=== PATIENT | female | born 1930 | race Caucasian/White ===

== ENCOUNTER 2017-01-26 13:00 | Inpatient (IN) | payer MEDICARE, BC ==
--- NOTE | 2017-02-05 21:05 | HP ---
HISTORY AND PHYSICAL: DATE OF SURGERY/ADMISSION: 02/11/17 PROCEDURE: Right total knee arthroplasty. CHIEF COMPLAINT: Right knee pain. HISTORY OF PRESENT ILLNESS: Ms. Coffman is an 86-year-old female with complaints of right knee pain se condary to advanced osteoarthritis. She has failed conservative management and has elected to proce ed with a right total knee arthroplasty which is scheduled for 02/11/[address] Lynne. PAST MEDICAL HISTORY: 1. Hypothyroidism. 2. Hypertension. 3. Hyperlipidemia. 4. Sleep apnea. 5. GERD. 6. Depression. 7. Hiatal hernia and she is legally blind. PAST SURGICAL HISTORY: 1. Hysterectomy. 2. . CURRENT MEDICATIONS: 1. Atorvastatin calcium 10 mg once a day. 2. Amlodipine 2.5 mg once a day. 3. Paxil 10 mg once a day. 4. Levothyroxine 75 mcg once a day. 5. Spironolactone 25 mg once a day. 6. Tylenol as needed. 7. Omeprazole 40 mg once a day. 8. Aspirin 81 mg once a day. ALLERGIES: ALTACE. FAMILY HISTORY: Pancreatic and lung cancer, heart disease. SOCIAL HISTORY: She is an 86-year-old female. She lives alone at [place]. She does not smoke or use drugs or alcohol. REVIEW OF SYSTEMS: A complete 14-point review of systems was reviewed with the patient. It was pos itive for hypothyroidism. PHYSICAL EXAMINATION GENERAL: She is well developed, well nourished. She is in no acute distress. She is alert and alyssia ented x3. Pleasant mood and appropriate affect. VITAL SIGNS: She stands 5 feet 3 inches tall, weighs 180 pounds. Her blood pressure is 154/70. He r heart rate is 68. HEENT: Normocephalic, atraumatic. NECK: Supple. No palpable lymph nodes. PULMONARY: The lungs are clear to auscultation. CARDIO: Regular rate and rhythm. Strong S1, S2. ABDOMEN: Soft, nontender, nondistended. NEUROLOGICAL: Cranial nerves II through XII are intact. MUSCULOSKELETAL: Right lower extremity: The skin is intact, no open wounds or abrasions. She has full range of motion of the right knee. Tenderness over the medial and lateral joint line. Moderat e joint effusion. Her lower extremity muscle group strengths are intact at 5/5. She has 2+ dorsali s pedis pulses and intact sensation. ASSESSMENT AND PLAN: Ms. Coffman is an 86-year-old female with complaints of right knee pain secondar y to advanced osteoarthritis. She has failed conservative management and has elected to proceed wit a right total knee arthroplasty which is scheduled for 02/11/[address] Lynne discuss ed the risks and benefits of the surgery at today's visit and all of her questions were answered. er primary care physician, Dr. Valdez, has medically cleared her for the procedure. She will follow up with Dr. Lynne 2 weeks after the surgery. Percocet, Colace, and Coumadin were all sent to her phar luis enrique today for postoperative DVT prophylaxis and pain control. LOBITO SANTANA [id number]/[facility] #: [id number]
[2017-02-10] MEDS ORDERED: Buffered Lidocaine 1% SYR 3ML* 3 ML/SYR SYRINGE INTRADERM ONE (11:57)
[2017-02-11] MEDS ORDERED: ceFAZolin 2 GM PREMIX(*) 2 GM/50 ML BAG IVPB ONE (10:39)
[2017-02-11] MEDS ORDERED: Buffered Lidocaine 1% SYRIN* 5 ML/SYR SYRINGE ONE (10:39)
[2017-02-11] MEDS ORDERED: Midazolam* 1 MG/ML 2 ML VIAL (2 MG) ONE ×2 (11:26→14:11)
[2017-02-11] MEDS ORDERED: fentaNYL* 50 MCG/ML 2 ML VIAL (100 MCG VIAL) ONE (11:26)
[2017-02-11] MEDS ORDERED: Morphine PF AMP (0.5MG/ML)* 5 MG/10 ML AMP ONE (13:15)
[2017-02-11] MEDS ORDERED: Bupivacaine 0.5% SDV PF* 30 ML VIAL ONE (14:33)
[2017-02-11] MEDS ORDERED: Ondansetron INJ* 2 MG/ML VIAL IV PRN ×2 (14:53→15:53)
[2017-02-11] MEDS ORDERED: oxyCODONE/Acetamin 5/325 MG* TAB PO PRN (14:53)
[2017-02-11] MEDS ORDERED: Nalbuphine* 20 MG/ML 1 ML VIAL IV PRN (14:54)
[2017-02-11] MEDS ORDERED: Naloxone* 0.4 MG/ML 1 ML VIAL IV PRN (14:54)
[2017-02-11] MEDS ORDERED: DiMENhydriNATE IV* 50 MG/ML VIAL IV PUSH PRN (14:54)
[2017-02-11] MEDS ORDERED: diPHENhydraMINE IV* 50 MG/ML 1 ml VIAL (BENADRYL) IV PRN (14:54)
[2017-02-11] MEDS ORDERED: Ondansetron TAB* 4 MG PO PRN (15:53)
[2017-02-11] MEDS ORDERED: Propofol* 10 MG/ML 20 ML BTL IV PUSH ONE (15:54)
[2017-02-11] MEDS ORDERED: Polyethylene Glycol 3350* 17 GM PACKET PO PRN (15:58)
[2017-02-11] MEDS ORDERED: Bisacodyl SUPP* 10 MG SUPP PR PRN (15:58)
[2017-02-11] MEDS ORDERED: Warfarin TAB(*) 6 MG PO ONE (17:00)
--- NOTE | 2017-02-11 18:22 | RAD ---
Indication: Right knee replacement. 2 views of the right knee demonstrates right knee replacement in satisfactory position. IMPRESSION: Right knee replacement in satisfactory position.
--- NOTE | 2017-02-11 19:20 | PN ---
Hospitalist Progress Note Spoke with Ortho PA earlier in the day regarding consult for this patient and later realized this is a primary patient of Dr. Valdez's Saw her briefly after surgery. She is feeling well, no complaints, no pain, still with residual analgesia from operation. On exam, pleasant elderly F, sitting up in bed in NAD, RRR, s1 and s2 present, no m/g/r, lungs CTA B/L, no w/r/r, NC in place, abd soft, NTND, BS hyperactive, R knee with cryounit in place. Meds reviewed. S/P R TKA Will hold Spironolactone for now. Continue Amlodipine. Placed order for patient to use her own CPAP tonight. Please contact Dr. Valdez in the morning to continue to follow.
[2017-02-11] MEDS: oxyCODONE/Acetamin 5/325 MG* TAB PO PRN (20:57)
[2017-02-11] MEDS: amLODIPine TAB* 5 MG PO SCH (20:58)
[2017-02-11] MEDS: Docusate CAP* 100 MG PO SCH (20:58)
[2017-02-11] MEDS: Omeprazole CAP* 20 MG PO SCH (20:58)
[2017-02-11] MEDS: Magnesium Hydroxide LIQ* 30 ML UDC PO SCH (20:58)
[2017-02-11] MEDS ORDERED: Spironolactone TAB* 25 MG PO SCH (21:00)
[2017-02-11] MEDS: ceFAZolin 1 GM in Dextrose (*) 1 GM/50 ML BAG IVPB SCH (21:31)
[2017-02-12] MEDS: oxyCODONE/Acetamin 5/325 MG* TAB PO PRN ×3 (00:29→23:52)
[2017-02-12] MEDS: Levothyroxine TAB* 75 MCG TAB PO SCH (06:23)
[2017-02-12] MEDS: ceFAZolin 1 GM in Dextrose (*) 1 GM/50 ML BAG IVPB SCH ×2 (06:23→13:49)
[2017-02-12 06:43] LABS: Hematocrit 29 % (35-47); Hemoglobin 9.5 g/dl (12.0-16.0)
[2017-02-12 06:51] LABS: BUN/Creatinine Ratio 21.2 (8-20); Calcium 8.4 mg/dL (8.6-10.3); EGFR African American 81.6 (>60); EGFR Non-African American 63.4 (>60); Potassium 4.2 mmol/L (3.5-5.0)
[2017-02-12] MEDS ORDERED: Morphine INJ* 10 MG/ML 1 ML SYRINGE IV PRN (06:54)
[2017-02-12] MEDS ORDERED: diPHENhydraMINE PO* 25 MG PO PRN (06:54)
[2017-02-12] MEDS ORDERED: oxyCODONE/Acetamin 5/325 MG* TAB PO PRN (06:54)
[2017-02-12] MEDS ORDERED: diPHENhydraMINE IV* 50 MG/ML 1 ml VIAL (BENADRYL) IV PRN (06:54)
[2017-02-12] MEDS ORDERED: oxyCODONE TAB* 5 MG TAB PO PRN (06:54)
[2017-02-12] MEDS: Docusate CAP* 100 MG PO SCH ×2 (07:32→20:20)
[2017-02-12] MEDS: Magnesium Hydroxide LIQ* 30 ML UDC PO SCH ×2 (07:32→20:20)
[2017-02-12] MEDS: PARoxetine HCL TAB* 10 MG PO SCH (07:32)
--- NOTE | 2017-02-12 07:59 | PN ---
Progress Note - Progress Note SOAP: Subjective: 86 year old female s/p R total knee 02/[address] Lynne. patient reports feeling well overall, pain controlled, eating well. Afebrile overnight, VSS Objective: General- Well appearing, NAD resting comfortably MSK- SUrgical dressing intact, no drainage noted, neg homans b/l, sensation grossly intact b/l LEs PT 2+ b/l LEs, + DF/PF b/l. Vital Signs Temp 97.7 F 02/12/17 03:15 Pulse 55 02/12/17 03:15 Resp 16 02/12/17 07:32 BP 118/41 02/12/17 03:15 Pulse Ox 96 02/12/17 03:15 Intake & Output 02/11/17 02/12/17 02/12/17 18:59 06:59 18:59 Intake Total 1500 1320 Output Total 150 1025 Balance 1350 295 Weight 178 lb 9.6 oz Intake: IV Fluids 1500 465 LR 1500 465 IVPB 55 LR 55 Oral 800 Output: Govea 150 1025 Other: # Bowel Movements 0 Laboratory Results - last 24 hr 02/12/17 02/12/17 02/12/17 06:10 06:10 06:10 Hgb 9.5 L Hct 29 L INR (Anticoag Therapy) 0.96 Sodium 132 L Potassium 4.2 Chloride 103 Carbon Dioxide 24 Anion Gap 5 BUN 18 Creatinine 0.85 Est GFR ( Amer) 81.6 Est GFR (Non-Af Amer) 63.4 BUN/Creatinine Ratio 21.2 H Glucose 136 H Calcium 8.4 L Assessment: 86 year old female s/p R total knee 02/[address] Lynne Plan: - DVT- lovenox, coumadin- 6mg tonight. - Called DR. Solis office, left message for patient to be seen in house. - COntinue PT/ OT - Attempt to wean from O2 throughout the day Active Medications Generic Name Dose Route Start Last Admin Trade Name Freq PRN Reason Stop Dose Admin Acetaminophen 650 mg 02/11/17 15:53 Tylenol Tab* PO Q4H PRN mild pain or fever Amlodipine Besylate 2.5 mg 02/11/17 18:00 02/11/17 20:58 Norvasc Tab* PO 2.5 mg QPM MASOUD Administration Bisacodyl 10 mg 02/11/17 15:58 Dulcolax Supp* UT DAILY PRN constipation Diphenhydramine HCl 12.5 mg 02/12/17 06:54 Benadryl Iv* IV Q6H PRN PRURITIS Diphenhydramine HCl 25 mg 02/12/17 06:54 Benadryl Po* PO Q6H PRN insominia Docusate Sodium 100 mg 02/11/17 21:00 02/12/17 07:32 Colace Cap* PO 100 mg BID MASOUD Administration Enoxaparin Sodium 30 mg 02/12/17 16:00 Lovenox(*) SUBCUT Q24H MASOUD Cefazolin Sodium/Dextrose 1 gm in 50 mls @ 200 mls/hr 02/11/17 22:00 06:23 Kefzol 1 Gm In Dextrose Duplex (*) IVPB 02/12/17 14:14 200 mls/hr Q8H MASOUD Administration Lactated Ringer's 1,000 mls @ 100 mls/hr 02/11/17 16:00 02/11/17 19:01 Lactated Ringers 1000 Ml Bag* IV 100 mls/hr PER RATE MASOUD Administration Lactulose 30 ml 02/11/17 15:58 Lactulose* PO Q6H PRN constipation Levothyroxine Sodium 75 mcg 02/12/17 06:00 02/12/17 06:23 Synthroid Tab* PO 75 mcg 0600 MASOUD Administration Magnesium Hydroxide 30 ml 02/11/17 21:00 02/12/17 07:32 Milk Of Magnesia Liq* PO 30 ml BID MASOUD Administration Morphine Sulfate 5 mg 02/12/17 06:54 Morphine Inj (Syringe)* IV Q2H PRN PAIN Omeprazole 40 mg 02/11/17 18:00 02/11/17 20:58 Prilosec Cap* PO 40 mg QPM MASOUD Administration Ondansetron HCl 4 mg 02/11/17 15:53 Zofran Inj* IV Q6H PRN nausea Ondansetron HCl 4 mg 02/11/17 15:53 Zofran Tab* PO Q6H PRN NAUSEA Oxycodone HCl 10 mg 02/12/17 06:54 Roxycodone Tab* PO Q4H PRN breakthrough pain Oxycodone/Acetaminophen 1 tab 02/11/17 14:53 Percocet 5/325 Tab* PO 02/12/17 14:54 ONCE PRN PAIN - MODERATE Oxycodone/Acetaminophen 1 tab 02/12/17 06:54 Percocet 5/325 Tab* PO Q3H PRN PAIN - MODERATE Oxycodone/Acetaminophen 2 tab 02/12/17 06:54 02/12/17 07:32 Percocet 5/325 Tab* PO 2 tab Q3H PRN Administration PAIN - MODERATE Paroxetine HCl 10 mg 02/12/17 09:00 02/12/17 07:32 Paxil Tab* PO 10 mg QAM MASOUD Administration Polyethylene Glycol/Electrolytes 17 gm 02/11/17 15:58 Miralax* PO DAILY PRN Constipation
--- NOTE | 2017-02-12 15:12 | OP ---
OPERATIVE NOTE: DATE OF OPERATION: 02/11/17 DATE OF : 30 ATTENDING SURGEON: Gertrudis Lynne MD ALGOLOGIST: LOBITO Schroeder Ms. did help throughout the procedure with preparation of the leg, wound retraction, manipu lation of the knee, and wound closure. ANESTHESIOLOGIST: Yanet Smith MD ANESTHESIA: Spinal with adductor nerve block. PRE-OP DIAGNOSIS: Severe end-stage degenerative osteoarthritis of the right knee joint. POST-OP DIAGNOSIS: Severe end-stage degenerative osteoarthritis of the right knee joint. OPERATIVE PROCEDURE: Right total knee arthroplasty. COMPLICATIONS: None. TOURNIQUET TIME: 47 minutes. SPECIMEN: Bone and cartilage from the right knee joint sent to pathology. HARDWARE: Cemented [employer] total knee hardware with 2 packages of Simplex bone cement. Fo r the femur, a size 5 right posterior stabilized narrow femoral component. For the tibia, a size 3 tibial base plate. For the patella, a 32 mm, 7.5 thickness, three-peg, all-poly patella; and for th e insert, a 9 mm posterior stabilized articular insert. BRIEF HISTORY/INDICATION: Ms. Coffman is an 86-year-old female with years of increasingly severe right knee pain. She failed conservative treatment with anti- inflammatory pain medications, intraarticu lar injection, brace wear, and ambulatory assistive devices. She elected to undergo a right total k nee arthroplasty due to continued pain and decreased quality of life. Informed consent was obtained from the patient. She understood the risks of the procedure included, but were not limited to, ble eding, infection, damage to nearby structures, continued pain, need for further surgery, intraoperat micah fracture, nerve palsy, hardware failure or loosening, stiffness, loss of motion, stroke, heart a ttack, blood clot, and . She wished to proceed. INTRAOPERATIVE FINDINGS: Intraoperatively, the patient was noted to have severe end-stage arthritis with complete loss of cartilage in the medial and patellofemoral compartments. Her medial tibial p lateau had significant bone and deformity. DESCRIPTION OF PROCEDURE: Ms. Coffman was identified in the preoperative unit. Her right lower extrem ity was marked as the correct operative side. Informed consent was signed and placed in the chart. The patient was taken to the operating room and placed under spinal anesthesia with an adductor ner ve block. A Govea catheter was placed. Thigh-high tourniquet was placed on the right thigh. Right lower extremity was prepped and draped in the usual sterile fashion. Preop time-out was made to co rrectly identify the patient's side and site. Appropriate perioperative antibiotics were given with in 1 hour of incision. Tourniquet was inflated and total tourniquet time for this procedure was 47 minutes. A 12-cm midlin e incision was made with a 10 blade and carried down to the extensor mechanism. A new 10 blade was used to make a standard medial parapatellar arthrotomy. Patella was subluxed laterally. Electrocautery was used to subperiosteally elevate soft tissue off the superomedial tibia to the mid sagittal plane. Any osteophytes were carefully removed. The knee was flexed up. A drill was used to enter the distal femur. Intramedullary distal femoral cutting guide was placed and pinned into position. Oscillating saw was used to make the distal femoral cut. External rotation guide was placed on the distal femur and the distal femur was sized to a size 5. Size 5 multi-cutting jig was pinned on the distal femur. The 4-chamfer cuts were made with an osc illating saw. ACL and PCL were completely released. The extramedullary tibial cutting guide was placed on the pro ximal tibia and pinned into place. The oscillating saw was used to make a cut perpendicular to the mechanical axis of the tibia. The bone was carefully removed. The knee was brought out into full e xtension. The spacer block had good medial and lateral ligamentous balancing. Flexion and extensio n gaps were well balanced. The knee was flexed up. Lamina hot dog vender was placed both medially and laterally. Any remaining menis cus was carefully removed with electrocautery. Any remaining posterior osteophytes were removed usi ng curved osteotome and curette. A size 5 right narrow femoral trial was placed and had good fit on the distal femur. The box for e posterior stabilized implant was prepared using a reamer and box cut osteotome. Trial size 3 tibi al tray and 9-mm insert trial were placed. The knee was taken through a range of motion and noted to be stable in all positions. There was full extension to 125 degrees of flexion. Good patellofemor al tracking. Patella was everted. 7 mm of patellar bone and cartilage were carefully removed. The patella was sized to a size 32. The 3 peg holes were drilled through the size 32 guide. The 32 tr ial patella was placed and the knee was taken through a range of motion. There was good patellofemo ral tracking. All trials were carefully removed. The tibia was subluxed anteriorly and sized to a size 3. Proxim al tibia was prepared using a size 3 keel punch. All bony cut surfaces were copiously irrigated wit h sterile saline and dried. Final implants were cemented into place starting with the tibia followe d by the femur and lastly the patella. A 9-mm insert trial was placed while the knee was brought ou t into full extension. Cement was allowed to fully cure and tourniquet was turned down at 47 minute s. Once the cement was fully cured, the insert trial was removed. All excess cement was carefully removed from around the implants and capsule. Electrocautery was used to obtain meticulous hemostasi s. The knee was copiously irrigated with sterile saline. The extensor mechanism was closed over a medium Hemovac drain using interrupted #1 Vicryls. The res t of the incision was closed in a layered fashion using 0 and 2-0 Vicryls. Skin was closed using ru nning 3-0 nylon suture. Sterile Xeroform, 4 x 4's, and Webril were used to cover the incision. Obi wrap and cold pack were placed over this. The patient's anesthesia was reversed without difficulty. She was taken to the PACU in stable condi tion. Intended weightbearing will be weightbearing as tolerated. Intended DVT prophylaxis will be Coumadin with a Lovenox bridge. [id number]/[facility] #: [id number]
[2017-02-12] MEDS: Enoxaparin(*) 30 MG/0.3 ML SYR SUBCUT SCH (15:19)
[2017-02-12] MEDS ORDERED: Warfarin TAB(*) 6 MG PO ONE (17:00)
[2017-02-12] MEDS: amLODIPine TAB* 5 MG PO SCH (17:32)
[2017-02-12] MEDS: Omeprazole CAP* 20 MG PO SCH (17:32)
[2017-02-12] MEDS: Acetaminophen TAB* 325 MG PO PRN ×2 (17:35→22:05)
[2017-02-13] MEDS: oxyCODONE/Acetamin 5/325 MG* TAB PO PRN ×4 (04:45→23:01)
[2017-02-13] MEDS: Levothyroxine TAB* 75 MCG TAB PO SCH (05:49)
[2017-02-13 05:50] LABS: Hematocrit 29 % (35-47); Hemoglobin 9.1 g/dl (12.0-16.0)
[2017-02-13] MEDS: PARoxetine HCL TAB* 10 MG PO SCH (08:17)
[2017-02-13] MEDS: Magnesium Hydroxide LIQ* 30 ML UDC PO SCH ×2 (08:17→20:29)
[2017-02-13] MEDS: Docusate CAP* 100 MG PO SCH ×2 (08:17→20:29)
--- NOTE | 2017-02-13 11:14 | PN ---
Progress Note - Progress Note SOAP: Subjective: 86 year old female s/p R total knee 02/[address] Lynne. patient reports feeling well overall, pain controlled, eating well. Afebrile overnight, VSS Objective: General- Well appearing, NAD resting comfortably MSK- SUrgical dressing changed today, incision is well approximated with no drainage or erythema. neg homans b/l, sensation grossly intact b/l LEs PT and DP 2+ b/l LEs, + DF/PF b/l. Vital Signs Temp 98.5 F 02/13/17 07:44 Pulse 63 02/13/17 07:44 Resp 18 02/13/17 08:17 BP 129/58 02/13/17 07:44 Pulse Ox 94 02/13/17 07:44 Intake & Output 02/12/17 02/13/17 02/13/17 18:59 06:59 18:59 Intake Total 2043 1780 Output Total 575 700 Balance 1468 1080 Intake: IV Fluids 1509 980 LR 1509 980 IVPB 114 ABX - CEFAZOLIN 114 Oral 420 800 Output: Urine 150 Govea 425 700 Assessment: 86 year old female s/p R total knee 02/[address] Lynne Plan: - DVT- lovenox, coumadin- hold tonight - COntinue PT/ OT - Continue current pain medication
[2017-02-13] MEDS: Omeprazole CAP* 20 MG PO SCH (17:01)
[2017-02-13] MEDS: amLODIPine TAB* 5 MG PO SCH (17:01)
[2017-02-13] MEDS: Enoxaparin(*) 30 MG/0.3 ML SYR SUBCUT SCH (17:06)
[2017-02-13] MEDS: Acetaminophen TAB* 325 MG PO PRN (20:29)
[2017-02-14] MEDS: Levothyroxine TAB* 75 MCG TAB PO SCH (05:53)
[2017-02-14] MEDS: PARoxetine HCL TAB* 10 MG PO SCH (07:31)
[2017-02-14] MEDS: oxyCODONE/Acetamin 5/325 MG* TAB PO PRN (07:31)
[2017-02-14] MEDS: Docusate CAP* 100 MG PO SCH (07:31)
[2017-02-14] MEDS: Magnesium Hydroxide LIQ* 30 ML UDC PO SCH (07:32)
[2017-02-14 08:01] LABS: Hematocrit 27 % (35-47); Hemoglobin 8.6 g/dl (12.0-16.0)
[2017-02-14 08:12] VITALS: BP 125/46
--- NOTE | 2017-02-14 08:54 | PN ---
Progress Note - Progress Note SOAP: Subjective: 86 year old female s/p R total knee 02/[address] Lynne. patient reports feeling well overall, pain controlled, eating well. Afebrile overnight, VSS Objective: General- Well appearing, NAD resting comfortably MSK- Dressing is clean, dry and intact. neg homans b/l, sensation grossly intact b/l LEs PT and DP 2+ b/l LEs, + DF/PF b/l. Vital Signs Temp 98.4 F 02/14/17 08:07 Pulse 61 02/14/17 08:07 Resp 15 02/14/17 08:07 BP 125/46 02/14/17 08:07 Pulse Ox 99 02/14/17 08:07 Intake & Output 02/13/17 02/14/17 02/14/17 18:59 06:59 18:59 Intake Total 841 100 Output Total 700 450 Balance 141 -350 Intake: IV Fluids 201 0 ABX - CEFAZOLIN 0 LR 201 IVPB 0 LR 0 Oral 640 100 Output: Urine 700 450 Other: Estimated Void Medium # Voids 1 Assessment: 86 year old female s/p R total knee 02/[address] Lynne Plan: - Pt is deemed stable for discharge today -DVT- Coumadin- hold tonight - Continue PT at home - Continue Percocet 5 for pain management at home
== END 2017-02-14 11:18 | DRG 470 ==
LOC: AA 02-11 10:37 → SSU 02-11 15:53 → PMRU 02-14 11:03
PROVIDERS: ADMIT Orthopaedic Surgery Adult Reconstructive Orthopaedic Surgery; ATTEND Orthopaedic Surgery Adult Reconstructive Orthopaedic Surgery
PROC: 0SRC0J9 Replacement of Right Knee Joint with Synthetic Substitute, Cemented, Open Approach (ICD-10-PCS; principal; 2017-02-11 13:00)
DX: M17.11 Unilateral primary osteoarthritis, right knee (principal); I65.21 Occlusion and stenosis of right carotid artery; I10 Essential (primary) hypertension; E03.9 Hypothyroidism, unspecified; E78.5 Hyperlipidemia, unspecified; G47.33 Obstructive sleep apnea (adult) (pediatric); K21.9 Gastro-esophageal reflux disease without esophagitis; F32.9 Major depressive disorder, single episode, unspecified; K44.9 Diaphragmatic hernia without obstruction or gangrene; H54.8 Legal blindness, as defined in USA; Z90.710 Acquired absence of both cervix and uterus; Z88.8 Allergy status to other drugs, medicaments and biological substances; Z80.0 Family history of malignant neoplasm of digestive organs; Z80.1 Family history of malignant neoplasm of trachea, bronchus and lung; Z82.49 Family history of ischemic heart disease and other diseases of the circulatory system; M25.761 Osteophyte, right knee
CPT/HCPCS: 36415; 80048; 80053; 85014; 85018; 85025; 85610; 88305; 88311; 94760; A9270-GY; C1776; J0690; J1650; J2250; J2704; J3010

== ENCOUNTER 2017-02-14 11:19 | Inpatient (IN) | payer MEDICARE, BC ==
[2017-02-14] MEDS: oxyCODONE/Acetamin 5/325 MG* TAB PO PRN ×2 (15:29→19:29)
[2017-02-14] MEDS: Omeprazole CAP* 20 MG PO SCH (16:41)
[2017-02-14] MEDS: amLODIPine TAB* 5 MG PO SCH (16:41)
[2017-02-14] MEDS ORDERED: Warfarin TAB(*) 1 MG PO SCH (17:00)
[2017-02-14] MEDS ORDERED: Al Hydrox/Mg Hydrox/Simet LIQ* 30 ML UDC PO PRN (19:55)
[2017-02-14] MEDS: Docusate CAP* 100 MG PO SCH (20:00)
[2017-02-14] MEDS ORDERED: Senna TAB PO PRN (21:00)
--- NOTE | 2017-02-14 21:48 | HP ---
ADMISSION HISTORY AND PHYSICAL: DATE OF ADMISSION: 02/14/17 REASON FOR ADMISSION: Right total knee replacement. HISTORY OF PRESENT ILLNESS: Yane Coffman is an 86-year-old female. She has a medical history significant for hypothyroidism as well as having had an episode of coffee-ground emesis in 2015. The patient has had ongoing difficulties with her right knee for many years. She tried and failed conservative treatment including injections with Hyalgan, and walking with a cane. She saw Dr. Lynne and it was decided the best course of action would be for her to have a total knee replacement. [facility] She underwent the total knee replacement that day. Postoperative course was largely benign. She was put on Lovenox and Coumadin for DVT prophylaxis. She has been slow to mobilize. She is felt to have physical therapy and occupational therapy needs. She is now being admitted for inpatient rehab so that she might return to independent living. PAST MEDICAL HISTORY: Significant for hypothyroidism. In addition, she had a history of a coffee-ground emesis in April 2016. She was treated with proton pump inhibitors for that. She has a history of obstructive sleep apnea as well as gastroesophageal reflux disease. She is legally blind as well. CURRENT MEDICATIONS: Include: 1. Norvasc. 2. Synthroid. 3. Prilosec. 4. Paxil. 5. Coumadin 6. Percocet for DVT prophylaxis. ALLERGIES: To RAMIPRIL. SOCIAL HISTORY: She is a nonsmoker, nondrinker. She lives at [place] in her own apartment. There are no steps to enter. REVIEW OF SYSTEMS: The patient reports no shortness of breath or chest pain. PHYSICAL EXAMINATION VITAL SIGNS: The patient's temperature is 98.0, blood pressure is 123/47, pulse is 73, respirations 16. HEENT: Her extraocular movements are intact. Tongue is midline. NECK: Supple. LUNGS: Sound clear to auscultation bilaterally. HEART: Sounds are regular. S1 and S2 audible. ABDOMEN: Soft and nontender. EXTREMITIES: Her right knee has a wound which is clean and dry. Peripheral pulses were intact. NEUROLOGIC: She is awake, alert, oriented. Muscle strength is 5/5 in both upper and lower extremities except the right leg, which is 3/5 secondary to pain. FUNCTIONAL EXAM: She transfers with moderate assist. ASSESSMENT: Right total knee replacement. PLAN: Our plan is to integrate her into a comprehensive and therapeutic rehab program. We will have the following goals: 1. Physical Therapy will work with the patient. They are going to work on functional transfer training, ambulation training with a walker. 2. Occupational Therapy will see the patient, work on her activities of daily living, including toileting and toilet transfers. 3. Coumadin for DVT prophylaxis. 4. Adequate analgesia. 5. Her bowels will be regulated. 6. rehabilitation services manager will be closely involved to make sure that any services and equipment that the patient requires are in place prior to discharge. 7. Continue omeprazole for GI prophylaxis. 8. Continue Synthroid for hypothyroidism. 9. Family training as appropriate. 10. Advance directives: The patient is a full code. She does have a healthcare proxy. 11. Home with appropriate services. ESTIMATED LENGTH OF STAY: Twelve days. [id number]/[facility] #: [id number] STEVE
[2017-02-15] MEDS: oxyCODONE/Acetamin 5/325 MG* TAB PO PRN ×4 (00:10→19:57)
[2017-02-15 06:22] LABS: Hematocrit 26 % (35-47); Hemoglobin 8.5 g/dl (12.0-16.0); Mean Corpuscular HGB Conc 33 g/dl (31-36); Mean Corpuscular Hemoglobin 27 pg (27-31); Mean Corpuscular Volume 83 fL (80-97); Mean Platelet Volume 8 um3 (7.4-10.4); Red Blood Count 3.12 10^6/ul (4.0-5.4); Red Cell Distribution Width 15 % (10.5-15); White Blood Count 8.6 10^3/ul (3.5-10.8)
[2017-02-15] MEDS: Levothyroxine TAB* 75 MCG TAB PO SCH (06:22)
[2017-02-15 06:57] LABS: BUN/Creatinine Ratio 14.7 (8-20); Calcium 8.2 mg/dL (8.6-10.3); EGFR African American 71.7 (>60); EGFR Non-African American 55.8 (>60); Total Bilirubin 1.2 mg/dL (0.2-1.0)
[2017-02-15] MEDS: Docusate CAP* 100 MG PO SCH ×2 (09:27→19:57)
[2017-02-15] MEDS: PARoxetine HCL TAB* 10 MG PO SCH (09:27)
[2017-02-15] MEDS: Omeprazole CAP* 20 MG PO SCH (16:41)
[2017-02-15] MEDS: Warfarin TAB(*) 2 MG PO SCH (17:17)
[2017-02-15] MEDS: amLODIPine TAB* 5 MG PO SCH (17:18)
[2017-02-16] MEDS: oxyCODONE/Acetamin 5/325 MG* TAB PO PRN ×4 (01:09→21:58)
[2017-02-16] MEDS: Levothyroxine TAB* 75 MCG TAB PO SCH (05:40)
[2017-02-16] MEDS: PARoxetine HCL TAB* 10 MG PO SCH (08:40)
[2017-02-16] MEDS: Docusate CAP* 100 MG PO SCH ×2 (08:40→20:48)
--- NOTE | 2017-02-16 12:28 | PMRUTEAM ---
PMRU: Goals Current Status: Nursing: Current Status Skin Deviations [Right Knee] Incision Skin Deviation Description [ cryo unit in place Right Knee] Physical Therapy: Current Status Bed Mobility Assistance Min Assist,Mod Assist,2 or More Person Assist Transfer Moblility Assistance Contact Guard Assist Transfer/Bed Mobility Rolling Walker Recommended Devices Transfer Mobility Comment Pt. is slow and cautious with transfers usng a 2 w /w. Ambulation Assistance Contact Guard Assist,Min Assist Ambulation Assistive Devices Rolling Walker Number of Feet Patient 40' x 2 Ambulated Ambulation Comment Pt. presents a step to type gait pattern. Stairs Assistance Not Tested Curb Not Tested Occupational Therapy: Current Status Upper Body Dressing Supervision Lower Body Dressing Mod Assist Bathing Min Assist Toileting Contact Guard Assist,Min Assist Toilet Transfer Min Assist Shower Transfer Progress TBA Eating Ind with Adaptive Equip Rec Therapy: Current Status Summary of Assessment and RT assessment complete and pt. is aware of Clinical Impression services. Pt. brightens during visits and is open to leisure sessions on the unit. Treatment Goals Pt. will engage in leisure activities while on the unit. Treatment Plan Provide RT services and encourage involvement. Social Work: Current Status Discharge Plan return home to [facility] with home care svs and support from friends Potential for Family Training TBD Anticipated Discharge Home Destination Discharge With support from [facility], friends and [facility] Nutrition: Current Status Monitoring pt typically eats fairly well at [facility]; eats all meals in [facility]. Eating 50-100% of meals here. Regular diet appropriate. She is legally blind; needs asst w/menu selections, but can feed herself w/set-up. Coumadin/vit K education provided 02/12 (on [facility]). Daily BMs since 02/13. Appears to be meeting goals as outlined below. Goals: Physical Therapy: Initial Goals Bed Mobility Assistance Supervision Transfer Mobility Assistance Supervision Transfer/Bed Mobility Rolling Walker,Railings Recommended Devices Ambulation Supervision Ambulation Recommended Devices Rolling Walker Ambulation Distance 250 Stairs Assistance Supervision Stair Recommended Devices Two Rails Number of Stairs 5 Home Exercise Program Supervision Assistance Physical Therapy: Updated Goals Bed Mobility Assistance Independent Transfer Mobility Assistance Supervision Transfer/Bed Mobility Rolling Walker Recommended Devices Ambulation Assistance Supervision Ambulation Assistive Devices Rolling Walker Ambulation Distance (ft) 250 Stairs Assistance Supervision Stairs Recommended Devices Two Rails Number of Stairs 5 Home Exercise Program Supervision Assistance Occupational Therapy: Initial Goals Goals to be Completed in (Days 5-7 days ) Upper Body Bathing Routine Independent Lower Body Bathing Routine Modified Independent with Lower Body Bathing Assistive using AE as necessary Devices Comment Upper Body Dressing Routine Independent Lower Body Dressing Routine Modified Independent with Lower Body Dressing Assistive using AE as necessary Devices Toilet Hygeine and Clothing Modified Independent with Management Routine Toilet Transfer Routine Modified Independent with Step-In Shower Transfer Modified Independent with Routine Functional Transfers for ADL Modified Independent with Grooming Routine Independent Feeding Routine Independent Light Housekeeping Tasks Modified Independent with Nutrition: Goals Intervention Goals 1. adequate po intake to support post-op healing and maintenance of lean body mass 2. regulated post-op bowel pattern without c/o constipation (or diarrhea) 3. any further ed needs r/t Coumadin will be addressed as needed Social Work: Goals Discharge Plan return home to [facility] with home care svs and support from friends Potential for Family Training TBD Anticipated Discharge Home Destination Discharge With support from [facility], friends and [facility] Occupational Therapy: Updated Goals Lower Body Bathing Routine Independent Lower Body Dressing Routine Independent Toilet Transfer Routine Independent Toilet Hygiene and Clothing Independent Management Routine Step-In Shower Transfer Independent Routine Light Housekeeping Tasks Independent Care Plan: Care Plan Cardiovascular- Improve/Maintain Start: 02/14/17 15:45 Freq: DAILY Status: Active Target: Activity Type Activity Date Activity User E-Sign Co-Sign Detail Recorded Client Recorded Date Recorded By Document 02/16/17 02:31 [id number] 02/16/17 02:33 [id number] 02/16/17 02:31 PMRU Outcome: Cardiovascular Vital Signs q Shift for 48hrs Then BID Yes Daily Weight Ordered No Current Cardiovascular Outcome/Goal Maintain/ Achieve Baseline HR, BP , Perfusion Improve HR Within Prescribed Parameters Free of Abnormal Cardiac Symptoms Progression Toward Outcome/Goal Progressing Communication-Improve/Maintain Start: 02/14/17 15:45 Freq: DAILY Status: Active Target: Activity Type Activity Date Activity User E-Sign Co-Sign Detail Recorded Client Recorded Date Recorded By Document 02/15/17 20:00 [id number] 02/15/17 21:28 [id number] 02/15/17 20:00 PMRU Outcome: Communication/Cognitive Status Outcome/Goals Makes Needs Known Effectively Progression Toward Outcomes/Goals Progressing Coping/Psych-Improve/Maintain Start: 02/14/17 15:45 Freq: DAILY Status: Active Target: Activity Type Activity Date Activity User E-Sign Co-Sign Detail Recorded Client Recorded Date Recorded By Document 02/16/17 02:31 [id number] 02/16/17 02:33 [id number] 02/16/17 02:31 PMRU Outcome: Coping/Psychosocial Coping Outcome/Goals Verbalization of Acceptance of Rehab Admit Verbalization of Sense of Control Over Health Status Utilization of Appropriate Problem Solving Techniques Willingness to Participate in Treatment Plan and Basic Needs Psychosocial Outcome/Goals Maintain/ Improve Emotional Health Demonstrates Knowledge of Healthy Coping Mechanisms Available Cooperate/ Participate in Plan Progression Toward Outcome/Goals - Progressing Coping Progression Toward Outcome/Goals - Progressing Psychosocial DVT Prophylaxis- Improve/Maintain Start: 02/14/17 15:45 Freq: DAILY Status: Active Target: Activity Type Activity Date Activity User E-Sign Co-Sign Detail Recorded Client Recorded Date Recorded By Document 02/16/17 02:31 [id number] 02/16/17 02:33 [id number] 02/16/17 02:31 PMRU Outcome: DVT Prophylaxis Outcome/Goals Remains Free of DVT Complies with DVT Prophylaxis /Treatment Demonstrates Knowledge of DVT Prevention/ Treatment TEDS Stockings on Every AM, Off at HS Progression Toward Outcome/Goals Progressing Discharge Planning - Improve/Maintain Start: 02/14/17 15:45 Freq: DAILY Status: Active Target: Activity Type Activity Date Activity User E-Sign Co-Sign Detail Recorded Client Recorded Date Recorded By Document 02/15/17 20:00 [id number] 02/15/17 21:28 [id number] 02/15/17 20:00 PMRU Outcome: Discharge Planning Identify Patient Needs yes Update Patient Family No Outcome/Goals Demonstrates Understanding of Discharge Plan Progression Toward Outcome/Goals Progressing Education-Improve/Maintain Start: 02/14/17 15:45 Freq: DAILY Status: Active Target: Activity Type Activity Date Activity User E-Sign Co-Sign Detail Recorded Client Recorded Date Recorded By Document 02/16/17 02:31 [id number] 02/16/17 02:33 [id number] 02/16/17 02:31 PMRU Outcome: Education Outcome/Goals Demonstrate/ Verbalize Understanding of Written Discharge Instructions Demonstrates Skills Encourage Questions Progression Toward Outcome/Goals Progressing /GI-Improve/Maintain Start: 02/14/17 15:45 Freq: DAILY Status: Active Target: Activity Type Activity Date Activity User E-Sign Co-Sign Detail Recorded Client Recorded Date Recorded By Document 02/16/17 02:31 [id number] 02/16/17 02:33 [id number] 02/16/17 02:31 PMRU Outcome: Genitourinary/ Gastrointestinal Genitourinary- Outcome/Goals Maintain/ Achieve Urinary Continence Maintain/ Achieve Adequate Urinary Output Remain Free of Hospital- Acquired UTI Gastrointestinal-Outcome/Goals Maintain/ Achieve Bowel Regularity in Accordance with Pt's Baseline Remain Free of Emesis Prevent Constipation Progression Toward Outcome/Goals - Progressing Progression Toward Outcome/Goals - GI Progressing Outcome/Goals Met Comment pt up to BR Medication Administration Start: 02/14/17 15:45 Freq: DAILY Status: Active Target: Activity Type Activity Date Activity User E-Sign Co-Sign Detail Recorded Client Recorded Date Recorded By Document 02/16/17 02:31 [id number] 02/16/17 02:33 [id number] 02/16/17 02:31 PMRU Outcome: Medication Administration Assess Patient Knowledge/Teach Med Yes Education for all Meds Outcome/Goals Family/ Caregiver Administer Medications at Home Demonstrates Understanding Progression Towards Outcome/Goals Progressing Is Patient Going Home on Lovenox? No Mobility- Improve/Maintain Start: 02/14/17 15:45 Freq: DAILY Status: Active Target: Activity Type Activity Date Activity User E-Sign Co-Sign Detail Recorded Client Recorded Date Recorded By Document 02/15/17 15:12 [id number] 02/15/17 15:12 [id number] 02/15/17 15:12 PMRU Outcome: Mobility Physical Therapy Evaluation and Yes Treatment Activity OOB with Assistance Yes WBAT Yes Device Yes Assistance Yes Patient to be seen 5x/wk for 60-120 min/ Therex day for: Mobility Training Gait Training Outcome/Goals Maintain/ Achieve Baseline Mobility Status Demonstrates Proper Use of Assistive Devices Free from Complications of Immobility Progression Toward Outcome/Goals Progressing Bed Mobility Yes Transfers Yes Gait x ft Yes Up/Down Stairs Yes With HEP Yes Neurological- Improve/Maintain Start: 02/14/17 15:45 Freq: DAILY Status: Active Target: Activity Type Activity Date Activity User E-Sign Co-Sign Detail Recorded Client Recorded Date Recorded By Document 02/16/17 02:31 [id number] 02/16/17 02:33 [id number] 02/16/17 02:31 PMRU Outcome: Neurological Weakness/Aphasia Weakness Right Side Outcome/Goals Maintain/ Improve Strength/ROM Progression Toward Outcome/Goals Progressing Pain/Comfort- Improve/Maintain Start: 02/14/17 15:45 Freq: DAILY Status: Active Target: Activity Type Activity Date Activity User E-Sign Co-Sign Detail Recorded Client Recorded Date Recorded By Document 02/16/17 02:31 [id number] 02/16/17 02:33 [id number] 02/16/17 02:31 PMRU Outcome: Pain/Comfort Outcome/Goals Demonstrates Knowledge and Use of Available Comfort Measures Achieves Acceptable Comfort/Pain Level as Determined by Patient/Condit Maintain Comfort Level Allowing Patient to Fully Participate in Rehab Progression Toward Outcome/Goals Progressing Outcome/Goals Met Comment 1 Percocet given Respiratory - Improve/Maintain Start: 02/14/17 15:45 Freq: DAILY Status: Active Target: Activity Type Activity Date Activity User E-Sign Co-Sign Detail Recorded Client Recorded Date Recorded By Document 02/16/17 02:31 [id number] 02/16/17 02:33 [id number] 02/16/17 02:31 PMRU Outcome: Respiratory Does Patient Have a Trach No Outcome/Goals Maintain/ Improve Baseline Respiratory Status Maintain/ Improve Activity Tolerance Progression Toward Outcome/Goals Progressing Safety- Improve/Maintain Start: 02/14/17 15:45 Freq: DAILY Status: Active Target: Activity Type Activity Date Activity User E-Sign Co-Sign Detail Recorded Client Recorded Date Recorded By Document 02/16/17 02:31 [id number] 02/16/17 02:33 [id number] 02/16/17 02:31 PMRU Outcome: Safety Outcome/Goals Remain Free of Injury or Harm Cooperates with Safety Measures for Least Restrictive Environment Prevent Falls/ Injury Progression Toward Outcome/Goals Progressing Outcome/Goals Met Comment PA in place Skin- Improve/Maintain Start: 02/14/17 15:45 Freq: DAILY Status: Active Target: Activity Type Activity Date Activity User E-Sign Co-Sign Detail Recorded Client Recorded Date Recorded By Document 02/16/17 02:31 [id number] 02/16/17 02:33 [id number] 02/16/17 02:31 PMRU Outcome: Skin Skin Risk Level Low Outcome/Goals Maintain/ Improve Skin Intergrity Surgical Incisions Healing Progression Toward Outcome/Goals Progressing Medicine Note: Length of Stay: 14 days Anticipated Discharge Destination: Home Tentative Discharge Date: March 02, 2017 Discharged to: Home
[2017-02-16] MEDS: Omeprazole CAP* 20 MG PO SCH (16:44)
[2017-02-16] MEDS: Warfarin TAB(*) 2 MG PO SCH (16:44)
[2017-02-16] MEDS: amLODIPine TAB* 5 MG PO SCH (17:33)
[2017-02-16] MEDS: Acetaminophen TAB* 325 MG PO PRN (23:41)
[2017-02-17] MEDS: oxyCODONE/Acetamin 5/325 MG* TAB PO PRN ×5 (02:17→21:29)
[2017-02-17] MEDS: Levothyroxine TAB* 75 MCG TAB PO SCH (06:30)
[2017-02-17] MEDS: Omeprazole CAP* 20 MG PO SCH ×2 (06:30→17:19)
[2017-02-17] MEDS: Docusate CAP* 100 MG PO SCH ×2 (08:35→21:30)
[2017-02-17] MEDS: PARoxetine HCL TAB* 10 MG PO SCH (08:36)
[2017-02-17] MEDS: Warfarin TAB(*) 3 MG PO SCH (17:19)
[2017-02-17] MEDS: amLODIPine TAB* 5 MG PO SCH (17:19)
[2017-02-17] MEDS: Magnesium Hydroxide LIQ* 30 ML UDC PO PRN (21:27)
[2017-02-18] MEDS: Levothyroxine TAB* 75 MCG TAB PO SCH (05:22)
[2017-02-18] MEDS: Omeprazole CAP* 20 MG PO SCH ×2 (05:22→17:08)
[2017-02-18 06:36] LABS: Hematocrit 25 % (35-47); Hemoglobin 8.2 g/dl (12.0-16.0); Mean Corpuscular HGB Conc 32 g/dl (31-36); Mean Corpuscular Hemoglobin 27 pg (27-31); Mean Corpuscular Volume 83 fL (80-97); Mean Platelet Volume 8 um3 (7.4-10.4); Red Blood Count 3.07 10^6/ul (4.0-5.4); Red Cell Distribution Width 16 % (10.5-15); White Blood Count 6.6 10^3/ul (3.5-10.8)
[2017-02-18] MEDS: PARoxetine HCL TAB* 10 MG PO SCH (09:16)
[2017-02-18] MEDS: oxyCODONE/Acetamin 5/325 MG* TAB PO PRN ×3 (09:16→20:21)
[2017-02-18] MEDS: Docusate CAP* 100 MG PO SCH ×2 (09:16→20:21)
[2017-02-18] MEDS: Warfarin TAB(*) 3 MG PO SCH (17:09)
[2017-02-18] MEDS: amLODIPine TAB* 5 MG PO SCH (17:09)
[2017-02-19] MEDS: Levothyroxine TAB* 75 MCG TAB PO SCH (06:24)
[2017-02-19] MEDS: Omeprazole CAP* 20 MG PO SCH ×3 (06:24→17:17)
[2017-02-19] MEDS: Docusate CAP* 100 MG PO SCH ×2 (09:35→21:43)
[2017-02-19] MEDS: oxyCODONE/Acetamin 5/325 MG* TAB PO PRN ×5 (09:35→21:43)
[2017-02-19] MEDS: PARoxetine HCL TAB* 10 MG PO SCH (09:35)
[2017-02-19] MEDS: Magnesium Hydroxide LIQ* 30 ML UDC PO PRN (09:40)
[2017-02-19] MEDS: amLODIPine TAB* 5 MG PO SCH ×2 (16:56→17:23)
[2017-02-19] MEDS: Warfarin TAB(*) 2 MG PO SCH ×3 (16:56→17:23)
[2017-02-20] MEDS: Levothyroxine TAB* 75 MCG TAB PO SCH (05:19)
[2017-02-20] MEDS: Omeprazole CAP* 20 MG PO SCH ×2 (05:19→16:44)
[2017-02-20] MEDS: PARoxetine HCL TAB* 10 MG PO SCH (08:40)
[2017-02-20] MEDS: Docusate CAP* 100 MG PO SCH ×2 (08:40→22:09)
[2017-02-20] MEDS: Magnesium Hydroxide LIQ* 30 ML UDC PO PRN (09:45)
[2017-02-20] MEDS: oxyCODONE/Acetamin 5/325 MG* TAB PO PRN (10:02)
[2017-02-20] MEDS ORDERED: Sodium Phosphate ADULT ENEMA* 118 ml bottle ONE (12:27)
[2017-02-20] MEDS ORDERED: Sodium Phosphate ADULT ENEMA* 118 ml bottle PR PRN (13:10)
[2017-02-20] MEDS: Calcium Carbonate CHEW TAB* 500 MG (TUMS) PO PRN (18:24)
[2017-02-20] MEDS: Warfarin TAB(*) 2 MG PO SCH (22:08)
[2017-02-20] MEDS: amLODIPine TAB* 5 MG PO SCH (22:09)
[2017-02-21] MEDS: Acetaminophen TAB* 325 MG PO PRN ×2 (00:36→06:02)
[2017-02-21] MEDS: Omeprazole CAP* 20 MG PO SCH ×3 (06:02→19:37)
[2017-02-21] MEDS: Levothyroxine TAB* 75 MCG TAB PO SCH (06:02)
[2017-02-21] MEDS: PARoxetine HCL TAB* 10 MG PO SCH (08:19)
[2017-02-21] MEDS: Docusate CAP* 100 MG PO SCH ×2 (08:19→22:34)
[2017-02-21] MEDS ORDERED: Prochlorperazine SUPP* 25 MG SUPP PR PRN (17:49)
[2017-02-21] MEDS: amLODIPine TAB* 5 MG PO SCH (17:58)
[2017-02-21] MEDS: Warfarin TAB(*) 2 MG PO SCH (17:58)
[2017-02-21] MEDS: Calcium Carbonate CHEW TAB* 500 MG (TUMS) PO PRN (23:29)
[2017-02-22] MEDS: Acetaminophen TAB* 325 MG PO PRN ×2 (02:21→19:15)
[2017-02-22 06:57] LABS: Hematocrit 27 % (35-47); Hemoglobin 8.7 g/dl (12.0-16.0); Mean Corpuscular HGB Conc 32 g/dl (31-36); Mean Corpuscular Hemoglobin 27 pg (27-31); Mean Corpuscular Volume 83 fL (80-97); Mean Platelet Volume 8 um3 (7.4-10.4); Red Blood Count 3.27 10^6/ul (4.0-5.4); Red Cell Distribution Width 16 % (10.5-15); White Blood Count 8.7 10^3/ul (3.5-10.8)
[2017-02-22 07:18] LABS: Albumin 3.2 g/dL (3.2-5.2); BUN/Creatinine Ratio 13.6 (8-20); Calcium 8.7 mg/dL (8.6-10.3); EGFR African American 78.4 (>60); EGFR Non-African American 60.9 (>60); Potassium 3.4 mmol/L (3.5-5.0); Total Bilirubin 0.9 mg/dL (0.2-1.0); Total Protein 6.2 g/dL (6.4-8.9)
[2017-02-22] MEDS: Docusate CAP* 100 MG PO SCH ×2 (08:24→19:14)
[2017-02-22] MEDS: Levothyroxine TAB* 75 MCG TAB PO SCH (08:24)
[2017-02-22] MEDS: PARoxetine HCL TAB* 10 MG PO SCH (08:24)
[2017-02-22] MEDS: Omeprazole CAP* 20 MG PO SCH ×2 (08:24→16:47)
[2017-02-22] MEDS: Calcium Carbonate CHEW TAB* 500 MG (TUMS) PO PRN (14:14)
[2017-02-22] MEDS ORDERED: Calcium Carbonate CHEW TAB* 500 MG (TUMS) PO PRN (15:42)
[2017-02-22] MEDS: Warfarin TAB(*) 3 MG PO SCH (17:08)
[2017-02-22] MEDS: amLODIPine TAB* 5 MG PO SCH (17:08)
[2017-02-23] MEDS: Acetaminophen TAB* 325 MG PO PRN ×2 (01:37→19:29)
[2017-02-23] MEDS: Levothyroxine TAB* 75 MCG TAB PO SCH (05:45)
[2017-02-23] MEDS: Omeprazole CAP* 20 MG PO SCH ×2 (05:46→17:01)
[2017-02-23] MEDS: PARoxetine HCL TAB* 10 MG PO SCH (08:22)
[2017-02-23] MEDS: Docusate CAP* 100 MG PO SCH ×2 (08:22→19:29)
[2017-02-23] MEDS: oxyCODONE/Acetamin 5/325 MG* TAB PO PRN (09:04)
--- NOTE | 2017-02-23 12:36 | PMRUTEAM ---
PMRU: Goals Current Status: Nursing: Current Status Skin Deviations [Right Knee] Incision Skin Deviation Description [ clean dry intact Right Knee] Bladder Current Status continent Bowel Current Status continent Nutrition Current Status adiquate Medication Current Status given one percocet for pain in right knee 903 Physical Therapy: Current Status Bed Mobility Assistance Supervision Transfer Moblility Assistance Supervision Transfer/Bed Mobility Rolling Walker Recommended Devices Transfer Mobility Comment Sit to stand and transfer with 2 w/w S x 1. Ambulation Assistance Supervision Ambulation Assistive Devices Rolling Walker Number of Feet Patient 150 Ambulated Ambulation Comment Reciiprocal type gait pattern. Stairs Assistance Supervision Stairs Recommended Devices Two Rails Number of Stairs 5 up and down frontwards and backwards S x 1. Curb Not Tested Occupational Therapy: Current Status Upper Body Dressing Supervision Upper Body Dressing Progress setupA Lower Body Dressing Supervision Lower Body Dressing Progress setupA Bathing Supervision Bathing Progress setupA Toileting Supervision Toilet Transfer Supervision Shower Transfer Supervision,Min Assist Shower Transfer Progress TBA Eating Independent Rec Therapy: Current Status Summary of Assessment and RT assessment complete and pt. is aware of Clinical Impression services. Pt. is engaged in leisure sessions on the unit. Treatment Goals Pt. will engage in leisure activities while on the unit. Treatment Plan Provide RT services and encourage involvement. Provide emotional support as needed. Social Work: Current Status Discharge Plan return home with home care svs and support from friends Potential for Family Training n/a Anticipated Discharge Home Destination Discharge With return home with home care svs and support from friends Nutrition: Current Status Monitoring pt had been eating 50-100% of meals, though reduced now d/t bouts of nausea in past few days. Regular diet remains appropriate. Daily BMs since 02/20, so denies constipation. She is legally blind; needs asst w/menu selections, but can feed herself w/set-up. Will follow-up w/pt re : alternate menu items and/or liquid supplements until nausea resolves. Goals: Physical Therapy: Initial Goals Bed Mobility Assistance Supervision Transfer Mobility Assistance Supervision Transfer/Bed Mobility Rolling Walker,Railings Recommended Devices Ambulation Supervision Ambulation Recommended Devices Rolling Walker Ambulation Distance 250 Stairs Assistance Supervision Stair Recommended Devices Two Rails Number of Stairs 5 Home Exercise Program Supervision Assistance Physical Therapy: Updated Goals Bed Mobility Assistance Independent Transfer Mobility Assistance Supervision Transfer/Bed Mobility Rolling Walker Recommended Devices Ambulation Assistance Supervision Ambulation Assistive Devices Rolling Walker Ambulation Distance (ft) 250 Stairs Assistance Supervision Stairs Recommended Devices Two Rails Number of Stairs 5 Home Exercise Program Supervision Assistance Occupational Therapy: Initial Goals Goals to be Completed in (Days 14 days ) Upper Body Bathing Routine Independent Lower Body Bathing Routine Modified Independent with Lower Body Bathing Assistive using AE as necessary Devices Comment Upper Body Dressing Routine Independent Lower Body Dressing Routine Modified Independent with Lower Body Dressing Assistive using AE as necessary Devices Toilet Hygeine and Clothing Modified Independent with Management Routine Toilet Transfer Routine Modified Independent with Step-In Shower Transfer Modified Independent with Routine Functional Transfers for ADL Modified Independent with Grooming Routine Independent Feeding Routine Independent Light Housekeeping Tasks Modified Independent with Nutrition: Goals Intervention Goals 1. adequate po intake to support post-op healing and maintenance of lean body mass 2. regulated post-op bowel pattern without c/o constipation (or diarrhea) 3. any further ed needs r/t Coumadin will be addressed as needed Social Work: Goals Discharge Plan return home with home care svs and support from friends Potential for Family Training n/a Anticipated Discharge Home Destination Discharge With return home with home care svs and support from friends Occupational Therapy: Updated Goals Lower Body Bathing Routine Independent Lower Body Dressing Routine Independent Toilet Transfer Routine Independent Toilet Hygiene and Clothing Independent Management Routine Step-In Shower Transfer Independent Routine Light Housekeeping Tasks Independent Care Plan: Care Plan ADL's - Improve/Maintain Start: 02/14/17 15:45 Freq: DAILY Status: Active Target: Activity Type Activity Date Activity User E-Sign Co-Sign Detail Recorded Client Recorded Date Recorded By Document 02/19/17 11:16 [id number] 02/19/17 11:16 [id number] 02/19/17 11:16 PMRU Outcome: ADL's/ADL Transfers Orders/Interventions Occupational Therapy Evaluation & Treatment Communication Tool in Patient Room Device Yes Address Deficits Secondary To: Right TKA Patient to receive OT 5x/wk for 60-120 Therex min/day Self Care Management Group Therapy UE/LE ADL's with Assist Yes: James ADL Transfers with Assist Yes: James Toileting: Transfers,Clothing Management Yes: James ,Hygeine w/Assist Light Kitchen/Laundry w/Assist Yes: James light meal prep Progression Toward Outcome/Goals Progressing Outcome/Goals Met increased independence with LE dressing--no need for clinical informatics manager to thread undergarment and pants, able to utilize sock aid with only setupA Cardiovascular- Improve/Maintain Start: 02/14/17 15:45 Freq: DAILY Status: Complete Target: Activity Type Activity Date Activity User E-Sign Co-Sign Detail Recorded Client Recorded Date Recorded By Document 02/21/17 08:00 [id number] 02/21/17 12:23 [id number] 02/21/17 08:00 PMRU Outcome: Cardiovascular Vital Signs q Shift for 48hrs Then BID Yes Daily Weight Ordered No Current Cardiovascular Outcome/Goal Maintain/ Achieve Baseline HR, BP , Perfusion Improve HR Within Prescribed Parameters Free of Abnormal Cardiac Symptoms Outcomes/Goals Met Maintain/ Achieve Baseline HR, BP , Perfusion Free of Abnormal Cardiac Symptoms Communication-Improve/Maintain Start: 02/14/17 15:45 Freq: DAILY Status: Active Target: Activity Type Activity Date Activity User E-Sign Co-Sign Detail Recorded Client Recorded Date Recorded By Document 02/22/17 09:43 [id number] [email or web address] 02/22/17 09:44 [id number] 02/22/17 09:43 PMRU Outcome: Communication/Cognitive Status Outcome/Goals Makes Needs Known Effectively Progression Toward Outcomes/Goals Progressing Outcome/Goals Met Comment using call sepulveda appropriately Coping/Psych-Improve/Maintain Start: 02/14/17 15:45 Freq: DAILY Status: Active Target: Activity Type Activity Date Activity User E-Sign Co-Sign Detail Recorded Client Recorded Date Recorded By Document 02/23/17 09:17 [id number] 02/23/17 09:18 [id number] 02/23/17 09:17 PMRU Outcome: Coping/Psychosocial Coping Outcome/Goals Verbalization of Acceptance of Rehab Admit Verbalization of Sense of Control Over Health Status Utilization of Appropriate Problem Solving Techniques Willingness to Participate in Treatment Plan and Basic Needs Psychosocial Outcome/Goals Maintain/ Improve Emotional Health Demonstrates Knowledge of Healthy Coping Mechanisms Available Cooperate/ Participate in Plan Progression Toward Outcome/Goals - Progressing Coping Progression Toward Outcome/Goals - Progressing Psychosocial Psychosocial Outcome/Goals Met Maintain/ Improved Emotional Health Outcome/Goals Met Comment Pt feeling much better DVT Prophylaxis- Improve/Maintain Start: 02/14/17 15:45 Freq: DAILY Status: Complete Target: Activity Type Activity Date Activity User E-Sign Co-Sign Detail Recorded Client Recorded Date Recorded By Document 02/20/17 08:00 [id number] 02/20/17 14:06 [id number] 02/20/17 08:00 PMRU Outcome: DVT Prophylaxis Outcome/Goals Remains Free of DVT Complies with DVT Prophylaxis /Treatment Demonstrates Knowledge of DVT Prevention/ Treatment TEDS Stockings on Every AM, Off at HS Outcome/Goals Met Remains Free of DVT TEDS Stockings on Every AM, Off at HS Discharge Planning - Improve/Maintain Start: 02/14/17 15:45 Freq: DAILY Status: Active Target: Activity Type Activity Date Activity User E-Sign Co-Sign Detail Recorded Client Recorded Date Recorded By Document 02/22/17 09:43 [id number] 02/22/17 09:44 [id number] 02/22/17 09:43 PMRU Outcome: Discharge Planning Identify Patient Needs yes Update Patient Family No Outcome/Goals Demonstrates Understanding of Discharge Plan Progression Toward Outcome/Goals Progressing Education-Improve/Maintain Start: 02/14/17 15:45 Freq: DAILY Status: Active Target: Activity Type Activity Date Activity User E-Sign Co-Sign Detail Recorded Client Recorded Date Recorded By Document 02/23/17 09:17 [id number] 02/23/17 09:18 [id number] 02/23/17 09:17 PMRU Outcome: Education Outcome/Goals Demonstrate/ Verbalize Understanding of Written Discharge Instructions Demonstrates Skills Encourage Questions Progression Toward Outcome/Goals Progressing Outcome/Goals Met Demonstrates Skills Required to Manage Self Care to Their Ability /GI-Improve/Maintain Start: 02/14/17 15:45 Freq: DAILY Status: Active Target: Activity Type Activity Date Activity User E-Sign Co-Sign Detail Recorded Client Recorded Date Recorded By Document 02/23/17 09:17 [id number] 02/23/17 09:18 [id number] 02/23/17 09:17 PMRU Outcome: Genitourinary/ Gastrointestinal Genitourinary- Outcome/Goals Maintain/ Achieve Urinary Continence Maintain/ Achieve Adequate Urinary Output Remain Free of Hospital- Acquired UTI Gastrointestinal-Outcome/Goals Maintain/ Achieve Bowel Regularity in Accordance with Pt's Baseline Remain Free of Emesis Prevent Constipation Other Outcome/Goals Denies nausea this AM Progression Toward Outcome/Goals - Progressing Progression Toward Outcome/Goals - GI Not Progressing Genitourinary- Outcome/Goals Met Maintain/ Achieve Urinary Continence Maintain/ Achieve Adequate Urinary Output Remain Free of Hospital- Acquired UTI Gastrointestinal-Outcome/Goals Met Maintain/ Achieve Bowel Regularity in Accordance with Pt's Baseline Remain Free of Emesis Prevent Constipation Outcome/Goals Met Comment pt up to BR. Medication Administration Start: 02/14/17 15:45 Freq: DAILY Status: Active Target: Activity Type Activity Date Activity User E-Sign Co-Sign Detail Recorded Client Recorded Date Recorded By Document 02/23/17 09:17 [id number] 02/23/17 09:18 [id number] 02/23/17 09:17 PMRU Outcome: Medication Administration Assess Patient Knowledge/Teach Med Yes Education for all Meds Outcome/Goals Family/ Caregiver Administer Medications at Home Demonstrates Understanding Progression Towards Outcome/Goals Progressing Outcome/Goals Met Demonstrates Understanding Is Patient Going Home on Lovenox? No Mobility- Improve/Maintain Start: 02/14/17 15:45 Freq: DAILY Status: Active Target: Activity Type Activity Date Activity User E-Sign Co-Sign Detail Recorded Client Recorded Date Recorded By Document 02/19/17 17:40 [id number] 02/19/17 17:40 [id number] 02/19/17 17:40 PMRU Outcome: Mobility Physical Therapy Evaluation and Yes Treatment Activity OOB with Assistance Yes WBAT Yes Device Yes Assistance Yes Patient to be seen 5x/wk for 60-120 min/ Therex day for: Mobility Training Gait Training Outcome/Goals Maintain/ Achieve Baseline Mobility Status Demonstrates Proper Use of Assistive Devices Free from Complications of Immobility Progression Toward Outcome/Goals Progressing Bed Mobility Yes Transfers Yes Gait x ft Yes Up/Down Stairs Yes With HEP Yes Neurological- Improve/Maintain Start: 02/14/17 15:45 Freq: DAILY Status: Complete Target: Activity Type Activity Date Activity User E-Sign Co-Sign Detail Recorded Client Recorded Date Recorded By Document 02/20/17 08:00 [id number] 02/20/17 14:06 [id number] 02/20/17 08:00 PMRU Outcome: Neurological Weakness/Aphasia Weakness Right Side Outcome/Goals Maintain/ Achieve Baseline Neurological Status Maintain/ Improve Strength/ROM Outcome/Goals Met Maintain/ Improve Strength/ROM Pain/Comfort- Improve/Maintain Start: 02/14/17 15:45 Freq: DAILY Status: Complete Target: Activity Type Activity Date Activity User E-Sign Co-Sign Detail Recorded Client Recorded Date Recorded By Document 02/20/17 08:00 [id number] 02/20/17 14:06 [id number] 02/20/17 08:00 PMRU Outcome: Pain/Comfort Outcome/Goals Demonstrates Knowledge and Use of Available Comfort Measures Achieves Acceptable Comfort/Pain Level as Determined by Patient/Condit Maintain Comfort Level Allowing Patient to Fully Participate in Rehab Outcome/Goals Met Demonstrates Knowledge and Use of Available Comfort Measures Achieves Acceptable Comfort/Pain Level as Determined by Patient/Condit Respiratory - Improve/Maintain Start: 02/14/17 15:45 Freq: DAILY Status: Complete Target: Activity Type Activity Date Activity User E-Sign Co-Sign Detail Recorded Client Recorded Date Recorded By Document 02/21/17 08:00 [id number] 02/21/17 12:23 [id number] 02/21/17 08:00 PMRU Outcome: Respiratory Does Patient Have a Trach No Outcome/Goals Maintain/ Improve Baseline Respiratory Status Maintain/ Improve Activity Tolerance Outcome/Goals Met Maintain/ Improve Baseline Respiratory Status Maintain/ Improve Activity Tolerance Safety- Improve/Maintain Start: 02/14/17 15:45 Freq: DAILY Status: Complete Target: Activity Type Activity Date Activity User E-Sign Co-Sign Detail Recorded Client Recorded Date Recorded By Document 02/20/17 08:00 [id number] 02/20/17 14:06 [id number] 02/20/17 08:00 PMRU Outcome: Safety Outcome/Goals Remain Free of Injury or Harm Cooperates with Safety Measures for Least Restrictive Environment Prevent Falls/ Injury Outcome/Goals Met Remain Free of Injury or Harm Cooperates with Safety Measures for Least Restrictive Environment Prevent Falls/ Injury Skin- Improve/Maintain Start: 02/14/17 15:45 Freq: DAILY Status: Complete Target: Activity Type Activity Date Activity User E-Sign Co-Sign Detail Recorded Client Recorded Date Recorded By Document 02/22/17 20:00 [id number] 02/22/17 21:51 [id number] 02/22/17 20:00 PMRU Outcome: Skin Skin Risk Level Medium Outcome/Goals Maintain/ Improve Skin Intergrity Surgical Incisions Healing Outcome/Goals Comment sutures intact Outcome/Goals Met Maintain/ Improve Skin Intergrity Free from Decubitus Surgical Incisions Healing Medicine Note: Length of Stay: 2 days Anticipated Discharge Destination: Home Tentative Discharge Date: 02/25/17 Discharged to: Home
[2017-02-23] MEDS: Warfarin TAB(*) 3 MG PO SCH (17:01)
[2017-02-23] MEDS: amLODIPine TAB* 5 MG PO SCH (17:01)
[2017-02-24] MEDS: Levothyroxine TAB* 75 MCG TAB PO SCH (05:45)
[2017-02-24] MEDS: Omeprazole CAP* 20 MG PO SCH ×2 (05:45→16:42)
[2017-02-24] MEDS: Acetaminophen TAB* 325 MG PO PRN ×3 (06:32→19:56)
[2017-02-24] MEDS: PARoxetine HCL TAB* 10 MG PO SCH (08:28)
[2017-02-24] MEDS: Docusate CAP* 100 MG PO SCH ×2 (08:28→20:01)
[2017-02-24] MEDS ORDERED: Warfarin TAB(*) 4 MG PO SCH (18:00)
[2017-02-24] MEDS: amLODIPine TAB* 5 MG PO SCH (18:28)
[2017-02-24] MEDS: Calcium Carbonate CHEW TAB* 500 MG (TUMS) PO PRN (19:38)
[2017-02-24] MEDS: Warfarin TAB(*) 3 MG PO SCH (22:58)
[2017-02-25] MEDS: Acetaminophen TAB* 325 MG PO PRN (01:31)
[2017-02-25] MEDS: Levothyroxine TAB* 75 MCG TAB PO SCH (05:36)
[2017-02-25] MEDS: Omeprazole CAP* 20 MG PO SCH (05:36)
[2017-02-25 05:41] VITALS: BP 133/39
[2017-02-25] MEDS: Docusate CAP* 100 MG PO SCH (10:26)
[2017-02-25] MEDS: PARoxetine HCL TAB* 10 MG PO SCH (10:26)
--- NOTE | 2017-02-26 19:55 | DS ---
DISCHARGE SUMMARY: DATE OF ADMISSION: 02/14/17 DATE OF DISCHARGE: 02/25/17 DISCHARGE DIAGNOSES: 1. Right total knee replacement. 2. Hypothyroidism. 3. History of gastrointestinal bleed. 4. Gastroesophageal reflux disease. 5. Obstructive sleep apnea. 6. Legal blindness. HISTORY OF PRESENT ILLNESS AND HOSPITAL COURSE: For complete history of the events leading up to her rehab stay, please see the history and physical dictated by me on 02/14/17. While on the rehab unit, the patient initially was doing fairly well. She did develop some nausea on February 20. It seemed to get worse over the , but resolved by the . Her wound healed well. Her kateryna were able to be removed by her orthopedic surgeon, Dr. Gertrudis Lynne. Other than that, the patient was stable from a medical point of view. She was maintained on Coumadin for DVT prophylaxis. The patient was seen by both Physical and Occupational therapy and made good gains with both disciplines. With physical therapy at the time of admission, the patient required minimum amount of assistance to do a transfer. She was min assist for ambulating 55 feet. With occupational therapy, she was min assist for toileting and toilet transfers. By the time of discharge, she was independent in transfers, independently ambulating 150 feet, independent going up and down 5 steps, independent with her activities of daily living. The patient was discharged home to [facility] on 02/25/17. DISCHARGE DIET: Regular. DISCHARGE MEDICATIONS: Included: 1. Synthroid 75 mcg daily. 2. Paxil 10 mg daily. 3. Amlodipine 2.5 mg daily. 4. Percocet 1 tablet every 4 hours as needed. 5. Coumadin 4 mg daily or as directed. 6. Spironolactone 25 mg daily. 7. Rosuvastatin 10 mg every evening. 8. Omeprazole 20 mg twice a day. SERVICES AFTER DISCHARGE: To the visiting nurse service. She will have home nursing, home physical therapy, and a home health aide. Follow up with Dr. Gertrudis Lynne as well as with Dr. Mert Valdez. CC: Dr. Gertrudis Lynne; Dr. Mert Valdez* [id number]/[facility] #: [id number] [facility]
== END 2017-02-25 10:40 | disposition home health service (06) | DRG 561 ==
LOC: PMRU 11:19
PROVIDERS: ADMIT Physical Medicine & Rehabilitation; ATTEND Physical Medicine & Rehabilitation
PROC: F07Z5ZZ Bed Mobility Treatment (ICD-10-PCS; principal; 2017-02-14)
PROC: F07Z8ZZ Transfer Training Treatment (ICD-10-PCS; 2017-02-14)
PROC: F07Z9ZZ Gait Training/Functional Ambulation Treatment (ICD-10-PCS; 2017-02-14)
PROC: F08Z0ZZ Bathing/Showering Techniques Treatment (ICD-10-PCS; 2017-02-14)
PROC: F08Z1ZZ Dressing Techniques Treatment (ICD-10-PCS; 2017-02-14)
PROC: F08Z3ZZ Feeding/Eating Treatment (ICD-10-PCS; 2017-02-14)
DX: Z47.1 Aftercare following joint replacement surgery (principal); E03.9 Hypothyroidism, unspecified; Z96.651 Presence of right artificial knee joint; K21.9 Gastro-esophageal reflux disease without esophagitis; G47.33 Obstructive sleep apnea (adult) (pediatric); H54.8 Legal blindness, as defined in USA; Z79.02 Long term (current) use of antithrombotics/antiplatelets; Z79.01 Long term (current) use of anticoagulants; Z79.899 Other long term (current) drug therapy; Z88.8 Allergy status to other drugs, medicaments and biological substances
CPT/HCPCS: 36415; 80053; 85025; 85610; A9270-GY

== ENCOUNTER 2017-07-01 06:33 | Emergency (ER) | payer MEDICARE, OTHER ==
[2017-07-01] MEDS ORDERED: NS 0.9% 1000 ML* 1,000 ML IV ONE (07:20)
[2017-07-01] MEDS ORDERED: Ondansetron INJ* 2 MG/ML VIAL IV ONE ×2 (07:20→09:27)
--- NOTE | 2017-07-01 07:59 | RAD ---
HISTORY: Vomiting COMPARISONS: February 05, 2017 VIEWS: 1: frontal portable view of the chest at 7:30 AM FINDINGS: LINES AND TUBES: None. CARDIOMEDIASTINAL SILHOUETTE: The aorta is tortuous. The cardiomediastinal silhouette is otherwise normal for portable technique. PLEURA: The costophrenic angles are sharp. No pleural abnormalities are noted. LUNG PARENCHYMA: The lungs are clear. ABDOMEN: There is a large hiatal hernia BONES AND SOFT TISSUES: No bone or soft tissue abnormalities are noted. IMPRESSION: HIATAL HERNIA. NO ACTIVE CARDIOPULMONARY DISEASE.
[2017-07-01 08:11] LABS: Hematocrit 30 % (35-47); Hemoglobin 9.4 g/dl (12.0-16.0); Mean Corpuscular HGB Conc 32 g/dl (31-36); Mean Corpuscular Hemoglobin 23 pg (27-31); Mean Corpuscular Volume 71 fL (80-97); Mean Platelet Volume 8 um3 (7.4-10.4); Red Blood Count 4.19 10^6/ul (4.0-5.4); Red Cell Distribution Width 21 % (10.5-15)
[2017-07-01 08:18] LABS: Add Diff/Slide Review? Slide Review Added; Comments Flag Yes
[2017-07-01 08:23] LABS: ALT 8 U/L (7-52); AST 19 U/L (13-39); Albumin 4.6 g/dL (3.2-5.2); Alkaline Phosphatase 45 U/L (34-104); Anion Gap 11 mmol/L (2-11); BUN/Creatinine Ratio 21.8 (8-20); Blood Urea Nitrogen 19 mg/dL (6-24); C Reactive Protein < 1.00 mg/L (< 5.00); CO2 Carbon Dioxide 23 mmol/L (22-32); Calcium 10.1 mg/dL (8.6-10.3); Chloride 102 mmol/L (101-111); EGFR African American 79.2 (>60); EGFR Non-African American 61.6 (>60); Globulin 3.4 g/dL (2-4); Glucose 184 mg/dL (70-100); Lipase 19 U/L (11.0-82.0); Potassium 3.9 mmol/L (3.5-5.0); Sodium 136 mmol/L (133-145)
[2017-07-01 08:40] LABS: Hypochromasia 1+
[2017-07-01 08:41] LABS: Stomatocytes 1+; Tear Drop Cells 1+
[2017-07-01] MEDS ORDERED: Pantoprazole IV* 40 MG IV ONE (09:27)
[2017-07-01 09:38] LABS: Urine Bilirubin Negative (Negative); Urine Glucose 1+(50 mg/dL) (Negative); Urine Nitrite Negative (Negative)
[2017-07-01 13:09] VITALS: BP 154/70
--- NOTE | 2017-07-01 15:09 | ED ---
Alberto Joshua Benjamin, scribed for Adan Sampson MD on 07/01/17 at 0719 . Abdominal Pain/Female - HPI Summary HPI Summary: 87yo female c/o epigastric pain since yesterday. Pt also reports N/V and a fever overnight. Pain is still present. Denies diarrhea, pt states that she is constipated. - History of Current Complaint Chief Complaint: EDAbdPain Stated Complaint: VOMITING/UPPER ABD PAIN Time Seen by Provider: 07/01/17 07:10 Hx Obtained From: Patient ?: No Onset/Duration: Lasting Days - 1 day, Still Present Timing: Constant Severity Initially: Moderate Severity Currently: Moderate Pain Intensity: 6 Pain Scale Used: 0-10 Numeric Location: Epigastric Radiates: No Aggravating Factor(s): Nothing Alleviating Factor(s): Nothing Associated Signs and Symptoms: Positive: Fever, Constipation, Nausea, Vomiting. Negative: Diarrhea Allergies/Adverse Reactions: Allergies Allergy/AdvReac Type Severity Reaction Status Date / Time Ramipril [From Altace] Allergy Unknown See Comment Verified 07/01/17 06:45 PMH/Surg Hx/FS Hx/Imm Hx Endocrine/Hematology History: Reports: Hx Thyroid Disease - hypo, synthroid Denies: Hx Bone Marrow Disease, Hx Diabetes, Hx Anemia Cardiovascular History: Reports: Hx Angina, Hx Coronary Artery Disease, Hx Hypertension, Hx Valvular Heart Disease - MITRAL VALVE DISORDER, FOLLOWED BY DR BENITES, Other Cardiovascular Problems/Disorders - TONY CHOLESTEROL Denies: Hx Congestive Heart Failure, Hx Hypercholesterolemia Respiratory History: Reports: Hx Pneumonia, Hx Sleep Apnea - current CPAP user Denies: Hx Asthma, Hx Chronic Obstructive Pulmonary Disease (COPD) GI History: Reports: Hx Gastroesophageal Reflux Disease - prn meds, Hx Hiatal Hernia, Other GI Disorders - FREQ CONSTIPATION FOLLOWED BY OCCASIONAL DIARRHEA Denies: Hx Jaundice History: Reports: Other Problems/Disorders - FREQUENCY, STRESS INCONTINENCE Denies: Hx Renal Disease Musculoskeletal History: Reports: Hx Arthritis, Hx Gout, Other Musculoskeletal History - impaired gait, uses cane Denies: Hx Osteoporosis Sensory History: 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 Denies: Hx Contacts or Glasses, Hx Hearing Aid Opthamlomology History: 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 Denies: Hx Contacts or Glasses Neurological History: Denies: Other Neuro Impairments/Disorders Psychiatric History: Reports: Hx Anxiety, Hx Depression Denies: Other Psychiatric Issues/Disorders - Cancer History Cancer Type, Location and Year: melanoma - Surgical History Surgery Procedure, Year, and Place: Appendectomy at [facility] [place]; Hysterectomy; Oopherectomy (One O[facility]) Hx Anesthesia Reactions: No - Immunization History Date of Influenza Vaccine: 06/22/2017 Immunizations Up to Date: Yes Infectious Disease History: No Infectious Disease History: Denies: Hx Clostridium Difficile, Hx Hepatitis, Hx Human Immunodeficiency Virus (HIV), Hx of Known/Suspected MRSA, Hx Shingles, Hx Tuberculosis, History Other Infectious Disease, Traveled Outside the US in Last 30 Days - Family History Known Family History: Positive: Hypertension Negative: Diabetes - Social History Occupation: Retired Lives: Assisted Living Alcohol Use: None Substance Use Type: Reports: None Smoking Status (MU): Never Smoked Tobacco Have You Smoked in the Last Year: No Review of Systems Positive: Fever. Negative: Chills Eyes: Negative ENT: Negative Cardiovascular: Negative Respiratory: Negative Positive: Abdominal Pain, Vomiting, Nausea. Negative: Diarrhea Genitourinary: Negative Positive: no symptoms reported Musculoskeletal: Negative Skin: Negative Neurological: Negative Psychological: Normal All Other Systems Reviewed And Are Negative: Yes Physical Exam Triage Information Reviewed: Yes Vital Signs On Initial Exam: Initial Vitals Temp Pulse Resp BP Pulse Ox 98.1 F 64 16 156/52 95 07/01/17 06:35 07/01/17 06:35 07/01/17 06:35 07/01/17 06:35 07/01/17 06:35 Vital Signs Reviewed: Yes Appearance: Positive: Well-Appearing, Well-Nourished, Pain Distress - mild Skin: Positive: Warm, Skin Color Reflects Adequate Perfusion, Dry, Other - skin is tense Head/Face: Positive: Normal Head/Face Inspection Eyes: Positive: Normal, EOMI, YANETH ENT: Positive: Hearing grossly normal, Other - dry mucous membrane Neck: Positive: Supple, Nontender Respiratory/Lung Sounds: Positive: Clear to Auscultation, Breath Sounds Present Cardiovascular: Positive: RRR, Pulses are Symmetrical in both Upper and Lower Extremities. Negative: Murmur Abdomen Description: Positive: Soft. Negative: Nontender - mild epigastric tenderness Bowel Sounds: Positive: Present Musculoskeletal: Positive: Normal, Strength/ROM Intact Neurological: Positive: Sensory/Motor Intact, Alert, Oriented to Person Place, Time Psychiatric: Positive: Affect/Mood Appropriate - [place] Coma Scale Coma Scale Total: 15 Diagnostics - Vital Signs Vital Signs Temp Pulse Resp BP Pulse Ox 07/01/17 07:11 72 20 98 07/01/17 07:09 172/84 07/01/17 06:35 98.1 F 64 16 156/52 95 - Laboratory Lab Results: Lab Results 07/01/17 07/01/17 07/01/17 Range/Units 07:54 07:54 07:54 WBC 7.0 (3.5-10.8) 10^3/ul RBC 4.19 (4.0-5.4) 10^6/ul Hgb 9.4 L (12.0-16.0) g/dl Hct 30 L (35-47) % MCV 71 L (80-97) fL MCH 23 L (27-31) pg MCHC 32 (31-36) g/dl RDW 21 H (10.5-15) % Plt Count 351 (150-450) 10^3/ul MPV 8 (7.4-10.4) um3 Neut % (Auto) 79.9 (38-83) % Lymph % (Auto) 16.7 L (25-47) % [place] % (Auto) 2.8 (1-9) % Eos % (Auto) 0.1 (0-6) % Baso % (Auto) 0.5 (0-2) % Absolute Neuts (auto) 5.6 (1.5-7.7) 10^3/ul Absolute Lymphs (auto) 1.2 (1.0-4.8) 10^3/ul Absolute Monos (auto) 0.2 (0-0.8) 10^3/ul Absolute Eos (auto) 0 (0-0.6) 10^3/ul Absolute Basos (auto) 0 (0-0.2) 10^3/ul Absolute Nucleated RBC 0 10^3/ul Nucleated RBC % 0 Normal RBC Morphology Not Reportable Hypochromasia 1+ Tear Drop Cells 1+ Stomatocytes 1+ Sodium 136 (133-145) mmol/L Potassium 3.9 (3.5-5.0) mmol/L Chloride 102 (101-111) mmol/L Carbon Dioxide 23 (22-32) mmol/L Anion Gap 11 (2-11) mmol/L BUN 19 (6-24) mg/dL Creatinine 0.87 (0.51-0.95) mg/dL Est GFR ( Amer) 79.2 (>60) Est GFR (Non-Af Amer) 61.6 (>60) BUN/Creatinine Ratio 21.8 H (8-20) Glucose 184 H (70-100) mg/dL Lactic Acid 1.4 (0.5-2.0) mmol/L Calcium 10.1 (8.6-10.3) mg/dL Total Bilirubin 1.00 (0.2-1.0) mg/dL AST 19 (13-39) U/L ALT 8 (7-52) U/L Alkaline Phosphatase 45 (34-104) U/L C-Reactive Protein < 1.00 (< 5.00) mg/L Total Protein 8.0 (6.4-8.9) g/dL Albumin 4.6 (3.2-5.2) g/dL Globulin 3.4 (2-4) g/dL Albumin/Globulin Ratio 1.4 (1-3) Lipase 19 (11.0-82.0) U/L Urine Color Urine Appearance Urine pH (5-9) Ur Specific [place] (1.010-1.030) Urine Protein (Negative) Urine Ketones (Negative) Urine Blood (Negative) Urine Nitrate (Negative) Urine Bilirubin (Negative) Urine Urobilinogen (Negative) Ur Leukocyte Esterase (Negative) Urine Glucose (Negative) 07/01/17 Range/Units 09:20 WBC (3.5-10.8) 10^3/ul RBC (4.0-5.4) 10^6/ul Hgb (12.0-16.0) g/dl Hct (35-47) % MCV (80-97) fL MCH (27-31) pg MCHC (31-36) g/dl RDW (10.5-15) % Plt Count (150-450) 10^3/ul MPV (7.4-10.4) um3 Neut % (Auto) (38-83) % Lymph % (Auto) (25-47) % [place] % (Auto) (1-9) % Eos % (Auto) (0-6) % Baso % (Auto) (0-2) % Absolute Neuts (auto) (1.5-7.7) 10^3/ul Absolute Lymphs (auto) (1.0-4.8) 10^3/ul Absolute Monos (auto) (0-0.8) 10^3/ul Absolute Eos (auto) (0-0.6) 10^3/ul Absolute Basos (auto) (0-0.2) 10^3/ul Absolute Nucleated RBC 10^3/ul Nucleated RBC % Normal RBC Morphology Hypochromasia Tear Drop Cells Stomatocytes Sodium (133-145) mmol/L Potassium (3.5-5.0) mmol/L Chloride (101-111) mmol/L Carbon Dioxide (22-32) mmol/L Anion Gap (2-11) mmol/L BUN (6-24) mg/dL Creatinine (0.51-0.95) mg/dL Est GFR ( Amer) (>60) Est GFR (Non-Af Amer) (>60) BUN/Creatinine Ratio (8-20) Glucose (70-100) mg/dL Lactic Acid (0.5-2.0) mmol/L Calcium (8.6-10.3) mg/dL Total Bilirubin (0.2-1.0) mg/dL AST (13-39) U/L ALT (7-52) U/L Alkaline Phosphatase (34-104) U/L C-Reactive Protein (< 5.00) mg/L Total Protein (6.4-8.9) g/dL Albumin (3.2-5.2) g/dL Globulin (2-4) g/dL Albumin/Globulin Ratio (1-3) Lipase (11.0-82.0) U/L Urine Color Yellow Urine Appearance Cloudy Urine pH 8.0 (5-9) Ur Specific [place] 1.011 (1.010-1.030) Urine Protein Negative (Negative) Urine Ketones 1+ H (Negative) Urine Blood Negative (Negative) Urine Nitrate Negative (Negative) Urine Bilirubin Negative (Negative) Urine Urobilinogen Negative (Negative) Ur Leukocyte Esterase Negative (Negative) Urine Glucose 1+(50 mg/dl) H (Negative) Result Diagrams: 07/01/17 07:54 07/01/17 07:54 Lab Statement: Any lab studies that have been ordered have been reviewed, and results considered in the medical decision making process. - Radiology CXR Xray Interpretation: No Acute Changes Radiology Interpretation Completed By: Radiologist - ED physician has reviewed this radiology report and agrees. - EKG 0647. Cardiac Rate: NL - 65bpm EKG Rhythm: Sinus Rhythm ST Segment: Non-Specific - diffuse non specific T wave flattening Abdominal Pain Fem Course/Dx - Course Course Of Treatment: Ms. Coffman presented with N/V and then epigastric pain. She was rehydrated and treated symptomatically while labs were checked. She had gradual improvement. - Diagnoses Provider Diagnoses: Vomiting Discharge - Discharge Plan Condition: Stable Disposition: HOME Prescriptions: Ondansetron ODT TAB* [Zofran Odt TAB*] 4 mg PO Q6H PRN #20 tab.odt PRN Reason: Nausea/Vomiting Patient Education Materials: Acute Nausea and Vomiting (ED) Referrals: Mert Valdez MD [Primary Care Provider] - The documentation as recorded by the Alberto díaz Benjamin accurately reflects the service I personally performed and the decisions made by , Adan Sampson MD.
== END 2017-07-01 14:23 | disposition home or self-care (01) ==
LOC: ED 06:33
DX: R11.2 Nausea with vomiting, unspecified (principal); R10.9 Unspecified abdominal pain
CPT/HCPCS: 36415; 71010; 80053; 81003; 83605; 83690; 85025; 86140; 93005; 96374; 96375; 99283; J2405

== ENCOUNTER 2018-02-27 21:36 | Emergency (ER) | payer MEDICARE, OTHER ==
[2018-02-27 23:27] LABS: ABS Basophils 0 10^3/ul (0-0.2); ABS Eosinophils 0 10^3/ul (0-0.6); ABS Lymphocytes 1.7 10^3/ul (1.0-4.8); ABS Monocytes 0.8 10^3/ul (0-0.8); ABS Neutrophils 5.6 10^3/ul (1.5-7.7); ABS Nucleated RBC 0 10^3/ul; Eosinophil % 0.3 % (0-6); Hematocrit 29 % (35-47); Hemoglobin 9.3 g/dl (12.0-16.0); Lymphocyte % 20.7 % (25-47); Mean Corpuscular HGB Conc 32 g/dl (31-36); Mean Corpuscular Hemoglobin 23 pg (27-31); Mean Corpuscular Volume 72 fL (80-97); Mean Platelet Volume 7.8 um3 (7.4-10.4); Nucleated Red Blood Cells % 0; Platelet Count 311 10^3/ul (150-450); Red Blood Count 4.05 10^6/ul (4.0-5.4); Red Cell Distribution Width 18 % (10.5-15); White Blood Count 8.2 10^3/ul (3.5-10.8)
[2018-02-28 00:04] LABS: EGFR Non-African American 42.9 (>60)
[2018-02-28 01:11] LABS: Urine Appearance Clear; Urine Blood Negative (Negative); Urine Color Yellow; Urine Ketones Trace (Negative); Urine Protein Negative (Negative); Urine Specific Gravity 1.005 (1.010-1.030); Urine Urobilinogen Negative (Negative)
--- NOTE | 2018-02-28 01:58 | ED ---
Harman Joshua Julia, scribed for Adan Haas MD on 02/27/18 at 2217 . Abdominal Pain/Female - HPI Summary HPI Summary: This patient is a 87 year old F BIBA to [facility] from [place] with a chief complaint of vomiting and upper abdominal pain since 01/25/18. Vomiting began Wednesday (01/25/18) evening, after eating dinner. Vomiting persisted throughout the night with dry heaving. She woke up Wednesday morning with symptoms still persisting. She states she only ate some bouillon on Wednesday. Today symptoms were improved this morning, but have worsened throughout the day. She states a nurse told her she had an elevated blood pressure and felt flushed, but did not have a fever. She denies diarrhea and urinary symptoms. Pain is currently resolved. PMHx of gallbladder disease and GERD. - History of Current Complaint Chief Complaint: EDGeneral Stated Complaint: ABD PAIN Time Seen by Provider: 02/27/18 22:06 Hx Obtained From: Patient Onset/Duration: Lasting Days Timing: Intermittent Episode Lasting Pain Intensity: 0 Pain Scale Used: 0-10 Numeric Location: Epigastric - upper abdomen Aggravating Factor(s): Nothing Alleviating Factor(s): Nothing Associated Signs and Symptoms: Positive: Decreased Appetite, Nausea, Vomiting. Negative: Urinary Symptoms, Diarrhea Allergies/Adverse Reactions: Allergies Allergy/AdvReac Type Severity Reaction Status Date / Time ramipril Allergy Unknown Verified 02/27/18 21:43 Reaction Details Home Medications: Home Medications amLODIPine TAB* [Norvasc 5 mg TAB*] 5 mg PO 1800 02/27/18 [History Confirmed 12/12] PMH/Surg Hx/FS Hx/Imm Hx Endocrine/Hematology History: Reports: Hx Thyroid Disease - hypo, synthroid Denies: Hx Bone Marrow Disease, Hx Diabetes, Hx Anemia Cardiovascular History: Reports: Hx Angina, Hx Coronary Artery Disease, Hx Hypertension, Hx Valvular Heart Disease - MITRAL VALVE DISORDER, FOLLOWED BY DR BENITES, Other Cardiovascular Problems/Disorders - TONY CHOLESTEROL Denies: Hx Congestive Heart Failure, Hx Hypercholesterolemia Respiratory History: Reports: Hx Pneumonia, Hx Sleep Apnea - current CPAP user Denies: Hx Asthma, Hx Chronic Obstructive Pulmonary Disease (COPD) GI History: Reports: Hx Gastroesophageal Reflux Disease - prn meds, Hx Hiatal Hernia, Other GI Disorders - FREQ CONSTIPATION FOLLOWED BY OCCASIONAL DIARRHEA Denies: Hx Jaundice History: Reports: Other Problems/Disorders - FREQUENCY, STRESS INCONTINENCE Denies: Hx Renal Disease Musculoskeletal History: Reports: Hx Arthritis, Hx Gout, Other Musculoskeletal History - impaired gait, uses cane Denies: Hx Osteoporosis Sensory History: 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 Denies: Hx Contacts or Glasses, Hx Hearing Aid Opthamlomology History: 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 Denies: Hx Contacts or Glasses Neurological History: Denies: Other Neuro Impairments/Disorders Psychiatric History: Reports: Hx Anxiety, Hx Depression Denies: Other Psychiatric Issues/Disorders - Cancer History Cancer Type, Location and Year: melanoma - Surgical History Surgery Procedure, Year, and Place[place] [facility] [place]; Oopherectomy (One Ovary) Hx Anesthesia Reactions: No - Immunization History Date of Influenza Vaccine: 06/22/2017 Infectious Disease History: No Infectious Disease History: Denies: Hx Clostridium Difficile, Hx Hepatitis, Hx Human Immunodeficiency Virus (HIV), Hx of Known/Suspected MRSA, Hx Shingles, Hx Tuberculosis, History Other Infectious Disease, Traveled Outside the [place] in Last 30 Days - Family History Known Family History: Positive: Hypertension Negative: Diabetes - Social History Alcohol Use: None Substance Use Type: Reports: None Smoking Status (MU): Never Smoked Tobacco Have You Smoked in the Last Year: No Review of Systems Positive: Skin Diaphoresis Positive: Abdominal Pain, Vomiting, Nausea. Negative: Diarrhea Positive: no symptoms reported All Other Systems Reviewed And Are Negative: Yes Physical Exam - Summary Physical Exam Summary: Appearance: Well-appearing, Well-nourished, lying in bed comfortably Skin: Warm, dry, no obvious rash, no jaundice Eyes: sclera anicteric, no conjunctival pallor ENT: mucous membranes moist, pharynx appears normal Neck: Supple, nontender Respiratory: Clear to auscultation, no signs of respiratory distress Cardiovascular: Normal S1, S2. No murmurs. Normal distal pulses in tibial and radial bilaterally. Abdomen: Soft, normal active bowel sounds present, Mild RUQ tenderness with deep breath, no peritoneal signs Musculoskeletal: Normal, Strength/ROM Intact Neurological: A&Ox3, awake and alert, mentation is normal, speech is fluent and appropriate Psychiatric: affect is normal, does not appear anxious or depressed Triage Information Reviewed: Yes Vital Signs On Initial Exam: Initial Vitals Temp Pulse Resp BP Pulse Ox 98.8 F 60 16 101/58 96 02/27/18 21:44 02/27/18 21:44 02/27/18 21:44 02/27/18 21:44 02/27/18 21:44 Vital Signs Reviewed: Yes Diagnostics - Vital Signs Vital Signs Temp Pulse Resp BP Pulse Ox 02/27/18 21:44 98.8 F 60 16 101/58 96 - Laboratory Lab Results: Lab Results 02/27/18 02/27/18 Range/Units 23:19 23:19 WBC 8.2 (3.5-10.8) 10^3/ul RBC 4.05 (4.0-5.4) 10^6/ul Hgb 9.3 L (12.0-16.0) g/dl Hct 29 L (35-47) % MCV 72 L (80-97) fL MCH 23 L (27-31) pg MCHC 32 (31-36) g/dl RDW 18 H (10.5-15) % Plt Count 311 (150-450) 10^3/ul MPV 7.8 (7.4-10.4) um3 Neut % (Auto) 68.5 (38-83) % Lymph % (Auto) 20.7 L (25-47) % [place] % (Auto) 10.0 H (0-7) % Eos % (Auto) 0.3 (0-6) % Baso % (Auto) 0.5 (0-2) % Absolute Neuts (auto) 5.6 (1.5-7.7) 10^3/ul Absolute Lymphs (auto) 1.7 (1.0-4.8) 10^3/ul Absolute Monos (auto) 0.8 (0-0.8) 10^3/ul Absolute Eos (auto) 0 (0-0.6) 10^3/ul Absolute Basos (auto) 0 (0-0.2) 10^3/ul Absolute Nucleated RBC 0 10^3/ul Nucleated RBC % 0 Sodium 130 L (139-145) mmol/L Potassium 3.5 (3.5-5.0) mmol/L Chloride 98 L (101-111) mmol/L Carbon Dioxide 21 L (22-32) mmol/L Anion Gap 11 (2-11) mmol/L BUN 20 (6-24) mg/dL Creatinine 1.19 H (0.51-0.95) mg/dL Est GFR ( Amer) 55.2 (>60) Est GFR (Non-Af Amer) 42.9 (>60) BUN/Creatinine Ratio 16.8 (8-20) Glucose 114 H (70-100) mg/dL Calcium 9.4 (8.6-10.3) mg/dL Total Bilirubin 1.30 H (0.2-1.0) mg/dL AST 14 (13-39) U/L ALT 6 L (7-52) U/L Alkaline Phosphatase 35 (34-104) U/L Total Protein 6.7 (6.4-8.9) g/dL Albumin 3.8 (3.2-5.2) g/dL Globulin 2.9 (2-4) g/dL Albumin/Globulin Ratio 1.3 (1-3) Lipase 20 (11.0-82.0) U/L Result Diagrams: 02/27/18 23:19 02/27/18 23:19 Lab Statement: Any lab studies that have been ordered have been reviewed, and results considered in the medical decision making process. - Additional Comments Diagnostic Additional Comments: A Gallbladder US reveals, as per radiologist, reveals: Gallbladder with minimal sludge. Otherwise normal gallbladder. Negative for gallstone, wall thickening, significant gallbladder distention or pericholecystic fluid. Normal liver. Common bile duct caliber normal 4mm. Right renal cyst. No hydronephrosis or renal calculus. No RUQ ascities. ED Physician has reviewed this report. Abdominal Pain Fem Course/Dx - Course Course Of Treatment: This is an elderly woman with a 2 day h/o upper abdominal pain with nausea and vomiting that has spontaneously remitted on the way to the ED. Lab studies are notable for mild hyperbilirubinemia, moderate anemia but no elevated transaminases. Abd exam is benign. Awaiting GBUS and will reassess patient. - Diagnoses Provider Diagnoses: Abdominal pain Discharge - Sign-Out/Discharge Documenting (check all that apply): Discharge/Admit/Transfer - Discharge Plan Condition: Good Disposition: HOME Prescriptions: Ondansetron ODT TAB* [Zofran 4 MG Odt TAB*] 8 mg PO Q6H PRN #10 tab.odt PRN Reason: Nausea/Vomiting Patient Education Materials: Acute Abdominal Pain (ED) Referrals: Mert Valdez MD [Primary Care Provider] - - Billing Disposition and Condition Condition: GOOD Disposition: HOME The documentation as recorded by the Harman díaz Julia accurately reflects the service I personally performed and the decisions made by me, Adan Haas MD.
[2018-02-28 02:26] VITALS: BP 125/48
--- NOTE | 2018-02-28 07:39 | RAD ---
HISTORY: Upper abdominal pain and vomiting COMPARISONS: October 11, 2014 TECHNIQUE: Multiple transverse and longitudinal ultrasound images were obtained of the right upper quadrant of the abdomen using grayscale and color Doppler imaging. FINDINGS: LIVER: The liver is normal in shape, size, contour, and echogenicity. There are no focal parenchymal masses. There is normal hepatopedal flow of the portal vein on Doppler imaging. BILIARY TREE: There is no intrahepatic or extrahepatic biliary dilatation. The common duct measures 0.4 cm. GALLBLADDER: The gallbladder is well-visualized. There is no cholelithiasis, gallbladder wall thickening, pericholecystic fluid, or sonographic Quinn sign. There is a small amount of sludge within the gallbladder. PANCREAS: The head of the pancreas is unremarkable. The tail of the pancreas is not well visualized secondary to overlying bowel gas. RIGHT KIDNEY: Simple renal cysts are noted. There is no hydronephrosis or nephrolithiasis. The right kidney measures 10.3 x 5.3 x 5.4 cm. AORTA AND IVC: The aorta and IVC are unremarkable. FLUID: There are no pleural effusions. There is no free fluid within the hepatorenal recess. OTHER FINDINGS: None. IMPRESSION: NO ACUTE SONOGRAPHIC PATHOLOGY OF THE VISUALIZED PORTION OF THE ABDOMEN.
== END 2018-02-28 02:26 | disposition home or self-care (01) ==
LOC: ED 21:36
DX: R10.13 Epigastric pain (principal); R11.2 Nausea with vomiting, unspecified; Z82.49 Family history of ischemic heart disease and other diseases of the circulatory system; E03.9 Hypothyroidism, unspecified; I25.119 Atherosclerotic heart disease of native coronary artery with unspecified angina pectoris; I10 Essential (primary) hypertension; I05.9 Rheumatic mitral valve disease, unspecified; E78.00 Pure hypercholesterolemia, unspecified; G47.30 Sleep apnea, unspecified; K21.9 Gastro-esophageal reflux disease without esophagitis; K44.9 Diaphragmatic hernia without obstruction or gangrene; H54.8 Legal blindness, as defined in USA; F41.9 Anxiety disorder, unspecified; F32.9 Major depressive disorder, single episode, unspecified; Z85.820 Personal history of malignant melanoma of skin; Z90.710 Acquired absence of both cervix and uterus; Z90.721 Acquired absence of ovaries, unilateral; Z90.89 Acquired absence of other organs; R00.1 Bradycardia, unspecified
CPT/HCPCS: 36415; 76705; 80053; 81003; 83690; 85025; 93005; 99283

== ENCOUNTER 2018-07-05 07:36 | Inpatient (IN) | payer MEDICARE, OTHER ==
--- NOTE | 2018-06-27 11:05 | HP ---
HISTORY AND PHYSICAL: DATE OF SURGERY: 07/05/18 DATE OF OFFICE VISIT: 06/27/18 SURGEON: Gertrudis Lynne MD * (DICTATED BY LOBITO SANTANA) PROCEDURE: Left total knee arthroplasty. CHIEF COMPLAINT: Left knee pain. HISTORY OF PRESENT ILLNESS: Ms. Coffman is an 88-year-old female with severe end- stage osteoarthritis of her left knee. She has failed conservative treatment and elected to proceed with a left total knee arthroplasty. PAST MEDICAL HISTORY: 1. Hypertension. 2. Coronary artery disease. 3. High cholesterol. 4. GERD. 5. Hypothyroidism. 6. Skin cancer. 7. Anxiety. PAST SURGICAL HISTORY: 1. Tonsillectomy. 2. Hysterectomy. 3. Appendectomy. 4. Right total knee arthroplasty. 5. Angioplasty x2. CURRENT MEDICATIONS: 1. Amlodipine 2.5 mg every morning. 2. Colace 100 mg 2 to 3 times a day as needed. 3. Paxil 10 mg daily. 4. Levothyroxine 75 mcg daily. 5. Spironolactone 25 mg 2 tabs a day. 6. Tylenol as needed. 7. Omeprazole 40 mg daily. 8. Aspirin 81 mg daily. 9. PreserVision. 10. Multivitamin. 11. Rosuvastatin calcium 5 mg at bedtime. ALLERGIES: ALTACE. FAMILY HISTORY: Heart disease and stroke. SOCIAL HISTORY: She is an 88-year-old female who lives at [facility]. She does not smoke, use drugs, or alcohol. REVIEW OF SYSTEMS: A complete 14-point review of systems was reviewed with the patient, it was positive for hypothyroidism and GERD. She denies history of DVT , PE, hepatitis, HIV, or anesthesia problems. PHYSICAL EXAMINATION GENERAL: She is well developed, well nourished in no acute distress. VITAL SIGNS: She stands 5 feet 3 inches tall, weighs 176 pounds, her blood pressure is 122/68, her heart rate is 60. HEENT: Normocephalic and atraumatic. NECK: Supple. No palpable lymph nodes. PULMONARY: The lungs are clear to auscultation bilaterally. CARDIO: Regular, rate, and rhythm. Strong S1 and S2. ABDOMEN: Soft, nontender, and nondistended. NEUROLOGIC: She is alert and oriented x3. MUSCULOSKELETAL: Left lower extremity, this skin is intact. There is no open wounds or abrasions. There is a mild to moderate effusion. She has some tenderness over the medial and lateral joint line. She walks with an antalgic type gaze. Review of systems is 10 to 110 degrees of flexion with patellofemoral crepitus. There is also significant varus deformity. She has a 2+ dorsals pedis pulse, intact sensation. Her lower extremity muscle group strengths are intact at 5/5. ASSESSMENT AND PLAN: Ms. Coffman is an 88-year-old female with severe end-stage osteoarthritis of the left knee. She has failed conservative treatment and elected to proceed with a left total knee arthroplasty. The surgery is scheduled for 07/05/[address] Lynne discussed the risks and benefits of the surgery at today's visit and all of her questions were answered. She will follow up with Dr. Lynne 2 weeks after the surgery. LOBITO SANTANA [id number]/[facility] #: [id number] STEVE
[~2018-07-05 07:36] MED LIST: Buffered Lidocaine 0.9% SYRIN* 5 ML/SYR SYRINGE INTRADERM ONE; Dexamethasone IV* 4 MG/ML 1 ML (4 MG) IV SLOW PU ONE; Famotidine IV* 10 MG/ML 2 ML (20 mg) IV ONE; Tranexamic Acid 1,000 MG in NS 0.9% 50 ML* (outpatient use) IV SCH
--- OUTSIDE RECORDS SUMMARY | 2018-07-05 07:56 | XMS REPORT ---
:1930 External Reference #:[id number] Author Organization [facility] Address [address] [place] [address] Phone [phone] Care Team Providers Name Role Phone Mert Valdez MD Primary Care Physician Unavailable Payers Type Date Identification Numbers Payment Provider Subscriber Medicare Primary Policy Number: [id number] Medicare Lynda Coreab PayID: [id number] [address] [place] [address] Medigap Part B Effective: 1995 Policy Number: Medicare Lynda Lopez Coffman [id number] Expires: 2018 PayID: [id number] [address] [place] [address] Medigap Part B Expires: 2017 Policy Number: [facility] Lynda Lopez Coffman [id number] PayID: [id number] [address] [address] [place] [address] Commercial Policy Number: [id number] [facility] Lynda Lopez Coffman Group Number: [id number] [address] PayID: [id number] [place] [address] Problems Date Description Provider Status Onset: 11/13/2011 Benign essential hypertension Fermín Willard M.D. Active Onset: 11/13/2011 Coronary arteriosclerosis Fermín Willard M.D. Active Onset: 11/13/2011 Mitral valve disorder Fermín Willard M.D. Active Onset: 11/07/2012 Morbid obesity Fermín Willard M.D. Active Onset: 07/16/2014 Gallstone Fermín Willard M.D. Active Onset: 07/16/2014 Pure hypercholesterolemia Fermín Willard M.D. Active Onset: 07/16/2014 Anemia Fermín Willard M.D. Active Onset: 04/01/2010 Obstructive sleep apnea syndrome Sabina Hanna DNP, RN, Active [employer] Onset: 12/30/2016 Localized, primary osteoarthritis Gertrudis Lynne M.D. Active Onset: 06/03/2018 Arthroplasty of knee Gertrudis Lynne M.D. Active Family History Date Family Member(s) Problem(s) Comments General non contributory Father due to Cancer, Colon () Mother due to Stroke () First Brother due to Alcohol Related () First Brother due to Accident () Second Brother due to [place] () - age 50's First Sister due to Cancer, Liver () First Sister due to Cancer, Lung () Second Sister due to Lung Disease () Social History Type Date Description Comments Marital Status Lives With [facility] Cigarette Use Never Smoked Cigarettes ETOH Use Rarely consumes alcohol Smoking Patient has never smoked Recreational Drug Use Never Used Drugs Daily Caffeine Consumes on average 1 cup of drinks weak coffee regular coffee per day Exercise Type/Frequency Exercises regularly Exercise Type/Frequency Walks daily not as much as before Allergies, Adverse Reactions, Alerts Date Description Reaction Status Severity Comments 06/05/2008 Altace active hypertension 03/07/2008 NKDA inactive Medications Medication Date Status Form Strength Qnty SIG Indications Ordering Provider Amlodipine 01/06 Active Tablets 2.5mg 1 by mouth I10 Fermín Camejo every am Tray Willard M.D. Amoxicillin 05/07 Active Tablets 500mg 4tabs take 4 tablets by Maged, mouth 1 M.D. hour before dental procedure Levothyroxine Active Tablets 75mcg 90tab 1 PO qd Unknown Sodium /0000 s Spironolactone Active Tablets 25mg 30tab 1 po qd Qutaybeh /0000 s Leah Hernandez M.D. Cpap Mask And Active Device at hs Unknown Supplies /0000 (setting at 20) Tylenol Active Tablets 500mg 2 po prn Omeprazole Active Capsules DR 40mg 1 by mouth Unknown every day Aspirin-Dipyridam Active Caps ER 25-200mg 1 tab by Unknown ole ER 12HR mouth 2x/day Preservision Active Capsules Areds 2 take one Unknown Areds 2 cap in the moring Rosuvastatin Active Tablets 5mg 90tab 1 by mouth I10 Fermín Calcium s every F. night at [facility]er, bedtime M.D. Paroxetine HCL Active Tablets 10mg 1 by mouth Unknown every day Iron Plus C Active Tablets one by Unknown mouth every day Amlodipine 01/06 Hx Tablets 5mg 180ta 1 by mouth I10 Fermín Besylate bs bid F. - Mauser, 01/06 M.D. Zolpidem Tartrate 03/05 Hx Tablets 5mg 14tab 1 pill at M25.561 s night by Maged, - mouth for M.D. 08/06 insomnia Coumadin 02/05 Hx Tablets 2mg 90tab take 1-3 s tabs by Maged, - mouth at 5 M.D. 03/14 at night /2016 as directed Oxycodone-Acetami 02/05 Hx Tablets 5-325mg 90tab 1-2 tabs s by mouth Maged, - every 4-6 M.D. /08 hours needed for pain Colace 02/05 Hx Capsules 100mg 90cap 1 tab by Gertrudis s mouth 2-3 Maged, - times a M.D. 06/19 day needed Rosuvastatin 12/23 Hx Tablets 10mg 90tab take 1 I10 Claudia S. Calcium s tablet by Gabe, - mouth N.P. 03/03 evening Rosuvastatin 11/13 Hx Tablets 5mg 180ta 2 by mouth I10 Fermín Calcium bs at bedtime F. - (increased Mauser, 12/2312/09/16) M.D. Amlodipine 11/30 Hx Tablets 2.5mg 180ta 2 tab by I10 Claudia Lynn Besylate bs mouth Foster, - every N.P. 01/06 morning and 2 tab every evening Aspir-81 08/[address] 81mg 30tab 1 by mouth s every day Choco Willard, 11/12 M.D. Antacid 02/04 Hx Chewtabs 500mg [facility] Montse, 08/28 M.D. Simvastatin 08/15 Hx Tablets 40mg 90tab 1 by mouth s every F. - [place] [facility]15 bedtime M.D. Iron Supplement 07/19 Hx Tablets 325(65Fe) 90tab by mouth mg s every day . Montse, 10/08 M.D. Ibuprofen 07/16 Hx Tablets 200mg 60tab 2 po bid s prn Choco Montse, 02/03 M.D. Diphenhydramine 12/12 Hx Tablets 25mg 1 poqhs Other HCL prn Ordering Strength - Provider 08/28 Lipitor 11/13 Hx Tablets 40mg 90tab 1 po hs s . [place]se, 11/13 M.D. Zocor 11/13 Hx Tablets 20mg 90tab 1 by mouth s every F. - [place] [facility]15 bedtime M.D. Simvastatin 11/03 Hx Tablets 40[facility] 1[facility]. Simvastatin 04/27 Hx Tablets 40mg 90tab 1 po qhs s . [facility], 11/03 M.[facility]. Potassium 04/14 Hx 20Meq 30uni 1 po qd ts . [facility], 07/15 M.D. Aldactone 04/14 Hx Tablets 25mg 90tab 1 po qd s Choco Montse, 11/13 M.D. Simvastatin 01/07 Hx Tablets 20mg 90tab 1 po qhs s F. - [place], 04/27 M.D. Potassium 11/06 Hx Tablets ER 20Meq 30tab 3 po qd Fermín Chloride s F. - [place]er, 04/14 M.D. Potassium 09/11 Hx Tablets ER 20Meq 60tab 2 po qd Fermín Chloride s F. - Mauser, 11/06 M.D. Simvastatin 07/31 Hx Tablets 20mg 90tab 1 po qd s F. - Mauser, 11/13 M.D. Lipitor 06/30 Hx Tablets 40mg 90tab 1 po hs s F. - Mauser, 07/30.D. Oxygen 03/14 Hx 2Liters/M qhs in - user, 08/03 M.D. please discontinu e daytime o2 and continue overnight oxygen therapy Oxygen Therapy 01/23 Hx 2LNC 8 hrs during the - day prn , 03/14 and 8 hrs .. @ hs. o2 saturation 85-87% Ra with ambulation Oxygen 01/21 Hx 2Liters/M 1unit via nasal in s canula 8 F. - hours , 01/23 during the . dayprn 8 hours at hs. Iron 01/06 Hx Tablets 325(65Fe) 90tab 1 po bid mg s F. - Mauser, 11/13 M.D. Potassium 01/02 Hx Tablets ER 10Meq 180ta 2 po qd Fermín Chloride bs F. - [place]er, 09/11 M.D. Aldactone 01/21 Hx Tablets 25mg 30tab 1 po qd s F. - Mauser, 03/14 M.D. Lipitor 12/21 Hx Tablets 10mg 90tab 1 po qhs s F. - Mauser, 12/30 M.D. Hydrochlorothiazi 12/21 Hx Tablets 25mg 30tab 1 po qd s Tray Willard, 01/21 M.D. KCL 12/21 Hx Tablets 20Meq 30tab 1 po qd x1 s chito sinclair, 01/21 M.D. Lipitor 10/29 Hx Tablets 5mg. 30tab 1 po qpm s Tray Willard, 12/21 M.D. Iron 10/11 Hx Tablets 325mg 90tab 1 PO qd s Tray Willard, 01/02 M.D. Vit C 10/11 Hx Tablets 500mg, 1 PO qd FChoco Willard, 12/30 M.D. Hydrochlorothiazi 05/07 Hx Tablets 25mg 30tab 1 PO qd s Tray Willard, 10/11 M.D. Norvasc 05/05 Hx Tablets 10mg 90tab 1 PO qd s Tray Willard, 11/13 M.D. /2011 Ramipril 03/24 Hx Capsules 5mg 1 po bid FChoco Willard, 05/05 M.D. Toprol XL 03/19 Hx Tablets ER 25mg 90tab 1 po qd 24HR s Tray Willard, 10/11 M.D. /2008 Klor-Con M20 03/07 Hx Tablets ER 20Meq 1 PO qd Tray Willard, 10/11 M.D. Norvasc 03/07 Hx Tablets 10mg 1 PO qd F. - Lillieuser, 05/05 M.D. Hydrochlorothiazi 03/07 Hx Tablets 25mg 1 PO qd Fermín Tray Willard, 03/24 M.D. Lipitor 03/07 Hx Tablets 40mg 1 PO hs Tray Willard, 10/29 M.D. Levothyroxine 03/07 Hx Tablets 100mcg 90tab Take 1 s Tablet By F. Preeti Willard, 03/07 Every M.D. /2007 Morning Folic Acid 03/07 [facility]x [facility]ts [facility] Prevacid 03/[address] 15mg 90cap 1 PO qd Tray Willard, 12/30 M.D. /2009 Paxil 03/07 Hx Tablets 10mg 14tab [facility] /2017 Aspir-81 03/[address] 81mg 30tab 1 PO qd Tray Willard, 02/14 M.D. /2009 Tylenol Arthritis 03/07 Hx 650mg. tid prn Tray Willard, 10/08 M.D. /2014 Milk Of Magnesia 03/07 Hx Suspension prn Tray Willard, 11/07 M.D. /2012 Hydrochlorothiazi Hx Tablets 25mg 30tab 1 po qd Unknown de /0000 s - 12/30 Potassium Hx Tablets ER 20Meq 1 po qd Unknown Chloride CR /0000 - 12/30 Simvastatin Hx Tablets 40mg 90tab 1 po qhs Unknown /0000 s - 06/30 Ranitidine HCL Hx Tablets 150mg 30tab 1 po qd Unknown /0000 s - 08/03 HCTZ Hx 25mg. 1 po qd Unknown /0000 - 04/14 Multi For Her 50+ Hx 1 po qd Unknown /0000 - 10/08 Aggrenox Hx Caps ER 25-200mg 180ca 1 by mouth Unknown /0000 12HR ps twice a - day 08/03 Simvastatin 0000 Hx Tablets 20mg 1 by mouth Unknown /0000 every day - 11/13 Multivitamin 00/00 Hx 1 po qd Unknown /0000 - 08/25 Cetirizine HCL Hx Tablets 10mg 1 by mouth Unknown /0000 every day - prn 08/25 Ocuvite 00 Hx Tablets 1 by mouth Unknown /0000 every day - 11/12 Simvastatin 00/00 Hx Tablets 40mg 1 by mouth Unknown /0000 every day - in the 11/13 evening. Multivitamin 00/ Hx Tablets 1 by mouth Unknown Women /0000 every day - 06/19 Iron 00 Hx Tablets 28mg 1 by mouth Unknown /0000 every day - 10/13 Iron 00/00 Hx Tablets 1 by mouth Unknown /0000 every day - 10/28 Medications Administered in Office Medication Date Status Form Strength Qnty SIG Indications Ordering Provider Inj, Administered Injection Peewee S. Regadenoson, 017 Abreu, DO 0.1 MG FACC Technetium TC Administered Injection Peewee S. 99M 017 Abreu, DO Tetrofosmin, FACC Per Unit Dose Up To 40 Millicuries Vital Signs Date Vital Result Comment 06/27/2018 Height 63 inches 5'3" Weight 169.00 lb Heart Rate 60 /min BP Systolic 122 mmHg BP Diastolic 68 mmHg Body Temperature 97.5 F Pain Level 0 BMI (Body Mass Index) 29.9 kg/m2 06/20/2018 Height 63 inches 5'3" Weight 168.25 lb W/ Shoes Heart Rate 60 /min BP Systolic Sitting 166 mmHg Lue Reg Cuff BP Diastolic Sitting 82 mmHg Lue Reg Cuff BP Systolic Standing 166 mmHg Home Unit Lue BP Diastolic Standing 82 mmHg Home Unit Lue BMI (Body Mass Index) 29.8 kg/m2 Ejection Fraction 70% Lexiscan 01/28/17 06/03/2018 Height 63 inches 5'3" Weight 176.00 lb BP Systolic 142 mmHg BP Diastolic 61 mmHg Respiratory Rate 16 /min Pain Level 8 BMI (Body Mass Index) 31.2 kg/m2 03/01/2018 Height 63 inches 5'3" Weight 156.25 lb Heart Rate 60 /min BP Systolic Sitting 138 mmHg BP Diastolic Sitting 68 mmHg BP Systolic Standing 128 mmHg la repeat sitting. BP Diastolic Standing 64 mmHg la repeat sitting. Respiratory Rate 16 /min BMI (Body Mass Index) 27.7 kg/m2 Ejection Fraction 60-65% 01/01/2017 echo 10/29/2017 Height 63 inches 5'3" Weight 167.50 lb no shoes Heart Rate 62 /min BP Systolic 152 mmHg Lue reg cuff manual BP Diastolic 72 mmHg Lue reg cuff manual BP Systolic Sitting 144 mmHg Lue home cuff BP Diastolic Sitting 75 mmHg Lue home cuff BP Systolic Standing 140 mmHg Lue reg cuff manual BP Diastolic Standing 66 mmHg Lue reg cuff manual Respiratory Rate 16 /min BMI (Body Mass Index) 29.7 kg/m2 Ejection Fraction 60-65% echo 60-65% 10/14/2017 Height 63 inches 5'3" Weight 173.00 lb with shoes Heart Rate 56 /min BP Systolic Sitting 160 mmHg Lue lrg cuff BP Diastolic Sitting 76 mmHg Lue lrg cuff Respiratory Rate 15 /min BMI (Body Mass Index) 30.6 kg/m2 Ejection Fraction 60-65% 01/01/2017-echo 08/06/2017 Height 63 inches 5'3" Weight 171.38 lb with shoes Heart Rate 62 /min BP Systolic Sitting 146 mmHg Lue reg cuff BP Diastolic Sitting 76 mmHg Lue reg cuff Respiratory Rate 14 /min O2 % BldC Oximetry 97 % On Ra BMI (Body Mass Index) 30.4 kg/m2 05/07/2017 Height 63 inches 5'3" Weight 170.00 lb Heart Rate 67 /min BP Systolic 124 mmHg BP Diastolic 59 mmHg Body Temperature 97.9 F Pain Level 0 BMI (Body Mass Index) 30.1 kg/m2 03/26/2017 Height 63 inches 5'3" Weight 170.00 lb Heart Rate 65 /min BP Systolic 126 mmHg BP Diastolic 59 mmHg Respiratory Rate 16 /min BMI (Body Mass Index) 30.1 kg/m2 03/15/2017 Height 63 inches 5'3" Weight 167.75 lb with shoes Heart Rate 70 /min BP Systolic Sitting 138 mmHg LA reg cuff BP Diastolic Sitting 70 mmHg LA reg cuff BMI (Body Mass Index) 29.7 kg/m2 Ejection Fraction 60%-65% echo 01/01/17 03/05/2017 Height 63 inches 5'3" Weight 170.00 lb BP Systolic 146 mmHg BP Diastolic 60 mmHg Body Temperature 97.3 F Pain Level 4 BMI (Body Mass Index) 30.1 kg/m2 02/05/2017 Height 63.5 inches 5'3.50" Weight 181.00 lb Heart Rate 68 /min BP Systolic 154 mmHg BP Diastolic 70 mmHg Body Temperature 97.5 F BMI (Body Mass Index) 31.6 kg/m2 02/03/2017 Height 63 inches 5'3" Weight 183.00 lb Heart Rate 55 /min BP Systolic Sitting 122 mmHg BP Diastolic Sitting 72 mmHg Respiratory Rate 16 /min O2 % BldC Oximetry 94 % BMI (Body Mass Index) 32.4 kg/m2 12/31/2016 Height 63.5 inches 5'3.50" Weight 183.00 lb with shoes Heart Rate 58 /min BP Systolic Sitting 142 mmHg LA reg cuff BP Diastolic Sitting 70 mmHg LA reg cuff BMI (Body Mass Index) 31.9 kg/m2 Ejection Fraction 55% - 60% echo 10/11/14 12/30/2016 Height 63.5 inches 5'3.50" Weight 181.00 lb Heart Rate 76 /min BP Systolic Sitting 152 mmHg BP Diastolic Sitting 96 mmHg Respiratory Rate 16 /min Pain Level 10 BMI (Body Mass Index) 31.6 kg/m2 11/25/2016 Height 65 inches 5'5" Weight 183.75 lb with shoes Heart Rate 76 /min BP Systolic Sitting 146 mmHg LA lrg cuff BP Diastolic Sitting 68 mmHg LA lrg cuff BMI (Body Mass Index) 30.6 kg/m2 Ejection Fraction 55% - 60% echo 10/11/14 11/13/2016 Height 65 inches 5'5" Weight 180.25 lb with shoes Heart Rate 58 /min BP Systolic 140 mmHg LA home cuff BP Diastolic 72 mmHg LA home cuff BP Systolic Sitting 136 mmHg LA lrg cuff in office BP Diastolic Sitting 62 mmHg LA lrg cuff in office BMI (Body Mass Index) 30.0 kg/m2 Ejection Fraction 55% - 60% echo 10/12/14 08/26/2016 Height 65 inches 5'5" Weight 178.00 lb w/shoes Heart Rate 66 /min 55 BP Systolic 190 mmHg home unit BP Diastolic 79 mmHg home unit BP Systolic Sitting 168 mmHg LA LG cuff BP Diastolic Sitting 88 mmHg LA LG cuff BMI (Body Mass Index) 29.6 kg/m2 Ejection Fraction 55-60% Echo 10/11/14 08/04/2016 Height 65 inches 5'5" Weight 177.00 lb with shoes Heart Rate 58 /min BP Systolic Sitting 172 mmHg LA, regular BP Diastolic Sitting 78 mmHg LA, regular BMI (Body Mass Index) 29.5 kg/m2 Ejection Fraction 55-60% echo 10/11/14 03/03/2016 Height 65 inches 5'5" Weight 176.00 lb Heart Rate 57 /min BP Systolic Sitting 128 mmHg BP Diastolic Sitting 74 mmHg Respiratory Rate 16 /min O2 % BldC Oximetry 97 % BMI (Body Mass Index) 29.3 kg/m2 01/21/2016 Height 65 inches 5'5" Weight 176.00 lb Heart Rate 73 /min BP Systolic Sitting 130 mmHg BP Diastolic Sitting 78 mmHg Respiratory Rate 16 /min O2 % BldC Oximetry 97 % BMI (Body Mass Index) 29.3 kg/m2 09/10/2015 Height 65 inches 5'5" Weight 173.25 lb Heart Rate 56 /min BP Systolic 124 mmHg BP Diastolic 80 mmHg Respiratory Rate 14 /min O2 % BldC Oximetry 95 % BMI (Body Mass Index) 28.8 kg/m2 08/29/2015 Height 65 inches 5'5" Weight 172.75 lb w/ shoes Heart Rate 61 /min BP Systolic Sitting 132 mmHg LA, reg BP Diastolic Sitting 74 mmHg LA, reg BMI (Body Mass Index) 28.7 kg/m2 Ejection Fraction 55-60% 10/12/14 ECHO 07/23/2015 Height 65 inches 5'5" Weight 179.00 lb Heart Rate 60 /min BP Systolic Sitting 136 mmHg BP Diastolic Sitting 72 mmHg O2 % BldC Oximetry 95 % BMI (Body Mass Index) 29.8 kg/m2 04/19/2015 Height 65 inches 5'5" Weight 169.00 lb Heart Rate 57 /min BP Systolic 140 mmHg BP Diastolic 80 mmHg Respiratory Rate 14 /min O2 % BldC Oximetry 96 % BMI (Body Mass Index) 28.1 kg/m2 02/04/2015 Height 65 inches 5'5" Weight 169.00 lb Heart Rate 60 /min BP Systolic Sitting 140 mmHg LA< reg BP Diastolic Sitting 76 mmHg LA< reg BMI (Body Mass Index) 28.1 kg/m2 Ejection Fraction 50%-60% 10/12/14 echo 01/18/2015 Height 65 inches 5'5" Weight 172.00 lb Heart Rate 61 /min BP Systolic Sitting 128 mmHg BP Diastolic Sitting 78 mmHg Body Temperature 98.0 F O2 % BldC Oximetry 95 % BMI (Body Mass Index) 28.6 kg/m2 Neck Circumference in inches 15 10/09/2014 Height 65 inches 5'5" Weight 171.00 lb Heart Rate 66 /min BP Systolic 142 mmHg LA large cuff BP Diastolic 80 mmHg LA large cuff BMI (Body Mass Index) 28.5 kg/m2 08/29/2014 Height 65 inches 5'5" Weight 167.00 lb with out shoes Heart Rate 70 /min BP Systolic Sitting 120 mmHg La reg cuff BP Diastolic Sitting 78 mmHg La reg cuff BP Systolic Standing 128 mmHg La reg cuff BP Diastolic Standing 70 mmHg La reg cuff Respiratory Rate 6 /min BMI (Body Mass Index) 27.8 kg/m2 07/16/2014 Height 65 inches 5'5" Weight 169.75 lb Heart Rate 54 /min BP Systolic Sitting 208 mmHg left, large BP Diastolic Sitting 92 mmHg left, large BMI (Body Mass Index) 28.2 kg/m2 12/12/2013 Height 65 inches 5'5" Weight 177.00 lb Heart Rate 76 /min BP Systolic Sitting 130 mmHg BP Diastolic Sitting 64 mmHg BMI (Body Mass Index) 29.5 kg/m2 11/07/2012 Height 65 inches 5'5" Weight 184.00 lb Heart Rate 60 /min BP Systolic 144 mmHg BP Diastolic 76 mmHg BMI (Body Mass Index) 30.6 kg/m2 11/13/2011 Height 65 inches 5'5" Weight 184.00 lb Heart Rate 62 /min BP Systolic 140 mmHg BP Diastolic 68 mmHg BMI (Body Mass Index) 30.6 kg/m2 03/12/2011 Weight 180.00 lb Heart Rate 60 /min BP Systolic 140 mmHg BP Diastolic 70 mmHg Respiratory Rate 18 /min 11/13/2010 Height 65 inches 5'5" Weight 185.00 lb Heart Rate 57 /min BP Systolic Sitting 140 mmHg L BP Diastolic Sitting 70 mmHg L BMI (Body Mass Index) 30.8 kg/m2 02/14/2010 Height 65 inches 5'5" Weight 180.00 lb Heart Rate 57 /min BP Systolic Sitting 142 mmHg BP Diastolic Sitting 70 mmHg BMI (Body Mass Index) 30.0 kg/m2 10/11/2008 Height 65 inches 5'5" Weight 191.00 lb Heart Rate 62 /min BP Systolic Sitting 130 mmHg BP Diastolic Sitting 64 mmHg Respiratory Rate 16 /min BMI (Body Mass Index) 31.8 kg/m2 03/07/2008 Height 65 inches 5'5" Weight 185.00 lb Heart Rate 71 /min BP Systolic Sitting 130 mmHg BP Diastolic Sitting 70 mmHg BP Systolic Standing 120 mmHg BP Diastolic Standing 70 mmHg BP Systolic Lying Down 120 mmHg BP Diastolic Lying Down 70 mmHg Respiratory Rate 16 /min BMI (Body Mass Index) 30.8 kg/m2 Results Test Date Test Result H/L Range Note Urinalysis Profile 06/24/2018 Urine Color Yellow Urine Appearance Cloudy Urine Specific Purdys 1.014 1.010-1.030 Urine pH 6.0 5-9 Urine Urobilinogen Negative Negative Urine Ketones Negative Negative Urine Protein Negative Negative Urine Leukocytes Negative Negative Urine Blood Negative Negative * * Negative 1 Urine Nitrite Negative Negative Urine Bilirubin Negative Negative Urine Glucose Negative Negative Inr/Protime 06/24/2018 Inr 0.92 0.77-1.02 Laboratory test finding 06/24/2018 Partial Thrombo Time 31.1 seconds 26.0 -36.3 PTT Basic Metabolic Panel 06/24/2018 Sodium 139 mmol/L 135-145 Chloride 106 mmol/L 101-111 Co2 Carbon Dioxide 24 mmol/L 22-32 Glucose 91 mg/dL 70-100 Blood Urea Nitrogen 17 mg/dL 6-24 Creatinine 0.92 mg/dL 0.51-0.95 BUN/Creatinine Ratio 18.5 8-20 Calcium 9.6 mg/dL 8.6-10.3 Egfr Non- 57.6 >60 Egfr 69.7 >60 2 Potassium TNP mmol/L 3.5-5.0 3 Anion Gap 9 mmol/L 2-11 Type & Screen 06/24/2018 Patient Blood Type O Positive Antibody Screen NEGATIVE CBC Auto Diff 06/24/2018 White Blood Count 6.8 10^3/uL 3.5-10.8 Red Blood Count 4.71 10^6/uL 4.00-5.40 Hemoglobin 13.7 g/dL 12.0-16.0 Hematocrit 42 % 35-47 Mean Corpuscular Volume 89 fL 80-97 Mean Corpuscular Hemoglobin 29 pg 27-31 Mean Corpuscular HGB Conc 33 g/dL 31-36 Red Cell Distribution Width 18 % High 10.5-15 Platelet Count 257 10^3/uL 150-450 Mean Platelet Volume 8.5 um3 7.4-10.4 Abs Neutrophils 3.6 10^3/uL 1.5-7.7 Abs Lymphocytes 1.9 10^3/uL 1.0-4.8 Abs Monocytes 0.9 10^3/uL High 0-0.8 Abs Eosinophils 0.3 10^3/uL 0-0.6 Abs Basophils 0.1 10^3/uL 0-0.2 Abs Nucleated RBC 0 10^3/uL Granulocyte % 53.4 % 38-83 Lymphocyte % 27.4 % 25-47 Monocyte % 13.4 % High 0-7 Eosinophil % 4.8 % 0-6 Basophil % 1.0 % 0-2 Nucleated Red Blood Cells % 0 Urine Culture And 06/24/2018 Urine Culture SEE RESULT BELOW 4 Sensitivities CBC Auto Diff 03/08/2018 White Blood Count 5.3 10^3/uL 3.5-10.8 Red Blood Count 3.87 10^6/uL Low 4.00-5.40 Hemoglobin 9.0 g/dL Low 12.0-16.0 Hematocrit 29 % Low 35-47 Mean Corpuscular Volume 74 fL Low 80-97 5 Mean Corpuscular Hemoglobin 23 pg Low 27-31 Mean Corpuscular HGB Conc 31 g/dL 31-36 Red Cell Distribution Width 20 % High 10.5-15 Platelet Count 279 10^3/uL 150-450 Mean Platelet Volume 9.0 um3 7.4-10.4 Abs Neutrophils 2.5 10^3/uL 1.5-7.7 Abs Lymphocytes 1.4 10^3/uL 1.0-4.8 Abs Monocytes 1.0 10^3/uL High 0-0.8 Abs Eosinophils 0.3 10^3/uL 0-0.6 Abs Basophils 0.1 10^3/uL 0-0.2 Abs Nucleated RBC 0 10^3/uL Granulocyte % 48.1 % 38-83 Lymphocyte % 27.5 % 25-47 Monocyte % 18.1 % High 0-7 Eosinophil % 5.0 % 0-6 Basophil % 1.3 % 0-2 Nucleated Red Blood Cells % 0.1 Iron & Iron Binding Capacity 03/08/2018 Iron 36 g/dL Low 50-212 Unsaturated Iron Binding 341 g/dL Total Iron Binding Capacity 377 g/dL 250-450 Transferrin 269 mg/dL 203-362 % Iron Saturation 10 % Low 15-55 Lipid Panel - [facility] 03/08/2018 Creatine Kinase(CK) 54 U/L 10-223 Comp Metabolic Panel 03/08/2018 Sodium 140 mmol/L 139-145 Potassium 4.1 mmol/L 3.5-5.0 Chloride 107 mmol/L 101-111 Co2 Carbon Dioxide 26 mmol/L 22-32 Anion Gap 7 mmol/L 2-11 Glucose 101 mg/dL High 70-100 Blood Urea Nitrogen 10 mg/dL 6-24 Creatinine 1.00 mg/dL High 0.51-0.95 BUN/Creatinine Ratio 10.0 8-20 Calcium 9.0 mg/dL 8.6-10.3 Total Protein 6.0 g/dL Low 6.4-8.9 Albumin 3.6 g/dL 3.2-5.2 Globulin 2.4 g/dL 2-4 Albumin/Globulin Ratio 1.5 1-3 Total Bilirubin 0.40 mg/dL 0.2-1.0 Alkaline Phosphatase 40 U/L 34-104 Alt 7 U/L 7-52 Ast 13 U/L 13-39 Egfr Non- 52.4 >60 Egfr 67.4 >60 6 Lipid Profile (Trig/Chol/HDL) 03/08/2018 Triglycerides 135 mg/dL 7 Cholesterol 130 mg/dL 8 HDL Cholesterol 36.7 mg/dL 9 LDL Cholesterol 66 mg/dL 10 Laboratory test finding 03/08/2018 TSH (Thyroid Stim Horm) 2.46 mcIU/mL 0.34-5.60 Folic Acid (Folate) 15.94 ng/mL >3.99 Vitamin B12 225 pg/mL 180-914 11 Comp Metabolic Panel 11/02/2017 Sodium 139 mmol/L 133-145 12 Potassium 3.9 mmol/L 3.5-5.0 12 Chloride 108 mmol/L 101-111 12 Co2 Carbon Dioxide 24 mmol/L 22-32 12 Anion Gap 7 mmol/L 2-11 12 Glucose 90 mg/dL 70-100 12 Blood Urea Nitrogen 16 mg/dL 6-24 12 Creatinine 1.02 mg/dL High 0.51-0.95 12 BUN/Creatinine Ratio 15.7 8-20 12 Calcium 9.3 mg/dL 8.6-10.3 12 Total Protein 6.3 g/dL Low 6.4-8.9 12 Albumin 3.9 g/dL 3.2-5.2 12 Globulin 2.4 g/dL 2-4 12 Albumin/Globulin Ratio 1.6 1-3 12 Total Bilirubin 0.80 mg/dL 0.2-1.0 12 Alkaline Phosphatase 40 U/L 34-104 12 Alt 7 U/L 7-52 12 Ast 16 U/L 13-39 12 Egfr Non- 51.3 >60 12 Egfr 65.9 >60 12, 13 Laboratory test finding 10/21/2017 TSH (Thyroid Stim Horm) 1.38 mcIU/mL 0.34-5.60 Laboratory test finding 10/21/2017 Erythrocyte Sed Rate 16 mm/Hr 0-40 CBC Auto Diff 10/21/2017 White Blood Count 5.6 10^3/uL 3.5-10.8 Red Blood Count 4.46 10^6/uL 4.0-5.4 Hemoglobin 11.0 g/dL Low 12.0-16.0 Hematocrit 35 % 35-47 Mean Corpuscular Volume 78 fL Low 80-97 Mean Corpuscular Hemoglobin 25 pg Low 27-31 Mean Corpuscular HGB Conc 32 g/dL 31-36 Red Cell Distribution Width 19 % High 10.5-15 Platelet Count 327 10^3/uL 150-450 Mean Platelet Volume 8 um3 7.4-10.4 Abs Neutrophils 2.3 10^3/uL 1.5-7.7 Abs Lymphocytes 2.0 10^3/uL 1.0-4.8 Abs Monocytes 0.9 10^3/uL High 0-0.8 Abs Eosinophils 0.3 10^3/uL 0-0.6 Abs Basophils 0.1 10^3/uL 0-0.2 Abs Nucleated RBC 0 10^3/uL Granulocyte % 42.1 % 38-83 Lymphocyte % 36.8 % 25-47 Monocyte % 15.3 % High 1-9 Eosinophil % 4.8 % 0-6 Basophil % 1.0 % 0-2 Nucleated Red Blood Cells % 0.1 Laboratory test finding 10/21/2017 C Reactive Protein < 1.00 mg/L < 5.00 14 Iron & Iron Binding Capacity 10/21/2017 Iron 22 g/dL Low 50-212 Unsaturated Iron Binding 429 g/dL Total Iron Binding Capacity 451 g/dL High 250-450 % Iron Saturation 5 % Low 15-55 Lipid Profile (Trig/Chol/HDL) 10/21/2017 Triglycerides 150 mg/dL 15 Cholesterol 150 mg/dL 16 HDL Cholesterol 41.3 mg/dL 17 LDL Cholesterol 79 mg/dL 18 Inr/Protime 02/05/2017 Inr 0.91 0.89-1.11 19 Laboratory test finding 02/05/2017 Partial Thrombo 30.7 seconds 26.0- 36.3 19, 20 Time PTT Urinalysis Profile 02/05/2017 Urine Color Yellow 19 Urine Appearance Clear 19 Urine Specific Purdys 1.018 1.010-1.030 19 Urine pH 5.0 5-9 19 Urine Urobilinogen Negative Negative 19 Urine Ketones Negative Negative 19 Urine Protein Negative Negative 19 Urine Leukocytes Negative Negative 19 Urine Blood Negative Negative 19 Urine Nitrite Negative Negative 19 Urine Bilirubin Negative Negative 19 Urine Glucose Negative Negative 19 Type & Screen 02/05/2017 Patient Blood Type O Positive 19 Antibody Screen NEGATIVE 19 Urine Culture And 02/05/2017 Urine Culture SEE RESULT BELOW 19, 21 Sensitivities Lipid Panel - [facility] 01/01/2017 Creatine 158 U/L 10-223 22 Kinase(CK) Comp Metabolic Panel 01/01/2017 Sodium 139 mmol/L 133-145 Potassium 4.2 mmol/L 3.5-5.0 Chloride 109 mmol/L 101-111 Co2 Carbon Dioxide 23 mmol/L 22-32 Anion Gap 7 mmol/L 2-11 Glucose 96 mg/dL 70-100 Blood Urea Nitrogen 22 mg/dL 6-24 Creatinine 0.96 mg/dL High 0.51-0.95 BUN/Creatinine Ratio 22.9 High 8-20 Calcium 9.5 mg/dL 8.6-10.3 Total Protein 7.0 g/dL 6.4-8.9 Albumin 4.3 g/dL 3.2-5.2 Globulin 2.7 g/dL 2-4 Albumin/Globulin Ratio 1.6 1-3 Total Bilirubin 0.70 mg/dL 0.2-1.0 Alkaline Phosphatase 48 U/L 34-104 Alt 10 U/L 7-52 Ast 18 U/L 13-39 Egfr Non- 55.1 >60 Egfr 70.9 >60 23 Laboratory test finding 01/01/2017 TSH (Thyroid Stim 1.44 mcIU/mL 0.34- 5.60 24 Horm) CBC Auto Diff 01/01/2017 White Blood Count 6.6 10^3/uL 3.5-10.8 Red Blood Count 4.45 10^6/uL 4.0-5.4 Hemoglobin 11.8 g/dL Low 12.0-16.0 Hematocrit 37 % 35-47 Mean Corpuscular Volume 84 fL 80-97 Mean Corpuscular Hemoglobin 27 pg 27-31 Mean Corpuscular HGB Conc 32 g/dL 31-36 Red Cell Distribution Width 15 % 10.5-15 Platelet Count 281 10^3/uL 150-450 Mean Platelet Volume 9 um3 7.4-10.4 Abs Neutrophils 3.2 10^3/uL 1.5-7.7 Abs Lymphocytes 1.9 10^3/uL 1.0-4.8 Abs Monocytes 1.0 10^3/uL High 0-0.8 Abs Eosinophils 0.3 10^3/uL 0-0.6 Abs Basophils 0.1 10^3/uL 0-0.2 Abs Nucleated RBC 0 10^3/uL Granulocyte % 49.4 % 38-83 Lymphocyte % 29.7 % 25-47 Monocyte % 14.8 % High 1-9 Eosinophil % 5.0 % 0-6 Basophil % 1.1 % 0-2 Nucleated Red Blood Cells % 0 Lipid Profile (Trig/Chol/HDL) 01/01/2017 Triglycerides 80 mg/dL 25 Cholesterol 157 mg/dL 26 HDL Cholesterol 51.9 mg/dL 27 LDL Cholesterol 89 mg/dL 28 Laboratory test 12/08/2016 TSH (Thyroid Stim Horm) 2.13 mcIU/mL 0.34- 5.60 finding Lipid Profile 12/08/2016 Triglycerides 112 mg/dL 29 (Trig/Chol/HDL) Cholesterol 158 mg/dL 30 HDL Cholesterol 45.4 mg/dL 31 LDL Cholesterol 90 mg/dL 32 Comp Metabolic Panel 12/08/2016 Sodium 139 mmol/L 133-145 Potassium 4.1 mmol/L 3.5-5.0 Chloride 109 mmol/L 101-111 Co2 Carbon Dioxide 25 mmol/L 22-32 Anion Gap 5 mmol/L 2-11 Glucose 89 mg/dL 70-100 Blood Urea Nitrogen 21 mg/dL 6-24 Creatinine 0.97 mg/dL High 0.51-0.95 BUN/Creatinine Ratio 21.6 High 8-20 Calcium 9.2 mg/dL 8.6-10.3 Total Protein 6.5 g/dL 6.4-8.9 Albumin 3.9 g/dL 3.2-5.2 Globulin 2.6 g/dL 2-4 Albumin/Globulin Ratio 1.5 1-3 Total Bilirubin 0.70 mg/dL 0.2-1.0 Alkaline Phosphatase 39 U/L 34-104 Alt 8 U/L 7-52 Ast 16 U/L 13-39 Egfr Non- 54.5 >60 Egfr 70.0 >60 33 Lipid Panel - [facility] 12/08/2016 Creatine Kinase(CK) 118 U/L 10-223 CBC Auto Diff 12/08/2016 White Blood Count 4.9 10^3/uL 3.5-10.8 Red Blood Count 4.16 10^6/uL 4.0-5.4 Hemoglobin 11.1 g/dL Low 12.0-16.0 Hematocrit 35 % 35-47 Mean Corpuscular Volume 84 fL 80-97 Mean Corpuscular Hemoglobin 27 pg 27-31 Mean Corpuscular HGB Conc 32 g/dL 31-36 Red Cell Distribution Width 17 % High 10.5-15 Platelet Count 260 10^3/uL 150-450 Mean Platelet Volume 9 um3 7.4-10.4 Abs Neutrophils 2.1 10^3/uL 1.5-7.7 Abs Lymphocytes 1.8 10^3/uL 1.0-4.8 Abs Monocytes 0.7 10^3/uL 0-0.8 Abs Eosinophils 0.3 10^3/uL 0-0.6 Abs Basophils 0 10^3/uL 0-0.2 Abs Nucleated RBC 0 10^3/uL Granulocyte % 41.7 % 38-83 Lymphocyte % 36.5 % 25-47 Monocyte % 15.1 % High 1-9 Eosinophil % 5.7 % 0-6 Basophil % 1.0 % 0-2 Nucleated Red Blood Cells % 0.1 Order 10/12/2014 Echocardiogram <pending> Laboratory test finding 10/11/2014 Alt 8 U/L 7-52 34, 35 Ast 14 U/L 13-39 34, 36 TSH (Thyroid Stimulating Horm) 1.61 IU/mL 0.34-5.60 34, 37 Lipid Profile (Trig/Chol/HDL) 10/11/2014 Triglycerides 96 mg/dL 34, 38 Cholesterol 141 mg/dL 34, 39 HDL Cholesterol 46.9 mg/dL 34, 40 LDL Cholesterol 75 mg/dL 34, 41 Basic Metabolic Panel 10/11/2014 Sodium 136 mmol/L 133-145 34 Potassium 3.9 mmol/L 3.5-5.0 34 Chloride 107 mmol/L 101-111 34 Co2 Carbon Dioxide 23 mmol/L 22-32 34 Anion Gap 6 mmol/L 2-11 34 Glucose 107 mg/dL High 70-100 34 Blood Urea Nitrogen 20 mg/dL 6-24 34 Creatinine 1.04 mg/dL High 0.51-0.95 34 BUN/Creatinine Ratio 19.2 8-20 34 Calcium 9.4 mg/dL 8.6-10.3 34 Egfr Non- 50.5 >60 34 Egfr 64.9 >60 34, 42 Iron & Iron Binding Capacity 10/11/2014 Iron 37 g/dL Low 50-212 Unsaturated Iron Binding 382 g/dL Total Iron Binding Capacity 419 g/dL 250-450 % Iron Saturation 9 % Low 15-55 Laboratory test finding 10/11/2014 Erythrocyte Sed Rate 27 mm/Hr 0-40 C Reactive Protein 15.85 mg/L High < 5.00 43 Creatine Kinase 61 U/L 10-223 CBC Auto Diff 10/11/2014 White Blood Count 9.5 10^3/uL 4.8-10.8 Red Blood Count 4.00 10^6/uL 4.0-5.4 Hemoglobin 10.8 g/dL Low 12.0-16.0 Hematocrit 33 % Low 35-47 Mean Corpuscular Volume 82 fL 80-97 Mean Corpuscular Hemoglobin 27 pg 27-31 Mean Corpuscular HGB Conc 33 g/dL 31-36 Red Cell Distribution Width 15 % 10.5-15 Platelet Count 337 10^3/uL 150-450 Mean Platelet Volume 8 um3 7.4-10.4 Abs Neutrophils 6.3 10^3/uL 1.5-7.7 Abs Lymphocytes 1.7 10^3/uL 1.0-4.8 Abs Monocytes 1.2 10^3/uL High 0-0.8 Abs Eosinophils 0.1 10^3/uL 0-0.6 Abs Basophils 0.1 10^3/uL 0-0.2 Abs Nucleated RBC 0 10^3/uL Granulocyte % 66.8 % 38-83 Lymphocyte % 18.4 % Low 25-47 Monocyte % 12.7 % High 1-9 Eosinophil % 1.5 % 0-6 Basophil % 0.6 % 0-2 Nucleated Red Blood Cells % 0 Comp Metabolic Panel 08/29/2014 Sodium 137 mmol/L 133-145 Potassium 4.6 mmol/L 3.5-5.0 Chloride 106 mmol/L 101-111 Co2 Carbon Dioxide 25 mmol/L 22-32 Anion Gap 6 mmol/L 2-11 Glucose 78 mg/dL 70-100 Blood Urea Nitrogen 24 mg/dL 6-24 Creatinine 1.12 mg/dL High 0.51-0.95 BUN/Creatinine Ratio 21.4 High 8-20 Calcium 9.4 mg/dL 8.6-10.3 Total Protein 7.0 g/dL 6.4-8.9 Albumin 4.2 g/dL 3.2-5.2 Globulin 2.8 g/dL 2-4 Albumin/Globulin Ratio 1.5 1-3 Total Bilirubin 0.70 mg/dL 0.2-1.0 Alkaline Phosphatase 39 U/L 34-104 Alt 8 U/L 7-52 Ast 16 U/L 13-39 Egfr Non- 46.3 >60 Egfr 59.6 >60 44 CBC Auto Diff 07/18/2014 White Blood Count 6.6 10^3/uL 4.8-10.8 Red Blood Count 4.67 10^6/uL 4.0-5.4 Hemoglobin 13.0 g/dL 12.0-16.0 Hematocrit 39 % 35-47 Mean Corpuscular Volume 84 fL 80-97 Mean Corpuscular Hemoglobin 28 pg 27-31 Mean Corpuscular HGB Conc 33 g/dL 31-36 Red Cell Distribution Width 15 % 10.5-15 Platelet Count 288 10^3/uL 150-450 Mean Platelet Volume 9 um3 7.4-10.4 Abs Neutrophils 3.7 10^3/uL 1.5-7.7 Abs Lymphocytes 2.0 10^3/uL 1.0-4.8 Abs Monocytes 0.7 10^3/uL 0-0.8 Abs Eosinophils 0.2 10^3/uL 0-0.6 Abs Basophils 0.1 10^3/uL 0-0.2 Abs Nucleated RBC 0 10^3/uL Granulocyte % 55.4 % 38-83 Lymphocyte % 30.3 % 25-47 Monocyte % 10.3 % High 1-9 Eosinophil % 3.0 % 0-6 Basophil % 1.0 % 0-2 Nucleated Red Blood Cells % 0 Comp Metabolic Panel 07/18/2014 Sodium 137 mmol/L 133-145 Potassium 4.3 mmol/L 3.7-5.6 Chloride 106 mmol/L 101-111 Co2 Carbon Dioxide 25 mmol/L 22-32 Anion Gap 6 mmol/L 2-11 Glucose 98 mg/dL 70-100 Blood Urea Nitrogen 18 mg/dL 6-24 Creatinine 1.05 mg/dL High 0.51-0.95 BUN/Creatinine Ratio 17.1 8-20 Calcium 9.7 mg/dL 8.6-10.3 Total Protein 6.9 g/dL 6.4-8.9 Albumin 4.1 g/dL 3.2-5.2 Globulin 2.8 g/dL 2-4 Albumin/Globulin Ratio 1.5 1-3 Total Bilirubin 1.00 mg/dL 0.2-1.0 Alkaline Phosphatase 43 U/L 34-104 Alt 10 U/L 7-52 Ast 18 U/L 13-39 Egfr Non- 49.9 >60 Egfr 64.2 >60 45 Thyroid Panel 07/18/2014 Free T4 1.09 ng/mL 0.61-1.12 T4 9.47 g/dL 6.09-12.23 TSH (Thyroid Stimulating Horm) 1.84 IU/mL 0.34-5.60 Iron & Iron Binding Capacity 07/18/2014 Iron 61 g/dL 50-212 Unsaturated Iron Binding 381 g/dL Total Iron Binding Capacity 442 g/dL 250-450 % Iron Saturation 14 % Low 15-55 Laboratory test finding 07/18/2014 Vitamin B12 282 pg/mL 180-914 46 Lipid Panel - [facility] 01/09/2014 Creatine Kinase 188 U/L 10-223 34, 47 Comp Metabolic Panel 01/09/2014 Sodium 140 mmol/L 133-145 34 Potassium 4.2 mmol/L 3.7-5.6 34 Chloride 108 mmol/L 101-111 34 Co2 Carbon Dioxide 25 mmol/L 22-32 34 Anion Gap 7 mmol/L 2-11 34 Glucose 94 mg/dL 70-100 34 Blood Urea Nitrogen 10 mg/dL 6-24 34 Creatinine 0.86 mg/dL 0.51-0.95 34 BUN/Creatinine Ratio 11.6 8-20 34 Calcium 9.0 mg/dL 8.6-10.3 34 Total Protein 6.4 g/dL 6.4-8.9 34 Albumin 4.0 g/dL 3.2-5.2 34 Globulin 2.4 g/dL 2-4 34 Albumin/Globulin Ratio 1.7 1-3 34 Total Bilirubin 0.90 mg/dL 0.2-1.0 34 Alkaline Phosphatase 45 U/L 34-104 34 Alt 12 U/L 7-52 34 Ast 22 U/L 13-39 34 Egfr Non- 63.0 >60 34 Egfr 81.0 >60 34, 48 Lipid Profile (Trig/Chol/HDL) 01/09/2014 Triglycerides 122 mg/dL 34, 49 Cholesterol 158 mg/dL 34, 50 HDL Cholesterol 42.9 mg/dL 34, 51 LDL Cholesterol 91 mg/dL 34, 52 CBC Auto Diff 01/09/2014 White Blood Count 4.5 10^3/uL Low 4.8-10.8 34 Red Blood Count 4.53 10^6/uL 4.0-5.4 34 Hemoglobin 11.7 g/dL Low 12.0-16.0 34 Hematocrit 36 % 35-47 34 Mean Corpuscular Volume 80 fL 80-97 34 Mean Corpuscular Hemoglobin 26 pg Low 27-31 34 Mean Corpuscular HGB Conc 32 g/dL 31-36 34 Red Cell Distribution Width 16 % High 10.5-15 34 Platelet Count 280 10^3/uL 150-450 34 Mean Platelet Volume 10 um3 7.4-10.4 34 Abs Neutrophils 2.1 10^3/uL 1.5-7.7 34 Abs Lymphocytes 1.5 10^3/uL 1.0-4.8 34 Abs Monocytes 0.7 10^3/uL 0-0.8 34 Abs Eosinophils 0.2 10^3/uL 0-0.6 34 Abs Basophils 0.1 10^3/uL 0-0.2 34 Abs Nucleated RBC 0 10^3/uL 34 Granulocyte % 46.5 % 38-83 34 Lymphocyte % 32.9 % 25-47 34 Monocyte % 14.7 % High 1-9 34 Eosinophil % 4.5 % 0-6 34 Basophil % 1.4 % 0-2 34 Nucleated Red Blood Cells % 0.1 34 Laboratory test 01/09/2014 TSH (Thyroid 2.13 IU/mL 0.34-5.60 34, 53 finding Stimulating Horm) Urine Culture And 02/07/2013 Urine Culture (SEE NOTE) 54 Sensitivities Urine Microscopic 02/07/2013 Urine WBC 1+ (<10 /hpf) None Seen Urine RBC None Seen None Seen Crystals Urine Calcium Oxalate /lpf None Seen Urinalysis 02/07/2013 Urine Color Yellow Urine Appearance Clear Urine Specific Purdys 1.018 1.010-1.030 Urine Esterase 1+ Negative Urine Nitrate Negative Negative Urine Urobilinogen Negative E.U./dL Negative Urine Protein Negative mg/dL Negative Urine pH 5.5 5-9 Urine Blood Negative Negative Urine Ketones Negative mg/dL Negative Urine Bilirubin Negative Negative Urine Glucose Negative mg/dL Negative Laboratory test 02/07/2013 TSH (Thyroid Stimulating 1.20 miu/mL 0.34- 5.60 55 finding Horm) Lipid Profile 02/07/2013 Triglycerides 130 mg/dL 40-200 (Trig/Chol/HDL) Cholesterol 171 mg/dL Less than 200 HDL Cholesterol 45 mg/dL 40-60 56 Cholesterol/HDL Ratio 3.8 Average 1-4.44 LDL Cholesterol 100.0 mg/dL Less Than 100 57 Comp Metabolic Panel 02/07/2013 Sodium 139 mmol/L 133-145 Potassium 4.1 mmol/L 3.5-5.0 Chloride 108 mmol/L 101-111 Co2 Carbon Dioxide 26.0 mmol/L 22-32 Anion Gap 5.0 mmol/L 2-11 Glucose 97 mg/dL 70-100 Blood Urea Nitrogen 10 mg/dL 6-24 Creatinine 0.90 mg/dL 0.50-1.40 BUN/Creatinine Ratio 11.1 8-20 Calcium 9.6 mg/dL 8.1-9.9 Total Protein 6.7 g/dL 6.2-8.1 Albumin 4.0 g/dL 3.2-5.2 Globulin 2.7 g/dL 2-4 Albumin/Globulin Ratio 1.5 1-3 Total Bilirubin 1.2 mg/dL 0.4-1.5 Alkaline Phosphatase 46 U/L 30-110 Alt 11 U/L Low 14-54 Ast 19 U/L 12-42 Egfr Non- 59.9 >60 Egfr 77.1 >60 58 CBC Auto Diff 02/07/2013 White Blood Count 5.8 10^3/uL 4.8-10.8 Red Blood Count 4.92 10^6/uL 4.0-5.4 Hemoglobin 14.5 g/dL 12.0-16.0 Hematocrit 44 % 35-47 Mean Corpuscular Volume 89 fL 80-97 Mean Corpuscular Hemoglobin 30 pg 27-31 Mean Corpuscular HGB Conc 33 g/dL 31-36 Red Cell Distribution Width 14 % 10.5-15 Platelet Count 225 10^3/uL 150-450 Mean Platelet Volume 9 um3 7.4-10.4 Abs Neutrophils 3.2 10^3/uL 1.5-7.7 Abs Lymphocytes 1.7 10^3/uL 1.0-4.8 Abs Monocytes 0.7 10^3/uL 0-0.8 Abs Eosinophils 0.2 10^3/uL 0-0.6 Abs Basophils 0 10^3/uL 0-0.2 Abs Nucleated RBC 0 10^3/uL Granulocyte % 55.0 % 38-83 Lymphocyte % 29.9 % 25-47 Monocyte % 11.3 % High 1-9 Eosinophil % 3.0 % 0-6 Basophil % 0.8 % 0-2 Nucleated Red Blood Cells % 0 Lipid Profile (Trig/Chol/HDL) 02/10/2012 Triglyceride 117 mg/dL 40-200 Cholesterol 188 mg/dL Less Than 200 59 High Density Lipoprotein 48 mg/dL 40-60 60 Cholesterol/HDL Ratio 3.92 AVERAGE 1-4.44 Low Density Lipoprotein 117 mg/dL High Less Than 100 61 Comp Metabolic Panel 02/10/2012 Sodium 139 mmol/L 135-145 Potassium 4.4 mmol/L 3.5-5.0 Chloride 108 mmol/L 101-111 Co2 (Carbon Dioxide) 25.0 mmol/L 22-32 Anion Gap 6.0 mmol/L 2-11 62 Glucose 95 mg/dL 70-100 BUN 12 mg/dL 6-24 Creatinine 0.9 mg/dL 0.50-1.40 One Over Creatinine 1.11 BUN/Creatinine Ratio 13.3 8-20 Calcium 9.1 mg/dL 8.1-9.9 Total Protein 6.7 GM/DL 6.2-8.1 Albumin 4.0 GM/DL 3.2-5.2 Globulin 2.7 GM/DL 2-4 Albumin/Globulin Ratio 1.5 1-3 Bilirubin Total 1.0 mg/dL 0.4-1.5 63 Alkaline Phosphatase 45 U/L 30-110 Alt (SGPT) 11 U/L Low 14-54 Ast (Sgot) 18 U/L 12-42 eGFR Non- 60.1 > 60 eGFR 77.3 > 60 64 Lipid Panel - [facility] 02/10/2012 CPK (Creatine Kinase) 93 U/L 0-170 Lipid Panel - [facility] 10/22/2011 CPK (Creatine Kinase) 62 U/L 0-170 Comp Metabolic Panel 10/22/2011 Sodium 141 mmol/L 135-145 Potassium 4.4 mmol/L 3.5-5.0 Chloride 110 mmol/L 101-111 Co2 (Carbon Dioxide) 26.0 mmol/L 22-32 Anion Gap 5.0 mmol/L 2-11 65 Glucose 104 mg/dL High 70-100 BUN 12 mg/dL 6-24 Creatinine 0.9 mg/dL 0.50-1.40 One Over Creatinine 1.11 BUN/Creatinine Ratio 13.3 8-20 Calcium 9.6 mg/dL 8.1-9.9 Total Protein 6.7 GM/DL 6.2-8.1 Albumin 4.0 GM/DL 3.2-5.2 Globulin 2.7 GM/DL 2-4 Albumin/Globulin Ratio 1.5 1-3 Bilirubin Total 1.3 mg/dL 0.4-1.5 66 Alkaline Phosphatase 46 U/L 30-110 Alt (SGPT) 13 U/L Low 14-54 Ast (Sgot) 20 U/L 12-42 eGFR Non- 60.1 > 60 eGFR 77.3 > 60 67 Lipid Profile (Trig/Chol/HDL) 10/22/2011 Triglyceride 108 mg/dL 40-200 Cholesterol 161 mg/dL Less Than 200 68 High Density Lipoprotein 46 mg/dL 40-60 69 Cholesterol/HDL Ratio 3.50 AVERAGE 1-4.44 Low Density Lipoprotein 93 mg/dL Less Than 100 70 Lipid Panel - [facility] 06/29/2011 CPK (Creatine Kinase) 53 U/L 0-170 Comp Metabolic Panel 06/29/2011 Sodium 138 mmol/L 135-145 71 Potassium 4.6 mmol/L 3.5-5.0 Chloride 106 mmol/L 101-111 72 Co2 (Carbon Dioxide) 25.0 mmol/L 22-32 Anion Gap 7.0 mmol/L 2-11 73 Glucose 105 mg/dL High 70-100 BUN 12 mg/dL 6-24 Creatinine 1.0 mg/dL 0.50-1.40 One Over Creatinine 1.00 BUN/Creatinine Ratio 12.0 8-20 Calcium 9.3 mg/dL 8.1-9.9 Total Protein 7.4 GM/DL 6.2-8.1 Albumin 3.8 GM/DL 3.2-5.2 Globulin 3.6 GM/DL 2-4 Albumin/Globulin Ratio 1.1 1-3 Bilirubin Total 1.6 mg/dL High 0.4-1.5 74 Alkaline Phosphatase 47 U/L 30-110 Alt (SGPT) 19 U/L 14-54 Ast (Sgot) 25 U/L 12-42 eGFR Non- 53.2 > 60 eGFR 68.4 > 60 75 Lipid Profile (Trig/Chol/HDL) 06/29/2011 Triglyceride 190 mg/dL 40-200 Cholesterol 168 mg/dL Less Than 200 76 High Density Lipoprotein 37 mg/dL Low 40-60 77 Cholesterol/HDL Ratio 4.54 AVERAGE High 1-4.44 Low Density Lipoprotein 93 mg/dL Less Than 100 78 Basic Metabolic Panel 05/18/2011 Sodium 140 mmol/L 135-145 Potassium 4.7 mmol/L 3.5-5.0 Chloride 109 mmol/L 101-111 Co2 (Carbon Dioxide) 25.0 mmol/L 22-32 Anion Gap 6.0 mmol/L 2-11 79 Glucose 86 mg/dL 70-100 BUN 16 mg/dL 6-24 Creatinine 0.9 mg/dL 0.50-1.40 One Over Creatinine 1.11 BUN/Creatinine Ratio 17.8 8-20 Calcium 9.1 mg/dL 8.1-9.9 eGFR Non- 60.1 > 60 eGFR 77.3 > 60 80 Laboratory test finding 04/09/2011 Iron Total 96 g/dL 28-170 34 Iron & Iron Binding 04/09/2011 Unsaturated Iron Binding 253 g/dL 34 Capacity Total Iron Binding Capacity 349 g/dL 250-450 34 % Iron Saturation 28 % 15-55 34 CBC Auto Diff 04/09/2011 White Blood Count 5.5 CUMM 4.8-10.8 34 Red Cell Count 4.90 CUMM 4.2-5.4 34 Hemoglobin 14.6 g/dL 12.0-16.0 34 Hematocrit 44 % 35-47 34 Mean Corpuscular Volume 90 um3 79-97 34 Mean Corpuscular Hemoglob 30 pg 27-31 34 Mean Corpuscular HGB Cone 33 g/dL 32-36 34 Redcell Distribution WDTH 13 % 10.5-15 34 Platelet Count 235 CUMM 150-450 34 Mean Platelet Volume 9.1 um3 7.4-10.4 34 Gran % 51.5 % 38-83 34 Lymph % 33.3 % 25-47 34 Mononuclear % 10.9 % High 1-9 34 Eosinophil % 3.8 % 0-6 34 Basophil % 0.5 % 0-2 34 Abs Lymphs 1.8 1.0-4.8 34 Abs Mononuclear 0.6 0-0.8 34 Absolute Neutrophil Count 2.8 1.5-7.7 34 Abs Eosinophils 0.2 0-0.6 34 Abs Basophils 0 0-0.2 34 Laboratory test finding 04/09/2011 CPK (Creatine Kinase) 112 U/L 0-170 34 Lipid Profile (Trig/Chol/HDL) 04/09/2011 Triglyceride 175 mg/dL 40-200 34 Cholesterol 212 mg/dL High Less Than 200 34, 81 High Density Lipoprotein 44 mg/dL 40-60 34, 82 Cholesterol/HDL Ratio 4.82 AVERAGE High 1-4.44 34 Low Density Lipoprotein 133 mg/dL High Less Than 100 34, 83 Comp Metabolic Panel 04/09/2011 Sodium 141 mmol/L 135-145 34 Potassium 3.7 mmol/L 3.5-5.0 34 Chloride 109 mmol/L 101-111 34 Co2 (Carbon Dioxide) 24.0 mmol/L 22-32 34 Anion Gap 8.0 mmol/L 2-11 34, 84 Glucose 140 mg/dL High 70-100 34 BUN 13 mg/dL 6-24 34 Creatinine 0.80 mg/dL 0.50-1.40 34 One Over Creatinine 1.20 34 BUN/Creatinine Ratio 16.3 8-20 34 Calcium 9.0 mg/dL 8.1-9.9 34 Total Protein 6.5 GM/DL 6.2-8.1 34 Albumin 3.8 GM/DL 3.2-5.2 34 Globulin 2.7 GM/DL 2-4 34 Albumin/Globulin Ratio 1.4 1-3 34 Bilirubin Total 1.1 mg/dL 0.4-1.5 34, 85 Alkaline Phosphatase 50 U/L 30-110 34 Alt (SGPT) 16 U/L 14-54 34 Ast (Sgot) 19 U/L 12-42 34 eGFR Non- 68.8 > 60 34 eGFR 88.5 > 60 34, 86 Basic Metabolic Panel 11/04/2010 Sodium 139 mmol/L 135-145 Potassium 3.8 mmol/L 3.5-5.0 Chloride 105 mmol/L 101-111 Co2 (Carbon Dioxide) 26.0 mmol/L 22-32 Anion Gap 8.0 mmol/L 2-11 87 Glucose 84 mg/dL 70-100 BUN 14 mg/dL 6-24 Creatinine 0.80 mg/dL 0.50-1.40 One Over Creatinine 1.20 BUN/Creatinine Ratio 17.5 8-20 Calcium 9.6 mg/dL 8.1-9.9 eGFR Non- 69.0 > 60 eGFR 88.8 > 60 88 Basic Metabolic Panel 09/01/2010 Sodium 137 mmol/L 135-145 Potassium 3.6 mmol/L 3.5-5.0 Chloride 105 mmol/L 101-111 Co2 (Carbon Dioxide) 26.0 mmol/L 22-32 Anion Gap 6.0 mmol/L 2-11 89 Glucose 98 mg/dL 70-100 90 BUN 11 mg/dL 6-24 Creatinine 0.80 mg/dL 0.50-1.40 One Over Creatinine 1.20 BUN/Creatinine Ratio 13.8 8-20 Calcium 9.0 mg/dL 8.1-9.9 eGFR Non- 73.4 > 60 eGFR 88.8 > 60 91 Lipid Profile (Trig/Chol/HDL) 09/01/2010 Triglyceride 131 mg/dL 40-200 Cholesterol 193 mg/dL Less Than 200 92 High Density Lipoprotein 42 mg/dL 40-60 93 Cholesterol/HDL Ratio 4.60 AVERAGE High 1-4.44 Low Density Lipoprotein 125 mg/dL High Less Than 100 94 Liver Function Panel 09/01/2010 Total Protein 6.5 GM/DL 6.2-8.1 Albumin 3.9 GM/DL 3.2-5.2 Globulin 2.6 GM/DL 2-4 Albumin/Globulin Ratio 1.5 1-3 Bilirubin Total 1.3 mg/dL 0.4-1.5 95 Bilirubin Direct 0.2 mg/dL 0.1-0.5 Indirect Bilirubin 1.1 mg/dL High 0.3-1.0 96 Alkaline Phosphatase 48 U/L 30-110 Alt (SGPT) 13 U/L Low 14-54 Ast (Sgot) 20 U/L 12-42 Laboratory test finding 09/01/2010 TSH 1.38 MIU/ML 0.34-5.60 CBC With Manual Diff 09/01/2010 White Blood Count 4.9 CUMM 4.8-10.8 Red Cell Count 4.83 CUMM 4.2-5.4 Hemoglobin 14.9 g/dL 12.0-16.0 Hematocrit 44 % 35-47 Mean Corpuscular Volume 91 um3 79-97 Mean Corpuscular Hemoglob 31 pg 27-31 Mean Corpuscular HGB Cone 34 g/dL 32-36 Redcell Distribution WDTH 13 % 10.5-15 Platelet Count 228 CUMM 150-450 Mean Platelet Volume 8.1 um3 7.4-10.4 Polysegmented Neutrophil 49 % 38-83 Lymphocyte 27 % 25-47 Monocyte 9 % 0-13 Eosinophil 5 % 0-6 Atypical Lymph 10 % High 0-6 Absolute Neutrophil Count 2.4 Anisocytosis SLIGHT Lipid Profile (Trig/Chol/HDL) 06/26/2010 Triglyceride 116 mg/dL 40-200 Cholesterol 176 mg/dL Less Than 200 97 High Density Lipoprotein 47 mg/dL 40-60 98 Cholesterol/HDL Ratio 3.74 AVERAGE 1-4.44 Low Density Lipoprotein 106 mg/dL High Less Than 100 99 Comp Metabolic Panel 06/26/2010 Sodium 138 mmol/L 135-145 Potassium 3.6 mmol/L 3.5-5.0 Chloride 103 mmol/L 101-111 Co2 (Carbon Dioxide) 27.0 mmol/L 22-32 Anion Gap 8.0 mmol/L 2-11 100 Glucose 111 mg/dL High 70-100 101 BUN 16 mg/dL 6-24 Creatinine 0.80 mg/dL 0.50-1.40 One Over Creatinine 1.20 BUN/Creatinine Ratio 20.0 8-20 Calcium 9.0 mg/dL 8.1-9.9 Total Protein 6.4 GM/DL 6.2-8.1 Albumin 4.0 GM/DL 3.2-5.2 Globulin 2.4 GM/DL 2-4 Albumin/Globulin Ratio 1.7 1-3 Bilirubin Total 1.4 mg/dL 0.4-1.5 102 Alkaline Phosphatase 50 U/L 30-110 Alt (SGPT) 13 U/L Low 14-54 Ast (Sgot) 20 U/L 12-42 eGFR Non- 73.4 > 60 eGFR 88.8 > 60 103 Lipid Panel - [facility] 06/26/2010 CPK (Creatine Kinase) 151 U/L 0-170 Basic Metabolic Panel 01/31/2010 Sodium 141 mmol/L 135-145 Potassium 4.3 mmol/L 3.5-5.0 Chloride 108 mmol/L 101-111 Co2 (Carbon Dioxide) 25.0 mmol/L 22-32 Anion Gap 8.0 mmol/L 2-11 104 Glucose 105 mg/dL High 70-100 105 BUN 10 mg/dL 6-24 Creatinine 0.82 mg/dL 0.50-1.40 One Over Creatinine 1.20 BUN/Creatinine Ratio 12.2 8-20 Calcium 9.5 mg/dL 8.1-9.9 106 eGFR Non- 71.5 > 60 eGFR 86.5 > 60 107 Iron & Iron Binding Capacity 01/01/2010 Iron Total 14 g/dL Low 28-170 Unsaturated Iron Binding 488 g/dL Total Iron Binding Capacity 502 g/dL High 250-450 % Iron Saturation 3 % Low 15-55 Laboratory test finding 01/01/2010 CPK (Creatine Kinase) 72 U/L 0-170 Lipid Profile (Trig/Chol/HDL) 01/01/2010 Triglyceride 93 mg/dL 40-200 Cholesterol 159 mg/dL Less Than 200 108 High Density Lipoprotein 46 mg/dL 40-60 109 Cholesterol/HDL Ratio 3.46 AVERAGE 1-4.44 Low Density Lipoprotein 94 mg/dL Less Than 100 110 Comp Metabolic Panel 01/01/2010 Sodium 137 mmol/L 135-145 Potassium 3.8 mmol/L 3.5-5.0 Chloride 106 mmol/L 101-111 Co2 (Carbon Dioxide) 24.0 mmol/L 22-32 Anion Gap 7.0 mmol/L 2-11 111 Glucose 103 mg/dL High 70-100 112 BUN 12 mg/dL 6-24 Creatinine 0.90 mg/dL 0.50-1.40 One Over Creatinine 1.10 BUN/Creatinine Ratio 13.3 8-20 Calcium 8.9 mg/dL 8.1-9.9 113 Total Protein 6.7 GM/DL 6.2-8.1 Albumin 3.8 GM/DL 3.2-5.2 Globulin 2.9 GM/DL 2-4 Albumin/Globulin Ratio 1.3 1-3 Bilirubin Total 0.8 mg/dL 0.4-1.5 114 Alkaline Phosphatase 62 U/L 30-110 Alt (SGPT) 11 U/L Low 14-54 Ast (Sgot) 16 U/L 12-42 eGFR Non- 64.2 > 60 eGFR 77.7 > 60 115 Laboratory test finding 01/01/2010 BNP Evaluatr 261.0 pg/mL High 0-100 CBC With Manual Diff 01/01/2010 White Blood Count 5.6 CUMM 4.8-10.8 Red Cell Count 4.34 CUMM 4.2-5.4 Hemoglobin 9.4 g/dL Low 12.0-16.0 Hematocrit 30 % Low 35-47 Mean Corpuscular Volume 69 um3 Low 79-97 Mean Corpuscular Hemoglob 22 pg Low 27-31 Mean Corpuscular HGB Cone 32 g/dL 32-36 Redcell Distribution WDTH 19 % High 10.5-15 Platelet Count 276 CUMM 150-450 Mean Platelet Volume 8.3 um3 7.4-10.4 Polysegmented Neutrophil 55 % 38-83 Lymphocyte 25 % 25-47 Monocyte 12 % 0-13 Eosenophil 6 % 0-6 Basophil 1 % 0-2 Metamyelocyte 1 % 0-2 Absolute Neutrophil Count 3.0 Anisocytosis 1+ Poikilocytosis SLIGHT Microcytosis 1+ Hypochromasia SLIGHT Ovalocytes FEW Basic Metabolic Panel 02/08/2009 Sodium 137 mmol/L 135-145 Potassium 3.8 mmol/L 3.5-5.0 Chloride 104 mmol/L 101-111 Co2 (Carbon Dioxide) 25.0 mmol/L 22-32 Anion Gap 8.0 mmol/L 2-11 116 Glucose 121 mg/dL High 70-100 117 BUN 16 mg/dL 6-24 Creatinine 1.00 mg/dL 0.50-1.40 One Over Creatinine 1.00 BUN/Creatinine Ratio 16.0 8-20 Calcium 9.3 mg/dL 8.1-9.9 118 Basic Metabolic Panel 01/17/2009 Sodium 135 mmol/L 135-145 Potassium 3.5 mmol/L 3.5-5.0 Chloride 102 mmol/L 101-111 Co2 (Carbon Dioxide) 27.0 mmol/L 22-32 Anion Gap 6.0 mmol/L 2-11 119 Glucose 140 mg/dL High 70-100 120 BUN 13 mg/dL 6-24 Creatinine 1.10 mg/dL 0.50-1.40 One Over Creatinine 0.90 BUN/Creatinine Ratio 11.8 8-20 Calcium 9.3 mg/dL 8.1-9.9 121 Lipid Profile (Trig/Chol/HDL) 12/20/2008 Triglyceride 135 mg/dL 40-200 34 Cholesterol 219 mg/dL High Less Than 200 34, 122 High Density Lipoprotein 50 mg/dL 40-60 34, 123 Cholesterol/HDL Ratio 4.38 AVERAGE 1-4.44 34 Low Density Lipoprotein 142 mg/dL High Less Than 100 34, 124 Comp Metabolic Panel 12/20/2008 Sodium 139 mmol/L 135-145 34 Potassium 3.4 mmol/L Low 3.5-5.0 34 Chloride 103 mmol/L 101-111 34 Co2 (Carbon Dioxide) 28.0 mmol/L 22-32 34 Anion Gap 8.0 mmol/L 2-11 34, 125 Glucose 108 mg/dL High 70-100 34, 126 BUN 12 mg/dL 6-24 34 Creatinine 0.80 mg/dL 0.50-1.40 34 One Over Creatinine 1.20 34 BUN/Creatinine Ratio 15.0 8-20 34 Calcium 9.2 mg/dL 8.1-9.9 34, 127 Total Protein 7.1 GM/DL 6.2-8.1 34 Albumin 3.8 GM/DL 3.2-5.2 34 Globulin 3.3 GM/DL 2-4 34 Albumin/Globulin Ratio 1.2 1-3 34 Bilirubin Total 1.1 mg/dL 0.4-1.5 34 Alkaline Phosphatase 66 U/L 30-110 34 Alt (SGPT) 16 U/L 14-54 34 Ast (Sgot) 22 U/L 12-42 34 Lipid Panel - [facility] 12/20/2008 CPK (Creatine Kinase) 111 U/L 0-170 34 1 *Ascorbic acid is present which may interfere with detection of blood. 2 Because ethnic data is not always readily available, this report includes an eGFR for both -Americans and non- Americans. The National Kidney Disease Education Program (NKDEP) does not endorse the use of the MDRD equation for patients that are not between the ages of 18 and 70, are , have extremes of body size, muscle mass, or nutritional status, or are non- or non-. According to the National Kidney Foundation, irrespective of diagnosis, the stage of the disease is based on the level of kidney function: Stage Description GFR(mL/min/1.73 m(2)) 1 Kidney damage with normal or decreased GFR 90 2 Kidney damage with mild decrease in GFR 60-89 3 Moderate decrease in GFR 30-59 4 Severe decrease in GFR 15-29 5 Kidney failure <15 (or dialysis) 3 Specimen Hemolyzed. Result may not be valid. Unable to report test result due to hemolysis. 4 SEE RESULT BELOW Name: LYNDA COFFMAN : [address]: Gertrudis Lynne MD Acct: [id number] Unit: [id number] AGE: 88 Location: [facility] Re06/24/18 SEX: F Status: REG REF SPEC: [id number] RUDY: 06/24/18-0 [facility] DR: Gertrudis Lynne MD REQ: [id number] RECD: 06/24/18 STATUS: MADELINE TANNER DR: Mert Valdez MD _ SOURCE: URINE SPDESC: ORDERED: Urine Culture QUERIES: Urine Source: Clean Catch Procedure Result Reported Site Urine Culture Final 06/25/18- 1158 ML No Growth (<1,000 CFU/mL) * ML - Main Lab . END OF REPORT DEPARTMENT OF PATHOLOGY, [address] [place] [address] Ajay Blas M.D. Director [facility] # [id number] 5 Consistent with Previous Results Reported on 07/01/17 6 Because ethnic data is not always readily available, this report includes an eGFR for both -Americans and non- Americans. The National Kidney Disease Education Program (NKDEP) does not endorse the use of the MDRD equation for patients that are not between the ages of 18 and 70, are , have extremes of body size, muscle mass, or nutritional status, or are non- or non-. According to the National Kidney Foundation, irrespective of diagnosis, the stage of the disease is based on the level of kidney function: Stage Description GFR(mL/min/1.73 m(2)) 1 Kidney damage with normal or decreased GFR 90 2 Kidney damage with mild decrease in GFR 60-89 3 Moderate decrease in GFR 30-59 4 Severe decrease in GFR 15-29 5 Kidney failure <15 (or dialysis) 7 Desirable: <150 Borderline High: 150-199 High: 200-499 Very High: >500 8 Desirable: <200 Borderline High: 200-239 High: >239 9 Low: <40 Desirable: 40-60 High: >60 10 Desirable: <100 Near Optimal: 100-129 Borderline High: 130-159 High: 160-189 Very High: >189 11 Normal Range 180 to 914 Indeterminate Range 145 to 180 Deficient Range <145 12 [id number] 13 Because ethnic data is not always readily available, this report includes an eGFR for both -Americans and non- Americans. The National Kidney Disease Education Program (NKDEP) does not endorse the use of the MDRD equation for patients that are not between the ages of 18 and 70, are , have extremes of body size, muscle mass, or nutritional status, or are non- or non-. According to the National Kidney Foundation, irrespective of diagnosis, the stage of the disease is based on the level of kidney function: Stage Description GFR(mL/min/1.73 m(2)) 1 Kidney damage with normal or decreased GFR 90 2 Kidney damage with mild decrease in GFR 60-89 3 Moderate decrease in GFR 30-59 4 Severe decrease in GFR 15-29 5 Kidney failure <15 (or dialysis) 14 Acute inflammation: >10.00 15 Desirable: <150 Borderline High: 150-199 High: 200-499 Very High: >500 16 Desirable: <200 Borderline High: 200-239 High: >239 17 Low: <40 Desirable: 40-60 High: >60 18 Desirable: <100 Near Optimal: 100-129 Borderline High: 130-159 High: 160-189 Very High: >189 19 AA 02/11 20 AA 02/11 21 SEE RESULT BELOW Name: LYNDA COFFMAN : [address]: Gertrudis Lynne MD Acct: [id number] Unit: [id number] AGE: 86 Location: [facility] Re02/05/17 SEX: F Status: REG REF SPEC: [id number] RUDY: 02/05/17-[address] [facility] DR: Gertrudis Lynne MD REQ: [id number] RECD: 02/05/17 STATUS: COMP OTHR DR: Mert Valdez MD _ SOURCE: URINE SPDESC: ORDERED: Urine Culture COMMENTS: GEE 02/11 QUERIES: Urine Source: Clean Catch Procedure Result Reported Site Urine Culture Final 02/06/17- 1248 ML No Growth (<1,000 CFU/mL) * ML - MAIN LAB ([facility]) . END OF REPORT * ML=Testing performed at Main Lab DEPARTMENT OF PATHOLOGY, [address] [place] [id number] Ajay Blas M.D. Director [facility] # [id number] 23 Because ethnic data is not always readily available, this report includes an eGFR for both -Americans and non- Americans. The National Kidney Disease Education Program (NKDEP) does not endorse the use of the MDRD equation for patients that are not between the ages of 18 and 70, are , have extremes of body size, muscle mass, or nutritional status, or are non- or non-. According to the National Kidney Foundation, irrespective of diagnosis, the stage of the disease is based on the level of kidney function: Stage Description GFR(mL/min/1.73 m(2)) 1 Kidney damage with normal or decreased GFR 90 2 Kidney damage with mild decrease in GFR 60-89 3 Moderate decrease in GFR 30-59 4 Severe decrease in GFR 15-29 5 Kidney failure <15 (or dialysis) 24 FASTING 25 Desirable <150 Borderline high 150-199 High 200-499 Very High >500 26 Desirable <200 Borderline high 200-239 High >239 27 Low <40 Desirable: 40-60 High: >60 28 Desirable: <100 mg/dL Near Optimal: 100-129 mg/dL Borderline High: 130-159 mg/dL High: 160-189 mg/dL Very High: >189 mg/dL 29 Desirable <150 Borderline high 150-199 High 200-499 Very High >500 30 Desirable <200 Borderline high 200-239 High >239 31 Low <40 Desirable: 40-60 High: >60 32 Desirable: <100 mg/dL Near Optimal: 100-129 mg/dL Borderline High: 130-159 mg/dL High: 160-189 mg/dL Very High: >189 mg/dL 33 Because ethnic data is not always readily available, this report includes an eGFR for both -Americans and non- Americans. The National Kidney Disease Education Program (NKDEP) does not endorse the use of the MDRD equation for patients that are not between the ages of 18 and 70, are , have extremes of body size, muscle mass, or nutritional status, or are non- or non-. According to the National Kidney Foundation, irrespective of diagnosis, the stage of the disease is based on the level of kidney function: Stage Description GFR(mL/min/1.73 m(2)) 1 Kidney damage with normal or decreased GFR 90 2 Kidney damage with mild decrease in GFR 60-89 3 Moderate decrease in GFR 30-59 4 Severe decrease in GFR 15-29 5 Kidney failure <15 (or dialysis) 34 FASTING 35 FASTING 36 FASTING 37 FASTING 38 Desirable <150 Borderline high 150-199 High 200-499 Very High >500 39 Desirable <200 Borderline high 200-239 High >239 40 Low <40 Desirable: 40-60 High: >60 41 Desirable <100 Near Optimal 100-129 Borderline high 130-159 High 160-189 Very High >189 42 Because ethnic data is not always readily available, this report includes an eGFR for both -Americans and non- Americans. The National Kidney Disease Education Program (NKDEP) does not endorse the use of the MDRD equation for patients that are not between the ages of 18 and 70, are , have extremes of body size, muscle mass, or nutritional status, or are non- or non-. According to the National Kidney Foundation, irrespective of diagnosis, the stage of the disease is based on the level of kidney function: Stage Description GFR(mL/min/1.73 m(2)) 1 Kidney damage with normal or decreased GFR 90 2 Kidney damage with mild decrease in GFR 60-89 3 Moderate decrease in GFR 30-59 4 Severe decrease in GFR 15-29 5 Kidney failure <15 (or dialysis) 43 Acute inflammation: >10.00 44 Because ethnic data is not always readily available, this report includes an eGFR for both -Americans and non- Americans. The National Kidney Disease Education Program (NKDEP) does not endorse the use of the MDRD equation for patients that are not between the ages of 18 and 70, are , have extremes of body size, muscle mass, or nutritional status, or are non- or non-. According to the National Kidney Foundation, irrespective of diagnosis, the stage of the disease is based on the level of kidney function: Stage Description GFR(mL/min/1.73 m(2)) 1 Kidney damage with normal or decreased GFR 90 2 Kidney damage with mild decrease in GFR 60-89 3 Moderate decrease in GFR 30-59 4 Severe decrease in GFR 15-29 5 Kidney failure <15 (or dialysis) 45 Because ethnic data is not always readily available, this report includes an eGFR for both -Americans and non- Americans. The National Kidney Disease Education Program (NKDEP) does not endorse the use of the MDRD equation for patients that are not between the ages of 18 and 70, are , have extremes of body size, muscle mass, or nutritional status, or are non- or non-. According to the National Kidney Foundation, irrespective of diagnosis, the stage of the disease is based on the level of kidney function: Stage Description GFR(mL/min/1.73 m(2)) 1 Kidney damage with normal or decreased GFR 90 2 Kidney damage with mild decrease in GFR 60-89 3 Moderate decrease in GFR 30-59 4 Severe decrease in GFR 15-29 5 Kidney failure <15 (or dialysis) 46 Normal Range 180 to 914 Indeterminate Range 145 to 180 Deficient Range <145 47 FASTING 48 Because ethnic data is not always readily available, this report includes an eGFR for both -Americans and non- Americans. The National Kidney Disease Education Program (NKDEP) does not endorse the use of the MDRD equation for patients that are not between the ages of 18 and 70, are , have extremes of body size, muscle mass, or nutritional status, or are non- or non-. According to the National Kidney Foundation, irrespective of diagnosis, the stage of the disease is based on the level of kidney function: Stage Description GFR(mL/min/1.73 m(2)) 1 Kidney damage with normal or decreased GFR 90 2 Kidney damage with mild decrease in GFR 60-89 3 Moderate decrease in GFR 30-59 4 Severe decrease in GFR 15-29 5 Kidney failure <15 (or dialysis) 49 Desirable <150 Borderline high 150-199 High 200-499 Very High >500 50 Desirable <200 Borderline high 200-239 High >239 51 Low <40 Desirable: 40-60 High: >60 52 Desirable <100 Near Optimal 100-129 Borderline high 130-159 High 160-189 Very High >189 53 FASTING 54 RUN DATE: 02/09/13 [facility] LAB LIVE PAGE 1 RUN TIME: [address] [place], [place] [address] Specimen Inquiry Name: LYNDA COFFMAN : [address]: Gabriela Mccain NP Acct: [id number] Unit: [id number] AGE: 82 Location: [facility] Re02/07/13 SEX: F Status: REG REF SPEC: [id number] RUDY: 02/07/[address]: Gabriela Mccain NP REQ: [id number] RECD: 02/07/13 STATUS: MADELINE TANNER DR: Fermín Willard MD _ SOURCE: URINE SPDESC: ORDERED: Urine Culture Procedure Result Verified Site Urine Culture Final 02/09/13- 1028 ML No Growth Day 2 (<1,000 CFU/mL) END OF REPORT * ML=Testing performed at Main Lab DEPARTMENT OF PATHOLOGY, [address] [place] [address] Ajay Blas M.D. Director [facility] Permit #[id number] PT IS FASTING 56 HDL Interpretation: Undesirable: High Risk: Less than 40 MG/DL Desirable: Low Risk: Greater than 60 MG/DL 57 LDL Interpretation: Low Risk Optimal Level: LDL Less than 100 MG/DL Near or Above Optimal: LDL 100-129 MG/DL Borderline High Risk: LDL 130-159 MG/DL High Risk: LDL 160-189 MG/DL Very High Risk: LDL Greater than 189 MG/DL 58 Because ethnic data is not always readily available, this report includes an eGFR for both -Americans and non- Americans. The National Kidney Disease Education Program (NKDEP) does not endorse the use of the MDRD equation for patients that are not between the ages of 18 and 70, are , have extremes of body size, muscle mass, or nutritional status, or are non- or non-. According to the National Kidney Foundation, irrespective of diagnosis, the stage of the disease is based on the level of kidney function: Stage Description GFR(mL/min/1.73 m(2)) 1 Kidney damage with normal or decreased GFR 90 2 Kidney damage with mild decrease in GFR 60-89 3 Moderate decrease in GFR 30-59 4 Severe decrease in GFR 15-29 5 Kidney failure <15 (or dialysis) 59 CHOLESTEROL INTERPRETATION: Desirable: Less than 200 MG/DL Borderline-High Risk: 200-239 MG/DL High-Risk: 240 MG/DL and over 60 HDL INTERPRETATION: Undesirable: High Risk: Less than 40 MG/DL Desirable: Low Risk: Greater than 60 MG/DL 61 LDL INTERPRETATION: Low Risk Optimal Level: LDL Less than 100 MG/DL Near or Above Optimal: LDL 100-129 MG/DL Borderline High Risk: LDL 130-159 MG/DL High Risk: LDL 160-189 MG/DL Very High Risk: LDL Greater than 189 MG/DL 62 Anion gap measurement may be of limited value in the presence of any alkalosis, especially in a combined acid base disorder. . 63 A metabolite of Naproxen, O-desmethylnaproxen, has been shown to interfere with the Jendrassik-Pelzer method for measuring total bilirubin. Samples from patients who have taken Naproxen have shown spurious elevation in total bilirubin levels. 64 Because ethnic data is not always readily available, this report includes an eGFR for both -Americans and non- Americans. The National Kidney Disease Education Program (NKDEP) does not endorse the use of the MDRD equation for patients that are not between the ages of 18 and 70, are , have extremes of body size, muscle mass, or nutritional status, or are non- or non-. According to the National Kidney Foundation, irrespective of diagnosis, the stage of the disease is based on the level of kidney function: Stage Description GFR(mL/min/1.73 m(2)) 1 Kidney damage with normal or decreased GFR 90 2 Kidney damage with mild decrease in GFR 60-89 3 Moderate decrease in GFR 30-59 4 Severe decrease in GFR 15-29 5 Kidney failure <15 (or dialysis) 65 Anion gap measurement may be of limited value in the presence of any alkalosis, especially in a combined acid base disorder. . 66 A metabolite of Naproxen, O-desmethylnaproxen, has been shown to interfere with the Jendrassik-Chey method for measuring total bilirubin. Samples from patients who have taken Naproxen have shown spurious elevation in total bilirubin levels. 67 Because ethnic data is not always readily available, this report includes an eGFR for both -Americans and non- Americans. The National Kidney Disease Education Program (NKDEP) does not endorse the use of the MDRD equation for patients that are not between the ages of 18 and 70, are , have extremes of body size, muscle mass, or nutritional status, or are non- or non-. According to the National Kidney Foundation, irrespective of diagnosis, the stage of the disease is based on the level of kidney function: Stage Description GFR(mL/min/1.73 m(2)) 1 Kidney damage with normal or decreased GFR 90 2 Kidney damage with mild decrease in GFR 60-89 3 Moderate decrease in GFR 30-59 4 Severe decrease in GFR 15-29 5 Kidney failure <15 (or dialysis) 68 CHOLESTEROL INTERPRETATION: Desirable: Less than 200 MG/DL Borderline-High Risk: 200-239 MG/DL High-Risk: 240 MG/DL and over 69 HDL INTERPRETATION: Undesirable: High Risk: Less than 40 MG/DL Desirable: Low Risk: Greater than 60 MG/DL 70 LDL INTERPRETATION: Low Risk Optimal Level: LDL Less than 100 MG/DL Near or Above Optimal: LDL 100-129 MG/DL Borderline High Risk: LDL 130-159 MG/DL High Risk: LDL 160-189 MG/DL Very High Risk: LDL Greater than 189 MG/DL 71 RESULTS CONFIRMED BY REPEAT ANALYSIS. REPEATED RESULT WAS 139 72 RESULTS CONFIRMED BY REPEAT ANALYSIS. REPEATED RESULT WAS 106 73 Anion gap measurement may be of limited value in the presence of any alkalosis, especially in a combined acid base disorder. . 74 A metabolite of Naproxen, O-desmethylnaproxen, has been shown to interfere with the Jendrassik-Pelzer method for measuring total bilirubin. Samples from patients who have taken Naproxen have shown spurious elevation in total bilirubin levels. 75 Because ethnic data is not always readily available, this report includes an eGFR for both -Americans and non- Americans. The National Kidney Disease Education Program (NKDEP) does not endorse the use of the MDRD equation for patients that are not between the ages of 18 and 70, are , have extremes of body size, muscle mass, or nutritional status, or are non- or non-. According to the National Kidney Foundation, irrespective of diagnosis, the stage of the disease is based on the level of kidney function: Stage Description GFR(mL/min/1.73 m(2)) 1 Kidney damage with normal or decreased GFR 90 2 Kidney damage with mild decrease in GFR 60-89 3 Moderate decrease in GFR 30-59 4 Severe decrease in GFR 15-29 5 Kidney failure <15 (or dialysis) 76 CHOLESTEROL INTERPRETATION: Desirable: Less than 200 MG/DL Borderline-High Risk: 200-239 MG/DL High-Risk: 240 MG/DL and over 77 HDL INTERPRETATION: Undesirable: High Risk: Less than 40 MG/DL Desirable: Low Risk: Greater than 60 MG/DL 78 LDL INTERPRETATION: Low Risk Optimal Level: LDL Less than 100 MG/DL Near or Above Optimal: LDL 100-129 MG/DL Borderline High Risk: LDL 130-159 MG/DL High Risk: LDL 160-189 MG/DL Very High Risk: LDL Greater than 189 MG/DL 79 Anion gap measurement may be of limited value in the presence of any alkalosis, especially in a combined acid base disorder. . 80 Because ethnic data is not always readily available, this report includes an eGFR for both -Americans and non- Americans. The National Kidney Disease Education Program (NKDEP) does not endorse the use of the MDRD equation for patients that are not between the ages of 18 and 70, are , have extremes of body size, muscle mass, or nutritional status, or are non- or non-. According to the National Kidney Foundation, irrespective of diagnosis, the stage of the disease is based on the level of kidney function: Stage Description GFR(mL/min/1.73 m(2)) 1 Kidney damage with normal or decreased GFR 90 2 Kidney damage with mild decrease in GFR 60-89 3 Moderate decrease in GFR 30-59 4 Severe decrease in GFR 15-29 5 Kidney failure <15 (or dialysis) 81 CHOLESTEROL INTERPRETATION: Desirable: Less than 200 MG/DL Borderline-High Risk: 200-239 MG/DL High-Risk: 240 MG/DL and over 82 HDL INTERPRETATION: Undesirable: High Risk: Less than 40 MG/DL Desirable: Low Risk: Greater than 60 MG/DL 83 LDL INTERPRETATION: Low Risk Optimal Level: LDL Less than 100 MG/DL Near or Above Optimal: LDL 100-129 MG/DL Borderline High Risk: LDL 130-159 MG/DL High Risk: LDL 160-189 MG/DL Very High Risk: LDL Greater than 189 MG/DL 84 Anion gap measurement may be of limited value in the presence of any alkalosis, especially in a combined acid base disorder. . 85 A metabolite of Naproxen, O-desmethylnaproxen, has been shown to interfere with the Jendrassik-Pelzer method for measuring total bilirubin. Samples from patients who have taken Naproxen have shown spurious elevation in total bilirubin levels. 86 Because ethnic data is not always readily available, this report includes an eGFR for both -Americans and non- Americans. The National Kidney Disease Education Program (NKDEP) does not endorse the use of the MDRD equation for patients that are not between the ages of 18 and 70, are , have extremes of body size, muscle mass, or nutritional status, or are non- or non-. According to the National Kidney Foundation, irrespective of diagnosis, the stage of the disease is based on the level of kidney function: Stage Description GFR(mL/min/1.73 m(2)) 1 Kidney damage with normal or decreased GFR 90 2 Kidney damage with mild decrease in GFR 60-89 3 Moderate decrease in GFR 30-59 4 Severe decrease in GFR 15-29 5 Kidney failure <15 (or dialysis) 87 Anion gap measurement may be of limited value in the presence of any alkalosis, especially in a combined acid base disorder. . 88 Because ethnic data is not always readily available, this report includes an eGFR for both -Americans and non- Americans. The National Kidney Disease Education Program (NKDEP) does not endorse the use of the MDRD equation for patients that are not between the ages of 18 and 70, are , have extremes of body size, muscle mass, or nutritional status, or are non- or non-. According to the National Kidney Foundation, irrespective of diagnosis, the stage of the disease is based on the level of kidney function: Stage Description GFR(mL/min/1.73 m(2)) 1 Kidney damage with normal or decreased GFR 90 2 Kidney damage with mild decrease in GFR 60-89 3 Moderate decrease in GFR 30-59 4 Severe decrease in GFR 15-29 5 Kidney failure <15 (or dialysis) 89 Anion gap measurement may be of limited value in the presence of any alkalosis, especially in a combined acid base disorder. . 90 Note change in reference range as of 08/21/08. The change was based on recommendations from the [place] [employer]. 91 Because ethnic data is not always readily available, this report includes an eGFR for both -Americans and non- Americans. The National Kidney Disease Education Program (NKDEP) does not endorse the use of the MDRD equation for patients that are not between the ages of 18 and 70, are , have extremes of body size, muscle mass, or nutritional status, or are non- or non-. According to the National Kidney Foundation, irrespective of diagnosis, the stage of the disease is based on the level of kidney function: Stage Description GFR(mL/min/1.73 m(2)) 1 Kidney damage with normal or decreased GFR 90 2 Kidney damage with mild decrease in GFR 60-89 3 Moderate decrease in GFR 30-59 4 Severe decrease in GFR 15-29 5 Kidney failure <15 (or dialysis) 92 CHOLESTEROL INTERPRETATION: Desirable: Less than 200 MG/DL Borderline-High Risk: 200-239 MG/DL High-Risk: 240 MG/DL and over 93 HDL INTERPRETATION: Undesirable: High Risk: Less than 40 MG/DL Desirable: Low Risk: Greater than 60 MG/DL 94 LDL INTERPRETATION: Low Risk Optimal Level: LDL Less than 100 MG/DL Near or Above Optimal: LDL 100-129 MG/DL Borderline High Risk: LDL 130-159 MG/DL High Risk: LDL 160-189 MG/DL Very High Risk: LDL Greater than 189 MG/DL 95 A metabolite of Naproxen, O-desmethylnaproxen, has been shown to interfere with the Jendrassik-Chey method for measuring total bilirubin. Samples from patients who have taken Naproxen have shown spurious elevation in total bilirubin levels. 96 Please note updated reference range, effective 04/17/10 97 CHOLESTEROL INTERPRETATION: Desirable: Less than 200 MG/DL Borderline-High Risk: 200-239 MG/DL High-Risk: 240 MG/DL and over 98 HDL INTERPRETATION: Undesirable: High Risk: Less than 40 MG/DL Desirable: Low Risk: Greater than 60 MG/DL 99 LDL INTERPRETATION: Low Risk Optimal Level: LDL Less than 100 MG/DL Near or Above Optimal: LDL 100-129 MG/DL Borderline High Risk: LDL 130-159 MG/DL High Risk: LDL 160-189 MG/DL Very High Risk: LDL Greater than 189 MG/DL 100 Anion gap measurement may be of limited value in the presence of any alkalosis, especially in a combined acid base disorder. . 101 Note change in reference range as of 05/17/08. The change was based on recommendations from the [place] [employer]. 102 A metabolite of Naproxen, O-desmethylnaproxen, has been shown to interfere with the Jendrassik-Chey method for measuring total bilirubin. Samples from patients who have taken Naproxen have shown spurious elevation in total bilirubin levels. 103 Because ethnic data is not always readily available, this report includes an eGFR for both -Americans and non- Americans. The National Kidney Disease Education Program (NKDEP) does not endorse the use of the MDRD equation for patients that are not between the ages of 18 and 70, are , have extremes of body size, muscle mass, or nutritional status, or are non- or non-. According to the National Kidney Foundation, irrespective of diagnosis, the stage of the disease is based on the level of kidney function: Stage Description GFR(mL/min/1.73 m(2)) 1 Kidney damage with normal or decreased GFR 90 2 Kidney damage with mild decrease in GFR 60-89 3 Moderate decrease in GFR 30-59 4 Severe decrease in GFR 15-29 5 Kidney failure <15 (or dialysis) 104 Anion gap measurement may be of limited value in the presence of any alkalosis, especially in a combined acid base disorder. . 105 Note change in reference range as of 05/17/08. The change was based on recommendations from the [place] [employer]. 106 Please note change in reference range effective 08 . 107 Because ethnic data is not always readily available, this report includes an eGFR for both -Americans and non- Americans. The National Kidney Disease Education Program (NKDEP) does not endorse the use of the MDRD equation for patients that are not between the ages of 18 and 70, are , have extremes of body size, muscle mass, or nutritional status, or are non- or non-. According to the National Kidney Foundation, irrespective of diagnosis, the stage of the disease is based on the level of kidney function: Stage Description GFR(mL/min/1.73 m(2)) 1 Kidney damage with normal or decreased GFR 90 2 Kidney damage with mild decrease in GFR 60-89 3 Moderate decrease in GFR 30-59 4 Severe decrease in GFR 15-29 5 Kidney failure <15 (or dialysis) 108 CHOLESTEROL INTERPRETATION: Desirable: Less than 200 MG/DL Borderline-High Risk: 200-239 MG/DL High-Risk: 240 MG/DL and over 109 HDL INTERPRETATION: Undesirable: High Risk: Less than 40 MG/DL Desirable: Low Risk: Greater than 60 MG/DL 110 LDL INTERPRETATION: Low Risk Optimal Level: LDL Less than 100 MG/DL Near or Above Optimal: LDL 100-129 MG/DL Borderline High Risk: LDL 130-159 MG/DL High Risk: LDL 160-189 MG/DL Very High Risk: LDL Greater than 189 MG/DL 111 Anion gap measurement may be of limited value in the presence of any alkalosis, especially in a combined acid base disorder. . 112 Note change in reference range as of 05/17/08. The change was based on recommendations from the [place] [employer]. 113 Please note change in reference range effective 08 . 114 A metabolite of Naproxen, O-desmethylnaproxen, has been shown to interfere with the Jendrassik-Chey method for measuring total bilirubin. Samples from patients who have taken Naproxen have shown spurious elevation in total bilirubin levels. 115 Because ethnic data is not always readily available, this report includes an eGFR for both -Americans and non- Americans. The National Kidney Disease Education Program (NKDEP) does not endorse the use of the MDRD equation for patients that are not between the ages of 18 and 70, are , have extremes of body size, muscle mass, or nutritional status, or are non- or non-. According to the National Kidney Foundation, irrespective of diagnosis, the stage of the disease is based on the level of kidney function: Stage Description GFR(mL/min/1.73 m(2)) 1 Kidney damage with normal or decreased GFR 90 2 Kidney damage with mild decrease in GFR 60-89 3 Moderate decrease in GFR 30-59 4 Severe decrease in GFR 15-29 5 Kidney failure <15 (or dialysis) 116 Anion gap measurement may be of limited value in the presence of any alkalosis, especially in a combined acid base disorder. . 117 Note change in reference range as of 05/17/08. The change was based on recommendations from the [place] [employer]. 118 Please note change in reference range effective 08 . 119 Anion gap measurement may be of limited value in the presence of any alkalosis, especially in a combined acid base disorder. . 120 Note change in reference range as of 05/17/08. The change was based on recommendations from the [place] [employer]. 121 Please note change in reference range effective 08 . 122 CHOLESTEROL INTERPRETATION: Desirable: Less than 200 MG/DL Borderline-High Risk: 200-239 MG/DL High-Risk: 240 MG/DL and over 123 HDL INTERPRETATION: Undesirable: High Risk: Less than 40 MG/DL Desirable: Low Risk: Greater than 60 MG/DL 124 LDL INTERPRETATION: Low Risk Optimal Level: LDL Less than 100 MG/DL Near or Above Optimal: LDL 100-129 MG/DL Borderline High Risk: LDL 130-159 MG/DL High Risk: LDL 160-189 MG/DL Very High Risk: LDL Greater than 189 MG/DL 125 Anion gap measurement may be of limited value in the presence of any alkalosis, especially in a combined acid base disorder. . 126 Note change in reference range as of 05/17/08. The change was based on recommendations from the [place] [employer]. 127 Please note change in reference range effective 08 . Procedures Date CPT Code Description Status Comment 06/20/2018 80764 EKG Tracing & Interpretation Completed 03/15/2018 87849 Holter Monitor Review (24 hr)dr Completed review & interp only 03/08/2018 56660 ECG Monitor/Recording W/Visual Completed Superimposition Scanning 03/01/2018 12062 EKG Tracing & Interpretation Completed 12/23/2017 64116 Amb.BP Monitor/Phys Completed Interp&Report 10/14/2017 04063 EKG Tracing & Interpretation Completed 03/17/2017 Diabetic Retinal Eye Exam Completed Document: 03/17/17 - Consult Ophthalmology-[place] 03/15/2017 43279 EKG Tracing & Interpretation Completed 02/11/2017 87087 TKR Total Knee Replacement Completed 02/11/2017 47207 TKR Total Knee Replacement Completed 01/28/2017 22805 Stress Test Completed 01/28/2017 14073 Myocardial Perfusion Imaging Completed Tomographic (Spect) Multiple Studies 01/26/2017 04541 Holter Monitor Review (24 hr)dr Completed review & interp only 01/20/2017 74796 ECG Monitor/Recording W/Visual Completed Superimposition Scanning 01/01/2017 67758 ECHO Transthorasic Realtime 2D W Completed Doppler & Color Flow Hosp 12/31/2016 85515 EKG Tracing & Interpretation Completed 11/13/2016 72452 EKG Tracing & Interpretation Completed 08/04/2016 00796 EKG Tracing & Interpretation Completed 12/31/2015 76132 Polysomnography Sleep Staging 4+ Completed Parameters W/Cpap 08/29/2015 50055 EKG Tracing & Interpretation Completed 02/04/2015 20284 EKG Tracing & Interpretation Completed 11/09/2014 41612 Treadmill Interp/Report Only Completed 11/09/2014 26121 Stress Test Supervsn W/Out I/R Completed 10/12/2014 09623 ECHO Transthoracic, Real-Time 2D Completed With Doppler And Color Flow 10/09/2014 59718 EKG Tracing & Interpretation Completed 08/06/2014 98592 ECHO Transthoracic, Real-Time 2D Completed With Doppler And Color Flow 07/16/2014 41238 EKG Tracing & Interpretation Completed 01/10/2014 65026 ECHO Transthoracic, Real-Time 2D Completed With Doppler And Color Flow 12/12/2013 06053 EKG Tracing & Interpretation Completed 11/07/2012 03192 EKG Tracing & Interpretation Completed 11/13/2011 29583 EKG Tracing & Interpretation Completed 03/12/2011 52764 EKG Tracing & Interpretation Completed 11/13/2010 08370 EKG Tracing & Interpretation Completed 02/14/2010 07656 EKG Tracing & Interpretation Completed 01/23/2010 83417 Pulse Oximetry-Mutl Determ Completed 01/01/2010 34317 ECHO Transthoracic, Real-Time 2D Completed With Doppler And Color Flow 10/11/2008 45249 EKG Tracing & Interpretation Completed 10/11/2008 97893 EKG Tracing & Interpretation Completed 03/24/2008 44757 Color Doppler Completed 03/24/2008 89423 Color Doppler Completed 03/24/2008 63075 Color Doppler Completed 03/24/2008 88561 Pulse Doppler & Continuous Wave Completed 03/24/2008 42066 Pulse Doppler & Continuous Wave Completed 03/24/2008 18084 Echocardiogram Completed 03/24/2008 85460 Echocardiogram Completed 03/24/2008 24428 Echocardiogram Completed 03/19/2008 01752 Treadmill Interp/Report Only Completed 03/19/2008 49387 Stress Test Supervsn W/Out I/R Completed 03/19/2008 61846 Stress ECHO Completed Interpretation/Report Hospital 03/19/2008 04555 Treadmill Interp/Report Only Completed 03/07/2008 78260 EKG Tracing & Interpretation Completed 03/07/2008 21780 EKG Tracing & Interpretation Completed Encounters Type Date Location Provider CPT E/M Dx Office Visit 06/20/2018 11:00a [facility] Claudia Bernal, N.P. 61557 I10 I34.0 E78.00 I25.10 Office Visit 06/03/2018 8:15a [facility] M.D. 09452 M25.562 [facility] M25.462 M17.12 Z96.651 Office Visit 03/01/2018 10:20a [facility] Fermín Willard M.D. 88458 I10 I34.0 R94.31 R00.1 I25.10 R42 D50.9 R63.4 Office Visit 10/29/2017 9:00a [facility] Ed Bernal, N.P. 35602 I10 I34.0 E78.00 Office Visit 10/14/2017 9:20a [facility] Of Fermín Willard, 37055 R94.31 [facility] [place] E78.00 I34.0 I10 D64.9 Office Visit 08/06/2017 10:45a [facility] Sabina Hanna, 02185 G47.33 [facility] HANNAH CARTER, JAJA Office Visit 03/15/2017 10:20a [facility] Fermín Willard, 93896 G47.33 MAndres R94.31 E78.00 I34.0 R43.8 I10 H54.50 I65.21 Office Visit 02/03/2017 12:00p [facility] Sabina Hanna, 45724 G47.33 [facility] HANNAH CARTER, ADONISOFELIA Office Visit 12/31/2016 9:40a [facility] Fermín Willard, 64408 M25.561 M.DChoco E78.00 R94.31 I10 I65.29 R00.1 Office Visit 12/30/2016 9:00a [facility]ne M.D. 24485 M25.561 [facility] M25.562 M25.461 M25.462 M17.0 Office Visit 11/25/2016 10:30a [facility] LOBITO Ortiz 21510VGP I10 I25.10 E78.00 Office Visit 11/13/2016 1:40p [facility] Fermín Willard M.D. 17231 I10 K92.2 I25.10 E78.00 Office Visit 08/26/2016 10:00a [facility] LOBITO Ortiz 18661 I10 Office Visit 08/04/2016 10:40a [facility] Fermín Willard M.D. 30212 K92.2 R06.02 I10 G47.33 I25.10 R07.9 Office Visit 05/25/2016 3:11p [facility] [address] K92.2 Hospitalists R06.02 K21.9 I10 Office Visit 03/03/2016 10:30a [facility] Sabina Hanna 03228 G47.33 Services Of Ed CARTER RN, FNP-BC Office Visit 01/21/2016 9:15a [facility] Sabina Hanna 59955 G47.33 Services Of Ed CARTER RN, FNP-BC G47.10 Office Visit 09/10/2015 11:15a [facility] Sabina Hanna 40409 G47.33 Services Of Ed CARTER RN, FNP-BC Office Visit 08/29/2015 10:00a [facility] Fermín Willard 16228 R07.9 Rafael I25.10 E78.0 I10 Office Visit 07/23/2015 10:00a [facility] Sabina Hanna 94524 G47.33 Services Of Ed CARTER RN, FNP-BC Office Visit 04/19/2015 10:00a [facility] Sabina Hanna, 77456 327.23 [facility] HANNAH CARTER, [facility] Office Visit 02/04/2015 11:20a [facility] Fermín Willard, 01107 786.50 M.DChoco 414.01 786.09 553.3 Office Visit 01/18/2015 10:15a [facility] Sabina Hanna 92815 327.23 Services [facility] HANNAH CARTER, [facility] Office Visit 10/09/2014 9:00a [facility] Fermín Willard, 90041 414.01 M.D. 272.0 362.31 401.1 787.03 780.79 Office Visit 08/29/2014 1:30p [facility] LOBITO Ortiz 20851 401.1 362.31 414.01 272.0 424.0 Office Visit 07/16/2014 1:40p [facility] Fermín Willard M.D. 93115 424.0 401.1 574.20 272.0 285.9 Office Visit 12/12/2013 4:00p [facility] Fermín Willard 78364 574.20 MChocoDChoco 786.59 424.0 401.1 272.0 Office Visit 11/28/2013 4:38p [facility], Emerson Zambrano 46202 786.59 Hospitalists Rafael Davies 574.20 722.4 Office Visit 11/07/2012 2:20p [facility] Fermín Willard M.D. 53695 424.0 414.01 278.01 401.1 Office Visit 11/13/2011 3:00p [facility] Fermín Willard M.D. 15478 424.0 414.01 401.1 Office Visit 03/12/2011 10:00a [facility] Fermín Willard M.D. 27586 424.0 414.01 401.1 Office Visit 11/13/2010 2:00p [facility] Fermín Willard M.D. 75736 424.0 414.01 278.01 Office Visit 02/14/2010 2:40p [facility] Fermín Willard M.D. 52444 424.0 414.01 278.01 401.1 285.8 Office Visit 10/11/2008 9:40a [facility] Fermín Willard, 99468 278.01 M.D. 401.1 414.01 272.0 Office Visit 03/24/2008 10:30a [facility] ECHO Schedule 49754 278.01 401.1 414.01 785.2 Office Visit 03/07/2008 2:20p [facility] Fermín Willard, 50056 278.01 M.D. 414.01 401.1 272.0 Plan of Care Future Appointment(s):07/18/2018 9:45 am - Gertrudis Lynne M.D. at [facility]06/28/2018 10:00 am - Johan Bennett M.D. at [facility]07/05/2018 12:30 pm - Justin Vega PA-C at [facility]07/05/2018 12:30 pm - LOBITO Pastor at [facility]07/05/2018 12:30 pm - Gertrudis Lynne M.D. at [facility]08/08/2018 10:30 am - Sabina Hanna DNP, RN, BAKERY DECORATOR-BC at [facility]06/27/2018 - Gertrudis Lynne M.D.M17.12 Unilateral primary osteoarthritis, left kneeFollow up:Follow up: 10-14 days wvffsqG78.562 Pain in left kneeM25.462 Effusion, left knee
--- OUTSIDE RECORDS SUMMARY | 2018-07-05 07:57 | XMS REPORT ---
:1930 External Reference #:[id number] Author Organization [facility] [employer] Address [address] [place] [address] [place] [address] Phone [phone] Care Team Providers Name Role Phone Mert Valdez MD Primary Care Physician Unavailable Payers Type Date Identification Numbers Payment Provider Subscriber Medicare Primary Policy Number: [id number] Medicare Lynda Coreab PayID: [id number] [address] [place] [address] Medigap Part B Effective: 1995 Policy Number: Medicare Lynda Lopez Coffman [id number] Expires: 2018 PayID: [id number] [address] [place] [address] Medigap Part B Expires: 2017 Policy Number: [facility] Lynda Lopez Coffman [id number] PayID: [id number] [address] [address] [place] [address] Commercial Policy Number: [id number] [facility] Lynda Lopez Coffman Group Number: [id number] [address] PayID: [id number] [place] [address] Problems Date Description Provider Status Onset: 11/13/2011 [...] apnea syndrome Sabina Hanna DNP, RN, Active [employer] Onset: 12/30/2016 Localized, primary osteoarthritis Gertrudis Lynne M.D. Active Onset: 06/03/2018 Arthroplasty of knee Gertrudis Lynne M.D. Active Family History Date Family Member(s) Problem(s) Comments General non contributory Father due to Cancer, Colon () Mother due to Stroke () First Brother due to Alcohol Related () First Brother due to Accident () Second Brother due to MT () - age 50's First Sister due [...] Tylenol Active Tablets 500mg 2 po prn Unknown /[address] 40mg 1 by mouth Unknown /0000 every day Aspirin-Dipyridam Active Caps ER 25-200mg 1 tab by Unknown ole ER /0000 12HR mouth 2x/day Preservision Active Capsules Areds 2 take one Unknown Areds 2 /0000 cap in the moring Rosuvastatin Active Tablets 5mg 90tab 1 by mouth I10 Fermín Calcium / s every F. night at [facility], bedtime M.D. Paroxetine HCL Active Tablets 10mg 1 by mouth Unknown / every day Iron Plus C Active Tablets one by Unknown /0000 mouth every day Amlodipine 01/06 Hx Tablets 5mg 180ta 1 by mouth I10 Fermín Besylate bs bid F. - Mauser, 01/06 M.D. Zolpidem Tartrate 03/05 Hx Tablets 5mg 14tab 1 pill at M25.561 s night by Maged, - mouth for M.D. 08/06 insomnia Coumadin 02/05 Hx Tablets 2mg 90tab take 1-3 Gertrudis s tabs by Maged, - mouth at 5 M.D. 03/14 at night as directed Oxycodone-Acetami 02/05 Hx Tablets 5-325mg [...] F. - (increased Mauser, 12/2312/09/16) M.D. Amlodipine 08/26 Hx Tablets 2.5mg 180ta 2 tab by I10 Claudia S. Besylate bs mouth Foster, - every N.P. 01/06 morning and 2 tab every evening Aspir-81 08/[address] 81mg 30tab 1 [facility]. Antacid 02/04 [facility]x [facility]abs [facility] . [facility]. Simvastatin 08/15 Hx Tablets 40mg 90tab 1 by mouth s every F. - night at [facility], 10/15 bedtime M.D. Iron Supplement 07/19 Hx Tablets 325(65Fe) 90tab by mouth mg s every day . [facility], 10/08 M.D. Ibuprofen 07/16 Hx Tablets 200mg 60tab 2 po bid s prn . [facility]. Diphenhydramine 12/12 Hx Tablets 25mg 1 poqhs Other HCL prn Ordering Strength - Provider 08/28 Lipitor 11/13 Hx Tablets 40mg 90tab 1 po hs s . - user, 11/13 M.D. Zocor 11/13 Hx Tablets 20mg 90tab 1 by mouth s every F. - night at [facility], 07/15 bedtime M.D. Simvastatin 11/03 Hx Tablets 40mg 1/2 po qhs F. - Mauser, 11/13 M.D. Simvastatin 04/27 Hx Tablets 40mg 90tab 1 po qhs s F. - Mauser, 11/03 M.D. /2011 Potassium 04/14 Hx 20Meq 30uni 1 po [facility]d ts [facility] Aldactone 04/14 Hx Tablets 25mg 90tab 1 po qd s . - Mauser, 11/13 M.D. /2011 Simvastatin 01/07 Hx Tablets 20mg 90tab 1 [...] 07/30.D. Oxygen 03/14 Hx 2Liters/M qhs in . - user, 08/03 M.D. please discontinu e daytime o2 and continue overnight oxygen therapy Oxygen Therapy 01/23 Hx 2LNC 8 hrs during the - prn use, 03/14 and 8 hrs . @ hs. o2 saturation 85-87% Ra with [...] Hx Tablets 25mg 30tab 1 po qd Fermín s F. - Mauser, 01/21 M.D. KCL 12/21 Hx Tablets 20Meq 30tab 1 po qd x1 s chito sinclair, 01/21 M.D. Lipitor 10/29 Hx Tablets 5mg. 30tab 1 po qpm s Tray Willard, 12/21 M.D. Iron 10/11 Hx Tablets 325mg 90tab 1 PO qd s Tray Willard, 01/02 M.D. Vit C 10/11 Hx Tablets 500mg, 1 PO qd Choco Willard, 12/30 M.D. Hydrochlorothiazi 05/07 Hx Tablets 25mg 30tab 1 PO qd s Tray Willard, 10/11 M.D. Norvasc 05/05 Hx Tablets 10mg 90tab 1 PO qd s Tray Willard, 11/13 M.D. Ramipril 03/24 Hx Capsules 5mg 1 po bid Tray Willard, 05/05 M.D. Toprol XL 03/19 Hx Tablets ER 25mg 90tab 1 po qd 24HR s Tray Willard, 10/11 M.D. Klor-Con M20 03/07 Hx Tablets ER 20Meq 1 PO qd Tray Willard, 10/11 M.D. Norvasc 03/07 Hx Tablets 10mg 1 PO qd FChoco Willard, 05/05 M.D. Hydrochlorothiazi 03/07 Hx Tablets 25mg 1 PO qd Fermín Tray Willard, 03/24 M.D. Lipitor 03/07 Hx Tablets 40mg 1 PO hs Tray Willard, 10/29 M.D. Levothyroxine 03/07 Hx Tablets 100mcg 90tab Take 1 Fermín s Tablet By FChoco Willard, 03/07 Every M.D. Morning Folic Acid 03/07 Hx Tablets 1mg 90tab [facility]d [facility]30 M.[facility]. Prevacid 03/[address] 15mg 90cap 1 PO qd [facility], 12/30 M.D. Paxil 03/07 Hx Tablets 10mg 14tab 1 PO qd [facility], 06/19 M.D. /2017 Aspir-81 03/[address] 81mg 30tab 1 PO qd [facility], 02/14 M.D. /2009 Tylenol Arthritis 03/07 Hx 650mg. tid prn Choco Willard, 10/08 M.D. Milk Of Magnesia 03/07 Hx Suspension prn Choco Willard, 11/07 M.D. Hydrochlorothiazi Hx Tablets 25mg 30tab 1 po [...] ps twice a - day 08/03 Simvastatin 00 Hx Tablets 20mg 1 by mouth Unknown /0000 every day - 11/13 Multivitamin 00/00 Hx 1 po qd Unknown /0000 - 08/25 Cetirizine HCL 00/00 Hx Tablets 10mg 1 by mouth Unknown /0000 every day - prn 08/25 Ocuvite /00 Hx Tablets 1 by mouth Unknown /0000 every day - 11/12 Simvastatin 00/00 Hx Tablets 40mg 1 by mouth Unknown /0000 every day - in the 11/13 evening. Multivitamin Hx Tablets 1 by mouth Unknown / every day - 06/19 Iron Hx Tablets 28mg 1 by mouth Unknown /0000 every day - 10/13 Iron 00 Hx Tablets 1 by mouth Unknown /0000 every day - 10/28 Medications Administered in Office Medication Date Status Form Strength Qnty SIG Indications Ordering Provider Inj, Administered Injection Peewee S. Regadenoson, 017 Abreu, DO 0.1 MG FACC Technetium TC Administered Injection Peewee S. 99M 017 Abreu, DO Tetrofosmin, FACC Per Unit Dose Up To 40 Millicuries Vital Signs Date Vital Result Comment 06/20/2018 Height 63 inches 5'3" Weight 168.25 [...] Test Date Test Result H/L Range Note CBC Auto Diff 03/08/2018 White Blood Count 5.3 10^3/uL 3.5-10.8 Red Blood Count 3.87 10^6/uL Low 4.00-5.40 Hemoglobin 9.0 g/dL Low 12.0-16.0 Hematocrit 29 % Low 35-47 Mean Corpuscular Volume 74 fL Low 80-97 1 Mean Corpuscular Hemoglobin 23 pg Low 27-31 [...] 10 % Low 15-55 Lipid Panel - JF 03/08/2018 Creatine Kinase(CK) 54 U/L 10-223 Comp [...] Egfr Non- 52.4 >60 Egfr 67.4 >60 2 Lipid Profile (Trig/Chol/HDL) 03/08/2018 Triglycerides 135 mg/dL 3 Cholesterol 130 mg/dL 4 HDL Cholesterol 36.7 mg/dL 5 LDL Cholesterol 66 mg/dL 6 Laboratory test finding 03/08/2018 TSH (Thyroid Stim Horm) 2.46 mcIU/mL 0.34-5.60 Folic Acid (Folate) 15.94 ng/mL >3.99 Vitamin B12 225 pg/mL 180-914 7 Comp Metabolic Panel 11/02/2017 Sodium 139 mmol/L 133-145 8 Potassium 3.9 mmol/L 3.5-5.0 8 Chloride 108 mmol/L 101-111 8 Co2 Carbon Dioxide 24 mmol/L 22-32 8 Anion Gap 7 mmol/L 2-11 8 Glucose 90 mg/dL 70-100 8 Blood Urea Nitrogen 16 mg/dL 6-24 8 Creatinine 1.02 mg/dL High 0.51-0.95 8 BUN/Creatinine Ratio 15.7 8-20 8 Calcium 9.3 mg/dL 8.6-10.3 8 Total Protein 6.3 g/dL Low 6.4-8.9 8 Albumin 3.9 g/dL 3.2-5.2 8 Globulin 2.4 g/dL 2-4 8 Albumin/Globulin Ratio 1.6 1-3 8 Total Bilirubin 0.80 mg/dL 0.2-1.0 8 Alkaline Phosphatase 40 U/L 34-104 8 Alt 7 U/L 7-52 8 Ast 16 U/L 13-39 8 Egfr Non- 51.3 >60 8 Egfr 65.9 >60 8, 9 Laboratory test finding 10/21/2017 TSH (Thyroid Stim [...] Reactive Protein < 1.00 mg/L < 5.00 10 Iron & Iron Binding Capacity 10/21/2017 Iron 22 g/dL Low 50-212 Unsaturated Iron Binding 429 g/dL Total Iron Binding Capacity 451 g/dL High 250-450 % Iron Saturation 5 % Low 15-55 Lipid Profile (Trig/Chol/HDL) 10/21/2017 Triglycerides 150 mg/dL 11 Cholesterol 150 mg/dL 12 HDL Cholesterol 41.3 mg/dL 13 LDL Cholesterol 79 mg/dL 14 Inr/Protime 02/05/2017 Inr 0.91 0.89-1.11 15 Laboratory test finding 02/05/2017 Partial Thrombo 30.7 seconds 26.0- 36.3 15, 16 Time PTT Urinalysis Profile 02/05/2017 Urine Color Yellow 15 Urine Appearance Clear 15 Urine Specific [place] 1.018 1.010-1.030 15 Urine pH 5.0 5-9 15 Urine Urobilinogen Negative Negative 15 Urine Ketones Negative Negative 15 Urine Protein Negative Negative 15 Urine Leukocytes Negative Negative 15 Urine Blood Negative Negative 15 Urine Nitrite Negative Negative 15 Urine Bilirubin Negative Negative 15 Urine Glucose Negative Negative 15 Type & Screen 02/05/2017 Patient Blood Type O Positive 15 Antibody Screen NEGATIVE 15 Urine Culture And 02/05/2017 Urine Culture SEE RESULT BELOW 15, 17 Sensitivities Lipid Panel - [facility] 01/01/2017 Creatine 158 U/L 10-223 18 Kinase(CK) Comp Metabolic Panel 01/01/2017 Sodium 139 [...] Egfr Non- 55.1 >60 Egfr 70.9 >60 19 Lipid Profile (Trig/Chol/HDL) 01/01/2017 Triglycerides 80 mg/dL 20 Cholesterol 157 mg/dL 21 HDL Cholesterol 51.9 mg/dL 22 LDL Cholesterol 89 mg/dL 23 CBC Auto Diff 01/01/2017 White Blood Count [...] 0-2 Nucleated Red Blood Cells % 0 Laboratory test 01/01/2017 TSH (Thyroid Stim Horm) 1.44 mcIU/mL 0.34- 5.60 24 finding Laboratory test 12/08/2016 TSH (Thyroid Stim Horm) 2.13 mcIU/mL 0.34- 5.60 finding Lipid Profile 12/08/2016 Triglycerides 112 mg/dL 25 (Trig/Chol/HDL) Cholesterol 158 mg/dL 26 HDL Cholesterol 45.4 mg/dL 27 LDL Cholesterol 90 mg/dL 28 Comp Metabolic Panel 12/08/2016 Sodium 139 mmol/L [...] Egfr Non- 54.5 >60 Egfr 70.0 >60 29 Lipid Panel - [facility] 12/08/2016 Creatine Kinase(CK) 118 U/L 10-223 CBC [...] Cells % 0.1 Order 10/12/2014 Echocardiogram <pending> Lipid Profile (Trig/Chol/HDL) 10/11/2014 Triglycerides 96 mg/dL 30, 31 Cholesterol 141 mg/dL 30, 32 HDL Cholesterol 46.9 mg/dL 30, 33 LDL Cholesterol 75 mg/dL 30, 34 Laboratory test finding 10/11/2014 Alt 8 U/L 7-52 30, 35 Ast 14 U/L 13-39 30, 36 TSH (Thyroid Stimulating Horm) 1.61 IU/mL 0.34-5.60 30, 37 Basic Metabolic Panel 10/11/2014 Sodium 136 mmol/L 133-145 30 Potassium 3.9 mmol/L 3.5-5.0 30 Chloride 107 mmol/L 101-111 30 Co2 Carbon Dioxide 23 mmol/L 22-32 30 Anion Gap 6 mmol/L 2-11 30 Glucose 107 mg/dL High 70-100 30 Blood Urea Nitrogen 20 mg/dL 6-24 30 Creatinine 1.04 mg/dL High 0.51-0.95 30 BUN/Creatinine Ratio 19.2 8-20 30 Calcium 9.4 mg/dL 8.6-10.3 30 Egfr Non- 50.5 >60 30 Egfr 64.9 >60 30, 38 Iron & Iron Binding Capacity 10/11/2014 Iron 37 g/dL Low 50-212 Unsaturated Iron Binding 382 g/dL Total Iron Binding Capacity 419 g/dL 250-450 % Iron Saturation 9 % Low 15-55 Laboratory test finding 10/11/2014 Erythrocyte Sed Rate 27 mm/Hr 0-40 C Reactive Protein 15.85 mg/L High < 5.00 39 Creatine Kinase 61 U/L 10-223 CBC Auto [...] Egfr Non- 46.3 >60 Egfr 59.6 >60 40 CBC Auto Diff 07/18/2014 White Blood Count [...] Egfr Non- 49.9 >60 Egfr 64.2 >60 41 Thyroid Panel 07/18/2014 Free T4 1.09 ng/mL 0.61-1.12 T4 9.47 g/dL 6.09-12.23 TSH (Thyroid Stimulating Horm) 1.84 IU/mL 0.34-5.60 Iron & Iron Binding Capacity 07/18/2014 Iron 61 g/dL 50-212 Unsaturated Iron Binding 381 g/dL Total Iron Binding Capacity 442 g/dL 250-450 % Iron Saturation 14 % Low 15-55 Laboratory test finding 07/18/2014 Vitamin B12 282 pg/mL 180-914 42 Lipid Panel - [facility] 01/09/2014 Creatine Kinase 188 U/L 10-223 30, 43 Comp Metabolic Panel 01/09/2014 Sodium 140 mmol/L 133-145 30 Potassium 4.2 mmol/L 3.7-5.6 30 Chloride 108 mmol/L 101-111 30 Co2 Carbon Dioxide 25 mmol/L 22-32 30 Anion Gap 7 mmol/L 2-11 30 Glucose 94 mg/dL 70-100 30 Blood Urea Nitrogen 10 mg/dL 6-24 30 Creatinine 0.86 mg/dL 0.51-0.95 30 BUN/Creatinine Ratio 11.6 8-20 30 Calcium 9.0 mg/dL 8.6-10.3 30 Total Protein 6.4 g/dL 6.4-8.9 30 Albumin 4.0 g/dL 3.2-5.2 30 Globulin 2.4 g/dL 2-4 30 Albumin/Globulin Ratio 1.7 1-3 30 Total Bilirubin 0.90 mg/dL 0.2-1.0 30 Alkaline Phosphatase 45 U/L 34-104 30 Alt 12 U/L 7-52 30 Ast 22 U/L 13-39 30 Egfr Non- 63.0 >60 30 Egfr 81.0 >60 30, 44 Lipid Profile (Trig/Chol/HDL) 01/09/2014 Triglycerides 122 mg/dL 30, 45 Cholesterol 158 mg/dL 30, 46 HDL Cholesterol 42.9 mg/dL 30, 47 LDL Cholesterol 91 mg/dL 30, 48 CBC Auto Diff 01/09/2014 White Blood Count 4.5 10^3/uL Low 4.8-10.8 30 Red Blood Count 4.53 10^6/uL 4.0-5.4 30 Hemoglobin 11.7 g/dL Low 12.0-16.0 30 Hematocrit 36 % 35-47 30 Mean Corpuscular Volume 80 fL 80-97 30 Mean Corpuscular Hemoglobin 26 pg Low 27-31 30 Mean Corpuscular HGB Conc 32 g/dL 31-36 30 Red Cell Distribution Width 16 % High 10.5-15 30 Platelet Count 280 10^3/uL 150-450 30 Mean Platelet Volume 10 um3 7.4-10.4 30 Abs Neutrophils 2.1 10^3/uL 1.5-7.7 30 Abs Lymphocytes 1.5 10^3/uL 1.0-4.8 30 Abs Monocytes 0.7 10^3/uL 0-0.8 30 Abs Eosinophils 0.2 10^3/uL 0-0.6 30 Abs Basophils 0.1 10^3/uL 0-0.2 30 Abs Nucleated RBC 0 10^3/uL 30 Granulocyte % 46.5 % 38-83 30 Lymphocyte % 32.9 % 25-47 30 Monocyte % 14.7 % High 1-9 30 Eosinophil % 4.5 % 0-6 30 Basophil % 1.4 % 0-2 30 Nucleated Red Blood Cells % 0.1 30 Laboratory test 01/09/2014 TSH (Thyroid 2.13 IU/mL 0.34-5.60 30, 49 finding Stimulating Horm) Urinalysis 02/07/2013 Urine Color Yellow Urine Appearance Clear Urine Specific [place] 1.018 1.010-1.030 Urine Esterase 1+ Negative Urine Nitrate Negative Negative Urine Urobilinogen Negative E.U./dL Negative Urine Protein Negative mg/dL Negative Urine pH 5.5 5-9 Urine Blood Negative Negative Urine Ketones Negative mg/dL Negative Urine Bilirubin Negative Negative Urine Glucose Negative mg/dL Negative Laboratory test 02/07/2013 TSH (Thyroid 1.20 miu/mL 0.34-5.60 50 finding Stimulating Horm) Urine Microscopic 02/07/2013 Urine WBC 1+ (<10 /hpf) None Seen Urine RBC None Seen None Seen Crystals Urine Calcium Oxalate /lpf None Seen Urine Culture And Sensitivities 02/07/2013 Urine Culture (SEE NOTE) 51 Lipid Profile (Trig/Chol/HDL) 02/07/2013 Triglycerides 130 mg/dL 40-200 Cholesterol 171 mg/dL Less than 200 HDL Cholesterol 45 mg/dL 40-60 52 Cholesterol/HDL Ratio 3.8 Average 1-4.44 LDL Cholesterol 100.0 mg/dL Less Than 100 53 Comp Metabolic Panel 02/07/2013 Sodium 139 mmol/L [...] Egfr Non- 59.9 >60 Egfr 77.1 >60 54 CBC Auto Diff 02/07/2013 White Blood Count [...] 40-200 Cholesterol 188 mg/dL Less Than 200 55 High Density Lipoprotein 48 mg/dL 40-60 56 Cholesterol/HDL Ratio 3.92 AVERAGE 1-4.44 Low Density Lipoprotein 117 mg/dL High Less Than 100 57 Comp Metabolic Panel 02/10/2012 Sodium 139 mmol/L 135-145 Potassium 4.4 mmol/L 3.5-5.0 Chloride 108 mmol/L 101-111 Co2 (Carbon Dioxide) 25.0 mmol/L 22-32 Anion Gap 6.0 mmol/L 2-11 58 Glucose 95 mg/dL 70-100 BUN 12 mg/dL 6-24 Creatinine 0.9 mg/dL 0.50-1.40 One Over Creatinine 1.11 BUN/Creatinine Ratio 13.3 8-20 Calcium 9.1 mg/dL 8.1-9.9 Total Protein 6.7 GM/DL 6.2-8.1 Albumin 4.0 GM/DL 3.2-5.2 Globulin 2.7 GM/DL 2-4 Albumin/Globulin Ratio 1.5 1-3 Bilirubin Total 1.0 mg/dL 0.4-1.5 59 Alkaline Phosphatase 45 U/L 30-110 Alt (SGPT) 11 U/L Low 14-54 Ast (Sgot) 18 U/L 12-42 eGFR Non- 60.1 > 60 eGFR 77.3 > 60 60 Lipid Panel - [facility] 02/10/2012 CPK (Creatine Kinase) 93 U/L 0-170 Lipid Panel - [facility] 10/22/2011 CPK (Creatine Kinase) 62 U/L 0-170 Comp Metabolic Panel 10/22/2011 Sodium 141 mmol/L 135-145 Potassium 4.4 mmol/L 3.5-5.0 Chloride 110 mmol/L 101-111 Co2 (Carbon Dioxide) 26.0 mmol/L 22-32 Anion Gap 5.0 mmol/L 2-11 61 Glucose 104 mg/dL High 70-100 BUN 12 mg/dL 6-24 Creatinine 0.9 mg/dL 0.50-1.40 One Over Creatinine 1.11 BUN/Creatinine Ratio 13.3 8-20 Calcium 9.6 mg/dL 8.1-9.9 Total Protein 6.7 GM/DL 6.2-8.1 Albumin 4.0 GM/DL 3.2-5.2 Globulin 2.7 GM/DL 2-4 Albumin/Globulin Ratio 1.5 1-3 Bilirubin Total 1.3 mg/dL 0.4-1.5 62 Alkaline Phosphatase 46 U/L 30-110 Alt (SGPT) 13 U/L Low 14-54 Ast (Sgot) 20 U/L 12-42 eGFR Non- 60.1 > 60 eGFR 77.3 > 60 63 Lipid Profile (Trig/Chol/HDL) 10/22/2011 Triglyceride 108 mg/dL 40-200 Cholesterol 161 mg/dL Less Than 200 64 High Density Lipoprotein 46 mg/dL 40-60 65 Cholesterol/HDL Ratio 3.50 AVERAGE 1-4.44 Low Density Lipoprotein 93 mg/dL Less Than 100 66 Lipid Panel - [facility] 06/29/2011 CPK (Creatine Kinase) 53 U/L 0-170 Comp Metabolic Panel 06/29/2011 Sodium 138 mmol/L 135-145 67 Potassium 4.6 mmol/L 3.5-5.0 Chloride 106 mmol/L 101-111 68 Co2 (Carbon Dioxide) 25.0 mmol/L 22-32 Anion Gap 7.0 mmol/L 2-11 69 Glucose 105 mg/dL High 70-100 BUN 12 mg/dL 6-24 Creatinine 1.0 mg/dL 0.50-1.40 One Over Creatinine 1.00 BUN/Creatinine Ratio 12.0 8-20 Calcium 9.3 mg/dL 8.1-9.9 Total Protein 7.4 GM/DL 6.2-8.1 Albumin 3.8 GM/DL 3.2-5.2 Globulin 3.6 GM/DL 2-4 Albumin/Globulin Ratio 1.1 1-3 Bilirubin Total 1.6 mg/dL High 0.4-1.5 70 Alkaline Phosphatase 47 U/L 30-110 Alt (SGPT) 19 U/L 14-54 Ast (Sgot) 25 U/L 12-42 eGFR Non- 53.2 > 60 eGFR 68.4 > 60 71 Lipid Profile (Trig/Chol/HDL) 06/29/2011 Triglyceride 190 mg/dL 40-200 Cholesterol 168 mg/dL Less Than 200 72 High Density Lipoprotein 37 mg/dL Low 40-60 73 Cholesterol/HDL Ratio 4.54 AVERAGE High 1-4.44 Low Density Lipoprotein 93 mg/dL Less Than 100 74 Basic Metabolic Panel 05/18/2011 Sodium 140 mmol/L 135-145 Potassium 4.7 mmol/L 3.5-5.0 Chloride 109 mmol/L 101-111 Co2 (Carbon Dioxide) 25.0 mmol/L 22-32 Anion Gap 6.0 mmol/L 2-11 75 Glucose 86 mg/dL 70-100 BUN 16 mg/dL 6-24 Creatinine 0.9 mg/dL 0.50-1.40 One Over Creatinine 1.11 BUN/Creatinine Ratio 17.8 8-20 Calcium 9.1 mg/dL 8.1-9.9 eGFR Non- 60.1 > 60 eGFR 77.3 > 60 76 Iron & Iron Binding Capacity 04/09/2011 Unsaturated Iron Binding 253 g/dL 30 Total Iron Binding Capacity 349 g/dL 250-450 30 % Iron Saturation 28 % 15-55 30 Laboratory test finding 04/09/2011 Iron Total 96 g/dL 28-170 30 CBC Auto Diff 04/09/2011 White Blood Count 5.5 CUMM 4.8-10.8 30 Red Cell Count 4.90 CUMM 4.2-5.4 30 Hemoglobin 14.6 g/dL 12.0-16.0 30 Hematocrit 44 % 35-47 30 Mean Corpuscular Volume 90 um3 79-97 30 Mean Corpuscular Hemoglob 30 pg 27-31 30 Mean Corpuscular HGB Cone 33 g/dL 32-36 30 Redcell Distribution WDTH 13 % 10.5-15 30 Platelet Count 235 CUMM 150-450 30 Mean Platelet Volume 9.1 um3 7.4-10.4 30 Gran % 51.5 % 38-83 30 Lymph % 33.3 % 25-47 30 Mononuclear % 10.9 % High 1-9 30 Eosinophil % 3.8 % 0-6 30 Basophil % 0.5 % 0-2 30 Abs Lymphs 1.8 1.0-4.8 30 Abs Mononuclear 0.6 0-0.8 30 Absolute Neutrophil Count 2.8 1.5-7.7 30 Abs Eosinophils 0.2 0-0.6 30 Abs Basophils 0 0-0.2 30 Laboratory test finding 04/09/2011 CPK (Creatine Kinase) 112 U/L 0-170 30 Lipid Profile (Trig/Chol/HDL) 04/09/2011 Triglyceride 175 mg/dL 40-200 30 Cholesterol 212 mg/dL High Less Than 200 30, 77 High Density Lipoprotein 44 mg/dL 40-60 30, 78 Cholesterol/HDL Ratio 4.82 AVERAGE High 1-4.44 30 Low Density Lipoprotein 133 mg/dL High Less Than 100 30, 79 Comp Metabolic Panel 04/09/2011 Sodium 141 mmol/L 135-145 30 Potassium 3.7 mmol/L 3.5-5.0 30 Chloride 109 mmol/L 101-111 30 Co2 (Carbon Dioxide) 24.0 mmol/L 22-32 30 Anion Gap 8.0 mmol/L 2-11 30, 80 Glucose 140 mg/dL High 70-100 30 BUN 13 mg/dL 6-24 30 Creatinine 0.80 mg/dL 0.50-1.40 30 One Over Creatinine 1.20 30 BUN/Creatinine Ratio 16.3 8-20 30 Calcium 9.0 mg/dL 8.1-9.9 30 Total Protein 6.5 GM/DL 6.2-8.1 30 Albumin 3.8 GM/DL 3.2-5.2 30 Globulin 2.7 GM/DL 2-4 30 Albumin/Globulin Ratio 1.4 1-3 30 Bilirubin Total 1.1 mg/dL 0.4-1.5 30, 81 Alkaline Phosphatase 50 U/L 30-110 30 Alt (SGPT) 16 U/L 14-54 30 Ast (Sgot) 19 U/L 12-42 30 eGFR Non- 68.8 > 60 30 eGFR 88.5 > 60 30, 82 Basic Metabolic Panel 11/04/2010 Sodium 139 mmol/L 135-145 Potassium 3.8 mmol/L 3.5-5.0 Chloride 105 mmol/L 101-111 Co2 (Carbon Dioxide) 26.0 mmol/L 22-32 Anion Gap 8.0 mmol/L 2-11 83 Glucose 84 mg/dL 70-100 BUN 14 mg/dL 6-24 Creatinine 0.80 mg/dL 0.50-1.40 One Over Creatinine 1.20 BUN/Creatinine Ratio 17.5 8-20 Calcium 9.6 mg/dL 8.1-9.9 eGFR Non- 69.0 > 60 eGFR 88.8 > 60 84 Basic Metabolic Panel 09/01/2010 Sodium 137 mmol/L 135-145 Potassium 3.6 mmol/L 3.5-5.0 Chloride 105 mmol/L 101-111 Co2 (Carbon Dioxide) 26.0 mmol/L 22-32 Anion Gap 6.0 mmol/L 2-11 85 Glucose 98 mg/dL 70-100 86 BUN 11 mg/dL 6-24 Creatinine 0.80 mg/dL 0.50-1.40 One Over Creatinine 1.20 BUN/Creatinine Ratio 13.8 8-20 Calcium 9.0 mg/dL 8.1-9.9 eGFR Non- 73.4 > 60 eGFR 88.8 > 60 87 Lipid Profile (Trig/Chol/HDL) 09/01/2010 Triglyceride 131 mg/dL 40-200 Cholesterol 193 mg/dL Less Than 200 88 High Density Lipoprotein 42 mg/dL 40-60 89 Cholesterol/HDL Ratio 4.60 AVERAGE High 1-4.44 Low Density Lipoprotein 125 mg/dL High Less Than 100 90 Liver Function Panel 09/01/2010 Total Protein 6.5 GM/DL 6.2-8.1 Albumin 3.9 GM/DL 3.2-5.2 Globulin 2.6 GM/DL 2-4 Albumin/Globulin Ratio 1.5 1-3 Bilirubin Total 1.3 mg/dL 0.4-1.5 91 Bilirubin Direct 0.2 mg/dL 0.1-0.5 Indirect Bilirubin 1.1 mg/dL High 0.3-1.0 92 Alkaline Phosphatase 48 U/L 30-110 Alt (SGPT) [...] Absolute Neutrophil Count 2.4 Anisocytosis SLIGHT Lipid Panel - [facility] 06/26/2010 CPK (Creatine Kinase) 151 U/L 0-170 Comp Metabolic Panel 06/26/2010 Sodium 138 mmol/L 135-145 Potassium 3.6 mmol/L 3.5-5.0 Chloride 103 mmol/L 101-111 Co2 (Carbon Dioxide) 27.0 mmol/L 22-32 Anion Gap 8.0 mmol/L 2-11 93 Glucose 111 mg/dL High 70-100 94 BUN 16 mg/dL 6-24 Creatinine 0.80 mg/dL 0.50-1.40 One Over Creatinine 1.20 BUN/Creatinine Ratio 20.0 8-20 Calcium 9.0 mg/dL 8.1-9.9 Total Protein 6.4 GM/DL 6.2-8.1 Albumin 4.0 GM/DL 3.2-5.2 Globulin 2.4 GM/DL 2-4 Albumin/Globulin Ratio 1.7 1-3 Bilirubin Total 1.4 mg/dL 0.4-1.5 95 Alkaline Phosphatase 50 U/L 30-110 Alt (SGPT) 13 U/L Low 14-54 Ast (Sgot) 20 U/L 12-42 eGFR Non- 73.4 > 60 eGFR 88.8 > 60 96 Lipid Profile (Trig/Chol/HDL) 06/26/2010 Triglyceride 116 mg/dL 40-200 Cholesterol 176 mg/dL Less Than 200 97 High Density Lipoprotein 47 mg/dL 40-60 98 Cholesterol/HDL Ratio 3.74 AVERAGE 1-4.44 Low Density Lipoprotein 106 mg/dL High Less Than 100 99 Basic Metabolic Panel 01/31/2010 Sodium 141 mmol/L 135-145 Potassium 4.3 mmol/L 3.5-5.0 Chloride 108 mmol/L 101-111 Co2 (Carbon Dioxide) 25.0 mmol/L 22-32 Anion Gap 8.0 mmol/L 2-11 100 Glucose 105 mg/dL High 70-100 101 BUN 10 mg/dL 6-24 Creatinine 0.82 mg/dL 0.50-1.40 One Over Creatinine 1.20 BUN/Creatinine Ratio 12.2 8-20 Calcium 9.5 mg/dL 8.1-9.9 102 eGFR Non- 71.5 > 60 eGFR 86.5 > 60 103 Iron & Iron Binding Capacity 01/01/2010 Iron Total 14 g/dL Low 28-170 Unsaturated Iron Binding 488 g/dL Total Iron Binding Capacity 502 g/dL High 250-450 % Iron Saturation 3 % Low 15-55 Laboratory test finding 01/01/2010 CPK (Creatine Kinase) 72 U/L 0-170 Lipid Profile (Trig/Chol/HDL) 01/01/2010 Triglyceride 93 mg/dL 40-200 Cholesterol 159 mg/dL Less Than 200 104 High Density Lipoprotein 46 mg/dL 40-60 105 Cholesterol/HDL Ratio 3.46 AVERAGE 1-4.44 Low Density Lipoprotein 94 mg/dL Less Than 100 106 Comp Metabolic Panel 01/01/2010 Sodium 137 mmol/L 135-145 Potassium 3.8 mmol/L 3.5-5.0 Chloride 106 mmol/L 101-111 Co2 (Carbon Dioxide) 24.0 mmol/L 22-32 Anion Gap 7.0 mmol/L 2-11 107 Glucose 103 mg/dL High 70-100 108 BUN 12 mg/dL 6-24 Creatinine 0.90 mg/dL 0.50-1.40 One Over Creatinine 1.10 BUN/Creatinine Ratio 13.3 8-20 Calcium 8.9 mg/dL 8.1-9.9 109 Total Protein 6.7 GM/DL 6.2-8.1 Albumin 3.8 GM/DL 3.2-5.2 Globulin 2.9 GM/DL 2-4 Albumin/Globulin Ratio 1.3 1-3 Bilirubin Total 0.8 mg/dL 0.4-1.5 110 Alkaline Phosphatase 62 U/L 30-110 Alt (SGPT) 11 U/L Low 14-54 Ast (Sgot) 16 U/L 12-42 eGFR Non- 64.2 > 60 eGFR 77.7 > 60 111 Laboratory test finding 01/01/2010 BNP Evaluatr 261.0 [...] mmol/L 22-32 Anion Gap 8.0 mmol/L 2-11 112 Glucose 121 mg/dL High 70-100 113 BUN 16 mg/dL 6-24 Creatinine 1.00 mg/dL 0.50-1.40 One Over Creatinine 1.00 BUN/Creatinine Ratio 16.0 8-20 Calcium 9.3 mg/dL 8.1-9.9 114 Basic Metabolic Panel 01/17/2009 Sodium 135 mmol/L 135-145 Potassium 3.5 mmol/L 3.5-5.0 Chloride 102 mmol/L 101-111 Co2 (Carbon Dioxide) 27.0 mmol/L 22-32 Anion Gap 6.0 mmol/L 2-11 115 Glucose 140 mg/dL High 70-100 116 BUN 13 mg/dL 6-24 Creatinine 1.10 mg/dL 0.50-1.40 One Over Creatinine 0.90 BUN/Creatinine Ratio 11.8 8-20 Calcium 9.3 mg/dL 8.1-9.9 117 Lipid Profile (Trig/Chol/HDL) 12/20/2008 Triglyceride 135 mg/dL 40-200 30 Cholesterol 219 mg/dL High Less Than 200 30, 118 High Density Lipoprotein 50 mg/dL 40-60 30, 119 Cholesterol/HDL Ratio 4.38 AVERAGE 1-4.44 30 Low Density Lipoprotein 142 mg/dL High Less Than 100 30, 120 Comp Metabolic Panel 12/20/2008 Sodium 139 mmol/L 135-145 30 Potassium 3.4 mmol/L Low 3.5-5.0 30 Chloride 103 mmol/L 101-111 30 Co2 (Carbon Dioxide) 28.0 mmol/L 22-32 30 Anion Gap 8.0 mmol/L 2-11 30, 121 Glucose 108 mg/dL High 70-100 30, 122 BUN 12 mg/dL 6-24 30 Creatinine 0.80 mg/dL 0.50-1.40 30 One Over Creatinine 1.20 30 BUN/Creatinine Ratio 15.0 8-20 30 Calcium 9.2 mg/dL 8.1-9.9 30, 123 Total Protein 7.1 GM/DL 6.2-8.1 30 Albumin 3.8 GM/DL 3.2-5.2 30 Globulin 3.3 GM/DL 2-4 30 Albumin/Globulin Ratio 1.2 1-3 30 Bilirubin Total 1.1 mg/dL 0.4-1.5 30 Alkaline Phosphatase 66 U/L 30-110 30 Alt (SGPT) 16 U/L 14-54 30 Ast (Sgot) 22 U/L 12-42 30 Lipid Panel - [facility] 12/20/2008 CPK (Creatine Kinase) 111 U/L 0-170 30 1 Consistent with Previous Results Reported on 07/01/17 2 Because ethnic data is not always [...] 5 Kidney failure <15 (or dialysis) 3 Desirable: <150 Borderline High: 150-199 High: 200-499 Very High: >500 4 Desirable: <200 Borderline High: 200-239 High: >239 5 Low: <40 Desirable: 40-60 High: >60 6 Desirable: <100 Near Optimal: 100-129 Borderline High: 130-159 High: 160-189 Very High: >189 7 Normal Range 180 to 914 Indeterminate Range 145 to 180 Deficient Range <145 8 [id number] Because ethnic data is not always readily [...] 15-29 5 Kidney failure <15 (or dialysis) 10 Acute inflammation: >10.00 11 Desirable: <150 Borderline High: 150-199 High: 200-499 Very High: >500 12 Desirable: <200 Borderline High: 200-239 High: >239 13 Low: <40 Desirable: 40-60 High: >60 14 Desirable: <100 Near Optimal: 100-129 Borderline High: 130-159 High: 160-189 Very High: >189 15 AA 02/11 16 AA 02/11 17 SEE RESULT BELOW Name: LYNDA COFFMAN : [address]: Gertrudis Lynne MD Acct: [id number] Unit: [id number] AGE: 86 Location: [facility] Re02/05/17 SEX: F Status: REG REF SPEC: [id number] RUDY: 02/05/[address] [facility] [address]: Gertrudis Lynne MD REQ: [id number] RECD: 02/05/17 STATUS: MADELINE TANNER DR: Mert Valdez MD _ SOURCE: URINE SPDESC: ORDERED: Urine Culture COMMENTS: GEE 02/11 QUERIES: Urine Source: Clean Catch Procedure Result Reported Site Urine Culture Final 02/06/17- 1248 ML No Growth (<1,000 CFU/mL) * ML - MAIN LAB ([facility]) . END OF REPORT * ML=Testing performed at Main Lab DEPARTMENT OF PATHOLOGY, [address] [place] [address] Ajay Blas M.D. Director [facility] # [id number] Because ethnic data is not always readily [...] 15-29 5 Kidney failure <15 (or dialysis) 20 Desirable <150 Borderline high 150-199 High 200-499 Very High >500 21 Desirable <200 Borderline high 200-239 High >239 22 Low <40 Desirable: 40-60 High: >60 23 Desirable: <100 mg/dL Near Optimal: 100-129 mg/dL Borderline High: 130-159 mg/dL High: 160-189 mg/dL Very High: >189 mg/dL 24 FASTING 25 Desirable <150 Borderline high 150-199 High 200-499 Very High >500 26 Desirable <200 Borderline high 200-239 High >239 27 Low <40 Desirable: 40-60 High: >60 28 Desirable: <100 mg/dL Near Optimal: 100-129 mg/dL Borderline High: 130-159 mg/dL High: 160-189 mg/dL Very High: >189 mg/dL 29 Because ethnic data is not always readily [...] 15-29 5 Kidney failure <15 (or dialysis) 30 FASTING 31 Desirable <150 Borderline high 150-199 High 200-499 Very High >500 32 Desirable <200 Borderline high 200-239 High >239 33 Low <40 Desirable: 40-60 High: >60 34 Desirable <100 Near Optimal 100-129 Borderline high 130-159 High 160-189 Very High >189 35 FASTING 36 FASTING 37 FASTING 38 Because ethnic data is not always readily [...] 15-29 5 Kidney failure <15 (or dialysis) 39 Acute inflammation: >10.00 40 Because ethnic data is not always readily [...] 15-29 5 Kidney failure <15 (or dialysis) 41 Because ethnic data is not always readily [...] 15-29 5 Kidney failure <15 (or dialysis) 42 Normal Range 180 to 914 Indeterminate Range 145 to 180 Deficient Range <145 43 FASTING 44 Because ethnic data is not always [...] 5 Kidney failure <15 (or dialysis) 45 Desirable <150 Borderline high 150-199 High 200-499 Very High >500 46 Desirable <200 Borderline high 200-239 High >239 47 Low <40 Desirable: 40-60 High: >60 48 Desirable <100 Near Optimal 100-129 Borderline high 130-159 High 160-189 Very High >189 49 FASTING 50 PT IS FASTING 51 RUN DATE: 02/09/13 [facility] LAB LIVE PAGE 1 RUN TIME: [address] [place], [place] [address] Specimen Inquiry Name: LYNDA COFFMAN : [address]: Gabrieal Mccain NP Acct: [id number] Unit: [id number] AGE: 82 Location: [facility] Re02/07/13 SEX: F Status: REG REF SPEC: [id number] RUDY: 02/07/[address]: Gabriela Mccain NP REQ: [id number] RECD: 02/07/13 STATUS: MADELINE TANNER DR: Fermín Willard MD _ SOURCE: URINE SPDESC: ORDERED: Urine Culture Procedure Result Verified Site Urine Culture Final 02/09/13- 1028 ML No Growth Day 2 (<1,000 CFU/mL) END OF REPORT * ML=Testing performed at Main Lab DEPARTMENT OF PATHOLOGY, [address] [place] [address] Ajay Blas M.D. Director [facility] Permit #[id number] HDL Interpretation: Undesirable: High Risk: Less than 40 MG/DL Desirable: Low Risk: Greater than 60 MG/DL 53 LDL Interpretation: Low Risk Optimal Level: LDL Less than 100 MG/DL Near or Above Optimal: LDL 100-129 MG/DL Borderline High Risk: LDL 130-159 MG/DL High Risk: LDL 160-189 MG/DL Very High Risk: LDL Greater than 189 MG/DL 54 Because ethnic data is not always readily [...] 15-29 5 Kidney failure <15 (or dialysis) 55 CHOLESTEROL INTERPRETATION: Desirable: Less than 200 MG/DL Borderline-High Risk: 200-239 MG/DL High-Risk: 240 MG/DL and over 56 HDL INTERPRETATION: Undesirable: High Risk: Less than 40 MG/DL Desirable: Low Risk: Greater than 60 MG/DL 57 LDL INTERPRETATION: Low Risk Optimal Level: LDL Less than 100 MG/DL Near or Above Optimal: LDL 100-129 MG/DL Borderline High Risk: LDL 130-159 MG/DL High Risk: LDL 160-189 MG/DL Very High Risk: LDL Greater than 189 MG/DL 58 Anion gap measurement may be of limited value in the presence of any alkalosis, especially in a combined acid base disorder. . 59 A metabolite of Naproxen, O-desmethylnaproxen, has been shown to interfere with the Jendrassik-Chey method for measuring total bilirubin. Samples from patients who have taken Naproxen have shown spurious elevation in total bilirubin levels. 60 Because ethnic data is not always readily [...] 15-29 5 Kidney failure <15 (or dialysis) 61 Anion gap measurement may be of limited value in the presence of any alkalosis, especially in a combined acid base disorder. . 62 A metabolite of Naproxen, O-desmethylnaproxen, has been shown to interfere with the Jendrassik-Yorklyn method for measuring total bilirubin. Samples from patients who have taken Naproxen have shown spurious elevation in total bilirubin levels. 63 Because ethnic data is not always readily [...] 15-29 5 Kidney failure <15 (or dialysis) 64 CHOLESTEROL INTERPRETATION: Desirable: Less than 200 MG/DL Borderline-High Risk: 200-239 MG/DL High-Risk: 240 MG/DL and over 65 HDL INTERPRETATION: Undesirable: High Risk: Less than 40 MG/DL Desirable: Low Risk: Greater than 60 MG/DL 66 LDL INTERPRETATION: Low Risk Optimal Level: LDL Less than 100 MG/DL Near or Above Optimal: LDL 100-129 MG/DL Borderline High Risk: LDL 130-159 MG/DL High Risk: LDL 160-189 MG/DL Very High Risk: LDL Greater than 189 MG/DL 67 RESULTS CONFIRMED BY REPEAT ANALYSIS. REPEATED RESULT WAS 139 68 RESULTS CONFIRMED BY REPEAT ANALYSIS. REPEATED RESULT WAS 106 69 Anion gap measurement may be of limited value in the presence of any alkalosis, especially in a combined acid base disorder. . 70 A metabolite of Naproxen, O-desmethylnaproxen, has been shown to interfere with the Jendrassik-[place] method for measuring total bilirubin. Samples from patients who have taken Naproxen have shown spurious elevation in total bilirubin levels. 71 Because ethnic data is not always readily [...] 15-29 5 Kidney failure <15 (or dialysis) 72 CHOLESTEROL INTERPRETATION: Desirable: Less than 200 MG/DL Borderline-High Risk: 200-239 MG/DL High-Risk: 240 MG/DL and over 73 HDL INTERPRETATION: Undesirable: High Risk: Less than 40 MG/DL Desirable: Low Risk: Greater than 60 MG/DL 74 LDL INTERPRETATION: Low Risk Optimal Level: LDL Less than 100 MG/DL Near or Above Optimal: LDL 100-129 MG/DL Borderline High Risk: LDL 130-159 MG/DL High Risk: LDL 160-189 MG/DL Very High Risk: LDL Greater than 189 MG/DL 75 Anion gap measurement may be of limited value in the presence of any alkalosis, especially in a combined acid base disorder. . 76 Because ethnic data is not always readily [...] 15-29 5 Kidney failure <15 (or dialysis) 77 CHOLESTEROL INTERPRETATION: Desirable: Less than 200 MG/DL Borderline-High Risk: 200-239 MG/DL High-Risk: 240 MG/DL and over 78 HDL INTERPRETATION: Undesirable: High Risk: Less than 40 MG/DL Desirable: Low Risk: Greater than 60 MG/DL 79 LDL INTERPRETATION: Low Risk Optimal Level: LDL Less than 100 MG/DL Near or Above Optimal: LDL 100-129 MG/DL Borderline High Risk: LDL 130-159 MG/DL High Risk: LDL 160-189 MG/DL Very High Risk: LDL Greater than 189 MG/DL 80 Anion gap measurement may be of limited value in the presence of any alkalosis, especially in a combined acid base disorder. . 81 A metabolite of Naproxen, O-desmethylnaproxen, has been shown to interfere with the Jendrassik-Yorklyn method for measuring total bilirubin. Samples from patients who have taken Naproxen have shown spurious elevation in total bilirubin levels. 82 Because ethnic data is not always readily [...] 15-29 5 Kidney failure <15 (or dialysis) 83 Anion gap measurement may be of limited value in the presence of any alkalosis, especially in a combined acid base disorder. . 84 Because ethnic data is not always readily [...] 15-29 5 Kidney failure <15 (or dialysis) 85 Anion gap measurement may be of limited value in the presence of any alkalosis, especially in a combined acid base disorder. . 86 Note change in reference range as of 05/17/08. The change was based on recommendations from the [place] [employer]. 87 Because ethnic data is not always readily [...] 15-29 5 Kidney failure <15 (or dialysis) 88 CHOLESTEROL INTERPRETATION: Desirable: Less than 200 MG/DL Borderline-High Risk: 200-239 MG/DL High-Risk: 240 MG/DL and over 89 HDL INTERPRETATION: Undesirable: High Risk: Less than 40 MG/DL Desirable: Low Risk: Greater than 60 MG/DL 90 LDL INTERPRETATION: Low Risk Optimal Level: LDL Less than 100 MG/DL Near or Above Optimal: LDL 100-129 MG/DL Borderline High Risk: LDL 130-159 MG/DL High Risk: LDL 160-189 MG/DL Very High Risk: LDL Greater than 189 MG/DL 91 A metabolite of Naproxen, O-desmethylnaproxen, has been shown to interfere with the Jendrassik-Yorklyn method for measuring total bilirubin. Samples from patients who have taken Naproxen have shown spurious elevation in total bilirubin levels. 92 Please note updated reference range, effective 04/17/10 93 Anion gap measurement may be of limited value in the presence of any alkalosis, especially in a combined acid base disorder. . 94 Note change in reference range as of 05/17/08. The change was based on recommendations from the [employer]. 95 A metabolite of Naproxen, O-desmethylnaproxen, has been shown to interfere with the Jendrassik-Yorklyn method for measuring total bilirubin. Samples from patients who have taken Naproxen have shown spurious elevation in total bilirubin levels. 96 Because ethnic data is not always readily [...] 15-29 5 Kidney failure <15 (or dialysis) 97 CHOLESTEROL INTERPRETATION: Desirable: Less than 200 [...] change was based on recommendations from the [employer]. 102 Please note change in reference range effective 08 . 103 Because ethnic data is not always [...] 5 Kidney failure <15 (or dialysis) 104 CHOLESTEROL INTERPRETATION: Desirable: Less than 200 MG/DL Borderline-High Risk: 200-239 MG/DL High-Risk: 240 MG/DL and over 105 HDL INTERPRETATION: Undesirable: High Risk: Less than 40 MG/DL Desirable: Low Risk: Greater than 60 MG/DL 106 LDL INTERPRETATION: Low Risk Optimal Level: LDL Less than 100 MG/DL Near or Above Optimal: LDL 100-129 MG/DL Borderline High Risk: LDL 130-159 MG/DL High Risk: LDL 160-189 MG/DL Very High Risk: LDL Greater than 189 MG/DL 107 Anion gap measurement may be of limited value in the presence of any alkalosis, especially in a combined acid base disorder. . 108 Note change in reference range as of 05/17/08. The change was based on recommendations from the [employer]. 109 Please note change in reference range effective 08 . 110 A metabolite of Naproxen, O-desmethylnaproxen, has been shown to interfere with the Jendrassik-Yorklyn method for measuring total bilirubin. Samples from patients who have taken Naproxen have shown spurious elevation in total bilirubin levels. 111 Because ethnic data is not always readily [...] 15-29 5 Kidney failure <15 (or dialysis) 112 Anion gap measurement may be of limited value in the presence of any alkalosis, especially in a combined acid base disorder. . 113 Note change in reference range as of 05/17/08. The change was based on recommendations from the [employer]. 114 Please note change in reference range effective 08 . 115 Anion gap measurement may be of limited value in the presence of any alkalosis, especially in a combined acid base disorder. . 116 Note change in reference range as of 05/17/08. The change was based on recommendations from the [employer]. 117 Please note change in reference range effective 08 . 118 CHOLESTEROL INTERPRETATION: Desirable: Less than 200 MG/DL Borderline-High Risk: 200-239 MG/DL High-Risk: 240 MG/DL and over 119 HDL INTERPRETATION: Undesirable: High Risk: Less than 40 MG/DL Desirable: Low Risk: Greater than 60 MG/DL 120 LDL INTERPRETATION: Low Risk Optimal Level: LDL Less than 100 MG/DL Near or Above Optimal: LDL 100-129 MG/DL Borderline High Risk: LDL 130-159 MG/DL High Risk: LDL 160-189 MG/DL Very High Risk: LDL Greater than 189 MG/DL 121 Anion gap measurement may be of limited value in the presence of any alkalosis, especially in a combined acid base disorder. . 122 Note change in reference range as of 05/17/08. The change was based on recommendations from the [employer]. 123 Please note change in reference range effective 08 . Procedures Date CPT Code Description Status Comment 06/20/2018 11737 EKG Tracing & Interpretation Completed 03/15/2018 35596 Holter Monitor Review (24 hr) Completed review & interp only 03/08/2018 97594 ECG Monitor/Recording W/Visual Completed Superimposition Scanning 03/01/2018 86807 EKG Tracing & Interpretation Completed 12/23/2017 88083 Amb.BP Monitor/Phys Completed Interp&Report 10/14/2017 38350 EKG Tracing & Interpretation Completed 03/17/2017 Diabetic Retinal Eye Exam Completed Document: 03/17/17 - Consult Ophthalmology-[place] 03/15/2017 87419 EKG Tracing & Interpretation Completed 02/11/2017 64709 TKR Total Knee Replacement Completed 02/11/2017 09066 TKR Total Knee Replacement Completed 01/28/2017 86969 Stress Test Completed 01/28/2017 66308 Myocardial Perfusion Imaging Completed Tomographic (Spect) Multiple Studies 01/26/2017 12553 Holter Monitor Review (24 hr) Completed review & interp only 01/20/2017 16289 ECG Monitor/Recording W/Visual Completed Superimposition Scanning 01/01/2017 87677 ECHO Transthorasic Realtime 2D W Completed Doppler & Color Flow Hosp 12/31/2016 74262 EKG Tracing & Interpretation Completed 11/13/2016 72792 EKG Tracing & Interpretation Completed 08/04/2016 84099 EKG Tracing & Interpretation Completed 12/31/2015 66278 Polysomnography Sleep Staging 4+ Completed Parameters W/Cpap 08/29/2015 34756 EKG Tracing & Interpretation Completed 02/04/2015 60952 EKG Tracing & Interpretation Completed 11/09/2014 58203 Treadmill Interp/Report Only Completed 11/09/2014 50307 Stress Test Supervsn W/Out I/R Completed 10/12/2014 67262 ECHO Transthoracic, Real-Time 2D Completed With Doppler And Color Flow 10/09/2014 81589 EKG Tracing & Interpretation Completed 08/06/2014 34826 ECHO Transthoracic, Real-Time 2D Completed With Doppler And Color Flow 07/16/2014 61137 EKG Tracing & Interpretation Completed 01/10/2014 73452 ECHO Transthoracic, Real-Time 2D Completed With Doppler And Color Flow 12/12/2013 52522 EKG Tracing & Interpretation Completed 11/07/2012 44673 EKG Tracing & Interpretation Completed 11/13/2011 48872 EKG Tracing & Interpretation Completed 03/12/2011 09251 EKG Tracing & Interpretation Completed 11/13/2010 79709 EKG Tracing & Interpretation Completed 02/14/2010 12991 EKG Tracing & Interpretation Completed 01/23/2010 64584 Pulse Oximetry-Mutl Determ Completed 01/01/2010 02047 ECHO Transthoracic, Real-Time 2D Completed With Doppler And Color Flow 10/11/2008 02269 EKG Tracing & Interpretation Completed 10/11/2008 73703 EKG Tracing & Interpretation Completed 03/24/2008 56614 Color Doppler Completed 03/24/2008 56674 Color Doppler Completed 03/24/2008 37217 Color Doppler Completed 03/24/2008 86085 Pulse Doppler & Continuous Wave Completed 03/24/2008 42089 Pulse Doppler & Continuous Wave Completed 03/24/2008 30456 Echocardiogram Completed 03/24/2008 83854 Echocardiogram Completed 03/24/2008 71073 Echocardiogram Completed 03/19/2008 40228 Treadmill Interp/Report Only Completed 03/19/2008 54051 Stress Test Supervsn W/Out I/R Completed 03/19/2008 45863 Stress ECHO Completed Interpretation/Report Hospital 03/19/2008 11550 Treadmill Interp/Report Only Completed 03/07/2008 76260 EKG Tracing & Interpretation Completed 03/07/2008 02925 EKG Tracing & Interpretation Completed Encounters Type Date Location Provider CPT E/M Dx Office Visit 06/03/2018 [facility] Gertrudis Lynne M.D. 54761 M25.562 8:15a Of [facility] M25.462 M17.12 Z96.651 Office Visit 03/01/2018 10:20a [facility] Fermín Willard M.D. 04601 I10 I34.0 R94.31 R00.1 I25.10 R42 D50.9 R63.4 Office Visit 10/29/2017 9:00a [facility] Claudia Bernal N.P. 26521 I10 I34.0 E78.00 Office Visit 10/14/2017 9:20a [facility] Of Fermín Willard, 31387 R94.31 [place] E78.00 I34.0 I10 D64.9 Office Visit 08/06/2017 10:45a [facility] Sabina Hanna 57753 G47.33 Services [facility] HANNAH CARTER, [facility] Office Visit 03/15/2017 10:20a [facility] Fermín Willard 99144 G47.33 MChocoDChoco R94.31 E78.00 I34.0 R43.8 I10 H54.50 I65.21 Office Visit 02/03/2017 12:00p [facility] Sabina Hanna 57406 G47.33 [facility] HANNAH CARTER, [facility] Office Visit 12/31/2016 9:40a [facility] Fermín Willard, 46840 M25.561 MAndres E78.00 R94.31 I10 I65.29 R00.1 Office Visit 12/30/2016 9:00a [facility] Gertrudis Lynne M.D. 81851 M25.561 C.M.A. M25.562 M25.461 M25.462 M17.0 Office Visit 11/25/2016 10:30a [facility] LOBITO Ortiz 18598LDX I10 I25.10 E78.00 Office Visit 11/13/2016 1:40p [facility] Fermín Willard M.D. 17717 I10 K92.2 I25.10 E78.00 Office Visit 08/26/2016 10:00a [facility] LOBITO Ortiz 73929 I10 Office Visit 08/04/2016 10:40a [facility] Fermín Willard M.D. 68935 K92.2 R06.02 I10 G47.33 I25.10 R07.9 Office Visit 05/25/2016 3:11p [facility],[place] [address] K92.2 Hospitalists R06.02 K21.9 I10 Office Visit 03/03/2016 10:30a [facility] Sabina Hanna 00414 G47.33 Services [facility] HANNAH CARTER, [employer] Office Visit 01/21/2016 9:15a [facility] Sabina Hanna 54627 G47.33 Services [facility] HANNAH CARTER, [employer]-OFELIA G47.10 Office Visit 09/10/2015 11:15a [facility] Sabina Hanna 36208 G47.33 Services Of Ed CARTER RN, ADONIS-OFELIA Office Visit 08/29/2015 10:00a [facility] Fermín Willard 57060 R07.9 MChocoDChoco I25.10 E78.0 I10 Office Visit 07/23/2015 10:00a [facility] Sabina Hanna 59844 G47.33 Services [facility] HANNAH CARTER, [employer]-OFELIA Office Visit 04/19/2015 10:00a [facility] Sabina Hanna 09714 327.23 Services Of Ed CARTER RN, [employer]-OFELIA Office Visit 02/04/2015 11:20a [facility] Fermín Willard 53047 786.50 M.D. 414.01 786.09 553.3 Office Visit 01/18/2015 10:15a [facility] Sabina Hanna, 57890 327.23 Services [facility] HANNAH CARTER, [facility]- Office Visit 10/09/2014 9:00a [facility] Fermín Willard, 55534 414.01 M.D. 272.0 362.31 401.1 787.03 780.79 Office Visit 08/29/2014 1:30p [facility] LOBITO Ortiz 31109 401.1 362.31 414.01 272.0 424.0 Office Visit 07/16/2014 1:40p [facility] Fermín Willard M.D. 57773 424.0 401.1 574.20 272.0 285.9 Office Visit 12/12/2013 4:00p [facility] Fermín Willard 17362 574.20 MAndres 786.59 424.0 401.1 272.0 Office Visit 11/28/2013 4:38p [facility], Emerson Zambrano 66106 786.59 Hospitalists Rafael Davies 574.20 722.4 Office Visit 11/07/2012 2:20p [facility] Fermín Willard M.D. 20290 424.0 414.01 278.01 401.1 Office Visit 11/13/2011 3:00p [facility] Fermín Willard M.D. 84646 424.0 414.01 401.1 Office Visit 03/12/2011 10:00a [facility] Fermín Willard M.D. 62768 424.0 414.01 401.1 Office Visit 11/13/2010 2:00p [facility] Fermín Willard M.D. 86429 424.0 414.01 278.01 Office Visit 02/14/2010 2:40p [facility] Fermín Willard M.D. 97695 424.0 414.01 278.01 401.1 285.8 Office Visit 10/11/2008 9:40a [facility] Fermín Willard 17764 278.01 M.D. 401.1 414.01 272.0 Office Visit 03/24/2008 10:30a [facility] ECHO Schedule 44351 278.01 401.1 414.01 785.2 Office Visit 03/07/2008 2:20p [facility] Fermín Willard, 13152 278.01 M.D. 414.01 401.1 272.0 Plan of Care Future Appointment(s):07/05/2018 12:30 pm - Justin Vega PA-C at [facility].07/05/2018 12:30 pm - LOBITO Pastor at [facility].07/05/2018 12:30 pm - Gertrudis Lynne M.D. at [facility].06/24/2018 1:15 pm - Gertrudis Lynne M.D. at [facility].08/08/2018 10:30 am - Sabina Hanna DNP, RN, [employer] at [facility]06/20/2018 - Claudia Bernal, N.P.I10 Essential (primary) hypertensionNew Labs:Basic Metabolic PanelFollow up:OV Claudia 1-2 mo BP Sep 2018 JFMRecommendations:Increase spironolactone to 2 tabs daily. Have lab work with Dr. Valdez order. Take BP 1-2x daily; Callin 1 weeks with BPs.I34.0 Nonrheumatic mitral (valve) xvraxlpmlifdoM03.00 Pure hypercholesterolemia, cqipfyanglzW12.10 Athscl heart disease of [place] coronary artery w/o ang pctrsNew Orders:Stress Test, Pharmacologic Nuclear (Lexiscan) Recommendations:Ok to come off aggrenox for surgery with the understanding you ahve increased risk of thromobosis/stroke off of medicine.
[2018-07-05] MEDS ORDERED: Midazolam* 1 MG/ML 2 ML VIAL (2 MG) ONE (08:05)
[2018-07-05] MEDS ORDERED: Famotidine IV* 10 MG/ML 2 ML (20 mg) ONE (08:29)
[2018-07-05] MEDS ORDERED: ceFAZolin 2 GM in NS PREMIX(*) 2 GM/100 ML BAG IVPB ONE (08:29)
[2018-07-05] MEDS ORDERED: Dexamethasone IV* 4 MG/ML 1 ML (4 MG) ONE (08:29)
[2018-07-05] MEDS ORDERED: Lidocaine 1%* 5 ML VIAL ONE (09:00)
[2018-07-05] MEDS ORDERED: ROPIVACAINE 5 MG/ML 30 ML BTL (0.5%) ONE (09:01)
[2018-07-05] MEDS ORDERED: Bupivacaine 0.5% SDV PF* 30ML VIAL ONE (09:17)
[2018-07-05] MEDS ORDERED: Acetaminophen TAB* 325 MG PO PRN (09:28)
[2018-07-05] MEDS ORDERED: Ketorolac INJ* 30 MG/ML 1 ML VIAL IV PRN (09:28)
[2018-07-05] MEDS ORDERED: Ondansetron INJ* 2 MG/ML VIAL IV PRN (09:28)
[2018-07-05] MEDS ORDERED: fentaNYL* 50 MCG/ML 2 ML VIAL (100 MCG VIAL) IV PRN (09:28)
[2018-07-05] MEDS ORDERED: DiMENhydriNATE IV* 50 MG/ML VIAL IV PUSH PRN (09:28)
[2018-07-05] MEDS ORDERED: Naloxone* 0.4 MG/ML 1 ML VIAL IV PRN (09:28)
[2018-07-05] MEDS ORDERED: Morphine INJ* 2 MG/ML 1 ML SYRINGE (TWO MG - NEW SYRINGE VERSION) IV PRN (09:28)
[2018-07-05] MEDS ORDERED: HYDROcodone/ACETAMIN 5-325 MG* 1 TAB PO PRN (09:28)
[2018-07-05] MEDS ORDERED: Lidocaine 2% PF * 5 ML VIAL ONE (10:47)
[2018-07-05] MEDS ORDERED: Propofol* 10 MG/ML 20 ML BTL IV PUSH ONE ×2 (10:47→11:56)
[2018-07-05] MEDS ORDERED: Bupivacaine-MPF SPINAL* 7.5 MG/ML - 2ML AMP ONE (10:48)
[2018-07-05] MEDS ORDERED: Cyclobenzaprine TAB* 10 MG PO PRN (12:18)
[2018-07-05] MEDS ORDERED: Ondansetron ODT TAB* 4 MG PO PRN (12:18)
[2018-07-05] MEDS ORDERED: diPHENhydraMINE IV* 50 MG/ML 1 ml VIAL (BENADRYL) IV PRN (12:18)
[2018-07-05] MEDS ORDERED: Magnesium Hydroxide LIQ* 30 ML UDC PO PRN (12:18)
[2018-07-05] MEDS ORDERED: Bisacodyl SUPP* 10 MG SUPP PR PRN (12:18)
[2018-07-05] MEDS ORDERED: Ondansetron TAB* 4 MG PO PRN (12:18)
--- NOTE | 2018-07-05 13:43 | RAD ---
HISTORY: s/p left TKA COMPARISONS: December 30, 2016 VIEWS: 2 , Frontal and lateral views of the left knee FINDINGS: BONE DENSITY: There is diffuse osteopenia. BONES: The patient is status post left knee arthroplasty. There is no hardware failure or osteolysis. JOINTS: Patient is status post left knee arthroplasty. ALIGNMENT: There is no dislocation. SOFT TISSUES: Unremarkable. OTHER FINDINGS: None. IMPRESSION: 1. OSTEOPENIA. 2. STATUS POST LEFT KNEE ARTHROPLASTY.
[2018-07-05] MEDS: Acetaminophen TAB* 325 MG PO SCH ×2 (14:46→21:39)
[2018-07-05] MEDS: Polyethylene Glycol 3350* 17 GM PACKET PO PRN (14:47)
[2018-07-05] MEDS ORDERED: amLODIPine TAB* 5 MG ONE (14:49)
[2018-07-05] MEDS: amLODIPine TAB* 5 MG PO SCH ×2 (14:51→17:46)
[2018-07-05] MEDS ORDERED: Warfarin TAB(*) 6 MG PO ONE (17:00)
[2018-07-05] MEDS: CMC: Rosuvastatin (NF) 5 MG TAB PO SCH (17:45)
[2018-07-05] MEDS: ceFAZolin 1 GM in Dextrose (*) 1 GM/50 ML BAG IVPB SCH (17:45)
[2018-07-05] MEDS: traMADol TAB* 50 MG PO PRN ×2 (17:48→23:52)
[2018-07-05] MEDS: Docusate CAP* 100 MG PO SCH (21:38)
[2018-07-05] MEDS: Magnesium Hydroxide LIQ* 30 ML UDC PO SCH (21:39)
[2018-07-05] MEDS: Spironolactone TAB* 25 MG PO SCH (21:39)
[2018-07-06] MEDS: ceFAZolin 1 GM in Dextrose (*) 1 GM/50 ML BAG IVPB SCH ×2 (01:57→09:55)
[2018-07-06] MEDS: Morphine VIAL* 4 MG/ML VIAL (1 ml vial) IV PRN ×2 (04:50→07:12)
[2018-07-06 05:57] LABS: Hematocrit 40 % (35-47); Mean Platelet Volume 8.3 um3 (7.4-10.4); Platelet Count 240 10^3/ul (150-450)
[2018-07-06] MEDS: Acetaminophen TAB* 325 MG PO SCH ×3 (05:59→21:12)
[2018-07-06 06:05] LABS: INR 1.02 (0.77-1.02)
[2018-07-06] MEDS: Levothyroxine TAB* 75 MCG TAB PO SCH (06:06)
[2018-07-06 06:26] LABS: EGFR Non-African American 69.7 (>60)
[2018-07-06] MEDS: Omeprazole CAP* 20 MG PO SCH (07:15)
--- NOTE | 2018-07-06 08:28 | PN ---
Subjective - Subjective Reason for Note: Consultation Note History: Primary care/internal medicine. 1 day post left total knee arthroplasty. I entered the room while she was walking for the first time with the help of a walker and an occupational therapist. She states she is in pain, but she is doing very well. She has had no immediate complications from the surgery, but her BP is high from the pain. She is accepted into [facility] for inpatient rehabilitation. Active Problems: Active Problems Constipation (Acute) K59.00 S/P total knee arthroplasty (Acute) Z96.659 Coronary artery disease (Chronic) I25.10 GERD (gastroesophageal reflux disease) (Chronic) K21.9 Hyperlipidemia (Chronic) E78.5 Hypertension (Chronic) I10 Impaired fasting glucose (Chronic) R73.01 Osteoarthritis of knees, bilateral (Chronic) M17.0 Primary hypothyroidism (Chronic) E03.9 Current Medications: Current Medications Acetaminophen (Tylenol Tab*) 650 mg PO ONCE PRN PRN Reason: PAIN - MILD Acetaminophen (Tylenol Tab*) 975 mg PO Q8H [facility] Last Admin: 07/06/18 05:59 Dose: 975 mg Amlodipine Besylate (Norvasc Tab*) 2.5 mg PO QPM [facility] Last Admin: 07/05/18 17:46 Dose: Not Given Bisacodyl (Dulcolax Supp*) 10 mg CO DAILY PRN PRN Reason: constipation Diphenhydramine HCl (Benadryl Iv*) 12.5 mg IV Q6H PRN PRN Reason: PRURITIS Docusate Sodium (Colace Cap*) 100 mg PO BID [facility] Last Admin: 07/05/18 21:38 Dose: 100 mg Enoxaparin Sodium (Lovenox(*)) 40 mg SUBCUT Q24H [facility] Cefazolin Sodium/Dextrose (Kefzol 1 Gm In Dextrose Duplex (*)) 1 gm in 50 mls @ 200 mls/hr IVPB Q8H [facility] Stop: 07/06/18 10:14 Last Admin: 07/06/18 01:57 Dose: 200 mls/hr Lactulose (Lactulose*) 30 ml PO Q6H PRN PRN Reason: constipation Levothyroxine Sodium (Synthroid Tab*) 75 mcg PO DAILY@0600 [facility] Last Admin: 07/06/18 06:06 Dose: 75 mcg Magnesium Hydroxide (Milk Of Magnesia Liq*) 30 ml PO BID [facility] Last Admin: 07/05/18 21:39 Dose: 30 ml Magnesium Hydroxide (Milk Of Magnesia Liq*) 30 ml PO Q6H PRN PRN Reason: constipation Last Admin: 07/05/18 14:46 Dose: 30 ml Morphine Sulfate (Morphine Vial*) 2 mg IV Q2H PRN PRN Reason: PAIN - SEVERE Last Admin: 07/06/18 07:12 Dose: 2 mg Pto: Preservision (Areds 2 1 Cap) [facility] Omeprazole (Prilosec Cap*) 40 mg PO DAILY@0730 [facility] Last Admin: 07/06/18 07:15 Dose: 40 mg Ondansetron HCl (Zofran Odt Tab*) 4 mg PO Q6H PRN PRN Reason: NAUSEA Oxycodone HCl (Roxycodone Tab*) 10 mg PO Q4H PRN PRN Reason: SEVERE PAIN Paroxetine HCl (Paxil Tab*) 10 mg PO [facility] Polyethylene Glycol/Electrolytes (Miralax*) 17 gm PO DAILY PRN PRN Reason: Constipation Last Admin: 07/05/18 14:47 Dose: 17 gm Rosuvastatin Calcium (Crestor (Nf)) 5 mg PO QPM [facility]; Protocol Last Admin: 07/05/18 17:45 Dose: 5 mg Spironolactone (Aldactone Tab*) 25 mg PO BID [facility] Last Admin: 07/05/18 21:39 Dose: 25 mg Tramadol HCl (Ultram*) 50 mg PO Q6H PRN PRN Reason: PAIN Last Admin: 07/05/18 23:52 Dose: 50 mg - Review of Systems Pulmonary: Negative: Cough, Sputum, Respiratory Distress Cardiology: Negative: Chest Pain, Shortness of Breath, Palpitations Gastroenterology: Positive: Constipation - 5 days Negative: Abdominal Pain, Nausea, Vomiting Genital - Urinary: Positive: Normal Neurology: Negative: Headache Home Medications: Home Medications Medication Instructions Recorded Confirmed Type Spironolactone TAB* [Aldactone TAB 1 tab PO BID 11/28/13 07/05/18 History 25 MG*] Aspirin/Dipyridamole 1 cap PO BID 02/05/17 07/05/18 History [Aspirin-Dipyridam ER 25-200 mg] Omeprazole 40 mg PO QAM 02/05/17 07/05/18 History Levothyroxine TAB* [Synthroid 75 75 mcg PO DAILY@0600 tab 02/24/17 07/05/18 Rx MCG TAB*] Acetaminophen [Acetaminophen Extra 1,000 mg PO BID 06/24/18 07/05/18 History Strength] Amlodipine Besylate [Norvasc 2.5 2.5 mg PO QPM 06/24/18 07/05/18 History mg tab] Amoxicillin PO (*) [Amoxicillin 4 cap PO SEE INSTRUCTIONS PRN 06/24/18 07/05/18 History 500 MG CAP*] Docusate CAP* [Colace Cap*] 100 mg PO BID PRN 06/24/18 07/05/18 History PARoxetine HCL TAB* [Paxil TAB*] 10 mg PO QAM 06/24/18 07/05/18 History Rosuvastatin Calcium [Crestor] 5 mg PO QPM 06/24/18 07/05/18 History Vit C/E/Zn/Coppr/Lutein/Zeaxan 1 cap PO QAM 06/24/18 07/05/18 History [Preservision Areds 2 Softgel] Allergies: Allergies Allergy/AdvReac Type Severity Reaction Status Date / Time ramipril Allergy Unknown Unknown Verified 07/05/18 08:07 Reaction Details Objective - Vital Signs Vital Signs: Vital Signs 07/05/18 07/05/18 07/05/18 09:00 09:05 09:10 Temperature Pulse Rate 47 48 48 Respiratory 15 14 18 Rate Blood Pressure 153/63 156/64 150/65 (mmHg) O2 Sat by Pulse 97 95 94 Oximetry 07/05/18 07/05/18 07/05/18 09:16 09:20 09:26 Temperature Pulse Rate 47 46 47 Respiratory 14 17 14 Rate Blood Pressure 148/66 163/66 145/61 (mmHg) O2 Sat by Pulse 95 96 95 Oximetry 07/05/18 07/05/18 07/05/18 09:30 09:35 09:40 Temperature Pulse Rate 46 46 46 Respiratory 14 14 14 Rate Blood Pressure 133/60 152/63 135/56 (mmHg) O2 Sat by Pulse 96 95 97 Oximetry 07/05/18 07/05/18 07/05/18 09:45 12:18 12:20 Temperature 97.0 F Pulse Rate 46 48 49 Respiratory 16 17 18 Rate Blood Pressure 138/58 135/62 146/62 (mmHg) O2 Sat by Pulse 96 94 92 Oximetry 07/05/18 07/05/18 07/05/18 12:26 12:30 12:36 Temperature Pulse Rate 48 49 48 Respiratory 15 22 15 Rate Blood Pressure 151/71 163/67 163/69 (mmHg) O2 Sat by Pulse 94 94 95 Oximetry 07/05/18 07/05/18 07/05/18 12:45 12:52 13:00 Temperature Pulse Rate 49 50 51 Respiratory 16 20 16 Rate Blood Pressure 163/63 156/71 (mmHg) O2 Sat by Pulse 94 95 97 Oximetry 07/05/18 07/05/18 07/05/18 13:01 13:54 14:44 Temperature 97.7 F 98.2 F Pulse Rate 50 55 52 Respiratory 19 16 16 Rate Blood Pressure 165/74 170/63 183/62 (mmHg) O2 Sat by Pulse 94 94 92 Oximetry 07/05/18 07/05/18 07/05/18 15:37 17:26 17:48 Temperature 98.5 F 98.2 F Pulse Rate 57 56 Respiratory 16 16 18 Rate Blood Pressure 153/60 147/58 (mmHg) O2 Sat by Pulse 94 93 Oximetry 07/05/18 07/05/18 07/05/18 19:31 20:00 21:40 Temperature 97.9 F Pulse Rate 60 Respiratory 16 18 16 Rate Blood Pressure 146/56 (mmHg) O2 Sat by Pulse 94 Oximetry 07/05/18 07/05/18 07/06/18 23:30 23:52 00:00 Temperature 97.8 F Pulse Rate 59 Respiratory 16 18 Rate Blood Pressure 156/52 (mmHg) O2 Sat by Pulse 94 95 Oximetry 07/06/18 07/06/18 07/06/18 00:22 02:04 04:26 Temperature 99.4 F Pulse Rate 63 Respiratory 16 16 Rate Blood Pressure (mmHg) O2 Sat by Pulse 95 94 Oximetry 07/06/18 07/06/18 07/06/18 04:49 04:50 05:59 Temperature Pulse Rate Respiratory 18 18 Rate Blood Pressure 145/62 (mmHg) O2 Sat by Pulse Oximetry 07/06/18 07/06/18 07:12 07:32 Temperature 98.7 F Pulse Rate 64 Respiratory 18 16 Rate Blood Pressure 131/56 (mmHg) O2 Sat by Pulse 90 Oximetry - Intake and Output Intake and Output: Intake & Output 07/03/18 07/04/18 07/05/18 07/06/18 11:59 11:59 11:59 11:59 Intake Total 5050 Output Total 50 6600 Balance -50 -1550 Weight 167 lb Intake: IV Fluids 2380 LR 2380 IVPB 50 ABX - CEFAZOLIN 50 Oral 2620 Output: Govea 6600 Residual 50 Govea 16 Fr 50 ADLs: Meal Record Start: 07/05/18 13: 54 Freq: Status: Active Protocol: Created 07/05/18 13:54 [id number] (Rec: 07/05/18 13:54 [id number]) Intake and Output Start: 07/05/18 12: 18 Freq: 06,14,2200 Status: Complete Protocol: Created 07/05/18 12:25 [id number] (Rec: 07/05/18 12:25 [id number] [id number]) Intake and Output Start: 07/05/18 13: 54 Freq: DAILY@0600,1400,2200 Status: Active Protocol: Created 07/05/18 13:54 [id number] (Rec: 07/05/18 13:54 [id number] SSU-L01) Document 07/05/18 14:00 [id number] (Rec: 07/05/18 14:49 [id number] SSU-C02) Document 07/05/18 15:25 [id number] (Rec: 07/05/18 15:25 [id number] SSU-C19) Document 07/05/18 21:32 [id number] (Rec: 07/05/18 21:32 [id number] SSU-C01) Document 07/05/18 22:45 [id number] (Rec: 07/05/18 22:46 [id number] SSU-C06) Document 07/06/18 05:35 [id number] (Rec: 07/06/18 05:35 [id number]) - Physical Exam General Physical Exam Comment: warm and well perfused, in no distress. General: No Cyanosis, No Anemia, No Jaundice, No Clubbing Lungs and Chest: Yes: Chest Expansion Full, Chest Expansion Symetrica, Percussion Note Resonant, Vessicular Breath Sounds. No: Crackles, Wheezes, Respiratory Distress Heart Rate and Rhythm: Regular Additional Cardiovascular: No: Heart Murmur, Pedal Edema Abdominal Exam: Yes: Soft. No: Distention, Abdominal Mass, Abdominal Tenderness Results - Results Lab Results: Laboratory Results - last 24 hr 07/06/18 07/06/18 07/06/18 05:42 05:42 05:42 Hgb 13.0 Hct 40 Plt Count 240 MPV 8.3 INR (Anticoag Therapy) 1.02 Sodium 132 L Potassium 4.5 Chloride 101 Carbon Dioxide 23 Anion Gap 8 BUN 15 Creatinine 0.78 Est GFR ( Amer) 84.3 Est GFR (Non-Af Amer) 69.7 BUN/Creatinine Ratio 19.2 Glucose 121 H Calcium 9.2 Assessment - Problem List Assessment: Patient Problems Constipation (Acute) S/P total knee arthroplasty (Acute) Coronary artery disease (Chronic) GERD (gastroesophageal reflux disease) (Chronic) Hyperlipidemia (Chronic) Hypertension (Chronic) Impaired fasting glucose (Chronic) Osteoarthritis of knees, bilateral (Chronic) Primary hypothyroidism (Chronic) Plan: S/P total knee arthroplasty (Acute) She is already walking 1 day post left TKA. She is doing very well considering her age and comorbidities. I agree with the plan for PMRU rehab. Constipation (Acute) This is chronic - she hasn't had a bowel movement in 5 days. I will give her 30 mls of lactulose and reserve castor oil 10 mls if this has no result. Coronary artery disease (Chronic) stable GERD (gastroesophageal reflux disease) (Chronic) stable Hyperlipidemia (Chronic) continue current Rx Hypertension (Chronic) exacerbated by pain Impaired fasting glucose (Chronic) not a problem Osteoarthritis of knees, bilateral (Chronic) underlying diagnosis Primary hypothyroidism (Chronic) secondary diagnosis
[2018-07-06] MEDS ORDERED: Castor Oil (Pharmaceutic Aid)* 118 ML BTL PO PRN (08:35)
[2018-07-06] MEDS: Magnesium Hydroxide LIQ* 30 ML UDC PO SCH ×2 (08:39→21:12)
[2018-07-06] MEDS: Spironolactone TAB* 25 MG PO SCH ×2 (08:40→21:12)
[2018-07-06] MEDS: oxyCODONE TAB* 5 MG TAB PO PRN ×4 (08:40→21:12)
[2018-07-06] MEDS: Docusate CAP* 100 MG PO SCH ×2 (08:40→21:12)
[2018-07-06] MEDS: PARoxetine HCL TAB* 10 MG PO SCH (08:40)
[2018-07-06] MEDS: Polyethylene Glycol 3350* 17 GM PACKET PO PRN (08:46)
[2018-07-06] MEDS: PRESERVISION AREDS PO SCH (10:02)
--- NOTE | 2018-07-06 11:22 | PN ---
Progress Note - Progress Note Date of Service: 07/06/18 SOAP: Subjective: []Patient was seen and examined OOB in chair. She currently feels well though has significant pain overnight. Pain is now controlled with use of IV morphine, oxycodone and acetaminophen though she feels somewhat confused after taking these pain medications. Denies chest pain, shortness of breath, dizziness, nausea, leg numbness. Denies history of blood clot. Bradycardic into the upper 40's overnight, now residing in the low 60's this morning. Objective: []General: Well appearing, NAD LLE: Left knee dressing CDI. Thigh is soft. Sensation intact distally, DF/PF intact. DP2+ and capillary refill less than two seconds distally BL calves are supple and nontender without erythema, edema or palpable cords Assessment: []POD 1 sp left total knee arthroplasty Dr Lynne 07/05 Plan: []WBAT PT/OT Lovenox, coumadin 8 mg today Desires 1. PMRU or 2. [place] at DC Sodium 132, continue normal diet and hold IV fluids, repeat tomorrow Vital Signs Temp 98.4 F 07/06/18 11:18 Pulse 66 07/06/18 11:18 Resp 20 07/06/18 12:19 BP 146/56 07/06/18 11:18 Pulse Ox 95 07/06/18 11:18 Intake & Output 07/05/18 07/06/18 07/06/18 18:59 06:59 18:59 Intake Total 2120 2930 360 Output Total 1550 5100 Balance 570 -2170 360 Weight 167 lb Intake: IV Fluids 1400 980 LR 1400 980 IVPB 50 ABX - CEFAZOLIN 50 Oral 720 1900 360 Output: Govea 1500 5100 Residual 50 Govea 16 Fr 50 Laboratory Last Values Hgb 13.0 g/dl (12.0-16.0) 07/06/18 05:42 Hct 40 % (35-47) 07/06/18 05:42 Plt Count 240 10^3/ul (150-450) 07/06/18 05:42 MPV 8.3 um3 (7.4-10.4) 07/06/18 05:42 INR (Anticoag Therapy) 1.02 (0.77-1.02) 07/06/18 05:42 Sodium 132 mmol/L (135-145) L 07/06/18 05:42 Potassium 4.5 mmol/L (3.5-5.0) 07/06/18 05:42 Chloride 101 mmol/L (101-111) 07/06/18 05:42 Carbon Dioxide 23 mmol/L (22-32) 07/06/18 05:42 Anion Gap 8 mmol/L (2-11) 07/06/18 05:42 BUN 15 mg/dL (6-24) 07/06/18 05:42 Creatinine 0.78 mg/dL (0.51-0.95) 07/06/18 05:42 Est GFR ( Amer) 84.3 (>60) 07/06/18 05:42 Est GFR (Non-Af Amer) 69.7 (>60) 07/06/18 05:42 BUN/Creatinine Ratio 19.2 (8-20) 07/06/18 05:42 Glucose 121 mg/dL (70-100) H 07/06/18 05:42 Calcium 9.2 mg/dL (8.6-10.3) 07/06/18 05:42
[2018-07-06] MEDS: traMADol TAB* 50 MG PO PRN (11:27)
[2018-07-06] MEDS ORDERED: Enoxaparin(*) 40 MG/0.4 ML SYR SUBCUT SCH (12:00)
--- NOTE | 2018-07-06 12:00 | OP ---
DATE OF OPERATION: 07/05/18 - ROOM #349 DATE OF : 30 SURGEON: Gertrudis Lynne MD ASSISTED LIVING ASSISTANT: LOBITO Schroeder. Ms. Luna did help throughout the procedure with preparation of the leg, wound retraction, and manipulation of the knee and wound closure. ANESTHESIOLOGIST: Dr. Aguayo. ANESTHESIA: Spinal. PRE-OP DIAGNOSIS: Severe end-stage degenerative osteoarthritis of the left knee joint. POST-OP DIAGNOSIS: Severe end-stage degenerative osteoarthritis of the left knee joint. OPERATIVE PROCEDURE: Left total knee arthroplasty. TOURNIQUET TIME: 42 minutes. COMPLICATIONS: None. ESTIMATED BLOOD LOSS: 200 cc. SPECIMEN: Bone and cartilage from the left knee joint sent to Pathology. HARDWARE USED: This is cemented [employer] total knee arthroplasty hardware. Two packages of Simplex bone cement. For the femur, a left posterior stabilized Legion size 0 femoral component. For the tibia, left size 3 Yaritza II tibial baseplate. For the insert, a 9-mm posterior stabilized articular insert size 3-4 and for the patella, a 32 mm 3-peg all-poly patella with 7.5 thickness. BRIEF HISTORY/INDICATIONS: Ms. Coffman is an 88-year-old female with years of increasingly severe left knee pain. She failed conservative treatment with antiinflammatories, pain medications, intra-articular injections and physical therapy. Due to continued pain and decreased quality of life, she elected to undergo left total knee arthroplasty. Informed consent was obtained from the patient. She understood the risks of surgery included but were not limited to bleeding, infection, damage to nearby structures, continued pain, need for further surgery, intraoperative fracture, nerve palsy, hardware failure or loosening, knee stiffness, loss of motion, stroke, heart attack, blood clot and . She wished to proceed. INTRAOPERATIVE FINDINGS: Intraoperatively, the patient was noted to have severe end-stage arthritis in all three compartments with complete loss of cartilage. She had significant osteopenia noted throughout the case. DESCRIPTION OF PROCEDURE: Ms. Coffman was identified in the preanesthesia unit. Her left lower extremity was marked as the correct operative side. Informed consent was signed and placed in the chart. The patient was taken to the operating room and placed under spinal anesthesia. A Govea catheter was placed. Tourniquet was placed on the left thigh. Left lower extremity was prepped and draped in the usual sterile fashion. Preop time-out was made to correctly identify the patient, side and site. Appropriate perioperative antibiotics were given within 1 hour of incision. The tourniquet was inflated. A 12 cm midline incision was made with a 10-blade and carried down to the extensor mechanism. A new 10-blade was used to make a standard medial parapatellar arthrotomy. The patella was subluxed laterally. Electrocautery was used to subperiosteally elevate the soft tissue off the superomedial tibia to the mid sagittal plane. The knee was flexed up. The anterior horn of the lateral meniscus and ACL were not present. A drill was used to enter the distal femur. Intramedullary distal femoral cutting guide was pinned on the distal femur. Oscillating saw was used to make the distal femoral cut. Next, the external rotation guide was pinned on the distal femur. The distal femur was sized to a size 5. Size 5 multi-cutting jig was pinned on the distal femur. Oscillating saw was used to make the appropriate 4 chamfer cuts. The PCL was completely released and the tibia was subluxed anteriorly. Extramedullary tibial cutting guide was pinned on the proximal tibia. Oscillating saw was used to make the proximal tibial cut perpendicular to the mechanical axis of the tibia. The bone was carefully removed. Osteophytes were removed from around the tibia. The knee was brought out into full extension. Spacer block had excellent fit with the knee in full extension. Medial and lateral ligaments were well balanced. Flexion and extension gap was well balanced. The knee was flexed up. Lamina coffee farmer was placed both medially and laterally. Any remaining meniscus was carefully removed using electrocautery. Curved osteotome was used to remove any posterior osteophytes. Tibial tray and drop barbie were placed. These confirmed satisfactory proximal tibial cut. A left size 5 narrow femoral trial was impacted onto the distal femur and had excellent fit. The box for the posterior stabilized implant was prepared using a reamer and box-cut osteotome. A size 3 tibial tray with a 9 mm insert trial was placed and the knee was taken through a range of motion. The knee had full extension to 130 degrees of flexion with satisfactory patellofemoral tracking. The patella was everted. 7 mm of patellar bone and cartilage was carefully removed using an oscillating saw. The patella was sized to a size 32. Three peg holes were drilled through the size 32 guide. The 32 trial patella with 7.5 thickness was placed and the knee was taken through a range of motion. The knee had satisfactory patellofemoral tracking. All trials were carefully removed. The tibia was subluxed anteriorly and sized to a size 3. Proximal tibia was prepared using a size 3 keel punch. All bony cut surfaces were copiously irrigated with sterile saline and dried. Final implants were cemented into place starting with the tibia followed by the femur and last the patella. The 9-mm insert trial was placed while the knee was brought out into full extension. Tourniquet was turned down at 42 minutes. The knee was copiously irrigated with sterile saline. Electrocautery was used to obtain meticulous hemostasis. Once the cement had fully cured, the insert trial was removed. Any excess cement was removed from around the capsule and hardware. Final insert chosen was a 9-mm posterior stabilized articular insert size 3-4. This was locked into position on the tibial tray. Stability of the insert was checked and rechecked and noted to be stable. The knee was once again copiously irrigated with sterile saline. The extensor mechanism was closed using interrupted #1 Vicryl. The rest of the incision was closed in a layered fashion using 0 and 2-0 Vicryl. Skin was closed using running 3-0 nylon suture. Sterile Xeroform, 4x4's, and Webril were used to cover the incision. Obi wrap and cold pack were placed over this. The patient' s anesthesia was reversed without difficulty. She was taken to the PACU in stable condition. Intended weightbearing will be weightbearing as tolerated. Intended DVT prophylaxis will be Coumadin with a Lovenox bridge. [id number]/[facility] #: [id number] STEVE
[2018-07-06] MEDS: CMC: Rosuvastatin (NF) 5 MG TAB PO SCH (17:06)
[2018-07-06] MEDS: amLODIPine TAB* 5 MG PO SCH (17:06)
[2018-07-06] MEDS ORDERED: Warfarin TAB(*) 4 MG PO ONE (18:00)
[2018-07-07] MEDS: oxyCODONE TAB* 5 MG TAB PO PRN ×2 (01:27→05:44)
[2018-07-07] MEDS: Acetaminophen TAB* 325 MG PO SCH (05:43)
[2018-07-07] MEDS: Levothyroxine TAB* 75 MCG TAB PO SCH (05:43)
[2018-07-07 06:56] LABS: Hematocrit 40 % (35-47); Hemoglobin 12.9 g/dl (12.0-16.0); Mean Platelet Volume 8.3 um3 (7.4-10.4); Platelet Count 209 10^3/ul (150-450)
[2018-07-07 06:59] LABS: INR 2.14 (0.77-1.02)
[2018-07-07] MEDS: Omeprazole CAP* 20 MG PO SCH (07:08)
[2018-07-07 07:44] VITALS: BP 138/59
[2018-07-07] MEDS: Docusate CAP* 100 MG PO SCH (08:03)
[2018-07-07] MEDS: Spironolactone TAB* 25 MG PO SCH (08:03)
[2018-07-07] MEDS: PARoxetine HCL TAB* 10 MG PO SCH (08:03)
[2018-07-07] MEDS: Magnesium Hydroxide LIQ* 30 ML UDC PO SCH (08:04)
[2018-07-07] MEDS: PRESERVISION AREDS PO SCH (08:06)
[2018-07-07] MEDS: traMADol TAB* 50 MG PO PRN (08:37)
--- NOTE | 2018-07-07 20:31 | PN ---
Progress Note - Progress Note Date of Service: 07/07/18 SOAP: Subjective: []Patient was seen and examined at bedside. She feels well without any complaints. Denies CP, SOB, dizziness, nausea or left knee pain. Objective: []General: Well appearing, NAD LLE: Left knee dressing changed, incision CDI. Thigh is soft. Sensation intact distally, DF/PF intact. DP2+ and capillary refill less than two seconds distally BL calves are supple and nontender without erythema, edema or palpable cords Assessment: []POD 2 sp left total knee arthroplasty Dr Lynne 07/05 Plan: []WBAT PT/OT Lovenox, coumadin 2 mg today. Continue aspirin and aggranox as you take at home per discussion with PCP Dr Valdez this morning Sodium 128 please fluid restrict and recheck tomorrow PMRU Vital Signs Temp 98.5 F 07/07/18 07:16 Pulse 76 07/07/18 08:35 Resp 18 07/07/18 08:37 BP 138/59 07/07/18 07:16 Pulse Ox 92 07/07/18 08:35 Intake & Output 07/07/18 07/07/18 07/08/18 06:59 18:59 06:59 Intake Total 450 120 Output Total 1300 Balance -850 120 Intake: Oral 450 120 Output: Urine 1300 Other: Estimated Void Medium # Bowel Movements 1 Estimated Stool Amount Small # Voids 1 Laboratory Last Values Hgb 12.9 g/dl (12.0-16.0) 07/07/18 06:10 Hct 40 % (35-47) 07/07/18 06:10 Plt Count 209 10^3/ul (150-450) 07/07/18 06:10 MPV 8.3 um3 (7.4-10.4) 07/07/18 06:10 INR (Anticoag Therapy) 2.14 (0.77-1.02) H 07/07/18 06:10 Sodium 128 mmol/L (135-145) L 07/07/18 06:10 Potassium 4.5 mmol/L (3.5-5.0) 07/06/18 05:42 Chloride 101 mmol/L (101-111) 07/06/18 05:42 Carbon Dioxide 23 mmol/L (22-32) 07/06/18 05:42 Anion Gap 8 mmol/L (2-11) 07/06/18 05:42 BUN 15 mg/dL (6-24) 07/06/18 05:42 Creatinine 0.78 mg/dL (0.51-0.95) 07/06/18 05:42 Est GFR ( Amer) 84.3 (>60) 07/06/18 05:42 Est GFR (Non-Af Amer) 69.7 (>60) 07/06/18 05:42 BUN/Creatinine Ratio 19.2 (8-20) 07/06/18 05:42 Glucose 121 mg/dL (70-100) H 07/06/18 05:42 Calcium 9.2 mg/dL (8.6-10.3) 07/06/18 05:42
[2018-07-08] MEDS ORDERED: NF:Multivitamins/Minera Areds(NF) 1 CAP CAP PO SCH (09:00)
--- NOTE | 2018-07-08 10:21 | DS ---
DISCHARGE SUMMARY: DATE OF ADMISSION: 07/05/18 DATE OF DISCHARGE: 07/07/18 PROVIDER: Gertrudis Lynne MD* (dictated by LOBITO Soriano). CONTINGENTS SUPERVISOR: LOBITO Schroeder PREOPERATIVE DIAGNOSIS: Severe end-stage degenerative osteoarthritis of left knee joint. OPERATIVE PROCEDURE: Left total knee arthroplasty. HISTORY: Ms. Coffman is an 88-year-old female with years of increasingly severe left knee pain. She failed conservative management and elected to undergo left total knee arthroplasty. HOSPITAL COURSE: The patient was admitted to [facility] on . She underwent left total knee arthroplasty without complication. She was followed by Dr. Valdez, her primary care provider while she was here. On postop day 1, she was well appearing in no acute distress. She did have hyponatremia, sodium of 132. Left knee dressing was clean, dry and intact. Sensation intact distally. Dorsiflexion and plantar flexion intact. DP pulse 2+. On postop day 2, she is well appearing in no acute distress. Dressing was changed. Incision clean, dry and intact. Her sodium was 128. The patient remained asymptomatic without any dizziness, nausea, headache, chest pain, shortness of breath. She was deemed to be medically and orthopedically stable to go to [facility]. DISPOSITION: To PMRU at [facility]. MEDICATIONS: Include continuin. Aspirin and Aggrenox combination that she takes at home. 2. Coumadin 2 mg on 07/07/18. 3. Percocet 5/325 mg 1 to 2 tabs every 6 hours as needed for pain control. DISCHARGE INSTRUCTIONS: Weightbearing as tolerated. Continue physical therapy and occupational therapy. Coumadin dosing 2 mg on 07/07/18, further dosing by PMRU. Continue aspirin and Aggrenox combination as she takes at home. Fluid restricted 1200 mL daily and recheck sodium level tomorrow. Discharged to PMRU. LOBITO BUENO [id number]/[facility] #: [id number] MTDD
== END 2018-07-07 10:00 | DRG 470 ==
LOC: AA 07:49 → SSU 12:18
PROVIDERS: ADMIT Orthopaedic Surgery Adult Reconstructive Orthopaedic Surgery; ATTEND Orthopaedic Surgery Adult Reconstructive Orthopaedic Surgery
PROC: 0SRD0J9 Replacement of Left Knee Joint with Synthetic Substitute, Cemented, Open Approach (ICD-10-PCS; principal; 2018-07-05 10:00)
DX: M17.12 Unilateral primary osteoarthritis, left knee (principal); H34.10 Central retinal artery occlusion, unspecified eye; E87.1 Hypo-osmolality and hyponatremia; I25.10 Atherosclerotic heart disease of native coronary artery without angina pectoris; K21.9 Gastro-esophageal reflux disease without esophagitis; E03.9 Hypothyroidism, unspecified; I10 Essential (primary) hypertension; Z96.651 Presence of right artificial knee joint; M25.462 Effusion, left knee; I08.1 Rheumatic disorders of both mitral and tricuspid valves; E66.01 Morbid (severe) obesity due to excess calories; I08.3 Combined rheumatic disorders of mitral, aortic and tricuspid valves; I27.20 Pulmonary hypertension, unspecified; K44.9 Diaphragmatic hernia without obstruction or gangrene; H35.30 Unspecified macular degeneration; F43.20 Adjustment disorder, unspecified; H54.61 Unqualified visual loss, right eye, normal vision left eye; I70.1 Atherosclerosis of renal artery; I65.21 Occlusion and stenosis of right carotid artery; F41.1 Generalized anxiety disorder; M85.862 Other specified disorders of bone density and structure, left lower leg; K59.00 Constipation, unspecified; R73.01 Impaired fasting glucose; F32.9 Major depressive disorder, single episode, unspecified; E78.5 Hyperlipidemia, unspecified; G47.33 Obstructive sleep apnea (adult) (pediatric); N39.3 Stress incontinence (female) (male); Z85.828 Personal history of other malignant neoplasm of skin; Z90.710 Acquired absence of both cervix and uterus; Z88.8 Allergy status to other drugs, medicaments and biological substances; Z82.49 Family history of ischemic heart disease and other diseases of the circulatory system; Z82.3 Family history of stroke; Z68.29 Body mass index [BMI] 29.0-29.9, adult; Z72.89 Other problems related to lifestyle; Z79.82 Long term (current) use of aspirin; Z79.01 Long term (current) use of anticoagulants; R00.1 Bradycardia, unspecified; D64.9 Anemia, unspecified; M21.162 Varus deformity, not elsewhere classified, left knee
CPT/HCPCS: 36415; 80048; 84300; 85014; 85018; 85049; 85610; 88305; 88311; A9270-GY; C1776; G8978-GP-CJ; G8978-GP-CK; G8978-GP-CL; G8979-GP-CI; G8987-GO-CJ; G8988-GO-CI; J0690; J1100; J1650; J2250; J2270; J2704; J2795

== ENCOUNTER 2018-07-07 08:53 | Inpatient (IN) | payer MEDICARE, OTHER ==
[2018-07-07] MEDS ORDERED: Acetaminophen TAB* 325 MG PO PRN (11:45)
[2018-07-07] MEDS: oxyCODONE/Acetamin 5/325 MG* TAB PO PRN ×2 (12:03→17:17)
[2018-07-07] MEDS: Atorvastatin* 10 MG TAB PO SCH (17:17)
[2018-07-07] MEDS: Warfarin TAB(*) 1 MG PO SCH (17:17)
[2018-07-07] MEDS: amLODIPine TAB* 5 MG PO SCH (17:18)
[2018-07-07] MEDS: Docusate CAP* 100 MG PO SCH (20:01)
[2018-07-07] MEDS: Senna TAB PO PRN (20:01)
[2018-07-07] MEDS: traMADol TAB* 50 MG PO PRN (20:02)
--- NOTE | 2018-07-07 21:04 | HP ---
ADMISSION HISTORY AND PHYSICAL: DATE OF ADMISSION: 07/07/18 REASON FOR ADMISSION: Left total knee replacement. HISTORY OF PRESENT ILLNESS: Yane Coffman is an 88-year-old female. The patient has a medical history significant for hypothyroidism. She has been having difficulty with her left knee for many years. She had her right knee replaced in January of 2017. She tried and failed conservative treatment including injections and walking with a cane. She saw Dr. Lnyne. It was decided that the best course of action would be for her to have a total knee replacement. She was admitted to [facility] on 07/05/18 and underwent a left total knee replacement that day. Postoperatively, her course was benign. She has felt to have physical therapy and occupational therapy needs. She is now being admitted for inpatient rehab so that she might return to independent living. PAST MEDICAL HISTORY: Significant for hypertension as well as coronary artery disease. She has a history of previous right total knee replacement as mentioned. She did have an episode of coffee-ground emesis in April of 2016. She has gastroesophageal reflux disease. CURRENT MEDICATIONS: Include: 1. Norvasc. 2. She is also on Lipitor instead of her usual Crestor. 3. Synthroid. 4. PreserVision. 5. Prilosec. 6. Percocet for pain control. 7. Paxil. 8. Coumadin for DVT prophylaxis. ALLERGIES: ALTACE. SOCIAL HISTORY: She is a nonsmoker and nondrinker. She lives at [place] in her own apartment. She has no steps to enter. REVIEW OF SYSTEMS: The patient reports no current shortness of breath or chest pain. PHYSICAL EXAMINATION VITAL SIGNS: The patient's temperature is 98.3, blood pressure 138/53, pulse 65 , respirations 17. HEENT: Her extraocular movements are intact. Tongue is midline. NECK: Supple. LUNGS: Sound clear to auscultation bilaterally. HEART: Sounds regular. S1 and S2 are audible. ABDOMEN: Soft, nontender. EXTREMITIES: Her left knee has a wound, which is clean and dry. Peripheral pulses were intact. Trace edema noted at the right foot. NEUROLOGIC: She is awake, alert, and oriented. Muscle strength was about 3/5 in the left leg. She could dorsiflex the left foot with 4/5 strength. FUNCTIONAL EXAM: The patient transferred with contact guard. ASSESSMENT: Left total knee replacement. PLAN/RECOMMENDATIONS: Integrate her into a comprehensive and therapeutic rehab program with the following goals: 1. Physical Therapy will work with the patient. They are going to work on functional transfer training and ambulation training with a walker. 2. Occupational Therapy will see the patient and work on her activities of daily living including toileting and toilet transfers. 3. Coumadin for DVT prophylaxis. 4. Adequate analgesia. 5. Her bowels will be regulated. 6. Continue Synthroid for hypothyroidism. 7. imaging services director will be closely involved to make sure that any services and equipment that the patient requires are in place prior to discharge. 8. Family training as appropriate. 9. Home with appropriate services. ESTIMATED LENGTH OF STAY: 7 to 10 days. [id number]/[facility] #: [id number] MTDD
[2018-07-08] MEDS: oxyCODONE/Acetamin 5/325 MG* TAB PO PRN ×4 (03:05→20:52)
[2018-07-08] MEDS: Levothyroxine TAB* 75 MCG TAB PO SCH (06:05)
[2018-07-08 07:31] LABS: Hematocrit 36 % (35-47); Hemoglobin 12.1 g/dl (12.0-16.0); Mean Corpuscular HGB Conc 34 g/dl (31-36); Mean Corpuscular Hemoglobin 29 pg (27-31); Mean Corpuscular Volume 87 fL (80-97); Mean Platelet Volume 8.2 um3 (7.4-10.4); Platelet Count 222 10^3/ul (150-450); Red Blood Count 4.12 10^6/ul (4.00-5.40); Red Cell Distribution Width 16 % (10.5-15); White Blood Count 10.9 10^3/ul (3.5-10.8)
[2018-07-08 07:45] LABS: EGFR Non-African American 54.8 (>60)
[2018-07-08 08:01] LABS: INR 2.74 (0.77-1.02)
[2018-07-08 09:08] LABS: ABS Basophils 0 10^3/ul (0-0.2); ABS Eosinophils 0.2 10^3/ul (0-0.6); ABS Lymphocytes 1.9 10^3/ul (1.0-4.8); ABS Monocytes 1.6 10^3/ul (0-0.8); ABS Neutrophils 7.2 10^3/ul (1.5-7.7); ABS Nucleated RBC 0 10^3/ul; Lymphocyte % 17.1 % (25-47); Nucleated Red Blood Cells % 0.1
[2018-07-08] MEDS: MULTIVITAMINS PO SCH (09:15)
[2018-07-08] MEDS: MINERA AREDS PO SCH (09:15)
[2018-07-08] MEDS: Omeprazole CAP* 20 MG PO SCH (09:16)
[2018-07-08] MEDS: PARoxetine HCL TAB* 10 MG PO SCH (09:16)
[2018-07-08] MEDS: Docusate CAP* 100 MG PO SCH ×2 (09:16→20:53)
--- NOTE | 2018-07-08 12:30 | PMRUTEAM ---
PMRU: Team Meeting Current Status: Nursing: Current Status Skin Deviations [Sacrum] Bruise Skin Deviations [Left Knee] Incision Skin Deviation Description [ 1 inch diam; reportedly s/p surgical injection Sacrum] Skin Deviation Description [ intact with sutures. no drainage noted. Left Knee] telfa and darryl applied Physical Therapy: Current Status Bed Mobility Assistance Mod Assist Transfer Moblility Assistance Min Assist Transfer/Bed Mobility Rolling Walker Recommended Devices Ambulation Assistance Contact Guard Ambulation Assistive Devices Rolling Walker Stairs Assistance NT Stairs Recommended Devices Two Rails Number of Stairs NT Occupational Therapy: Current Status Upper Body Dressing Supervision Lower Body Dressing Mod Assist Bathing Min Assist Toileting Contact Guard Assist,Min Assist Toilet Transfer Contact Guard Assist Rec Therapy: Current Status Summary of Assessment and RT assessment complete and pt. is aware of Clinical Impression services. Pt. is engaged in leisure sessions on the unit. Social Work: Current Status Discharge Plan return home with home care svs and support from friends and staff Potential for Family Training n/a Anticipated Discharge Home Destination Discharge With home care svs and support from [place] staff and friends Goals: Physical Therapy: Initial Goals Bed Mobility Assistance Independent Transfer Mobility Assistance Independent Transfer/Bed Mobility Rolling Walker Recommended Devices Ambulation Independent Ambulation Recommended Devices None Ambulation Distance 150 Stairs Assistance Independent Stair Recommended Devices Two Rails Number of Stairs 5 Physical Therapy: Updated Goals Transfer/Bed Mobility Rolling Walker Recommended Devices Occupational Therapy: Initial Goals Goals to be Completed in (Days 5-7 ) Upper Body Bathing Routine Independent Lower Body Bathing Routine Modified Independent with Upper Body Dressing Routine Independent Lower Body Dressing Routine Modified Independent with Toilet Hygeine and Clothing Modified Independent with Management Routine Toilet Transfer Routine Modified Independent with Step-In Shower Transfer Supervision/Set Up Routine Functional Transfers for ADL Modified Independent with Grooming Routine Independent Feeding Routine Independent Light Housekeeping Tasks Minimal Contact Assist Social Work: Goals Discharge Plan return home with home care svs and support from friends and [facility] staff Potential for Family Training n/a Anticipated Discharge Home Destination Discharge With home care svs and support from [place] staff and friends Care Plan: Care Plan ADL's - Improve/Maintain Start: 07/07/18 15:11 Freq: DAILY Status: Active Target: Protocol: Activity Type Activity Date Activity User E-Sign Co-Sign Detail Recorded Client Recorded Date Recorded By Document 07/07/18 15:11 [id number] [id number] 07/07/18 15:11 [id number] 07/07/18 15:11 PMRU Outcome: ADL's/ADL Transfers Orders/Interventions Occupational Therapy Evaluation & Treatment Communication Tool in Patient Room Device Yes Address Deficits Secondary To: Left TKA Patient to receive OT 5x/wk for 60-120 Therex min/day Self Care Management Group Therapy UE/LE ADL's with Assist Yes: James ADL Transfers with Assist Yes: James Toileting: Transfers,Clothing Management Yes: James ,Hygeine w/Assist Light Kitchen/Laundry w/Assist Yes: Bree Progression Toward Outcome/Goals Progressing Outcome/Goals Met Pt participated well in OT treatment session, appears receptive to initial use of AE, but feels she will not need to utilize predatory animal exterminator, currently with significant increased pain with left knee flexion and requires AE to increase independence with LE dressing. DVT Prophylaxis- Improve/Maintain Start: 07/07/18 10:41 Freq: QSHIFT Status: Active Target: Protocol: Activity Type Activity Date Activity User E-Sign Co-Sign Detail Recorded Client Recorded Date Recorded By Document 07/08/18 09:43 [id number] 07/08/18 09:45 [id number] 07/08/18 09:43 PMRU Outcome: DVT Prophylaxis Outcome/Goals Remains Free of DVT Complies with DVT Prophylaxis /Treatment Demonstrates Knowledge of DVT Prevention/ Treatment TEDS Stockings on Every AM, Off at HS Progression Toward Outcome/Goals Progressing Outcome/Goals Met Comment ERIK to r leg. Discharge Planning - Improve/Maintain Start: 07/07/18 10:41 Freq: DAILY Status: Active Target: Protocol: Activity Type Activity Date Activity User E-Sign Co-Sign Detail Recorded Client Recorded Date Recorded By Document 07/08/18 00:29 [id number] 07/08/18 00:29 [id number] 07/08/18 00:29 PMRU Outcome: Discharge Planning Update Patient Family No Outcome/Goals Demonstrates Understanding of Discharge Plan Education-Improve/Maintain Start: 07/07/18 10:41 Freq: QSHIFT Status: Active Target: Protocol: Activity Type Activity Date Activity User E-Sign Co-Sign Detail Recorded Client Recorded Date Recorded By Document 07/08/18 09:43 [id number] 07/08/18 09:45 [id number] 07/08/18 09:43 PMRU Outcome: Education Outcome/Goals Encourage Questions Progression Toward Outcome/Goals Progressing /GI-Improve/Maintain Start: 07/07/18 10:41 Freq: QSHIFT Status: Active Target: Protocol: Activity Type Activity Date Activity User E-Sign Co-Sign Detail Recorded Client Recorded Date Recorded By Document 07/08/18 09:43 [id number] 07/08/18 09:45 [id number] 07/08/18 09:43 PMRU Outcome: Genitourinary/ Gastrointestinal Genitourinary- Outcome/Goals Remain Free of Hospital- Acquired UTI Gastrointestinal-Outcome/Goals Maintain/ Achieve Bowel Regularity in Accordance with Pt's Baseline Prevent Constipation Laxatives as Ordered Progression Toward Outcome/Goals - Progressing Progression Toward Outcome/Goals - GI Progressing Outcome/Goals Met Comment h/o chronic constipation. colace given this am per md order Medication Administration Start: 07/07/18 10:41 Freq: QSHIFT Status: Active Target: Protocol: Activity Type Activity Date Activity User E-Sign Co-Sign Detail Recorded Client Recorded Date Recorded By Document 07/08/18 09:43 [id number] 07/08/18 09:45 [id number] 07/08/18 09:43 PMRU Outcome: Medication Administration Assess Patient Knowledge/Teach Med Yes Education for all Meds Outcome/Goals Patient Independent with Medication Administration at Home Demonstrates Understanding Progression Towards Outcome/Goals Progressing Is Patient Going Home on Lovenox? No Pain/Comfort- Improve/Maintain Start: 07/07/18 10:41 Freq: QSHIFT Status: Active Target: Protocol: Activity Type Activity Date Activity User E-Sign Co-Sign Detail Recorded Client Recorded Date Recorded By Document 07/08/18 09:43 [id number] [id number] 07/08/18 09:45 [id number] 07/08/18 09:43 PMRU Outcome: Pain/Comfort Outcome/Goals Demonstrates Knowledge and Use of Available Comfort Measures Achieves Acceptable Comfort/Pain Level as Determined by Patient/Condit Maintain Comfort Level Allowing Patient to Fully Participate in Rehab Progression Toward Outcome/Goals Progressing Outcome/Goals Met Comment percocet given this am. Safety- Improve/Maintain Start: 07/07/18 10:41 Freq: QSHIFT Status: Active Target: Protocol: Activity Type Activity Date Activity User E-Sign Co-Sign Detail Recorded Client Recorded Date Recorded By Document 07/08/18 09:43 [id number] 07/08/18 09:45 [id number] 07/08/18 09:43 PMRU Outcome: Safety Outcome/Goals Remain Free of Injury or Harm Cooperates with Safety Measures for Least Restrictive Environment Prevent Falls/ Injury Progression Toward Outcome/Goals Progressing Outcome/Goals Met Comment patient changed to medium risk . patient uses call sepulveda appropriately. Skin- Improve/Maintain Start: 07/07/18 10:41 Freq: QSHIFT Status: Active Target: Protocol: Activity Type Activity Date Activity User E-Sign Co-Sign Detail Recorded Client Recorded Date Recorded By Document 07/08/18 09:43 [id number] [email or web address] 07/08/18 09:45 [id number] 07/08/18 09:43 PMRU Outcome: Skin Skin Risk Level Medium Skin Orders Dressing Change Turn/Position q2hr While in Bed Outcome/Goals Maintain/ Improve Skin Intergrity Free from Decubitus Surgical Incisions Healing Progression Toward Outcome/Goals Progressing Outcome/Goals Met Comment incision intact with sutures. no drainage noted. aleksandr norwood applied Medicine Note: Length of Stay: 6 days Anticipated Discharge Destination: Home Tentative Discharge Date: 07/14/18 Discharged to: Home
--- NOTE | 2018-07-08 15:42 | PN ---
Progress Note Date of Service: 07/08/18 Note: LYNDA MORALES was visited. Therapy notes read and reviewed. She was discussed in interdisciplinary plan of care rounds. She seems to be doing ok overall, but pain in the knee and ROM are issues Current Medications: Active Medications Generic Name Dose Route Start Last Admin Trade Name Freq PRN Reason Stop Dose Admin Acetaminophen 650 mg 07/07/18 11:45 Tylenol Tab* PO Q6H PRN FEVER/PAIN Amlodipine Besylate 2.5 mg 07/07/18 18:00 07/07/18 17:18 Norvasc Tab* PO 2.5 mg 1800 MASOUD Administration Atorvastatin Calcium 10 mg 07/07/18 17:00 07/07/18 17:17 Lipitor* PO 10 mg 1700 MASOUD Administration Docusate Sodium 100 mg 07/07/18 21:00 07/08/18 09:16 Colace Cap* PO 100 mg BID MASOUD Administration Levothyroxine Sodium 75 mcg 07/08/18 06:00 07/08/18 06:05 Synthroid Tab* PO 75 mcg DAILY@0600 MASOUD Administration Magnesium Hydroxide 30 ml 07/07/18 11:45 Milk Of Magnesia Liq* PO Q6H PRN CONSTIPATION Multivitamins/Minerals 1 cap 07/08/18 09:00 07/08/18 09:15 Preservision Areds(Multivitamins/Mineral)(Nf) PO Not Given DAILY MASOUD Omeprazole 40 mg 07/08/18 07:30 07/08/18 09:16 Prilosec Cap* PO 40 mg 0730 MASOUD Administration Oxycodone/Acetaminophen 1 tab 07/07/18 11:53 07/07/18 17:17 Percocet 5/325 Tab* PO 1 tab Q4H PRN Administration PAIN - MODERATE TO SEVERE Oxycodone/Acetaminophen 2 tab 07/07/18 11:53 07/08/18 12:50 Percocet 5/325 Tab* PO 2 tab Q4H PRN Administration PAIN - SEVERE Paroxetine HCl 10 mg 07/08/18 09:00 07/08/18 09:16 Paxil Tab* PO 10 mg DAILY MASOUD Administration Senna 2 tab 07/07/18 11:45 07/07/18 20:01 Senokot Tab* PO 2 tab BEDTIME PRN Administration CONSTIPATION Tramadol HCl 50 mg 07/07/18 11:54 07/07/18 20:02 Ultram* PO 50 mg Q6H PRN Administration PAIN - MODERATE Warfarin Sodium 1 mg 07/07/18 17:00 07/07/18 17:17 Coumadin Tab(*) PO 1 mg DAILY@1700 MASOUD Administration Protocol Vital Signs: Vital Signs Temp Pulse Resp BP Pulse Ox 98.2 F 66 16 110/50 95 07/08/18 05:52 07/08/18 05:52 07/08/18 12:51 07/08/18 05:52 07/08/18 05:52 Lab Results: Laboratory Results - last 24 hr 07/08/18 07/08/18 07/08/18 07:12 07:12 07:12 WBC 10.9 H RBC 4.12 Hgb 12.1 Hct 36 MCV 87 MCH 29 MCHC 34 RDW 16 H Plt Count 222 MPV 8.2 Neut % (Auto) 66.0 Lymph % (Auto) 17.1 L [place] % (Auto) 14.7 H Eos % (Auto) 2.0 Baso % (Auto) 0.2 Absolute Neuts (auto) 7.2 Absolute Lymphs (auto) 1.9 Absolute Monos (auto) 1.6 H Absolute Eos (auto) 0.2 Absolute Basos (auto) 0 Absolute Nucleated RBC 0 Nucleated RBC % 0.1 INR (Anticoag Therapy) 2.74 H Sodium 126 L Potassium 4.7 Chloride 96 L Carbon Dioxide 23 Anion Gap 7 BUN 21 Creatinine 0.96 H Est GFR ( Amer) 66.4 Est GFR (Non-Af Amer) 54.8 BUN/Creatinine Ratio 21.9 H Glucose 116 H Calcium 9.2 Total Bilirubin 0.80 AST 13 ALT 6 L Alkaline Phosphatase 55 Total Protein 7.0 Albumin 3.6 Globulin 3.4 Albumin/Globulin Ratio 1.1 Exam: HEENT: EOMI LUNGS: Clear bilaterally HEART: reg rhythm ABDOMEN: Soft, +BS EXTREMITIES: Sutures in place in LLE, look clean and dry. Trace edema NEUROLOGIC: alert, oriented. Sensation intact. Motor strength 5/5 except LLE. DF 4/5 in left foot Assessment/Plan: 1. Left total knee replacement: WBAT. PT/OT 2. GERD: Prilosec 3. Hypothyroidism: Synthroid 4. DVT Prophylaxis: Coumadin, 1 mg. Check INR in am 5. Advanced Directives: Full Code 10/12/18 15:43
[2018-07-08] MEDS: Atorvastatin* 10 MG TAB PO SCH (17:34)
[2018-07-08] MEDS: Warfarin TAB(*) 1 MG PO SCH (17:34)
[2018-07-08] MEDS: amLODIPine TAB* 5 MG PO SCH (17:35)
[2018-07-08] MEDS: Magnesium Hydroxide LIQ* 30 ML UDC PO PRN (18:27)
[2018-07-08] MEDS: Senna TAB PO PRN (20:54)
[2018-07-09] MEDS: oxyCODONE/Acetamin 5/325 MG* TAB PO PRN ×3 (01:34→16:39)
[2018-07-09] MEDS: Levothyroxine TAB* 75 MCG TAB PO SCH (05:49)
[2018-07-09 06:44] LABS: INR 2.22 (0.77-1.02)
[2018-07-09 06:53] LABS: EGFR Non-African American 59.9 (>60)
[2018-07-09] MEDS: Omeprazole CAP* 20 MG PO SCH (08:29)
[2018-07-09] MEDS: PARoxetine HCL TAB* 10 MG PO SCH (08:45)
[2018-07-09] MEDS: Docusate CAP* 100 MG PO SCH ×2 (08:45→20:20)
[2018-07-09] MEDS: MULTIVITAMINS PO SCH (08:47)
[2018-07-09] MEDS: MINERA AREDS PO SCH (08:47)
[2018-07-09] MEDS: Magnesium Hydroxide LIQ* 30 ML UDC PO PRN (09:39)
[2018-07-09] MEDS: traMADol TAB* 50 MG PO PRN ×2 (11:06→20:19)
--- NOTE | 2018-07-09 15:16 | PN ---
Progress Note Date of Service: 07/09/18 Note: LYNDA MORALES was visited. Therapy notes read and reviewed. Her Na+ was 128 and INR has fallen. Will hold off on fluid restriction and increase Coumadin to 2 mg. Otherwise ROM still slow Current Medications: Active Medications Generic Name Dose Route Start Last Admin Trade Name Freq PRN Reason Stop Dose Admin Acetaminophen 650 mg 07/07/18 11:45 Tylenol Tab* PO Q6H PRN FEVER/PAIN Amlodipine Besylate 2.5 mg 07/07/18 18:00 07/08/18 17:35 Norvasc Tab* PO 2.5 mg 1800 MASOUD Administration Atorvastatin Calcium 10 mg 07/07/18 17:00 07/08/18 17:34 Lipitor* PO 10 mg 1700 MASOUD Administration Docusate Sodium 100 mg 07/07/18 21:00 07/09/18 08:45 Colace Cap* PO 100 mg BID MASOUD Administration Levothyroxine Sodium 75 mcg 07/08/18 06:00 07/09/18 05:49 Synthroid Tab* PO 75 mcg DAILY@0600 MASOUD Administration Magnesium Hydroxide 30 ml 07/07/18 11:45 07/09/18 09:39 Milk Of Magnesia Liq* PO 30 ml Q6H PRN Administration CONSTIPATION Multivitamins/Minerals 1 cap 07/08/18 09:00 07/09/18 08:47 Preservision Areds(Multivitamins/Mineral)(Nf) PO Not Given DAILY MASOUD Omeprazole 40 mg 07/08/18 07:30 07/09/18 08:29 Prilosec Cap* PO 40 mg 0730 MASOUD Administration Oxycodone/Acetaminophen 1 tab 07/07/18 11:53 07/09/18 08:45 Percocet 5/325 Tab* PO 1 tab Q4H PRN Administration PAIN - MODERATE TO SEVERE Oxycodone/Acetaminophen 2 tab 07/07/18 11:53 07/09/18 01:34 Percocet 5/325 Tab* PO 2 tab Q4H PRN Administration PAIN - SEVERE Paroxetine HCl 10 mg 07/08/18 09:00 07/09/18 08:45 Paxil Tab* PO 10 mg DAILY MASOUD Administration Senna 2 tab 07/07/18 11:45 07/08/18 20:54 Senokot Tab* PO 2 tab BEDTIME PRN Administration CONSTIPATION Tramadol HCl 50 mg 07/07/18 11:54 07/09/18 11:06 Ultram* PO 50 mg Q6H PRN Administration PAIN - MODERATE Warfarin Sodium 1 mg 07/07/18 17:00 07/08/18 17:34 Coumadin Tab(*) PO 1 mg DAILY@1700 MASOUD Administration Protocol Vital Signs: Vital Signs Temp Pulse Resp BP Pulse Ox 97.7 F 57 18 144/53 94 07/09/18 05:10 07/09/18 05:10 07/09/18 13:57 07/09/18 05:10 07/09/18 08:00 Lab Results: Laboratory Results - last 24 hr 07/09/18 07/09/18 06:23 06:23 INR (Anticoag Therapy) 2.22 H Sodium 128 L Potassium 4.8 Chloride 97 L Carbon Dioxide 26 Anion Gap 5 BUN 22 Creatinine 0.89 Est GFR ( Amer) 72.4 Est GFR (Non-Af Amer) 59.9 BUN/Creatinine Ratio 24.7 H Glucose 109 H Calcium 9.0 Assessment/Plan: 1. Left total knee replacement: WBAT. PT/OT 2. GERD: Prilosec 3. Hypothyroidism: Synthroid 4. DVT Prophylaxis: Coumadin, 1 mg. Check INR in am 5. Advanced Directives: Full Code 07/08/18 15:43
[2018-07-09] MEDS: Atorvastatin* 10 MG TAB PO SCH (16:38)
[2018-07-09] MEDS: Warfarin TAB(*) 2 MG PO SCH (16:38)
[2018-07-09] MEDS: amLODIPine TAB* 5 MG PO SCH (17:40)
[2018-07-09] MEDS: Senna TAB PO PRN (20:20)
[2018-07-10] MEDS: Levothyroxine TAB* 75 MCG TAB PO SCH (06:06)
[2018-07-10] MEDS: MULTIVITAMINS PO SCH (08:05)
[2018-07-10] MEDS: MINERA AREDS PO SCH (08:05)
[2018-07-10] MEDS: Omeprazole CAP* 20 MG PO SCH (08:32)
[2018-07-10] MEDS: PARoxetine HCL TAB* 10 MG PO SCH (09:06)
[2018-07-10] MEDS: Docusate CAP* 100 MG PO SCH ×2 (09:06→21:02)
[2018-07-10] MEDS: traMADol TAB* 50 MG PO PRN ×2 (10:21→19:42)
[2018-07-10] MEDS: Warfarin TAB(*) 2 MG PO SCH (15:55)
[2018-07-10] MEDS: Atorvastatin* 10 MG TAB PO SCH (15:55)
[2018-07-10] MEDS: oxyCODONE/Acetamin 5/325 MG* TAB PO PRN ×2 (15:55→21:02)
--- NOTE | 2018-07-10 15:59 | PN ---
Progress Note Date of Service: 07/10/18 Note: LYNDA MORALES was visited. Therapy notes read and reviewed. She is constipated and would like to try Lactulose for that. Her ROM remains poor, will try to get a CPM for her Current Medications: Active Medications Generic Name Dose Route Start Last Admin Trade Name Freq PRN Reason Stop Dose Admin Acetaminophen 650 mg 07/07/18 11:45 Tylenol Tab* PO Q6H PRN FEVER/PAIN Amlodipine Besylate 2.5 mg 07/07/18 18:00 07/09/18 17:40 Norvasc Tab* PO 2.5 mg 1800 MASOUD Administration Atorvastatin Calcium 10 mg 07/07/18 17:00 07/10/18 15:55 Lipitor* PO 10 mg 1700 MASOUD Administration Docusate Sodium 100 mg 07/07/18 21:00 07/10/18 09:06 Colace Cap* PO 100 mg BID MASOUD Administration Lactulose 30 ml 07/10/18 14:05 07/10/18 15:56 Lactulose* PO 30 ml BID PRN Administration CONSTIPATION Levothyroxine Sodium 75 mcg 07/08/18 06:00 07/10/18 06:06 Synthroid Tab* PO 75 mcg DAILY@0600 MASOUD Administration Magnesium Hydroxide 30 ml 07/07/18 11:45 07/09/18 09:39 Milk Of Magnesia Liq* PO 30 ml Q6H PRN Administration CONSTIPATION Multivitamins/Minerals 1 cap 07/08/18 09:00 07/10/18 08:05 Preservision Areds(Multivitamins/Mineral)(Nf) PO Not Given DAILY MASOUD Omeprazole 40 mg 07/08/18 07:30 07/10/18 08:32 Prilosec Cap* PO 20 mg 0730 MASOUD Administration Oxycodone/Acetaminophen 1 tab 07/07/18 11:53 07/10/18 15:55 Percocet 5/325 Tab* PO 1 tab Q4H PRN Administration PAIN - MODERATE TO SEVERE Oxycodone/Acetaminophen 2 tab 07/07/18 11:53 07/09/18 01:34 Percocet 5/325 Tab* PO 2 tab Q4H PRN Administration PAIN - SEVERE Paroxetine HCl 10 mg 07/08/18 09:00 07/10/18 09:06 Paxil Tab* PO 10 mg DAILY MASOUD Administration Senna 2 tab 07/07/18 11:45 07/09/18 20:20 Senokot Tab* PO 2 tab BEDTIME PRN Administration CONSTIPATION Tramadol HCl 50 mg 07/07/18 11:54 07/10/18 10:21 Ultram* PO 50 mg Q6H PRN Administration PAIN - MODERATE Warfarin Sodium 2 mg 07/09/18 17:00 07/10/18 15:55 Coumadin Tab(*) PO 2 mg DAILY@1700 [facility] Administration Protocol Vital Signs: Vital Signs Temp Pulse Resp BP Pulse Ox 98.2 F 56 18 142/49 95 07/10/18 05:56 07/10/18 05:56 07/10/18 15:55 07/10/18 05:56 07/10/18 08:00 Assessment/Plan: 1. Left total knee replacement: WBAT. PT/OT 2. GERD: Prilosec 3. Hypothyroidism: Synthroid 4. DVT Prophylaxis: Coumadin, 2 mg. Check INR Wednesday 5. Advanced Directives: Full Code 6. Hyponatremia: Improving. Hold off on fluid restriction 07/09/18 15:16
[2018-07-10] MEDS: amLODIPine TAB* 5 MG PO SCH (18:01)
[2018-07-10] MEDS: Senna TAB PO PRN (21:02)
[2018-07-11] MEDS: Omeprazole CAP* 20 MG PO SCH (06:43)
[2018-07-11] MEDS: Levothyroxine TAB* 75 MCG TAB PO SCH (06:44)
[2018-07-11 07:19] LABS: INR 1.68 (0.77-1.02)
[2018-07-11] MEDS: MULTIVITAMINS PO SCH (08:05)
[2018-07-11] MEDS: MINERA AREDS PO SCH (08:05)
[2018-07-11] MEDS: Docusate CAP* 100 MG PO SCH ×2 (08:06→21:33)
[2018-07-11] MEDS: PARoxetine HCL TAB* 10 MG PO SCH (08:06)
[2018-07-11] MEDS: oxyCODONE/Acetamin 5/325 MG* TAB PO PRN ×2 (10:52→17:54)
--- NOTE | 2018-07-11 16:58 | PN ---
Progress Note Date of Service: 07/11/18 Note: LYNDA MORALES was visited. Therapy notes read and reviewed. She is on the CPM , but even prior to this her ROM had improved with PT.She was able to have a BM after Lactulose. INR down today, Coumadin increased to 3 mg Current Medications: Active Medications Generic Name Dose Route Start Last Admin Trade Name Freq PRN Reason Stop Dose Admin Acetaminophen 650 mg 07/07/18 11:45 Tylenol Tab* PO Q6H PRN FEVER/PAIN Amlodipine Besylate 2.5 mg 07/07/18 18:00 07/10/18 18:01 Norvasc Tab* PO 2.5 mg 1800 MASOUD Administration Atorvastatin Calcium 10 mg 07/07/18 17:00 07/10/18 15:55 Lipitor* PO 10 mg 1700 MASOUD Administration Docusate Sodium 100 mg 07/07/18 21:00 07/11/18 08:06 Colace Cap* PO 100 mg BID MASOUD Administration Lactulose 30 ml 07/10/18 14:05 07/10/18 15:56 Lactulose* PO 30 ml BID PRN Administration CONSTIPATION Levothyroxine Sodium 75 mcg 07/08/18 06:00 07/11/18 06:44 Synthroid Tab* PO 75 mcg DAILY@0600 MASOUD Administration Magnesium Hydroxide 30 ml 07/07/18 11:45 07/09/18 09:39 Milk Of Magnesia Liq* PO 30 ml Q6H PRN Administration CONSTIPATION Multivitamins/Minerals 1 cap 07/08/18 09:00 07/11/18 08:05 Preservision Areds(Multivitamins/Mineral)(Nf) PO Not Given DAILY MASOUD Omeprazole 40 mg 07/08/18 07:30 07/11/18 06:43 Prilosec Cap* PO 20 mg 0730 MASOUD Administration Oxycodone/Acetaminophen 1 tab 07/07/18 11:53 07/10/18 15:55 Percocet 5/325 Tab* PO 1 tab Q4H PRN Administration PAIN - MODERATE TO SEVERE Oxycodone/Acetaminophen 2 tab 07/07/18 11:53 07/11/18 10:52 Percocet 5/325 Tab* PO 2 tab Q4H PRN Administration PAIN - SEVERE Paroxetine HCl 10 mg 07/08/18 09:00 07/11/18 08:06 Paxil Tab* PO 10 mg DAILY MASOUD Administration Senna 2 tab 07/07/18 11:45 07/10/18 21:02 Senokot Tab* PO 2 tab BEDTIME PRN Administration CONSTIPATION Tramadol HCl 50 mg 07/07/18 11:54 07/10/18 19:42 Ultram* PO 50 mg Q6H PRN Administration PAIN - MODERATE Warfarin Sodium 3 mg 07/11/18 17:00 Coumadin Tab(*) PO DAILY@1700 [facility] Protocol Vital Signs: Vital Signs Temp Pulse Resp BP Pulse Ox 98.1 F 60 16 114/42 96 07/11/18 16:00 07/11/18 16:00 07/11/18 16:29 07/11/18 16:00 07/11/18 16:29 Lab Results: Laboratory Results - last 24 hr 07/11/18 06:37 INR (Anticoag Therapy) 1.68 H Exam: HEENT: EOMI LUNGS: Clear bilaterally HEART: reg rhythm ABDOMEN: Soft, +BS EXTREMITIES: Sutures in place in left knee look clean and dry. Trace edema NEUROLOGIC: alert, oriented. Sensation intact. Motor strength 5/5 except LLE. DF 4/5 in left foot Assessment/Plan: 1. Left total knee replacement: WBAT. PT/OT. CPM today 2. GERD: Prilosec 3. Hypothyroidism: Synthroid 4. DVT Prophylaxis: Coumadin, 3 mg. Check INR Wednesday 5. Advanced Directives: Full Code 6. Hyponatremia: Improving. 7. Constipation: Had BM after Lactulose 07/11/18 16:58
[2018-07-11] MEDS: Atorvastatin* 10 MG TAB PO SCH (17:55)
[2018-07-11] MEDS: Warfarin TAB(*) 3 MG PO SCH (17:55)
[2018-07-11] MEDS: amLODIPine TAB* 5 MG PO SCH (17:56)
[2018-07-11] MEDS: traMADol TAB* 50 MG PO PRN (21:32)
[2018-07-12] MEDS: oxyCODONE/Acetamin 5/325 MG* TAB PO PRN ×3 (00:18→11:28)
[2018-07-12] MEDS: Levothyroxine TAB* 75 MCG TAB PO SCH (06:11)
[2018-07-12] MEDS: Omeprazole CAP* 20 MG PO SCH (07:39)
[2018-07-12] MEDS: PARoxetine HCL TAB* 10 MG PO SCH (07:39)
[2018-07-12] MEDS: Docusate CAP* 100 MG PO SCH ×2 (07:39→20:19)
[2018-07-12] MEDS: MULTIVITAMINS PO SCH (07:43)
[2018-07-12] MEDS: MINERA AREDS PO SCH (07:43)
--- NOTE | 2018-07-12 12:46 | PMRUTEAM ---
PMRU: Team Meeting Current Status: Nursing: Current Status Skin Deviations [Sacrum] Bruise,Previous Access Point Skin Deviations [Left Knee] Incision Skin Deviation Description [ spinal block Sacrum] Skin Deviation Description [ Sutures intact Left Knee] Bladder Current Status stress incontinence, utilizes depends Bowel Current Status last BM 07/10/18, bowel regime per MD Nutrition Current Status Regular Medication Current Status meds managed by staff Physical Therapy: Current Status Bed Mobility Assistance Supervision Transfer Moblility Assistance Supervision,Contact Guard Assist Transfer/Bed Mobility Rolling Walker Recommended Devices Ambulation Assistance Contact Guard Assist Ambulation Assistive Devices Rolling Walker Number of Feet Patient 150 Ambulated Stairs Assistance Supervision Stairs Recommended Devices Two Rails Number of Stairs 3 Objective Comments PT set up CPM machine for LLE with pt positioned supine in bed 0-60 degrees, speed at 90 with 3 sec hold at each end, pt positioned comfortable and stating only "discomfort" at EROM. PT educated nsg to apply for 1hr before dinner and 1hr after dinner/before bed, stop if pt reports pain. Occupational Therapy: Current Status Upper Body Dressing Supervision Upper Body Dressing Progress setupA Lower Body Dressing Contact Guard Assist Lower Body Dressing Progress in standing, use of restaurant kitchen and service manager and sock aid for socks Bathing Min Assist Bathing Progress assist to wash/dry tony feet, CGA for balance in standing Toileting Contact Guard Assist Toilet Transfer Supervision,Contact Guard Assist Shower Transfer Contact Guard Assist Eating Supervision Rec Therapy: Current Status Summary of Assessment and RT assessment complete and pt. is aware of RT Clinical Impression services. Pt. expressed willingness and interest in leisure visits while on the unit. Treatment Goals Pt. will engage in leisure activities while on the unit. Treatment Plan Provide RT services and encourage involvement. Social Work: Current Status Discharge Plan return home with home care svs and support from [facility] Potential for Family Training n/a Anticipated Discharge Home Destination Discharge With home care svs and support from [facility] Nutrition: Current Status Monitoring Pt with fair intake (10-100%, average 30-50%). Continuing supplemental milkshake twice daily. Experienced constipation, but with results 07/10. Na improving (128). No skin breakdown. Coumadin /vitamin K interaction has been reviewed. Follow to continue to encourage oral intake >50%. Goals: Physical Therapy: Initial Goals Bed Mobility Assistance Independent Transfer Mobility Assistance Independent Transfer/Bed Mobility Rolling Walker Recommended Devices Ambulation Independent Ambulation Recommended Devices None Ambulation Distance 150 Stairs Assistance Independent Stair Recommended Devices Two Rails Number of Stairs 5 Physical Therapy: Updated Goals Transfer/Bed Mobility Rolling Walker Recommended Devices Occupational Therapy: Initial Goals Goals to be Completed in (Days 5-7 ) Upper Body Bathing Routine Independent Lower Body Bathing Routine Modified Independent with Upper Body Dressing Routine Independent Lower Body Dressing Routine Modified Independent with Toilet Hygeine and Clothing Modified Independent with Management Routine Toilet Transfer Routine Modified Independent with Step-In Shower Transfer Supervision/Set Up Routine Functional Transfers for ADL Modified Independent with Grooming Routine Independent Feeding Routine Independent Light Housekeeping Tasks Minimal Contact Assist Nursing: Goals Bladder Goal maintain baseline Bowel Goal maintain baseline bowel regime Nutrition Goal Protein increase for healing Medication Goal manage meds at Baseline Nutrition: Goals Intervention Goals 1. adequate po intake to support post-op healing and maintenance of lean body mass 2. regulated post-op bowel pattern without c/o constipation (or diarrhea) 3. any further ed needs r/t Coumadin will be addressed as needed Social Work: Goals Discharge Plan return home with home care svs and support from [facility] Potential for Family Training n/a Anticipated Discharge Home Destination Discharge With home care svs and support from [facility] Care Plan: Care Plan ADL's - Improve/Maintain Start: 07/07/18 15:11 Freq: DAILY Status: Active Target: Protocol: Activity Type Activity Date Activity User E-Sign Co-Sign Detail Recorded Client Recorded Date Recorded By Document 07/11/18 11:58 [id number] 07/11/18 11:58 [id number] 07/11/18 11:58 PMRU Outcome: ADL's/ADL Transfers Orders/Interventions Occupational Therapy Evaluation & Treatment Communication Tool in Patient Room Device Yes Address Deficits Secondary To: Left TKA Patient to receive OT 5x/wk for 60-120 Therex min/day Self Care Management Group Therapy UE/LE ADL's with Assist Yes: James ADL Transfers with Assist Yes: James Toileting: Transfers,Clothing Management Yes: James ,Hygeine w/Assist Light Kitchen/Laundry w/Assist Yes: Bree Progression Toward Outcome/Goals Progressing Outcome/Goals Met Pt participated well, pt does not like using AE for LE dressing, however with difficulty tolerating left knee flexion at this time, pt needs to continue with AE training to maximize independence, pt verbalized understanding. DVT Prophylaxis- Improve/Maintain Start: 07/07/18 10:41 Freq: QSHIFT Status: Active Target: Protocol: Activity Type Activity Date Activity User E-Sign Co-Sign Detail Recorded Client Recorded Date Recorded By Document 07/12/18 07:35 [id number] [id number] 07/12/18 11:11 [id number] 07/12/18 07:35 PMRU Outcome: DVT Prophylaxis Outcome/Goals Remains Free of DVT Complies with DVT Prophylaxis /Treatment Demonstrates Knowledge of DVT Prevention/ Treatment TEDS Stockings on Every AM, Off at HS Progression Toward Outcome/Goals Progressing Discharge Planning - Improve/Maintain Start: 07/07/18 10:41 Freq: DAILY Status: Active Target: Protocol: Activity Type Activity Date Activity User E-Sign Co-Sign Detail Recorded Client Recorded Date Recorded By Document 07/12/18 00:00 [id number] 07/12/18 00:36 [id number] 07/12/18 00:00 PMRU Outcome: Discharge Planning Update Patient Family No Outcome/Goals Demonstrates Understanding of Discharge Plan Education-Improve/Maintain Start: 07/07/18 10:41 Freq: QSHIFT Status: Active Target: Protocol: Activity Type Activity Date Activity User E-Sign Co-Sign Detail Recorded Client Recorded Date Recorded By Document 07/12/18 07:35 [id number] [id number] 07/12/18 11:11 [id number] 07/12/18 07:35 PMRU Outcome: Education Outcome/Goals Encourage Questions Progression Toward Outcome/Goals Progressing /GI-Improve/Maintain Start: 07/07/18 10:41 Freq: QSHIFT Status: Active Target: Protocol: Activity Type Activity Date Activity User E-Sign Co-Sign Detail Recorded Client Recorded Date Recorded By Document 07/12/18 07:35 [id number] 07/12/18 11:11 [id number] 07/12/18 07:35 PMRU Outcome: Genitourinary/ Gastrointestinal Genitourinary- Outcome/Goals Remain Free of Hospital- Acquired UTI Gastrointestinal-Outcome/Goals Maintain/ Achieve Bowel Regularity in Accordance with Pt's Baseline Prevent Constipation Laxatives as Ordered Progression Toward Outcome/Goals - Progressing Progression Toward Outcome/Goals - GI Progressing Medication Administration Start: 07/07/18 10:41 Freq: QSHIFT Status: Active Target: Protocol: Activity Type Activity Date Activity User E-Sign Co-Sign Detail Recorded Client Recorded Date Recorded By Document 07/12/18 07:35 [id number] 07/12/18 11:11 [id number] 07/12/18 07:35 PMRU Outcome: Medication Administration Assess Patient Knowledge/Teach Med Yes Education for all Meds Outcome/Goals Patient Independent with Medication Administration at Home Demonstrates Understanding Progression Towards Outcome/Goals Progressing Is Patient Going Home on Lovenox? No Pain/Comfort- Improve/Maintain Start: 07/07/18 10:41 Freq: QSHIFT Status: Active Target: Protocol: Activity Type Activity Date Activity User E-Sign Co-Sign Detail Recorded Client Recorded Date Recorded By Document 07/12/18 07:35 [id number] [id number] 07/12/18 11:11 [id number] 07/12/18 07:35 PMRU Outcome: Pain/Comfort Outcome/Goals Demonstrates Knowledge and Use of Available Comfort Measures Achieves Acceptable Comfort/Pain Level as Determined by Patient/Condit Maintain Comfort Level Allowing Patient to Fully Participate in Rehab Progression Toward Outcome/Goals Progressing Safety- Improve/Maintain Start: 07/07/18 10:41 Freq: QSHIFT Status: Active Target: Protocol: Activity Type Activity Date Activity User E-Sign Co-Sign Detail Recorded Client Recorded Date Recorded By Document 07/12/18 07:35 [id number] 07/12/18 11:11 [id number] 07/12/18 07:35 PMRU Outcome: Safety Outcome/Goals Remain Free of Injury or Harm Cooperates with Safety Measures for Least Restrictive Environment Prevent Falls/ Injury Progression Toward Outcome/Goals Progressing Outcome/Goals Met Comment medium risk, calls appropriately Skin- Improve/Maintain Start: 07/07/18 10:41 Freq: QSHIFT Status: Active Target: Protocol: Activity Type Activity Date Activity User E-Sign Co-Sign Detail Recorded Client Recorded Date Recorded By Document 07/12/18 07:35 [id number] 07/12/18 11:11 [id number] 07/12/18 07:35 PMRU Outcome: Skin Skin Risk Level Medium Skin Orders Turn/Position q2hr While in Bed Dressing Change Comments incision open to air Outcome/Goals Maintain/ Improve Skin Intergrity Free from Decubitus Surgical Incisions Healing Progression Toward Outcome/Goals Progressing Medicine Note: Length of Stay: 1 week Anticipated Discharge Destination: Home Tentative Discharge Date: 07/19/18 Discharged to: Home ([facility])
[2018-07-12] MEDS: Atorvastatin* 10 MG TAB PO SCH (17:36)
[2018-07-12] MEDS: amLODIPine TAB* 5 MG PO SCH (17:36)
[2018-07-12] MEDS: Warfarin TAB(*) 3 MG PO SCH (17:36)
--- NOTE | 2018-07-12 19:26 | PN ---
Progress Note Date of Service: 07/12/18 Note: LYNDA MORALES was visited. Therapy notes read and reviewed. She was discussed in interdisciplinary team rounds. Making gains but ROM slow. Current Medications: Active Medications Generic Name Dose Route Start Last Admin Trade Name Freq PRN Reason Stop Dose Admin Acetaminophen 650 mg 07/07/18 11:45 Tylenol Tab* PO Q6H PRN FEVER/PAIN Amlodipine Besylate 2.5 mg 07/07/18 18:00 07/12/18 17:36 Norvasc Tab* PO 2.5 mg 1800 MASOUD Administration Atorvastatin Calcium 10 mg 07/07/18 17:00 07/12/18 17:36 Lipitor* PO 10 mg 1700 MASOUD Administration Docusate Sodium 100 mg 07/07/18 21:00 07/12/18 07:39 Colace Cap* PO 100 mg BID MASOUD Administration Lactulose 30 ml 07/10/18 14:05 07/12/18 15:34 Lactulose* PO 30 ml BID PRN Administration CONSTIPATION Levothyroxine Sodium 75 mcg 07/08/18 06:00 07/12/18 06:11 Synthroid Tab* PO 75 mcg DAILY@0600 MASOUD Administration Magnesium Hydroxide 30 ml 07/07/18 11:45 07/09/18 09:39 Milk Of Magnesia Liq* PO 30 ml Q6H PRN Administration CONSTIPATION Multivitamins/Minerals 1 cap 07/08/18 09:00 07/12/18 07:43 Preservision Areds(Multivitamins/Mineral)(Nf) PO Not Given DAILY MASOUD Omeprazole 40 mg 07/08/18 07:30 07/12/18 07:39 Prilosec Cap* PO 40 mg 0730 MASOUD Administration Oxycodone/Acetaminophen 1 tab 07/07/18 11:53 07/11/18 17:54 Percocet 5/325 Tab* PO 1 tab Q4H PRN Administration PAIN - MODERATE TO SEVERE Oxycodone/Acetaminophen 2 tab 07/07/18 11:53 07/12/18 11:28 Percocet 5/325 Tab* PO 2 tab Q4H PRN Administration PAIN - SEVERE Paroxetine HCl 10 mg 07/08/18 09:00 07/12/18 07:39 Paxil Tab* PO 10 mg DAILY MASOUD Administration Senna 2 tab 07/07/18 11:45 07/10/18 21:02 Senokot Tab* PO 2 tab BEDTIME PRN Administration CONSTIPATION Tramadol HCl 50 mg 07/07/18 11:54 07/11/18 21:32 Ultram* PO 50 mg Q6H PRN Administration PAIN - MODERATE Warfarin Sodium 3 mg 07/11/18 17:00 07/12/18 17:36 Coumadin Tab(*) PO 3 mg DAILY@1700 MASOUD Administration Protocol Vital Signs: Vital Signs Temp Pulse Resp BP Pulse Ox 97.8 F 54 18 132/51 99 07/12/18 15:28 07/12/18 15:28 07/12/18 15:39 07/12/18 15:28 07/12/18 15:40 Exam: HEENT: EOMI LUNGS: Clear bilaterally HEART: reg rhythm ABDOMEN: Soft, +BS EXTREMITIES: Sutures in place in left knee look clean and dry. Trace edema NEUROLOGIC: alert, oriented. Sensation intact. Motor strength 5/5 except LLE. DF 4/5 in left foot Assessment/Plan: 1. Left total knee replacement: WBAT. PT/OT. CPM 2. GERD: Prilosec 3. Hypothyroidism: Synthroid 4. DVT Prophylaxis: Coumadin, 3 mg. Check INR tomorrow 5. Advanced Directives: Full Code 6. Hyponatremia: Improving. 7. Constipation: Had BM after Lactulose 07/12/18 19:26
[2018-07-12] MEDS: Senna TAB PO PRN (20:19)
[2018-07-13] MEDS: oxyCODONE/Acetamin 5/325 MG* TAB PO PRN ×2 (00:15→07:48)
[2018-07-13] MEDS: Levothyroxine TAB* 75 MCG TAB PO SCH (05:49)
[2018-07-13] MEDS: Docusate CAP* 100 MG PO SCH ×2 (07:28→19:54)
[2018-07-13] MEDS: Omeprazole CAP* 20 MG PO SCH (07:28)
[2018-07-13] MEDS: MULTIVITAMINS PO SCH (07:28)
[2018-07-13] MEDS: PARoxetine HCL TAB* 10 MG PO SCH (07:28)
[2018-07-13] MEDS: MINERA AREDS PO SCH (07:28)
[2018-07-13 07:36] LABS: INR 1.92 (0.77-1.02)
[2018-07-13] MEDS: traMADol TAB* 50 MG PO PRN (11:48)
[2018-07-13] MEDS: amLODIPine TAB* 5 MG PO SCH (17:24)
[2018-07-13] MEDS: Warfarin TAB(*) 3 MG PO SCH (17:24)
[2018-07-13] MEDS: Atorvastatin* 10 MG TAB PO SCH (17:24)
--- NOTE | 2018-07-13 20:03 | PN ---
Progress Note Date of Service: 07/13/18 Note: LYNDA MORALES was visited. Therapy notes read and reviewed. Her ROM may be slightly better. She still has trouble getting into bed. INR rising, will continue 3 mg Coumadin Current Medications: Active Medications Generic Name Dose Route Start Last Admin Trade Name Freq PRN Reason Stop Dose Admin Acetaminophen 650 mg 07/07/18 11:45 Tylenol Tab* PO Q6H PRN FEVER/PAIN Amlodipine Besylate 2.5 mg 07/07/18 18:00 07/13/18 17:24 Norvasc Tab* PO 2.5 mg 1800 MASOUD Administration Atorvastatin Calcium 10 mg 07/07/18 17:00 07/13/18 17:24 Lipitor* PO 10 mg 1700 MASOUD Administration Docusate Sodium 100 mg 07/07/18 21:00 07/13/18 19:54 Colace Cap* PO Not Given BID MASOUD Lactulose 30 ml 07/10/18 14:05 07/12/18 15:34 Lactulose* PO 30 ml BID PRN Administration CONSTIPATION Levothyroxine Sodium 75 mcg 07/08/18 06:00 07/13/18 05:49 Synthroid Tab* PO 75 mcg DAILY@0600 MASOUD Administration Magnesium Hydroxide 30 ml 07/07/18 11:45 07/09/18 09:39 Milk Of Magnesia Liq* PO 30 ml Q6H PRN Administration CONSTIPATION Multivitamins/Minerals 1 cap 07/08/18 09:00 07/13/18 07:28 Preservision Areds(Multivitamins/Mineral)(Nf) PO Not Given DAILY MASOUD Omeprazole 40 mg 07/08/18 07:30 07/13/18 07:28 Prilosec Cap* PO 20 mg 0730 MASOUD Administration Oxycodone/Acetaminophen 1 tab 07/07/18 11:53 07/11/18 17:54 Percocet 5/325 Tab* PO 1 tab Q4H PRN Administration PAIN - MODERATE TO SEVERE Oxycodone/Acetaminophen 2 tab 07/07/18 11:53 07/13/18 07:48 Percocet 5/325 Tab* PO 2 tab Q4H PRN Administration PAIN - SEVERE Paroxetine HCl 10 mg 07/08/18 09:00 07/13/18 07:28 Paxil Tab* PO 10 mg DAILY MASOUD Administration Senna 2 tab 07/07/18 11:45 07/12/18 20:19 Senokot Tab* PO 2 tab BEDTIME PRN Administration CONSTIPATION Tramadol HCl 50 mg 07/07/18 11:54 07/13/18 11:48 Ultram* PO 50 mg Q6H PRN Administration PAIN - MODERATE Warfarin Sodium 3 mg 07/11/18 17:00 07/13/18 17:24 Coumadin Tab(*) PO 3 mg DAILY@1700 MASOUD Administration Protocol Vital Signs: Vital Signs Temp Pulse Resp BP Pulse Ox 98.1 F 63 16 118/45 96 07/13/18 15:16 07/13/18 15:16 07/13/18 15:59 07/13/18 15:16 07/13/18 15:55 Lab Results: Laboratory Results - last 24 hr 07/13/18 07:05 INR (Anticoag Therapy) 1.92 H Exam: HEENT: EOMI LUNGS: Clear bilaterally HEART: reg rhythm ABDOMEN: Soft, +BS EXTREMITIES: Sutures in place in left knee look clean and dry. Trace edema NEUROLOGIC: alert, oriented. Sensation intact. Motor strength 5/5 except LLE. DF 4/5 in left foot Assessment/Plan: 1. Left total knee replacement: WBAT. PT/OT. CPM 2. GERD: Prilosec 3. Hypothyroidism: Synthroid 4. DVT Prophylaxis: Coumadin, 3 mg. Check INR Wednesday 5. Advanced Directives: Full Code 6. Hyponatremia: Improving. 7. Constipation: Had BM after Lactulose 07/13/18 20:04
[2018-07-14] MEDS: oxyCODONE/Acetamin 5/325 MG* TAB PO PRN ×2 (00:33→08:02)
[2018-07-14] MEDS: Omeprazole CAP* 20 MG PO SCH (06:32)
[2018-07-14] MEDS: Levothyroxine TAB* 75 MCG TAB PO SCH (06:32)
[2018-07-14] MEDS: Docusate CAP* 100 MG PO SCH ×2 (08:02→20:03)
[2018-07-14] MEDS: PARoxetine HCL TAB* 10 MG PO SCH (08:03)
[2018-07-14] MEDS: MULTIVITAMINS PO SCH (08:58)
[2018-07-14] MEDS: MINERA AREDS PO SCH (08:58)
[2018-07-14] MEDS: traMADol TAB* 50 MG PO PRN ×2 (09:56→17:18)
[2018-07-14] MEDS: Atorvastatin* 10 MG TAB PO SCH (17:18)
[2018-07-14] MEDS: Warfarin TAB(*) 3 MG PO SCH (17:18)
[2018-07-14] MEDS: amLODIPine TAB* 5 MG PO SCH (17:19)
[2018-07-14] MEDS: Senna TAB PO PRN (20:03)
--- NOTE | 2018-07-14 20:16 | PN ---
Progress Note Date of Service: 07/14/18 Note: LYNDA MORALES was visited. Therapy notes read and reviewed. Her ROM is increasing but she still is not at 90. Using CPM in bed. Current Medications: Active Medications Generic Name Dose Route Start Last Admin Trade Name Freq PRN Reason Stop Dose Admin Acetaminophen 650 mg 07/07/18 11:45 Tylenol Tab* PO Q6H PRN FEVER/PAIN Amlodipine Besylate 2.5 mg 07/07/18 18:00 07/14/18 17:19 Norvasc Tab* PO 2.5 mg 1800 MASOUD Administration Atorvastatin Calcium 10 mg 07/07/18 17:00 07/14/18 17:18 Lipitor* PO 10 mg 1700 MASOUD Administration Docusate Sodium 100 mg 07/07/18 21:00 07/14/18 20:03 Colace Cap* PO 100 mg BID MASOUD Administration Lactulose 30 ml 07/10/18 14:05 07/12/18 15:34 Lactulose* PO 30 ml BID PRN Administration CONSTIPATION Levothyroxine Sodium 75 mcg 07/08/18 06:00 07/14/18 06:32 Synthroid Tab* PO 75 mcg DAILY@0600 MASOUD Administration Magnesium Hydroxide 30 ml 07/07/18 11:45 07/09/18 09:39 Milk Of Magnesia Liq* PO 30 ml Q6H PRN Administration CONSTIPATION Multivitamins/Minerals 1 cap 07/08/18 09:00 07/14/18 08:58 Preservision Areds(Multivitamins/Mineral)(Nf) PO Not Given DAILY MASOUD Omeprazole 40 mg 07/08/18 07:30 07/14/18 06:32 Prilosec Cap* PO 20 mg 0730 MASOUD Administration Oxycodone/Acetaminophen 1 tab 07/07/18 11:53 07/14/18 08:02 Percocet 5/325 Tab* PO 1 tab Q4H PRN Administration PAIN - MODERATE TO SEVERE Oxycodone/Acetaminophen 2 tab 07/07/18 11:53 07/13/18 07:48 Percocet 5/325 Tab* PO 2 tab Q4H PRN Administration PAIN - SEVERE Paroxetine HCl 10 mg 07/08/18 09:00 07/14/18 08:03 Paxil Tab* PO 10 mg DAILY MASOUD Administration Senna 2 tab 07/07/18 11:45 07/14/18 20:03 Senokot Tab* PO 2 tab BEDTIME PRN Administration CONSTIPATION Tramadol HCl 50 mg 07/07/18 11:54 07/14/18 17:18 Ultram* PO 50 mg Q6H PRN Administration PAIN - MODERATE Warfarin Sodium 3 mg 07/11/18 17:00 07/14/18 17:18 Coumadin Tab(*) PO 3 mg DAILY@1700 MASOUD Administration Protocol Vital Signs: Vital Signs Temp Pulse Resp BP Pulse Ox 98.4 F 55 18 117/46 99 07/14/18 15:38 07/14/18 15:38 07/14/18 19:29 07/14/18 15:38 07/14/18 15:56 Exam: HEENT: EOMI LUNGS: Clear bilaterally HEART: reg rhythm ABDOMEN: Soft, +BS EXTREMITIES: Sutures in place in left knee look clean and dry. Trace edema NEUROLOGIC: alert, oriented. Sensation intact. Motor strength 5/5 except LLE. DF 4/5 in left foot Assessment/Plan: 1. Left total knee replacement: WBAT. PT/OT. CPM 2. GERD: Prilosec 3. Hypothyroidism: Synthroid 4. DVT Prophylaxis: Coumadin, 3 mg. Check INR Wednesday 5. Advanced Directives: Full Code 6. Hyponatremia: Improving. Check in am. 7. Constipation: Lactulose PRN 07/14/18 20:16 07/14/18 20:18
[2018-07-15] MEDS: oxyCODONE/Acetamin 5/325 MG* TAB PO PRN ×4 (01:44→20:02)
[2018-07-15] MEDS: Omeprazole CAP* 20 MG PO SCH (06:08)
[2018-07-15] MEDS: Levothyroxine TAB* 75 MCG TAB PO SCH (06:08)
[2018-07-15 07:06] LABS: ABS Basophils 0.1 10^3/ul (0-0.2); ABS Eosinophils 0.3 10^3/ul (0-0.6); ABS Lymphocytes 1.5 10^3/ul (1.0-4.8); ABS Monocytes 1.1 10^3/ul (0-0.8); ABS Nucleated RBC 0 10^3/ul; Eosinophil % 4.8 % (0-6); Hematocrit 35 % (35-47); Hemoglobin 11.8 g/dl (12.0-16.0); Lymphocyte % 21.5 % (25-47); Mean Corpuscular HGB Conc 34 g/dl (31-36); Mean Corpuscular Hemoglobin 30 pg (27-31); Mean Corpuscular Volume 88 fL (80-97); Mean Platelet Volume 7.3 um3 (7.4-10.4); Nucleated Red Blood Cells % 0.1; Platelet Count 358 10^3/ul (150-450); Red Blood Count 3.97 10^6/ul (4.00-5.40); Red Cell Distribution Width 16 % (10.5-15); White Blood Count 7.1 10^3/ul (3.5-10.8)
[2018-07-15 07:13] LABS: INR 1.85 (0.77-1.02)
[2018-07-15 07:23] LABS: EGFR Non-African American 60.6 (>60)
[2018-07-15] MEDS: MULTIVITAMINS PO SCH (08:07)
[2018-07-15] MEDS: MINERA AREDS PO SCH (08:07)
[2018-07-15] MEDS: PARoxetine HCL TAB* 10 MG PO SCH (08:11)
[2018-07-15] MEDS: Docusate CAP* 100 MG PO SCH ×2 (08:11→20:02)
[2018-07-15] MEDS ORDERED: Polyethylene Glycol 3350* 17 GM PACKET PO PRN (08:52)
--- NOTE | 2018-07-15 08:52 | PN ---
Progress Note Date of Service: 07/15/18 Note: LYNDA MORALES was visited. Nursing and therapy notes read and reviewed. No chest pain, shortness of breath or abdominal pain. Constipated but had a little BM last night and took lactulose this morning. Spasms last night in leg. Current Medications: Active Medications Generic Name Dose Route Start Last Admin Trade Name Freq PRN Reason Stop Dose Admin Acetaminophen 650 mg 07/07/18 11:45 Tylenol Tab* PO Q6H PRN FEVER/PAIN Amlodipine Besylate 2.5 mg 07/07/18 18:00 07/14/18 17:19 Norvasc Tab* PO 2.5 mg 1800 MASOUD Administration Atorvastatin Calcium 10 mg 07/07/18 17:00 07/14/18 17:18 Lipitor* PO 10 mg 1700 MASOUD Administration Docusate Sodium 100 mg 07/07/18 21:00 07/15/18 08:11 Colace Cap* PO 100 mg BID MASOUD Administration Lactulose 30 ml 07/10/18 14:05 07/15/18 08:11 Lactulose* PO 30 ml BID PRN Administration CONSTIPATION Levothyroxine Sodium 75 mcg 07/08/18 06:00 07/15/18 06:08 Synthroid Tab* PO 75 mcg DAILY@0600 MASOUD Administration Magnesium Hydroxide 30 ml 07/07/18 11:45 07/09/18 09:39 Milk Of Magnesia Liq* PO 30 ml Q6H PRN Administration CONSTIPATION Methocarbamol 500 mg 07/15/18 08:46 Robaxin Tab* PO TID PRN muscle spasm Multivitamins/Minerals 1 tab 07/15/18 09:00 Theragran/Minerals Tab* PO DAILY MASOUD Omeprazole 40 mg 07/08/18 07:30 07/15/18 06:08 Prilosec Cap* PO 20 mg 0730 MASOUD Administration Oxycodone/Acetaminophen 1 tab 07/07/18 11:53 07/15/18 01:44 Percocet 5/325 Tab* PO 1 tab Q4H PRN Administration PAIN - MODERATE TO SEVERE Oxycodone/Acetaminophen 2 tab 07/07/18 11:53 07/15/18 08:10 Percocet 5/325 Tab* PO 2 tab Q4H PRN Administration PAIN - SEVERE Paroxetine HCl 10 mg 07/08/18 09:00 07/15/18 08:11 Paxil Tab* PO 10 mg DAILY MASOUD Administration Senna 2 tab 07/07/18 11:45 07/14/18 20:03 Senokot Tab* PO 2 tab BEDTIME PRN Administration CONSTIPATION Tramadol HCl 50 mg 07/07/18 11:54 07/14/18 17:18 Ultram* PO 50 mg Q6H PRN Administration PAIN - MODERATE Warfarin Sodium 4 mg 07/15/18 17:00 Coumadin Tab(*) PO DAILY@1700 [facility] Protocol Vital Signs: Vital Signs Temp Pulse Resp BP Pulse Ox 98.4 F 55 16 117/46 99 07/14/18 15:38 07/14/18 15:38 07/15/18 08:10 07/14/18 15:38 07/14/18 15:56 Lab Results: Laboratory Results - last 24 hr 07/15/18 07/15/18 07/15/18 06:59 06:59 06:59 WBC 7.1 RBC 3.97 L Hgb 11.8 L Hct 35 MCV 88 MCH 30 MCHC 34 RDW 16 H Plt Count 358 MPV 7.3 L Neut % (Auto) 56.4 Lymph % (Auto) 21.5 L [place] % (Auto) 16.0 H Eos % (Auto) 4.8 Baso % (Auto) 1.3 Absolute Neuts (auto) 4.0 Absolute Lymphs (auto) 1.5 Absolute Monos (auto) 1.1 H Absolute Eos (auto) 0.3 Absolute Basos (auto) 0.1 Absolute Nucleated RBC 0 Nucleated RBC % 0.1 INR (Anticoag Therapy) 1.85 H Sodium 136 Potassium 4.2 Chloride 103 Carbon Dioxide 27 Anion Gap 6 BUN 15 Creatinine 0.88 Est GFR ( Amer) 73.4 Est GFR (Non-Af Amer) 60.6 BUN/Creatinine Ratio 17.0 Glucose 103 H Calcium 8.9 Total Bilirubin 1.00 AST 15 ALT 11 Alkaline Phosphatase 59 Total Protein 6.3 L Albumin 3.3 Globulin 3.0 Albumin/Globulin Ratio 1.1 Exam: GEN: No acute distress. alert and appropriate LUNGS: Clear to auscultation bilaterally HEART: regular rate and rhythm ABDOMEN: + bowel sounds, soft, non-tender and non-distended. EXTREMITIES: Sutures c/d/i. Trace edema NEUROLOGIC: Sensation intact bLE. Motor strength 5/5 bLE with at least 4/5 left knee extension Assessment/Plan: 1. Left total knee replacement: WBAT. PT/OT. CPM 2. GERD: Prilosec 3. Hypothyroidism: Synthroid 4. DVT Prophylaxis: Coumadin increase to 4mg. Check INR Sat/Sun 5. Advanced Directives: Full Code 6. Hyponatremia: resolved 7. Constipation: Lactulose PRN. Add Miralax prn. 8. Spasms: add methocarbamol prn. 9. Advanced Directives: full code 07/15/18 08:51
[2018-07-15] MEDS: Multivitamins/Minerals TAB PO SCH (09:00)
[2018-07-15] MEDS: amLODIPine TAB* 5 MG PO SCH (17:34)
[2018-07-15] MEDS: Atorvastatin* 10 MG TAB PO SCH (17:35)
[2018-07-15] MEDS: Methocarbamol TAB* 500 MG PO PRN (17:35)
[2018-07-15] MEDS: Warfarin TAB(*) 4 MG PO SCH (17:35)
[2018-07-15] MEDS: Magnesium Hydroxide LIQ* 30 ML UDC PO PRN (20:02)
[2018-07-16] MEDS: oxyCODONE/Acetamin 5/325 MG* TAB PO PRN ×2 (00:42→14:34)
[2018-07-16] MEDS: Levothyroxine TAB* 75 MCG TAB PO SCH (04:46)
[2018-07-16 07:05] LABS: INR 2.12 (0.77-1.02)
[2018-07-16] MEDS: Omeprazole CAP* 20 MG PO SCH (08:18)
[2018-07-16] MEDS: Docusate CAP* 100 MG PO SCH ×2 (08:20→22:40)
[2018-07-16] MEDS: Multivitamins/Minerals TAB PO SCH (08:20)
[2018-07-16] MEDS: PARoxetine HCL TAB* 10 MG PO SCH (08:25)
--- NOTE | 2018-07-16 09:50 | PN ---
Progress Note Date of Service: 07/16/18 Note: LYNDA MORALES was visited. Nursing and therapy notes read and reviewed. No chest pain, shortness of breath or abdominal pain. No new concerns. She is feeling confident about going home. Current Medications: Active Medications Generic Name Dose Route Start Last Admin Trade Name Freq PRN Reason Stop Dose Admin Acetaminophen 650 mg 07/07/18 11:45 Tylenol Tab* PO Q6H PRN FEVER/PAIN Amlodipine Besylate 2.5 mg 07/07/18 18:00 07/15/18 17:34 Norvasc Tab* PO 2.5 mg 1800 MASOUD Administration Atorvastatin Calcium 10 mg 07/07/18 17:00 07/15/18 17:35 Lipitor* PO 10 mg 1700 [facility]OUD Administration Docusate Sodium 100 mg 07/07/18 21:00 07/16/18 08:20 Colace Cap* PO Not Given BID MASOUD Lactulose 30 ml 07/10/18 14:05 07/15/18 08:11 Lactulose* PO 30 ml BID PRN Administration CONSTIPATION Levothyroxine Sodium 75 mcg 07/08/18 06:00 07/16/18 04:46 Synthroid Tab* PO 75 mcg DAILY@0600 [facility] Administration Magnesium Hydroxide 30 ml 07/07/18 11:45 07/15/18 20:02 Milk Of Magnesia Liq* PO 30 ml Q6H PRN Administration CONSTIPATION Methocarbamol 500 mg 07/15/18 08:46 07/15/18 17:35 Robaxin Tab* PO 500 mg TID PRN Administration muscle spasm Multivitamins/Minerals 1 tab 07/15/18 09:00 07/16/18 08:20 Theragran/Minerals Tab* PO Not Given DAILY MASOUD Omeprazole 40 mg 07/08/18 07:30 07/16/18 08:18 Prilosec Cap* PO 20 mg 0730 MASOUD Administration Oxycodone/Acetaminophen 1 tab 07/07/18 11:53 07/16/18 00:42 Percocet 5/325 Tab* PO 1 tab Q4H PRN Administration PAIN - MODERATE TO SEVERE Oxycodone/Acetaminophen 2 tab 07/07/18 11:53 07/15/18 12:50 Percocet 5/325 Tab* PO 2 tab Q4H PRN Administration PAIN - SEVERE Paroxetine HCl 10 mg 07/08/18 09:00 07/16/18 08:25 Paxil Tab* PO 10 mg DAILY MASOUD Administration Polyethylene Glycol/Electrolytes 17 gm 07/15/18 08:52 Miralax* PO DAILY PRN CONSTIPATION Senna 2 tab 07/07/18 11:45 07/14/18 20:03 Senokot Tab* PO 2 tab BEDTIME PRN Administration CONSTIPATION Tramadol HCl 50 mg 07/07/18 11:54 07/14/18 17:18 Ultram* PO 50 mg Q6H PRN Administration PAIN - MODERATE Warfarin Sodium 4 mg 07/15/18 17:00 07/15/18 17:35 Coumadin Tab(*) PO 4 mg DAILY@1700 MASOUD Administration Protocol Vital Signs: Vital Signs Temp Pulse Resp BP Pulse Ox 98.2 F 52 18 133/46 95 07/16/18 04:44 07/16/18 04:44 07/16/18 04:44 07/16/18 04:44 07/16/18 04:44 Lab Results: Laboratory Results - last 24 hr 07/16/18 06:44 INR (Anticoag Therapy) 2.12 H Exam: GEN: No acute distress. alert and appropriate LUNGS: Clear to auscultation bilaterally HEART: regular rate and rhythm ABDOMEN: + bowel sounds, soft, non-tender and non-distended. EXTREMITIES: Sutures c/d/i. Trace edema NEUROLOGIC: Sensation intact bLE. Motor strength 5/5 bLE Assessment/Plan: 1. Left total knee replacement: WBAT. PT/OT. CPM. f/u with Dr. Lynne. Remove sutures before d/c. 2. GERD: Prilosec 3. Hypothyroidism: Synthroid 4. DVT Prophylaxis: Coumadin at 4mg. INR now therapeutic. Check INR Sun 5. Advanced Directives: Full Code 6. Hyponatremia: resolved 7. Constipation: Lactulose PRN. Miralax prn. 8. Spasms: methocarbamol prn. 9. Advanced Directives: full code 10. Est LOS: anticipate d/c 07/19. 07/16/18 09:48
[2018-07-16] MEDS: Methocarbamol TAB* 500 MG PO PRN (16:59)
[2018-07-16] MEDS: Warfarin TAB(*) 4 MG PO SCH (16:59)
[2018-07-16] MEDS: Atorvastatin* 10 MG TAB PO SCH (17:00)
[2018-07-16] MEDS: amLODIPine TAB* 5 MG PO SCH (17:00)
[2018-07-16] MEDS: Senna TAB PO PRN (22:35)
[2018-07-17] MEDS: oxyCODONE/Acetamin 5/325 MG* TAB PO PRN ×3 (01:12→21:35)
[2018-07-17] MEDS: Levothyroxine TAB* 75 MCG TAB PO SCH (06:02)
[2018-07-17 07:22] LABS: INR 2.25 (0.77-1.02)
[2018-07-17] MEDS: PARoxetine HCL TAB* 10 MG PO SCH (08:14)
[2018-07-17] MEDS: Omeprazole CAP* 20 MG PO SCH (08:14)
[2018-07-17] MEDS: Multivitamins/Minerals TAB PO SCH (08:14)
[2018-07-17] MEDS: Docusate CAP* 100 MG PO SCH ×2 (08:14→21:34)
--- NOTE | 2018-07-17 09:06 | PN ---
Progress Note Date of Service: 07/17/18 Note: LYNDA MORALES was visited. Nursing notes read and reviewed. No chest pain, shortness of breath or abdominal pain. Still constipated. Current Medications: Active Medications Generic Name Dose Route Start Last Admin Trade Name Freq PRN Reason Stop Dose Admin Acetaminophen 650 mg 07/07/18 11:45 Tylenol Tab* PO Q6H PRN FEVER/PAIN Amlodipine Besylate 2.5 mg 07/07/18 18:00 07/16/18 17:00 Norvasc Tab* PO 2.5 mg 1800 MASOUD Administration Atorvastatin Calcium 10 mg 07/07/18 17:00 07/16/18 17:00 Lipitor* PO 10 mg 1700 MASOUD Administration Docusate Sodium 100 mg 07/07/18 21:00 07/17/18 08:14 Colace Cap* PO 100 mg BID MASOUD Administration Lactulose 30 ml 07/10/18 14:05 07/16/18 14:34 Lactulose* PO 30 ml BID PRN Administration CONSTIPATION Levothyroxine Sodium 75 mcg 07/08/18 06:00 07/17/18 06:02 Synthroid Tab* PO 75 mcg DAILY@0600 [facility] Administration Magnesium Hydroxide 30 ml 07/07/18 11:45 07/15/18 20:02 Milk Of Magnesia Liq* PO 30 ml Q6H PRN Administration CONSTIPATION Methocarbamol 500 mg 07/15/18 08:46 07/16/18 16:59 Robaxin Tab* PO 500 mg TID PRN Administration muscle spasm Multivitamins/Minerals 1 tab 07/15/18 09:00 07/17/18 08:14 Theragran/Minerals Tab* PO 1 tab DAILY MASOUD Administration Omeprazole 40 mg 07/08/18 07:30 07/17/18 08:14 Prilosec Cap* PO 20 mg 0730 MASOUD Administration Oxycodone/Acetaminophen 1 tab 07/07/18 11:53 07/16/18 00:42 Percocet 5/325 Tab* PO 1 tab Q4H PRN Administration PAIN - MODERATE TO SEVERE Oxycodone/Acetaminophen 2 tab 07/07/18 11:53 07/17/18 01:12 Percocet 5/325 Tab* PO 2 tab Q4H PRN Administration PAIN - SEVERE Paroxetine HCl 10 mg 07/08/18 09:00 07/17/18 08:14 Paxil Tab* PO 10 mg DAILY MASOUD Administration Polyethylene Glycol/Electrolytes 17 gm 07/15/18 08:52 07/16/18 22:35 Miralax* PO 17 gm DAILY PRN Administration CONSTIPATION Senna 2 tab 07/07/18 11:45 07/16/18 22:35 Senokot Tab* PO 2 tab BEDTIME PRN Administration CONSTIPATION Tramadol HCl 50 mg 07/07/18 11:54 07/14/18 17:18 Ultram* PO 50 mg Q6H PRN Administration PAIN - MODERATE Warfarin Sodium 4 mg 07/15/18 17:00 07/16/18 16:59 Coumadin Tab(*) PO 4 mg DAILY@1700 [facility]OUD Administration Protocol Vital Signs: Vital Signs Temp Pulse Resp BP Pulse Ox 97.9 F 48 16 131/54 97 07/17/18 06:14 07/17/18 06:14 07/17/18 06:14 07/17/18 06:14 07/17/18 06:14 Lab Results: Laboratory Results - last 24 hr 07/17/18 07:01 INR (Anticoag Therapy) 2.25 H Exam: GEN: No acute distress. alert and appropriate LUNGS: Clear to auscultation bilaterally HEART: regular rate and rhythm ABDOMEN: + bowel sounds, soft, non-tender and non-distended. EXTREMITIES: Sutures c/d/i. Trace edema NEUROLOGIC: Sensation intact bLE. Motor strength 5/5 bLE Assessment/Plan: 1. Left total knee replacement: WBAT. PT/OT. CPM. f/u with Dr. Lynne. Remove sutures before d/c. 2. GERD: Prilosec 3. Hypothyroidism: Synthroid 4. DVT Prophylaxis: Coumadin at 4mg. INR therapeutic. Check INR M/W/F 5. Advanced Directives: Full Code 6. Hyponatremia: resolved 7. Constipation: Lactulose PRN. Miralax scheduled. 8. Spasms: methocarbamol prn. 9. Advanced Directives: full code 10. Est LOS: anticipate d/c 07/19. 07/17/18 09:05
[2018-07-17] MEDS: Polyethylene Glycol 3350* 17 GM PACKET PO SCH (09:51)
[2018-07-17] MEDS: Atorvastatin* 10 MG TAB PO SCH (17:08)
[2018-07-17] MEDS: Warfarin TAB(*) 4 MG PO SCH (17:08)
[2018-07-17] MEDS: amLODIPine TAB* 5 MG PO SCH (18:07)
[2018-07-17] MEDS ORDERED: Sodium Phosphate ADULT ENEMA* 118 ml bottle PR ONE (20:30)
[2018-07-17] MEDS: Senna TAB PO PRN (21:36)
[2018-07-18] MEDS: Levothyroxine TAB* 75 MCG TAB PO SCH (05:44)
[2018-07-18] MEDS: Polyethylene Glycol 3350* 17 GM PACKET PO SCH (07:23)
[2018-07-18] MEDS: oxyCODONE/Acetamin 5/325 MG* TAB PO PRN ×3 (07:23→22:29)
[2018-07-18] MEDS: Docusate CAP* 100 MG PO SCH ×2 (07:24→22:31)
[2018-07-18] MEDS: Multivitamins/Minerals TAB PO SCH (07:24)
[2018-07-18] MEDS: Omeprazole CAP* 20 MG PO SCH (07:24)
[2018-07-18] MEDS: PARoxetine HCL TAB* 10 MG PO SCH (07:25)
[2018-07-18 07:38] LABS: INR 2.76 (0.77-1.02)
[2018-07-18] MEDS ORDERED: Warfarin TAB(*) 3 MG PO SCH (17:00)
[2018-07-18] MEDS: Atorvastatin* 10 MG TAB PO SCH (17:32)
[2018-07-18] MEDS: Methocarbamol TAB* 500 MG PO PRN (17:32)
[2018-07-18] MEDS: amLODIPine TAB* 5 MG PO SCH (17:34)
--- NOTE | 2018-07-18 19:19 | PN ---
Progress Note Date of Service: 07/18/18 Note: LYNDA MORALES was visited. Therapy notes read and reviewed. For discharge in am. She is doing fine, ROM much improved. INR a little high. Current Medications: Active Medications Generic Name Dose Route Start Last Admin Trade Name Freq PRN Reason Stop Dose Admin Acetaminophen 650 mg 07/07/18 11:45 Tylenol Tab* PO Q6H PRN FEVER/PAIN Amlodipine Besylate 2.5 mg 07/07/18 18:00 07/18/18 17:34 Norvasc Tab* PO 2.5 mg 1800 MASOUD Administration Atorvastatin Calcium 10 mg 07/07/18 17:00 07/18/18 17:32 Lipitor* PO 10 mg 1700 MASOUD Administration Docusate Sodium 100 mg 07/07/18 21:00 07/18/18 07:24 Colace Cap* PO 100 mg BID MASOUD Administration Lactulose 30 ml 07/10/18 14:05 07/17/18 17:09 Lactulose* PO 30 ml BID PRN Administration CONSTIPATION Levothyroxine Sodium 75 mcg 07/08/18 06:00 07/18/18 05:44 Synthroid Tab* PO 75 mcg DAILY@0600 [facility]OUD Administration Magnesium Hydroxide 30 ml 07/07/18 11:45 07/15/18 20:02 Milk Of Magnesia Liq* PO 30 ml Q6H PRN Administration CONSTIPATION Methocarbamol 500 mg 07/15/18 08:46 07/18/18 17:32 Robaxin Tab* PO 500 mg TID PRN Administration muscle spasm Multivitamins/Minerals 1 tab 07/15/18 09:00 07/18/18 07:24 Theragran/Minerals Tab* PO 1 tab DAILY MASOUD Administration Omeprazole 40 mg 07/08/18 07:30 07/18/18 07:24 Prilosec Cap* PO 40 mg 0730 MASOUD Administration Oxycodone/Acetaminophen 1 tab 07/07/18 11:53 07/17/18 10:19 Percocet 5/325 Tab* PO 1 tab Q4H PRN Administration PAIN - MODERATE TO SEVERE Oxycodone/Acetaminophen 2 tab 07/07/18 11:53 07/18/18 11:12 Percocet 5/325 Tab* PO 2 tab Q4H PRN Administration PAIN - SEVERE Paroxetine HCl 10 mg 07/08/18 09:00 07/18/18 07:25 Paxil Tab* PO 10 mg DAILY MASOUD Administration Polyethylene Glycol/Electrolytes 17 gm 07/17/18 10:00 07/18/18 07:23 Miralax* PO 17 gm DAILY MASOUD Administration Senna 2 tab 07/07/18 11:45 07/17/18 21:36 Senokot Tab* PO 2 tab BEDTIME PRN Administration CONSTIPATION Tramadol HCl 50 mg 07/07/18 11:54 07/14/18 17:18 Ultram* PO 50 mg Q6H PRN Administration PAIN - MODERATE Warfarin Sodium 3 mg 07/18/18 17:00 07/18/18 17:37 Coumadin Tab(*) PO 3 mg DAILY@1700 MASOUD Administration Protocol Vital Signs: Vital Signs Temp Pulse Resp BP Pulse Ox 97.7 F 62 18 120/33 96 07/18/18 15:34 07/18/18 15:34 07/18/18 17:32 07/18/18 15:34 07/18/18 15:34 Lab Results: Laboratory Results - last 24 hr 07/18/18 06:42 INR (Anticoag Therapy) 2.76 H Exam: GENERAL: No acute distress. alert and appropriate LUNGS: Clear to auscultation bilaterally HEART: regular rate and rhythm ABDOMEN: + bowel sounds, soft, non-tender and non-distended. EXTREMITIES: Sutures c/d/i. Trace edema NEUROLOGIC: Sensation intact bLE. Motor strength 5/5 bLE Assessment/Plan: 1. Left total knee replacement: WBAT. PT/OT. CPM. f/u with Dr. Lynne. Remove sutures before d/c. 2. GERD: Prilosec 3. Hypothyroidism: Synthroid 4. DVT Prophylaxis: Coumadin to 3 mg as INR slightly high. Check INR in am 5. Advanced Directives: Full Code 6. Hyponatremia: resolved 7. Constipation: Lactulose PRN. Miralax scheduled. 8. Spasms: methocarbamol prn. 9. Advanced Directives: full code 10. Est LOS: anticipate d/c 07/19. 07/18/18 19:19
[2018-07-18] MEDS: Senna TAB PO PRN (22:29)
[2018-07-19] MEDS: Omeprazole CAP* 20 MG PO SCH (05:52)
[2018-07-19 05:53] VITALS: BP 136/49
[2018-07-19] MEDS: Levothyroxine TAB* 75 MCG TAB PO SCH (05:53)
[2018-07-19 07:45] LABS: INR 3.19 (0.77-1.02)
[2018-07-19] MEDS: Multivitamins/Minerals TAB PO SCH (07:53)
[2018-07-19] MEDS: PARoxetine HCL TAB* 10 MG PO SCH (07:53)
[2018-07-19] MEDS: Docusate CAP* 100 MG PO SCH (07:53)
[2018-07-19] MEDS: oxyCODONE/Acetamin 5/325 MG* TAB PO PRN (07:53)
[2018-07-19] MEDS: Polyethylene Glycol 3350* 17 GM PACKET PO SCH (07:56)
--- NOTE | 2018-07-19 12:07 | PN ---
Progress Note Date of Service: 07/19/18 Note: LYNDA MORALES was visited. Therapy notes read and reviewed. Removed sutures. Steri-strips applied. Discussed resuming Aggrenox AFTER Coumadin finished. Current Medications: Active Medications Generic Name Dose Route Start Last Admin Trade Name Freq PRN Reason Stop Dose Admin Acetaminophen 650 mg 07/07/18 11:45 Tylenol Tab* PO Q6H PRN FEVER/PAIN Amlodipine Besylate 2.5 mg 07/07/18 18:00 07/18/18 17:34 Norvasc Tab* PO 2.5 mg 1800 MASOUD Administration Atorvastatin Calcium 10 mg 07/07/18 17:00 07/18/18 17:32 Lipitor* PO 10 mg 1700 [facility]OUD Administration Docusate Sodium 100 mg 07/07/18 21:00 07/19/18 07:53 Colace Cap* PO 100 mg BID MASOUD Administration Lactulose 30 ml 07/10/18 14:05 07/17/18 17:09 Lactulose* PO 30 ml BID PRN Administration CONSTIPATION Levothyroxine Sodium 75 mcg 07/08/18 06:00 07/19/18 05:53 Synthroid Tab* PO 75 mcg DAILY@0600 [facility] Administration Magnesium Hydroxide 30 ml 07/07/18 11:45 07/15/18 20:02 Milk Of Magnesia Liq* PO 30 ml Q6H PRN Administration CONSTIPATION Methocarbamol 500 mg 07/15/18 08:46 07/18/18 17:32 Robaxin Tab* PO 500 mg TID PRN Administration muscle spasm Multivitamins/Minerals 1 tab 07/15/18 09:00 07/19/18 07:53 Theragran/Minerals Tab* PO 1 tab DAILY [facility]OUD Administration Omeprazole 40 mg 07/08/18 07:30 07/19/18 05:52 Prilosec Cap* PO 20 mg 0730 MASOUD Administration Oxycodone/Acetaminophen 1 tab 07/07/18 11:53 07/17/18 10:19 Percocet 5/325 Tab* PO 1 tab Q4H PRN Administration PAIN - MODERATE TO SEVERE Oxycodone/Acetaminophen 2 tab 07/07/18 11:53 07/19/18 07:53 Percocet 5/325 Tab* PO 2 tab Q4H PRN Administration PAIN - SEVERE Paroxetine HCl 10 mg 07/08/18 09:00 07/19/18 07:53 Paxil Tab* PO 10 mg DAILY MASOUD Administration Polyethylene Glycol/Electrolytes 17 gm 07/17/18 10:00 07/19/18 07:56 Miralax* PO 17 gm DAILY MASOUD Administration Senna 2 tab 07/07/18 11:45 07/18/18 22:29 Senokot Tab* PO 2 tab BEDTIME PRN Administration CONSTIPATION Tramadol HCl 50 mg 07/07/18 11:54 07/14/18 17:18 Ultram* PO 50 mg Q6H PRN Administration PAIN - MODERATE Warfarin Sodium 1 mg 07/19/18 17:00 Coumadin Tab(*) PO DAILY@1700 [facility] Protocol Vital Signs: Vital Signs Temp Pulse Resp BP Pulse Ox 99.0 F 54 16 136/49 96 07/19/18 05:49 07/19/18 05:49 07/19/18 10:12 07/19/18 05:49 07/19/18 07:59 Lab Results: Laboratory Results - last 24 hr 07/19/18 06:21 INR (Anticoag Therapy) 3.19 H Exam: GENERAL: No acute distress. alert and appropriate LUNGS: Clear to auscultation bilaterally HEART: regular rate and rhythm ABDOMEN: + bowel sounds, soft, non-tender and non-distended. EXTREMITIES: Sutures out. Trace edema NEUROLOGIC: Sensation intact bLE. Motor strength 5/5 bLE Assessment/Plan: 1. Left total knee replacement: WBAT. PT/OT. CPM. f/u with Dr. Lynne. 2. GERD: Prilosec 3. Hypothyroidism: Synthroid 4. DVT Prophylaxis: Coumadin to 1 mg as INR slightly high. Check INR after d/c 5. Advanced Directives: Full Code 6. Hyponatremia: resolved 7. Constipation: Lactulose PRN. Miralax scheduled. 8. Spasms: methocarbamol prn. 9. Advanced Directives: full code 07/19/18 12:08
[2018-07-19] MEDS ORDERED: Warfarin TAB(*) 1 MG PO SCH (17:00)
== END 2018-07-19 13:10 | disposition home health service (06) | DRG 560 ==
LOC: PMRU 10:21
PROVIDERS: ADMIT Physical Medicine & Rehabilitation; ATTEND Physical Medicine & Rehabilitation
PROC: F07Z5ZZ Bed Mobility Treatment (ICD-10-PCS; principal; 2018-07-07)
PROC: F07Z9ZZ Gait Training/Functional Ambulation Treatment (ICD-10-PCS; 2018-07-07)
PROC: F07Z8ZZ Transfer Training Treatment (ICD-10-PCS; 2018-07-07)
PROC: F08Z0ZZ Bathing/Showering Techniques Treatment (ICD-10-PCS; 2018-07-07)
PROC: F08Z1ZZ Dressing Techniques Treatment (ICD-10-PCS; 2018-07-07)
PROC: F08Z3ZZ Feeding/Eating Treatment (ICD-10-PCS; 2018-07-07)
DX: Z47.1 Aftercare following joint replacement surgery (principal); E87.1 Hypo-osmolality and hyponatremia; Z96.652 Presence of left artificial knee joint; E03.9 Hypothyroidism, unspecified; Z96.651 Presence of right artificial knee joint; I25.10 Atherosclerotic heart disease of native coronary artery without angina pectoris; I11.9 Hypertensive heart disease without heart failure; K21.9 Gastro-esophageal reflux disease without esophagitis; K59.00 Constipation, unspecified; R25.2 Cramp and spasm; Z79.899 Other long term (current) drug therapy
CPT/HCPCS: 36415; 80048; 80053; 85025; 85610; A9270-GY